=== PATIENT | female | born 1945 | race Caucasian/White ===

== ENCOUNTER 2021-05-25 10:00 | Emergency (ER) | payer MEDICARE, OTHER, SELFPAY ==
[2021-05-25] VITALS (25 sets, daily range): BP systolic 110–164; BP diastolic 46–96; PULSE 60–96; RESP 11–31; TEMP 36.5; O2SAT 90–98
--- NOTE | 2021-05-25 10:10 | ED.GENADUL_ITS ---
Discharge Plan Disposition Patient Disposition: HOME Condition: Stable Discharge Details Clinical Impression: Abdominal pain, Pyelonephritis Primary Care Provider: Unknown,Unknown ED Provider: Earl Rea Home Meds and New Rx's Prescriptions: New levofloxacin 750 mg tablet 750 mg PO DAILY Qty: 5 RF: 0 Continued trandolapril 4 mg Tablet 4 mg PO DAILY RF: 0 atorvastatin 10 mg Tablet 10 mg PO DAILY RF: 0 isosorbide mononitrate 30 mg Tablet Extended Release 24 Hr 30 mg PO DAILY RF: 0 metoprolol succinate 25 mg Tablet Extended Release 24 Hr 25 mg PO DAILY RF: 0 metformin 500 mg Tablet Extended Release 24hr 500 mg PO BID RF: 0 hydrochlorothiazide 12.5 mg Tablet 12.5 mg PO DAILY RF: 0 Discharge Instructions Instructions: Urinary Tract Infection in Women (ED) Additional Instructions: your blood work showed a mild low magnesium otherwise was unremarkable your cat scan showed you likely have a kidney infection and your urine also was consistent with this. There is a chance this could have been a small kidney stone that passed as well follow up with your primary care provider within 1 week if you feel more ill, have severe worsening pain or persistent vomit return to the emergency department Medical Decision Making 76 yo female with hx of dm, htn, hld, denies prior abdominal surgeries, comes in with 3 hours of right sided abdominal pain with dry heaving. She states the pain started shortly after she started to dry heave. She went to bed feeling well then woke up with the symptoms. She rates the pain at 8/10 and is on the right side. She has tenderness in the right upper and lower abdomen. No left sided pain. No chest pain, dyspnea or fevers or cough. Given her location of pain concern for cholecystitis vs appendicitis, will obtain labs to evaluate for pancreatitis, hepatitis and ct to further evaluate pt now asymptomatic and lab work unremarkable other than UA which shows likely uti. Her CT does show mild perinephric stranding around right kidney, which could be from pyelo but given acute onset pain she had earlier suspect she may have had a small stone. She has no abodminal tenderness on exam anymore, doubt cholecystitis and has negative jefferson's sign. She feels well enough for outpatient tx of her pyelo and will start levofloxacin. Advised to f/u with pcp and return precautions given Differential Diagnosis Differential Diagnosis: appendicitis, kidney stone, cholecystitis Imaging Data Radiologic Study: Attestation: I personally reviewed and interpreted this imaging study as follows: Imaging: CT Scan Radiologist's impression: IMPRESSION: 1. There is mild asymmetric perinephric stranding of the right renal kidney. Correlate with urinalysis to exclude urinary tract infection. 2. 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 3. Mesenteric vessels are patent without significant stenosis or occlusion. 4. Colonic diverticulosis without acute inflammation. 5. Small fat containing umbilical hernia. 6. Cholelithiasis without definite acute inflammation. Lab Data Lab results reviewed: Yes I reviewed the patient's lab results. HPI General Mode of arrival: wheelchair . Date/Time Provider Initiated Documentation: 05/25/21 10:01 . Limitations to Documentation: no limitations . Information obtained by: patient . History of Present Illness 76 year old F presents to the emergency department with the chief complaint of abdominal pain, described as severe, Quality is described as sharp, and is localized to the abdomen. Patient reports no radiation. and it has been constant. No relieving factors improve symptom(s), No exacerbating factors reported . Patient did receive the following treatments prior to arrival, none Related Data Home Medications Medication Instructions Recorded Confirmed atorvastatin 10 mg PO DAILY 05/25/21 05/25/21 hydrochlorothiazide 12.5 mg PO DAILY 05/25/21 05/25/21 isosorbide mononitrate 30 mg PO DAILY 05/25/21 05/25/21 levofloxacin 750 mg PO DAILY #5 tab 05/25/21 metformin 500 mg PO BID 05/25/21 05/25/21 metoprolol succinate 25 mg PO DAILY 05/25/21 05/25/21 trandolapril 4 mg PO DAILY 05/25/21 05/25/21 Previous Rx's Medication Instructions Recorded levofloxacin 750 mg PO DAILY #5 tab 05/25/21 Allergies Allergy/AdvReac Type Severity Reaction Status Date / Time bupropion [From Zyban] Allergy Unverified 05/25/21 11:09 clindamycin Allergy Unverified 05/25/21 11:08 gemfibrozil Allergy Unverified 05/25/21 10:12 niacin Allergy Unverified 05/25/21 11:08 [From Niaspan Extended-Release] Penicillins Allergy Unverified 05/25/21 10:10 General Stated Complaint: Abd Prob JESSI: 3 Review of Systems All systems reviewed & are unremarkable except as noted in HPI and below Constitutional Constitutional: Denies chills, Denies fever(s) and Denies weakness Cardiovascular Cardiovascular: Denies chest pain and Denies dyspnea Respiratory Respiratory: Denies cough and Denies dyspnea Genitourinary Genitourinary: Denies dysuria Musculoskeletal Musculoskeletal: Denies joint swelling Integumentary/Breasts Skin/Breast: Denies rash Neurologic Neurologic: Denies weakness [facility] Social History Smoking/Tobacco Use Status: Current every day Tobacco Type: cigarettes Smoking risk assessment performed?: Yes Alcohol Intake: never Substance use type: does not use Exam Const General: no acute distress Orientation: alert HENMT Head: normal to inspection Ears: external ears normal General nose exam: external nose normal Mouth: moist mucous membranes Eyes General: appearance normal, both eyes and all related structures Neck Neck: normal visual inspection Resp Effort & Inspection: normal respiratory effort and able to speak in complete sentences Cardio Rate: regular rate GI Palpation: soft and tender Skin General skin exam: no rashes or lesions noted Neuro General: patient alert and patient oriented x3 Extrem General: normal to inspection Psych Mental Status: mental status grossly normal Course Vital Signs Vital signs: Vital Signs Temperature 36.5 C 05/25/21 10:06 Pulse 67 05/25/21 10:06 Respiratory Rate 16 05/25/21 10:06 Blood Pressure 164/64 H 05/25/21 10:06 Pulse Oximetry 94 05/25/21 10:06 Temperature 36.5 C 05/25/21 10:06 Temperature Source Skin 05/25/21 10:06 Pulse 67 05/25/21 10:06 Respiratory Rate 16 05/25/21 10:06 Respiratory Effort Non-Labored 05/25/21 10:06 Blood Pressure 164/64 H 05/25/21 10:06 Blood Pressure Position Supine 05/25/21 10:06 Pulse Oximetry 94 05/25/21 10:06 Oxygen Delivery Method Room Air 05/25/21 10:06 Oxygen Flow Rate 0 05/25/21 10:06 Pain Level 8 05/25/21 10:06
[2021-05-25 10:27] LABS: Abs Immature Grans 0.04 10^3/uL (0.0-0.06); Absolute Lymphocyte Count 1.75 10^3/uL (1.2-3.4); Absolute Monocyte Count 0.51 10^3/uL (0.1-0.8); Absolute Neutrophil Count 10.67 10^3/uL (1.2-6.7); Basophils % 0.4; Eosinophils % 3.1; HCT 41.7 % (36.0-46.0); HGB 13.6 g/dL (11.2-15.7); Immature Grans % 0.3; Lactate 1.2 mmol/L (0.6-1.4); MCH 30.3 pg (27.0-33.0); MCHC 32.6 % (32.0-36.0); MCV 92.9 fL (80-95); MPV 10.2 fL (8.0-11.0); Monocytes % 3.8; Neutrophils % 79.4; Nucleated RBC 0 %; Platelet Count 216 10^3/uL (130-400); RBC 4.49 10^6/uL (3.93-5.22); RDW-SD 44.2 fL; WBC 13.44 10^3/uL (4.4-10.8)
[2021-05-25 10:31] LABS: Absolute Basophil Count 0.05 10^3/uL (0.0-0.2); Absolute Eosinophil Count 0.42 10^3/uL (0.0-0.7)
[2021-05-25 10:44] LABS: INR 1.1 (0.9-1.1); PTT Activated 24.2 sec (21.0-27.5)
[2021-05-25] MEDS: fentaNYL 100 MCG/2 ML VIAL 50 MCG IVP (10:50)
[2021-05-25 10:57] LABS: ALT 16 U/L (14-59); AST 18 U/L (15-37); Albumin 3.7 g/dL (3.4-5.0); Alkaline Phosphatase 59 U/L (46-116); Anion Gap 6.5 mmol/L (3-11); BUN 15 mg/dL (7-18); Bilirubin, Direct 0.1 mg/dL (0.0-0.2); Bilirubin, Total 0.5 mg/dL (0.2-1.0); CO2 30.5 mmol/L (21.0-32.0); CREATININE 0.9 mg/dL (0.55-1.02); Calcium 8.6 mg/dL (8.5-10.1); Chloride 105 mmol/L (98-107); Glucose 96 mg/dL (74-106); Lipase 163 U/L (73-393); Magnesium 1.6 mg/dL (1.8-2.4); Potassium 3.6 mmol/L (3.5-5.1); Sodium 142 mmol/L (136-145); Total Protein 7.7 g/dL (6.4-8.2)
[2021-05-25] MEDS: MAGNESIUM SULFATE 2 GM/50 ML BAG IVPB (11:19)
[2021-05-25] MEDS: Omnipaque 350 MG/ML 100 ML BTL IJ (12:07)
[2021-05-25] MEDS: Normal Saline - Diluent 50 ML VIAL IV (12:08)
[2021-05-25] MEDS: Normal Saline Flush 10 ML SYR IVP (12:08)
--- NOTE | 2021-05-25 12:10 | DI.CT_ITS ---
Exam(s) CT ABDOMEN PELVIS CTA EXAM: CT ABDOMEN PELVIS CTA CLINICAL HISTORY: ?mesenteric ischemia. TECHNIQUE: Imaging Protocol: Axial CT angiography was performed with multi-slice acquisition and m ulti-planar and/or 3D reconstructions. CONTRAST MATERIAL: Intravenous: Omnipaque 350 Contrast volume:100 mL Oral: No COMPARISON: No exams were available for comparison FINDINGS: ABDOMEN AND PELVIS: Abdomen: Celiac axis/mesenteric arteries: No evidence of occlusion or significant stenosis. Renal Arteries: No evidence of occlusion or significant stenosis. There is a single renal artery perf using each kidney. Aorta: No evidence of occlusion or significant stenosis. No aneurysm or dissection. Atherosclerosis. Pelvis: Iliac Arteries: No evidence of occlusion or significant stenosis. Atherosclerosis. Common Femoral Arteries: No evidence of occlusion or significant stenosis. Atherosclerosis. ABDOMEN: Lung bases: Dependent atelectasis. Liver: Normal density. There are simple hepatic cysts. No follow-up is recommended. Portal, Superior Mesenteric, and Splenic Veins: Unremarkable. Gallbladder and Biliary Tract: Cholelithiasis. No biliary ductal dilatation. Pancreas: Normal density, no abnormal calcifications or inflammatory process. Spleen: Normal. Adrenals: No masses seen. Kidneys: Normal size, contour and axis. No radiodense stones or obstructive uropathy. 8 mm round hypo density in the midpole of the left kidney likely reflecting a cyst. No follow-up is recommended. Th ere is mild enhancement of the wall of the right renal collecting system. No hydronephrosis is seen. There is mild stranding around the right of renal pelvis, proximal ureter and right perinephric spa ce. Bowel: No obstruction or bowel wall thickening. No evidence of appendicitis. Sigmoid diverticulosis, but no evidence of acute diverticulitis. There is a large amount of stool throughout the colon sugg esting constipation. Peritoneal Cavity: No ascites, collection or mesenteric inflammatory response. No free air. Lymph Nodes: Within normal limits. Bones: Within normal limits. Soft Tissues: There is a small fat containing umbilical hernia. PELVIS: Bladder: Symmetric distention, no gross wall thickening. Reproductive Organs: Unremarkable as visualized. Lymph Nodes: Within normal limits. Bones: Within normal limits. IMPRESSION: 1. Mild enhancement of the wall of the right renal collecting system with mild perinephric and periur eteral stranding. A urinary tract infection should be considered. There is no evidence of nephrolit hiasis or hydronephrosis. 2. Mesenteric vessels are patent. No evidence of stenosis or occlusion. 3. Cholelithiasis without CT evidence of acute cholecystitis. RADIATION DOSE DELIVERED: 1,288.6mGy.cm Total DLP DATA REPOSITORY: All CT scans at this facility are submitted to the National Radiology Data Registry (NRDR) Dose Index Registry (DIR) with the [employer] (ACR). RADIATION OPTIMIZATION: All CT scans at this facility use at least one of these dose optimization te chniques: automated exposure control; mA and/or kV adjustment per patient size (includes targeted exa ms where dose is matched to clinical indication); or iterative reconstruction.
[2021-05-25 12:27] LABS: Bilirubin Negative (Negative); Blood Large (Negative); Clarity Sl Cloudy (Clear); Glucose Negative (Negative); Ketones Negative (Negative); Leukocyte Esterase Negative (Negative); Nitrite Negative (Negative); Urobilinogen 0.2 EU/dL (Up TO 0.2); pH 5.5 (5-8)
[2021-05-25 12:34] LABS: Bacteria Many HPF (Negative); C & S Indicated? Yes; Casts Negative LPF (Negative); Crystals Negative HPF (Negative); Epithelial Cells Few HPF (Negative); Mucus Trace (Negative); RBC >50 HPF (0-2)
--- NOTE | 2021-05-25 12:50 | DI.VRAD_ITS ---
PROCEDURE INFORMATION: Exam: CTA Abdomen and Pelvis With Contrast Exam date and time: 05/25/2021 10:35 AM Age: 76 years old Clinical indication: Other: ? Mesenteric ischemia TECHNIQUE: Imaging protocol: Computed tomographic angiography of the abdomen and pelvis with contrast material. 3D rendering (Not supervised by radiologist): MIP and/or 3D reconstructed images were created by the technologist. Contrast material: OMNIPAQUE 350; Contrast volume: 100 ml; Contrast route: INTRAVENOUS (IV); COMPARISON: No relevant prior studies available. FINDINGS: Aorta: There are calcified and noncalcified plaque in the abdominal aorta. There is a 2.5 cm abdominal aortic ectasia in the infrarenal abdominal aorta . Celiac trunk and mesenteric arteries: No occlusion or significant stenosis. 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 Renal arteries: No occlusion or significant stenosis. Right iliac arteries: No occlusion or significant stenosis. Left iliac arteries: No occlusion or significant stenosis. Liver: There is a 1.8 cm hypodensity in the right lobe of the liver, probably a cyst. There is a 0.8 cm hypodensity in the posterior segment 4 of the right lobe of the liver, probably a cyst. Gallbladder and bile ducts: There is cholelithiasis without acute inflammation. There is a focal gallbladder wall thickening in the fundal wall, possibly due to adenomyomatosis (image 26 series 4).. Pancreas: Unremarkable. No mass. No ductal dilation. Spleen: Unremarkable. No splenomegaly. Adrenal glands: There is a 1.5 cm nodule in the left adrenal gland, probably adenoma or hyperplastic nodule. Kidneys and ureters: There is mild right perinephric fat stranding. There is mild urothelial enhancement of the right renal pelvis, probably reactive. No hydronephrosis or nephrolithiasis. Stomach and bowel: [id number] stool volume in the colon. Mild scattered foci of diverticulosis of large bowel without acute inflammation. Appendix: No evidence of appendicitis. Intraperitoneal space: Unremarkable. No free air. No significant fluid collection. Lymph nodes: Unremarkable. No enlarged lymph nodes. Urinary bladder: Unremarkable. No mass. Reproductive: Unremarkable as visualized. Bones/joints: There is grade 1 anterolisthesis of L4 over L5. Soft tissues: There is a small fat containing umbilical hernia. IMPRESSION: 1. There is mild asymmetric perinephric stranding of the right renal kidney. Correlate with urinalysis to exclude urinary tract infection. 2. 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 3. Mesenteric vessels are patent without significant stenosis or occlusion. 4. Colonic diverticulosis without acute inflammation. 5. Small fat containing umbilical hernia. 6. Cholelithiasis without definite acute inflammation. Dictated and Authenticated by: Kings Keith MD. Ordering:HARDIK Elliott MD
[2021-05-25] MEDS: levoFLOXacin 500 MG, levoFLOXacin 250 MG 750 MG PO (13:04)
== END 2021-05-25 13:53 | disposition home or self-care (01) ==
PROVIDERS: Emergency Provider Emergency Medicine
DX: N10 Acute pyelonephritis (principal); B96.20 Unspecified Escherichia coli [E. coli] as the cause of diseases classified elsewhere; R10.11 Right upper quadrant pain; R10.31 Right lower quadrant pain; E83.42 Hypomagnesemia
CPT/HCPCS: 36415; 80053; 83690; 87077; 96365; 96375; 99285; 74174; 81003; 81015; 82247; 82248; 83605; 83735; 85025; 85610; 85730; 87086; 87186; 99284; J3010; J3490

== ENCOUNTER 2024-08-09 15:54 | Inpatient (IN) | payer MEDICARE, OTHER, SELFPAY ==
[2024-08-09] VITALS (47 sets, daily range): BP systolic 68–145; BP diastolic 26–100; PULSE 61–127; RESP 10–38; TEMP 35.8–38.2; O2SAT 91–100
--- NOTE | 2024-08-09 16:00 | DI.CT_ITS ---
Exam(s) CT ABDOMEN PELVIS W EXAM: CT ABDOMEN PELVIS W CLINICAL HISTORY: Vomiting, diarrhea, lower pelvic pain. TECHNIQUE: Imaging Protocol: Axial computed tomography images with coronal and sagittal reformatted images were created and reviewed CONTRAST MATERIAL: Intravenous: Omnipaque-350 75cc Oral: None COMPARISON: CT CT ABDOMEN PELVIS CTA from 05/25/2021 FINDINGS: VISUALIZED LUNG BASES: There are mild benign-appearing increased markings in the anterior basal segme nt of the right lower lobe at the lung base level. There are no pleural effusions.. ABDOMEN: Images of the abdomen are somewhat degraded by respiratory motion artifact. However, there appears t o be a very small amount of ascitic fluid around the superior aspect of the right hepatic lobe. GE j unction is blurred from respiratory motion artifact. LIVER: There are 2 stable right hepatic lobe cysts which appear unchanged from 2020. No new focal hep atic lesions nor dilated intrahepatic ducts. GALLBLADDER/BILIARY: There is cholelithiasis again noted two calcified gallstones measuring approxima tely 1 cm each are noted in the gallbladder lumen. Gallbladder is mildly distended but unchanged fro m 2020. Difficult to assess for gallbladder wall edema and mild pericholecystic fluid because of the amount of respiratory motion artifact here. There is no obvious dilatation of the CBD. PANCREAS: No evidence of pancreatic mass nor dilatation of the pancreatic duct. SPLEEN: Spleen is not enlarged. No obvious intrasplenic lesions. Splenic and portal veins are paten t. ADRENALS: Slight thickening of the medial limb of the left adrenal gland noted. No other adrenal fin dings. KIDNEYS:There is a benign cyst in the inferior pole of the right kidney noted which measures 1.5 x 1. 4 cm, slightly larger than 202 but nevertheless benign and not requiring further workup. Smaller cy st is also noted in the midpole level of the opposite-left kidney measuring 1 cm. These bilateral re nal cysts do not require further imaging workup. There are no solid renal masses. There are no radi opaque calculi in the kidneys nor hydronephrosis.. ABDOMINAL AORTA: Abdominal aorta is atherosclerotic and there is a fusiform infrarenal [facility] abdominal aortic aneurysm which exhibits maximum diameter of only 2.5 cm. The common iliac arteri es are calcified but not enlarged. Superior mesenteric artery is patent. 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 LYMPH NODES:There are multiple small sub cm lymph nodes in the retroperitoneum and para-aortic region above the level the renal arteries. There is no adenopathy around the aortic bifurcation nor along the iliac chains and there is no inguinal adenopathy. ABDOMINAL WALL: No evidence of significant anterior abdominal wall nor inguinal hernia. GI: There is a small fat only containing paraumbilical hernia. No other anterior abdominal hernias. No significant inguinal hernias. The stomach is not distended duodenum not distended. There are fluid filled and slightly prominent s mall bowel loops in the pelvis above the urinary bladder, these exhibiting diameter of 2.4 cm. There is also fluid in the right-side of the colon and terminal ileum. There is also fluid throughout the transverse colon; less so in the descending colon where there appears to be a mild I ileus pattern w hich is probably exaggerated by under distension. There are few sigmoid diverticuli but without evid ence of obvious acute diverticulitis. PELVIS: GI: No evidence of appendicitis.No evidence of sigmoid diverticulitis. LYMPH NODES: See above REPRODUCTIVE: Uterus and adnexal regions appear age-appropriate. No free fluid in the pelvis. URINARY BLADDER: Collapsed and difficult to evaluate. No obvious radiopaque calculi in the collapsed urinary bladder lumen. The pelvic ureters are not dilated. OSSEOUS: No fractures and no significant osseous lesions. There is mild degenerative anterolisthesis of L4 upon L5. Multilevel spinal canal stenosis. IMPRESSION: 1. Examination interpretation is somewhat limited by motion artifact 2. Calcified gallstones are noted. The amount of respiratory motion here prevents adequate visualiza tion of the gallbladder wall to determine if there is gallbladder wall edema. The CBD does not appea r dilated. 3. 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 Common iliac arteries are also calcified but not enlarged. 4. There are fluid-filled small and large bowel loops probably diarrhea state and there also appears to be a colitis type pattern involving the sigmoid in left side of the colon. Multiple small bowel l oops are slightly dilated although measuring less than 3 cm. These also contain fluid content. 5. No evidence of appendicitis nor diverticulitis. 6. There appears to be significant atherosclerotic narrowing at the origin the celiac artery under i nterested prior images of 2020. The superior mesenteric artery is patent and without stenosis. Ther e are no large meandering mesenteric vessels. Findings discussed by phone with ER physician 08/09/2024 at 5:30 p.m. RADIATION DOSE DELIVERED: 678.68mGy.cm Total DLP DATA REPOSITORY: All CT scans at this facility are submitted to the National Radiology Data Registry (NRDR) Dose Index Registry (DIR) with the [employer] (ACR). RADIATION OPTIMIZATION: All CT scans at this facility use at least one of these dose optimization te chniques: automated exposure control; mA and/or kV adjustment per patient size (includes targeted exa ms where dose is matched to clinical indication); or iterative reconstruction.
--- NOTE | 2024-08-09 16:25 | ED.GENADUL_ITS ---
Discharge Plan Disposition Patient Disposition: Admit to [facility] Condition: Improving Discharge Details Chief Complaint: GenMedical Clinical Impression: C. difficile colitis, Sepsis, Elevated LDH Primary Care Provider: Unknown,Unknown ED Provider: Filiberto Henning Home Meds and New Rx's Prescriptions: No Action trandolapril 4 mg Tablet 4 mg PO DAILY atorvastatin 10 mg Tablet 10 mg PO DAILY isosorbide mononitrate 30 mg Tablet Extended Release 24 Hr 30 mg PO DAILY metoprolol succinate 25 mg Tablet Extended Release 24 Hr 25 mg PO DAILY hydrochlorothiazide 12.5 mg Tablet 12.5 mg PO DAILY HPI General Date/Time Provider Initiated Documentation: 08/09/24 15:55 . HPI Narrative: This is an 87-year-old female with a past medical history of colitis, high cholesterol, diabetes, hypertension, tobacco use, dementia, who is DNR/DNI, who presents today for nausea vomiting diarrhea and abdominal pain. Daughter is at bedside. Per family the patient had an explosive episode of nausea vomiting and diarrhea an hour or 2 ago. There was no blood in this. She then began complaining of severe lower abdominal pain. She was subsequently brought to the ER. Family states that she is confused and out of it compared to normal. Normally she is quite spunky. They deny any other sick contacts. No other complaints at this time. Related Data Home Medications ?Medication ?Instructions ?Recorded ?Confirmed atorvastatin 10 mg tablet 10 mg PO DAILY 05/25/21 08/09/24 hydrochlorothiazide 12.5 mg tablet 12.5 mg PO DAILY 05/25/21 08/09/24 isosorbide mononitrate 30 mg 30 mg PO DAILY 05/25/21 08/09/24 tablet,extended release 24 hr metoprolol succinate 25 mg 25 mg PO DAILY 05/25/21 08/09/24 tablet,extended release 24 hr trandolapril 4 mg tablet 4 mg PO DAILY 05/25/21 08/09/24 Allergies Allergy/AdvReac Type Severity Reaction Status Date / Time tramadol Allergy Mild Unknown Unverified 08/09/24 18:10 bupropion (From Zyban) Allergy Unknown Unverified 08/09/24 18:10 clindamycin Allergy Unknown Unverified 08/09/24 18:10 gemfibrozil Allergy Unknown Unverified 08/09/24 18:10 niacin (From Niaspan Allergy Unknown Unverified 08/09/24 18:10 Extended-Release) Penicillins Allergy Unknown Unverified 08/09/24 18:10 General Stated Complaint: GenMedical JESSI: 3 Exam Narrative Exam Narrative: 1.Const: Well-nourished, Well-developed, appearing stated age 2.Eyes: PERRL, no conjunctival injection, and symmetrical lids. 3.ENT: Atraumatic external nose and ears. Moist MM. Neck: Symmetric, trachea midline, No thyromegaly. 4.CVS: +S1/S2, Peripheral pulses 2+ and equal in all extremities. Brisk capillary refill in all extremities. 5.RESP: Unlabored respiratory effort. Clear to auscultation bilaterally. No wheezes rales or rhonchi 6.GI: Soft, nondistended, no guarding or rebound, mild tenderness in the lower abdomen. No pulsatile mass. 7.MSK: Normocephalic/Atraumatic, Extremities w/o deformity or ttp No cyanosis or clubbing, Normal movement of all extremities 8.Skin: Warm, Dry. No rashes or lesions. 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 Sensation grossly intact, no focal neurologic deficits. 10.Psych: (AAO) x0. Pleasant but in pain Course Vital Signs Vital signs: Vital Signs Temperature 35.8 C L 08/09/24 15:58 Pulse 73 08/09/24 15:58 Respiratory Rate 21 08/09/24 15:58 Blood Pressure 98/71 L 08/09/24 15:58 Pulse Oximetry 95 08/09/24 15:58 Temperature 35.8 C L 08/09/24 15:58 Temperature Source Tympanic 08/09/24 15:58 Pulse 73 08/09/24 15:58 Respiratory Rate 21 08/09/24 15:58 Blood Pressure 98/71 L 08/09/24 15:58 Blood Pressure Position Supine 08/09/24 15:58 Pulse Oximetry 95 08/09/24 15:58 Oxygen Delivery Method Room Air 08/09/24 15:58 Oxygen Flow Rate 0 08/09/24 15:58 Lab/Test Results Lab/Test Results: 08/09/24 16:10 Blood Blood Culture - Pending 08/09/24 16:10 Blood Blood Culture - Pending Medical Decision Making This is an 87-year-old female with a past medical history of colitis, high cholesterol, diabetes, hypertension, tobacco use, dementia, who is DNR/DNI, who presents today for nausea vomiting diarrhea and abdominal pain. Daughter is at bedside. Per family the patient had an explosive episode of nausea vomiting and diarrhea an hour or 2 ago. There was no blood in this. She then began complaining of severe lower abdominal pain. She was subsequently brought to the ER. Family states that she is confused and out of it compared to normal. Normally she is quite spunky. They deny any other sick contacts. No other complaints at this time. Exam demonstrates a small and somewhat frail elderly female, blood pressure is mildly low in the 90s systolic. Mild abdominal pain in the lower abdomen, no guarding or rebound though. Somewhat dry mucous membranes. No pulsatile mass in the abdomen, intact distal pulses. Differential is broad but includes colitis, obstruction, dissection or AAA. Pyelonephritis or UTI is of concern. 6:42 PM Laboratory workup has returned, notably elevated white count at 21.9, initial lactate was very high at 4.1, notable left shift without bandemia. Electrolytes relatively stable, creatinine 1.6, GFR 32, lipase normal. Patient was rehydrated secondary to a notably elevated lactate. Pain completely resolved after 4 mg of morphine. After fluids and pain medication patient had a notable clinical change, heart rate stabilized, blood pressure normalized, she was interactive and talkative. CT imaging has returned and shows evidence of colitis. There is a small aortic aneurysm but it is within the limits of normal. There is no evidence of dissection or aneurysmal rupture. Patient was started on Cipro and Flagyl. Repeat lactate was drawn and is down to 2.6. Patient's stool studies then returned and were positive for C. difficile. She was given 500 mg of oral vancomycin. Because of the patient's age, comorbidities and symptomatology I do feel admission is indicated. Patient will be admitted for further management. Discussed the case with hospitalist Dr. Gallardo, he agrees with the assessment and plan. I have extensively reviewed the treatment plan with the patient. I have addressed all patient concerns at this time. I have also discussed the plan with the admitting physician and they agree with the current assessment and plan and have agreed to assume responsibility for the patient. All parties demonstrate verbal understanding and agreement with our assessment and plan at this time. The documentation in this chart was dictated using Estorian dictation software. Please excuse any dictation errors. FINDINGS: VISUALIZED LUNG BASES: There are mild benign-appearing increased markings in the anterior basal segment of the right lower lobe at the lung base level. There are no pleural effusions.. ABDOMEN: Images of the abdomen are somewhat degraded by respiratory motion artifact. However, there appears to be a very small amount of ascitic fluid around the superior aspect of the right hepatic lobe. GE junction is blurred from respiratory motion artifact. LIVER: There are 2 stable right hepatic lobe cysts which appear unchanged from 2021. No new focal hepatic lesions nor dilated intrahepatic ducts. GALLBLADDER/BILIARY: There is cholelithiasis again noted two calcified gallstones measuring approximately 1 cm each are noted in the gallbladder lumen. Gallbladder is mildly distended but unchanged from 2021. Difficult to assess for gallbladder wall edema and mild pericholecystic fluid because of the amount of respiratory motion artifact here. There is no obvious dilatation of the CBD. PANCREAS: No evidence of pancreatic mass nor dilatation of the pancreatic duct. SPLEEN: Spleen is not enlarged. No obvious intrasplenic lesions. Splenic and portal veins are patent. ADRENALS: Slight thickening of the medial limb of the left adrenal gland noted. No other adrenal findings. KIDNEYS:There is a benign cyst in the inferior pole of the right kidney noted which measures 1.5 x 1.4 cm, slightly larger than 2021 but nevertheless benign and not requiring further workup. Smaller cyst is also noted in the midpole level of the opposite-left kidney measuring 1 cm. These bilateral renal cysts do not require further imaging workup. There are no solid renal masses. There are no radiopaque calculi in the kidneys nor hydronephrosis.. ABDOMINAL AORTA: Abdominal aorta is atherosclerotic and there is a fusiform infrarenal our glass shaped abdominal aortic aneurysm which exhibits maximum diameter of only 2.5 cm. The common iliac arteries are calcified but not enlarged. Superior mesenteric artery is patent. 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 LYMPH NODES:There are multiple small sub cm lymph nodes in the retroperitoneum and para-aortic region above the level the renal arteries. There is no adenopathy around the aortic bifurcation nor along the iliac chains and there is no inguinal adenopathy. ABDOMINAL WALL: No evidence of significant anterior abdominal wall nor inguinal hernia. GI: There is a small fat only containing paraumbilical hernia. No other anterior abdominal hernias. No significant inguinal hernias. The stomach is not distended duodenum not distended. There are fluid filled and slightly prominent small bowel loops in the pelvis above the urinary bladder, these exhibiting diameter of 2.4 cm. There is also fluid in the right-side of the colon and terminal ileum. There is also fluid throughout the transverse colon; less so in the descending colon where there appears to be a mild I ileus pattern which is probably exaggerated by under distension. There are few sigmoid diverticuli but without evidence of obvious acute diverticulitis. PELVIS: GI: No evidence of appendicitis.No evidence of sigmoid diverticulitis. LYMPH NODES: See above REPRODUCTIVE: Uterus and adnexal regions appear age-appropriate. No free fluid in the pelvis. URINARY BLADDER: Collapsed and difficult to evaluate. No obvious radiopaque calculi in the collapsed urinary bladder lumen. The pelvic ureters are not dilated. OSSEOUS: No fractures and no significant osseous lesions. There is mild degenerative anterolisthesis of L4 upon L5. Multilevel spinal canal stenosis. IMPRESSION: 1. Examination interpretation is somewhat limited by motion artifact 2. Calcified gallstones are noted. The amount of respiratory motion here prevents adequate visualization of the gallbladder wall to determine if there is gallbladder wall edema. The CBD does not appear dilated. 3. 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 Common iliac arteries are also calcified but not enlarged. 4. There are fluid-filled small and large bowel loops probably diarrhea state and there also appears to be a colitis type pattern involving the sigmoid in left side of the colon. Multiple small bowel loops are slightly dilated although measuring less than 3 cm. These also contain fluid content. 5. No evidence of appendicitis nor diverticulitis. 6. There appears to be significant atherosclerotic narrowing at the origin the celiac artery under interested prior images of 2020. The superior mesenteric artery is patent and without stenosis. There are no large meandering mesenteric vessels. Findings discussed by phone with ER physician 08/09/2024 at 5:30 p.m. Quality:SDOH Health Related Social Needs: No Data to Display PFSH All Active Problems (Updated 08/09/24 @ 18:47 by Filiberto Henning DO) Elevated LDH (Acute) Sepsis (Acute) C. difficile colitis (Acute) Dementia (Chronic) ASVD (arteriosclerotic vascular disease) (Acute) CAD (coronary artery disease), [place] coronary artery (Chronic) HTN (hypertension) (Chronic) C. difficile colitis (Acute) Pyelonephritis (Acute) Abdominal pain (Acute) Social History Smoking/Tobacco Use Status: Current every day Tobacco Type: cigarettes Smoking risk assessment performed?: Yes Alcohol Intake: never Drug use: Never Substance use type: does not use Do you feel safe at home: Yes Do you feel safe in your relationship?: Yes
--- NOTE | 2024-08-09 16:30 | RT.EKG_ITS ---
APPROVED REPORT Exam: Resting ECG Reason for Exam: rapid heart rate Patient Location: E HR:63 bpm ECG Measurements Heart Rate 63 AXIS WV 158 P 59 QRSd 85 QRS 48 QT 439 T -9 QTc 449 Conclusion Sinus rhythm...normal P axis, V-rate 60- 99 Ventricular premature complex...V complex w/ short R-R interval I have reviewed and interpreted ECG and agree with software generated interpretation.
[2024-08-09] MEDS: Ondansetron 4 MG/2 ML VIAL IVP (16:35)
[2024-08-09] MEDS: Lactated Ringers 1,000 ML 1000 ML IV (16:35)
[2024-08-09] MEDS: MORPHine 4 MG/ML SYR IVP (16:36)
[2024-08-09 16:39] LABS: Abs Immature Grans 0.11 10^3/uL (0.0-0.06); Absolute Basophil Count 0.07 10^3/uL (0.0-0.2); Absolute Eosinophil Count 0.13 10^3/uL (0.0-0.7); Absolute Lymphocyte Count 2.13 10^3/uL (1.2-3.4); Absolute Monocyte Count 1.36 10^3/uL (0.1-0.8); Absolute Neutrophil Count 18.14 10^3/uL (1.2-6.7); Basophils % 0.3 %; Eosinophils % 0.6 %; HCT 47.6 % (36.0-46.0); HGB 15.6 g/dL (11.2-15.7); Immature Grans % 0.5 %; Lymphocytes % 9.7 %; MCH 30.5 pg (27.0-33.0); MCHC 32.8 % (32.0-36.0); MCV 93 fL (80-95); MPV 9.9 fL (8.0-11.0); Monocytes % 6.2 %; Neutrophils % 82.7 %; Platelet Count 254 10^3/uL (130-400); RBC 5.12 10^6/uL (3.93-5.22); RDW 13.2 % (11.7-14.6); RDW-SD 45.4 fL; WBC 21.93 10^3/uL (4.4-10.8)
[2024-08-09 16:41] LABS: Lactate 4.1 mmol/L (0.6-1.4)
[2024-08-09] MEDS: Omnipaque 350 MG/ML 100 ML BTL 75 ML IJ (16:43)
[2024-08-09] MEDS: Normal Saline - Diluent 50 ML VIAL IJ (16:45)
[2024-08-09 17:02] LABS: ALT 15 U/L (14-59); AST 22 U/L (15-37); Albumin 3.9 g/dL (3.4-5.0); Alkaline Phosphatase 88 U/L (46-116); Anion Gap 15.3 mmol/L (3-11); BUN 24 mg/dL (7-18); Bilirubin, Total 0.78 mg/dL (0.2-1.0); CO2 25.7 mmol/L (21.0-32.0); CREATININE 1.6 mg/dL (0.55-1.02); Chloride 104 mmol/L (98-107); Glucose 170 mg/dL (74-106); Lipase 61 U/L (<78); Sodium 145 mmol/L (136-145); Total Protein 7.8 g/dL (6.4-8.2)
[2024-08-09 17:02] LABS: COVID-19 PCR Negative (Negative); Influenza A PCR Negative (Negative); Influenza B PCR Negative (Negative); RSV PCR Negative (Negative)
[2024-08-09 17:03] LABS: Source Nasopharynx
[2024-08-09 17:05] LABS: Calcium 9.1 mg/dL (8.5-10.1)
[2024-08-09] MEDS: CIPROFLOXACIN 400 MG/200 ML BAG 200 MG IVPB (17:55)
[2024-08-09 17:57] LABS: C Diff PCR Positive (Negative)
[2024-08-09 18:01] LABS: Lactate 2.6 mmol/L (0.6-1.4)
--- OUTSIDE RECORDS SUMMARY | 2024-08-09 18:25 | XMS_ITS | Encounter Summary ---
Author Organization [facility] Address [address] [place] [address] Care Team Providers Care Barrel Rifler Button Name Role Phone Unknown, Provider Primary Care Provider Unava ilable Encounter Details Date Type Department Care Team (Latest Contact Info) Description 09/15/2016 13:19 EST - 09/15/2016 23:59 EST Hospital Encounter [facility] [address] [place] [address] Unknown, ProviderMD Discharge Disposition: Home or Self Care Social History Tobacco Use Types Packs/Day Years Used Date Smoking Tobacco: Never Assessed Comments Unknown Sex and Gender Information Value Date Recorded Sex Assigned at Not on file Legal Sex Female 18:02 EST Gender Identity Not on file Sexual Orientation Not on file documented as of this encounter Discharge Disposition Disposition Code Departure Means Destination Home or Self Fpc documented in this encounter Plan of Treatment Not on file documented as of this encounter Visit Diagnoses Not on filedocumented in this encounter Care Teams Barrel Rifler Button Relationship Specialty Start Date End Date Unknown, Provider, PCP - General 09/05/13 09/23/19 documented as of this encounter
--- OUTSIDE RECORDS SUMMARY | 2024-08-09 18:25 | XMS_ITS | Encounter Summary ---
Author Organization [facility] Address [address] [place] [address] Care Team Providers Care Nurse Discharge Planner Name Role Phone Madhu Leon MD Primary Care Provider Encounter Details Date Type Department Care Team (Late st Contact Info) Description 06/24/2021 Results Only [facility] - Main [place] [address], [place] [id number] Madhu Leon MD [facility] [address] [place] [address] Social History Tobacco Use Types Packs/Day Years Used Date Smoking Tobacco: Every Day Cigarettes Smokeless Tobacco: Never Interpersonal Safety Answer Date Record ed Physically Hurt Never 03/25/2020 Verbally Threaten Not on file 03/25/2020 Comments Unknown Sex and Gender Information Value Date Recorded Sex Assigned at Not on file Legal Sex Female 18:02 EST Gender Identity Not on file Sexual Orientation Not on file documented as of this encounter Plan of Treatment Not on file documented as of this encounter Procedures Procedure Name Priority Date/Time Associated Diagnosis Comments MICROALBUMIN, URINE Routine 06/24/2021 9 :34 EDT URINALYSIS/COMPLETE - [facility] Routine 06/24/2021 9:33 EDT COMPLETE BLOOD COUNT WITH DIFFERENTIAL (AUTO) Routine 06/24/2021 9:33 EDT URIC ACID Routine 06/24/2021 9:33 EDT TSH Routine 06/24/2021 9:33 EDT T4 FREE Routine 06/24/2021 9:33 EDT HEMOGLOBIN A1C Routine 06/24/2021 9:33 EDT HEPATIC FUNCTION PANEL (ALB,ALK PHOS,ALT,AST,DBIL,TOT GOPAL,TOT PROT) Routine 06/24/2021 9:33 EDT LIPID PROFILE (INCLUDES CHOLESTEROL, TRIGLYCERIDES, HDL, LDL) Routine 06/24/2021 9:33 EDT COMPREHENSIVE METABOLIC PANEL (CMP) Routine 06/24/2021 9:33 EDT documented in this encounter Results * MICROALBUMIN, URINE (06/24/2021 9:34 EDT) Albumin, Urine <0.06 <1.7 mg/dL 06/24/2021 11:23 EDT [facility] Comment: Lab Urine Albumin to Creatinine Ratio TNP ug/mg 06/24/2021 11:13 EDT [facility] Creatinine, Urine 87.20 mg/dL 06/24/2021 11:22 EDT [facility] 06/24/2021 9:34 EDT 06/24/2021 9:34 EDT Narrative [facility] - 06/24/2021 11:23 EDT Does PT Have a Latex Allergy? NO WHAT TYPE OF COLLECTION IS THIS URINE? RANDOM URINE us Madhu Leon MD HEMATOLOGY & PF4 ORDER CLAUDIA Final Result [facility] [address] [place] [address] * HEMOGLOBIN A1C (06/24/2021 9:33 EDT) Hemoglobin A1c 5.9 4.0 - 6.0 % 06/24/2021 13:32 EDT [facility] Comment: > or =18 years: ??Increased risk for diabetes (prediabetes): 5.7-6.4% Diabetes: > or =6.5% Therapeutic goals for glycemic control (ADA) Adults: - Goal of therapy: <7.0% HbA1c - Action suggested: >8.0% HbA1c Pediatric patients: - Toddlers and preschoolers: <8.5% (but >7.5%) - School age (6-12 years): <8% - Adolescents and young adults (13-19 years): <7.5% Est Avg Glucose 123 mg/dL 13:32 EDT [facility] 06/24/2021 9:33 EDT 06/24/2021 9:33 EDT [facility] - 06/24/2021 13:32 EDT Does PT Have a Latex Allergy? NO Madhu Leon MD CHEMISTRY & BLOOD GAS ORDERABLES Final Result Performing Organization Address [facility] Co de Phone Number [facility] [address] [place] [address] * TSH (06/24/2021 9:33 EDT) [facility] THYROID STIM HORMONE - [facility] 1.32 0.46 - 4.68 uIU/ml 06/24/2021 11:33 EDT [facility] Comment: The results of this assay can be falsely lowered due to the consumption of Biotin. 06/24/2021 9:33 EDT 06/24/2021 9:33 EDT [facility] - 06/24/2021 11:33 EDT Does PT Have a Latex Allergy? NO Madhu Leon MD CHEMISTRY & BLOOD GAS ORDERABLES Final Result Performing Organization Address City/[facility]/ZIP Co de Phone Number [facility] [address] [place] [address] * T4 FREE (06/24/2021 9:33 EDT) [facility] FREE T4 - [facility] 0.96 0.78 - 2.19 ng/dl 06/24/2021 11:33 EDT [facility] 06/24/2021 9:33 EDT 06/24/2021 9:33 EDT [facility] - 06/24/2021 11:33 EDT Does PT Have a Latex Allergy? NO us Madhu Leon MD CHEMISTRY & BLOOD GAS ORDERABLES Final Result Performing Organization Address [facility] Co de Phone Number [facility] [address] [place] [address] * URIC ACID (06/24/2021 9:33 EDT) URIC ACID - [facility] 4.8 2.2 - 7.7 mg/dL 06/24/2021 11:04 EDT [facility] 06/24/2021 9:33 EDT 06/24/2021 9:33 EDT [facility] - 06/24/2021 11:04 EDT Does PT Have a Latex Allergy? NO us Madhu Leon MD CHEMISTRY & BLOOD GAS ORDERABLES Final Result Performing Organization Address [facility] Co de Phone Number [facility] [address] [place] [address] * HEPATIC FUNCTION PANEL (ALB,ALK PHOS,ALT,AST,DBIL,TOT GOPAL,TOT PROT) (06/24/2021 9:33 EDT) BILIRUBIN DIRECT CALC - [facility] 0.1 0.0 - 0.4 mg/dL 06/24/2021 11:04 EDT [facility] Unconjugated Bilirubin 0.3 0.0 - 1.1 mg/dL 06/24/2021 11:04 EDT [facility] 06/24/2021 9:33 EDT 06/24/2021 9:33 EDT [facility] - 06/24/2021 11:04 EDT Does PT Have a Latex Allergy? NO us Madhu Leon MD CHEMISTRY & BLOOD GAS ORDERABLES Final Result [facility] [address] [place] [address] * (ABNORMAL) LIPID PROFILE (INCLUDES CHOLESTEROL, TRIGLYCERIDES, HDL, LDL) (06/24/2021 9:33 EDT) Triglyceride 190 <150 mg/dL 06/24/2021 11:04 EDT [facility] Comment: Adult: Normal: ?<150 mg/dl ? Borderline High: 150-199 mg/dl ? High: ?200-499 mg/dl ? Very High: >[id number] Cholesterol 122 <200 mg/dL 06/24/2021 11:04 [facility] Comment: Acceptable: ??<200 Borderline: ??200-239 High: ?> or = 240 Chol/HDL Ratio 3.4 0 - 4.5 06/24/2021 11:04 [facility] Comment: DESIRABLE RATIO IS LESS THAN 4.1 PATIENTS ARE CONSIDERED AT RISK: WOMEN RATIO >5 MEN RATIO >6 FASTING? - [facility] Yes 9:34 [facility] HDL 35(L) 40 - 60 mg/dL 06/24/2021 11:04 [facility] Comment: ?? Reference Range Low: ? < 40 ??mg/dL Normal: ??40-60 mg/dL High: ?>= 60 mg/dL LDL CHOLESTEROL - [facility] 49(L) 60 - 100 mg/dL 06/24/2021 11:04 [facility] Non HDL Cholesterol 87 mg/dl 06/24/2021 11:04 [facility] Comment: Desirable: ?Less than 130 Borderline High: ??130-159 High: ? 160-189 Very High: ?Greater than or equal to 190 06/24/2021 9:33 EDT 06/24/2021 9:33 EDT Narrative [facility] - 06/24/2021 11:04 EDT Does PT Have a Latex Allergy? NO us Madhu Leon MD CHEMISTRY & BLOOD GAS ORDERABLES Final Result [facility] [address] [place] [address] * (ABNORMAL) COMPREHENSIVE METABOLIC PANEL (CMP) (06/24/2021 9:33 EDT) Pathologist [facility] Albumin % 3.8 3.4 - 4.9 g/dL 06/24/2021 11:04 [facility] ALKALINE PHOSPHATASE - [facility] 49 38 - 126 U/L 06/24/2021 11:04 [facility] BILIRUBIN TOTAL 0.4 0.2 - 1.3 mg/dL 06/24/2021 11:04 [facility] BUN - [facility] 20 10 - 26 mg/dL 06/24/2021 11:04 [facility] CALCIUM - [facility] 8.9 8.5 - 10.5 mg/dL 06/24/2021 11:04 [facility] Chloride 104 96 - 110 mmol/L 06/24/2021 11:04 [facility] CO2 Total 29 22 - 32 mEq/L 06/24/2021 11:04 [facility] CREATININE 0.87 0.52 - 1.04 mg/dL 06/24/2021 11:04 [facility] eGFR >60 06/24/2021 11:04 [facility] Comment: Chronic renal impairment is defined as GFR <60 Multiply result by 1.210 for patients. eGFR calculated using the IDMS-traceable MDRD Study Equation. ??(effective 06/26/2014) Anion Gap 10 0 - 18 06/24/2021 11:04 [facility] GLUCOSE - [facility] 92 70 - 100 mg/dL 06/24/2021 11:04 [facility] Potassium 3.4(L) 3.5 - 5.0 mEq/L 06/24/2021 11:04 EDT [facility] Sodium 143 136 - 145 mEq/L 06/24/2021 11:04 EDT [facility] TOTAL PROTEIN - [facility] 6.6 6.2 - 8.2 gm/dL 06/24[facility]2021 [facility] - [facility] 21 14 - 36 U/L 06/24/2021 11:04 EDT [facility] SGPT/ALT - [facility] 11 0 - 35 U/L 11:04 EDT [facility] 06/24/2021 9:33 EDT 06/24/2021 9:33 EDT [facility] - 06/24/2021 11:04 EDT Does PT Have a Latex Allergy? NO us Madhu Leon MD CHEMISTRY & BLOOD GAS ORDERABLES Final Result [facility] [address] [place] [address] * URINALYSIS/COMPLETE - [facility] (06/24/2021 9:33 EDT) URINE APPEARANCE - [facility] Clear CLEAR 06/24/2021 10:53 EDT [facility] URINE BACTERIA - [facility] MOD 06/24/2021 [facility] BILIRUBIN - DIPSTICK - [facility] 1+ NEGATIVE 06/24/2021 10:53 [facility] Comment: Unable to confirm positive urine bilirubin. If clinical correlation is inconsistent, consider serum bilirubin. URINE BLOOD - [facility] 1+ NEG 06/24/2021 10:53 [facility] URINE COLOR - [facility] Yellow YELLOW 06/24/2021 10:53 [facility] URINE GLUCOSE - DIPSTICK - [facility] Negative NEGATIVE 06/24/2021 10:53 [facility] URINE KETONE - [facility] Negative NEGATIVE 06/24/2021 10:53 EDT [facility] URINE LEUK ESTERASE - [facility] Negative NEG 06/24/2021 10:53 EDT [facility] URINE NITRITE - DIPSTICK - [facility] Negative NEG 06/24/2021 10:53 [facility] URINE PH - [facility] 5.0 4.0 - 8.0 10:53 [facility] PROTEIN - DIPSTICK - [facility] Negative NEG 06/24/2021 10[facility]53 [facility] RBC - [facility] 3-6 rbc/hpf 06/24/2021 11:00 [facility] URCULTIF+? - [facility] Contaminated 06/24/2021 11:00 [facility] Comment: Specimen contaminated. Please recollect a clean catch sample if a culture is indicated. URINE SPECIFIC GRAVITY - [facility] 1.025 1.001 - 1.035 06/24/2021 10:53 [facility] SQUAMOUS CELLS - [facility] MANY NEG #/hpf 06/24/2021 11:00 [facility] Comment: Specimen contaminated. Please recollect a clean catch sample if a culture is indicated. URINE UROBILINOGEN - [place] - [facility] 0.2 0.2 - 1.0 06/24/2021 10:53 [facility] URINE WBC - [facility] 1-4 NEG wbc/hpf 06/24/2021 11:00 [facility] 06/24/2021 9:33 EDT 06/24/2021 9:34 EDT Narrative [facility] - 06/24/2021 11:00 EDT Does PT Have a Latex Allergy? NO us Madhu Leon MD CHEMISTRY & BLOOD GAS ORDERABLES Final Result [facility] [address] [place] [address] * (ABNORMAL) COMPLETE BLOOD COUNT WITH DIFFERENTIAL (AUTO) (06/24/2021 9:33 EDT) ABSOLUTE NEUTROPHIL COUN - [facility] 3.6 2.2 - 8.85 10e3/uL 06/24/2021 10:35 [facility] BASO # - [facility] 0.04 0.01 - 0.11 10e/uL 06/24/2021 10:35 [facility] BASO % - [facility] 1 0 - 2 % 06/24/2021 10:35 [facility] EOS # - [facility] 0.63(H) 0.03 - 0.61 10e3/ul 06/24/2021 10:35 [facility] EOS % - [facility] 9(H) 0 - 5 % 06/24/2021 10:35 [facility] GRAN % - [facility] 48.3 40 - 80 % 06/24/2021 10:35 [facility] HEMATOCRIT - [facility] 40.0 34.9 - 44.4 % 06/24/2021 10:35 [facility] HEMOGLOBIN - [facility] 12.9 11.6 - 15.2 g/dl 06/24/2021 10:35 [facility] IG# - [facility] 0.02 0 - 0.7 10e3/uL 06/24/2021 10:35 [facility] IG% - [facility] 0.3 0 - 0.9 % 06/24/2021 10:35 [facility] LYMPH # - [facility] 2.6 1.09 - 3.3 10e3/ul 06/24/2021 10:35 [facility] LYMPH% - [facility] 35.6 20 - 40 % 06/24/2021 10:35 [facility] MEAN CORPUSCULAR HGB - [facility] 29.9 26.7 - 33.3 pg 06/24/2021 10:35 [facility] MEAN CORPUSCULAR HGB CONC - [facility] 32.3 32.1 - 35.9 g/dL 06/24/2021 10:35 [facility] MEAN CELL VOLUME - [facility] 92.8 81 - 98 fl 06/24/2021 10:35 [facility] MONO # - [facility] 0.5 0.1 - 0.8 10e3/uL 06/24/2021 10:35 EDT [facility] MONO% - [facility] 6.8 0 - 12 % 06/24/2021 10[facility] PLATE[facility] 190 141 - 377 10e3/ul 06/24/2021 10:35 [facility] RED BLOOD COUNT - [facility] 4.31 3.86 - 5.04 10e6/ul 06/24/2021 10:35 [facility] RED CELL DISTRI WIDTH - [facility] 13.2 <14.7 % 06/24/2021 10:35 [facility] WHITE BLOOD COUNT - [facility] 7.4 4.0 - 12.4 10e3/ul 06/24/2021 10:35 [facility] 06/24/2021 9:33 EDT 06/24/2021 9:33 EDT Narrative [facility] - 06/24/2021 10:35 EDT Does PT Have a Latex Allergy? NO us Madhu Leon MD HEMATOLOGY & PF4 ORDER CLAUDIA Final Result [facility] [address] [place] [address] documented in this encounter Visit Diagnoses Not on filedocumented in this encounter Care Teams Nurse Discharge Planner Relationship Specialty Start Date End Date Madhu Leon MD [facility] [address] [place] [id number] PCP - General Internal Medicine - Primary Care 09/24/19 documented as of this encounter
--- OUTSIDE RECORDS SUMMARY | 2024-08-09 18:25 | XMS_ITS | Encounter Summary ---
Author Organization [facility] Address [address] [place] [address] Care Team Providers Care Real Estate Internship Name Role Phone Unknown, Provider Primary Care Provider Unava ilable Encounter Details Date Type Department Care Team (Latest Contact Info) Description 09/17/2017 12:29 EST - 09/17/2017 23:59 EST Hospital Encounter [facility] [address] [place] [address] Unknown, ProviderMD Discharge Disposition: Home or Self [...] Code Departure Means Destination Home or Self Mcfp documented in this encounter Plan of Treatment Not on file documented as of this encounter Visit Diagnoses Not on filedocumented in this encounter Care Teams Real Estate Internship Relationship Specialty Start Date End Date Unknown, Provider, PCP - General 09/05/13 09/23/19 documented as of this encounter
--- OUTSIDE RECORDS SUMMARY | 2024-08-09 18:25 | XMS_ITS | Clinical Summary ---
Author Organization [facility] Address [address] [place] [address] Care Team Providers Care Career Development Specialist Name Role Phone Madhu Leon MD Primary Care Provider Allergies Active Allergy Reactions Criticality Noted Date Comments Clindamycin Hives 12/07/2012 Erythromycin Hives 12/07/2012 Gemfibrozil Hives 12/07/2012 Niacin Hives 12/07/2012 Penicillin Hives 12/07/2012 Tramadol Nausea And Vomiting 12/07/2012 Medications atorvastatin (LIPITOR) 10 mg tablet 10 mg daily. 03/23/2020 Active hydroCHLOROthiazi de (MICROZIDE) 12.5 mg capsule 12.5 mg daily. 03/23/2020 Active isosorbide mononitrate (IMDUR) 30 mg CR tablet 30 mg daily. 03/23/2020 Active metFORMIN (GLUCOPHAGE-XR) 500 mg ER tablet 1 Tab daily. 04/02/2020 Active TOPROL XL 25 mg tablet 1 Tab daily. 03/23/2020 Active trandolapriL (MAVIK) 4 mg tablet 4 mg daily. 03/23/2020 Active Social History Tobacco Use Types Packs/Day Years Used Date Smoking Tobacco: Every Day Cigarettes Smokeless Tobacco: Never Interpersonal Safety Answer Date Record ed Physically Hurt Never 03/25/2020 Verbally Threaten Not on file 03/25/2020 Comments Unknown Sex and Gender Information Value Date Recorded Sex Assigned at Not on file Legal Sex Female 18:02 EST Gender Identity Not on file Sexual Orientation Not on file Obstetrics History Last Filed Vital Signs Vital Sign Reading Time Taken Comments Blood Pressure - - Pulse 86 06/11/2020 0945 EDT Temperature 36.4 ??C (97.5 ??F) 06/11/2020944 EDT Respiratory Rate - - Oxygen Saturation 98% 06/11/2020944 EDT Inhaled Oxygen Concentration - - Weight 54.4 kg (120 lb) 06/11/2020944 EDT Height 147.3 cm (4' 10) 06/11/2020944 EDT Body Mass Index 25.08 06/11/2020944 EDT Plan of Treatment Health Maintenance Due Date Last Done Comments Fall Risk Screening 01/18/2009 RSV Immunization ( o r 60+ Years) (1 - 1-dose 75+ series) 01/18/2019 COVID-19 Vaccine ( season) 2024 Insurance MEDICARE [facility] MEDICARE Care Teams Career Development Specialist Relationship Specialty Start Date End Date Madhu Leon MD [address] [place] [address] [address] [place] [phone] PCP - General Internal Medicine - Primary Care 09/24/19
--- OUTSIDE RECORDS SUMMARY | 2024-08-09 18:25 | XMS_ITS | Encounter Summary ---
Author Organization [facility] Address [address] [place] [address] Care Team Providers Care Fire Dispatcher Name Role Phone Madhu Leon MD Primary Care Provider Encounter Details Date Type Department Care Team (Late st Contact Info) Description 09/28/2019 Results Only Imaging [facility] Radiology Results [address] [place] [address] Madhu Leon MD [facility] [address] [place] [address] Social History Tobacco Use Types [...] Procedure Name Priority Date/Time Associated Diagnosis Comments MA BREAST SCREENING PATRICIA BILATERAL 09/28/2019 8:50 EST documented in this encounter Results * MA BREAST SCREENING PATRICIA BILATERAL (09/28/2019 8:50 EST) Anatomical Region Laterality Modality Breast Bilateral Mammography 09/28/2019 8:50 EST Narrative 09/28/2019 8:50 EST ? EXAM: MAMMOGRAM/MAMMO BILATERAL SCREEN W ??EX. D/ (1054) ? CLINICAL INFORMATION: ? Z12.31 SCREENING ? INDICATION: Z12.31 SCREENING SCREENING Sep 20 ? COMPARISON: Comparison has been made to previous images. ? TECHNIQUE: ??Full field digital whole breast 2D (C-view) and 3D CC and ? MLO views of both breasts were obtained. CAD technology was utilized. ? FINDINGS: ??The fibroglandular patterns of the breasts are normal. ? There has been no change when compared to previous mammograms and ? there is no mammographic evidence of cancer. There are scattered ? areas of fibroglandular density. ? FINAL ASSESSMENT BILATERAL BREAST: ??BI-RADS Category 1 - Negative. ? Routine mammographic follow-up is recommended. ? These results will be communicated to your patient via a lay letter ? from Radiology. ??If any additional imaging is needed we will contact ? your patient directly. ? REPORT SIGNED IN OTHER VENDOR SYSTEM 09/28/2019 ?Reported By: Leroy Kelly MD ? CC: ? Transcribed Date/Time: 09/28/2019 (0850) ? Supervisor Stage Carpentry: ? Printed Date/Time: 09/28/2019 (1035) ? PAGE 1 ? Signed Report ? Procedure Note Leroy Kelly MD - 09/28/2019 EXAM: MAMMOGRAM/MAMMO BILATERAL SCREEN W EX. D/ (1054) CLINICAL INFORMATION: Z12.31 SCREENING INDICATION: Z12.31 SCREENING SCREENING Sep 20 COMPARISON: Comparison has been made to previous images. TECHNIQUE: Full field digital whole breast 2D (C-view) and 3D CCand MLO views of both breasts were obtained. CAD technology wasutilized. FINDINGS: The fibroglandular patterns of the breasts are normal. There has been no change when compared to previous mammograms and there is no mammographic evidence of cancer. There are scattered areas of fibroglandular density. FINAL ASSESSMENT BILATERAL BREAST: BI-RADS Category 1 - Negative. Routine mammographic follow-up is recommended. These results will be communicated to your patient via a lay letter from Radiology. If any additional imaging is needed we willcontact your patient directly. REPORT SIGNED IN OTHER VENDOR SYSTEM 09/28/2019 Reported By: Leroy Kelly MD CC: Transcribed Date/Time: 09/28/2019 (0850) Supervisor Stage Carpentry: Printed Date/Time: 09/28/2019 (2105) PAGE 1 Signed Report us Madhu Leon MD IMG MAMMOGRAPHY ORDERA BLES Final Result documented in this encounter Visit Diagnoses Not on filedocumented in this encounter Care Teams Fire Dispatcher Relationship Specialty Start Date End Date Madhu Leon MD [address] [place] [address] [address] [place] [address] PCP - General Internal Medicine - Primary Care 09/24/19 documented as of this encounter
--- OUTSIDE RECORDS SUMMARY | 2024-08-09 18:25 | XMS_ITS | Encounter Summary ---
Author Organization [facility] Address [address] [place] [address] Care Team Providers Care Analytical Technician Name Role Phone Unknown, Provider Primary Care Provider Unava ilable Encounter Details Date Type Department Care Team (Late st Contact Info) Description 06/07/2019 Results Only [facility] - Main [place] [address], [place] [id number] Madhu Leon MD [facility] [address] [place] [address] Social History Tobacco Use Types Packs/Day Years Used Date Smoking Tobacco: Never Assessed Comments Unknown Sex and Gender Information Value Date Recorded Sex Assigned at Not on file Legal Sex Female 18:02 EST Gender Identity Not on file Sexual Orientation Not on file documented as of this encounter Plan of Treatment Pending Results Name Type Priority Associated Diagnoses Date /Time UA, CHEMICAL AND SEDIMENT ANALYSIS (DIPSTICK AND MICROSCOPIC) Lab Routine 06/07/2019 11:43 EDT documented as of this encounter Procedures Procedure Name Priority Date/Time Associated Diagnosis Comments URINALYSIS/COMPLETE - [facility] Routine 06/07/2019 11:43 EDT COMPLETE BLOOD COUNT WITH DIFFERENTIAL (AUTO) Routine 06/07/2019 11:43 EDT URINE [id number]-JC-[id number] RATIO (ACR) Routine 06/07/2019 11:43 EDT URINE CHEMICAL (DIP) & SEDIMENT (MICRO) WITHOUT REFLEX TO CULTURE Routine 06/07/2019 11:43 EDT TSH Routine 06/07/2019 11:43 EDT T4 FREE Routine 06/07/2019 11:43 EDT URIC ACID Routine 06/07/2019 11:42 EDT HEMOGLOBIN A1C Routine 06/07/2019 11:42 EDT documented in this encounter Results * TSH (06/07/2019 11:43 EDT) [facility] THYROID STIM HORMONE [facility] 1.07 0.46 - 4.68 uIU/ml 06/07/2019 13:46 EDT [facility] Comment: The results of this assay can be falsely lowered due to the consumption of Biotin. 06/07/2019 11:4 3 EDT 06/07/2019 11:43 EDT [facility] LAB - 06/07/2019 13:46 EDT Does PT Have a Latex Allergy? NO Madhu Leon MD CHEMISTRY & BLOOD GAS ORDERABLES Final Result [facility] * T4 FREE (06/07/2019 11:43 EDT) [facility] T4 [facility] 1.15 0.78 - 2.19 ng/dl 06/07/2019 13:46 EDT [facility] 06/07/2019 11:4 3 EDT 06/07/2019 11:43 EDT [facility] LAB - 06/07/2019 13:46 EDT Does PT Have a Latex Allergy? NO Madhu Leon MD CHEMISTRY & BLOOD GAS ORDERABLES Final Result [facility] * ALBUMIN, URINE (06/07/2019 11:43 EDT) [facility] Albumin, Urine 1.60 <1.7 mg/dL 06/07/2019 13:28 EDT [facility] Lab Urine Albumin to Creatinine Ratio 24.7 ug/mg 06/07/2019 13:28 EDT [facility] Comment: Normal: <30 ug/mg Creat Microalbuminuria: 30-300 ug/mg Creat Clinical albuminuria: >300 ug/mg Creat Creatinine, Urine 64.70 mg/dL 06/07/2019 13:28 EDT [facility] 06/07/2019 11:4 3 EDT 06/07/2019 11:43 EDT Narrative [facility] - 06/07/2019 13:28 EDT Does PT Have a Latex Allergy? NO WHAT TYPE OF COLLECTION IS THIS URINE? RANDOM URINE us Madhu Leon MD CHEMISTRY & BLOOD GAS ORDERABLES Final Result [facility] * URINALYSIS/COMPLETE - [facility] (06/07/2019 11:43 EDT) URINE APPEARANCE - [facility] Clear CLEAR 06/07/2019 13:01 [facility] URINE BACTERIA - [facility] MOD 06/07/2019 13:01 [facility] URINE BILIRUBIN - DIPSTICK - [facility] Negative NEGATIVE 06/07/2019 13:01 [facility] URINE BLOOD - [facility] 1+ NEG 06/07/2019 13:01 [facility] URINE COLOR - [facility] Yellow YELLOW 06/07/2019 13:01 [facility] URINE GLUCOSE - DIPSTICK - [facility] Negative NEGATIVE 06/07/2019 13:01 [facility] URINE KETONE - [facility] Negative NEGATIVE 06/07/2019 13:01 [facility] URINE LEUK ESTERASE - [facility] Negative NEG 06/07/2019 13:01 [facility] URINE NITRITE - DIPSTICK - [facility] Negative NEG 06/07/2019 13:01 [facility] URINE PH - [facility] 6.0 4.0 - 8.0 9 13:01 [facility] URINE PROTEIN - DIPSTICK - [facility] Negative NEG 06/07/2019 13:01 [facility] RBC - [facility] 3-6 rbc/hpf 06/07/20 19 13:01 [facility] URCULTIF+? - [facility] Culture Ordered 06/07/2019 13:01 [facility] URINE SPECIFIC GRAVITY - [facility] 1.010 1.001 - 1.035 06/07/2019 13:01 [facility] URINE SQUAMOUS CELLS - [facility] MOD NEG #/hpf 06/07/2019 13:01 [facility] URINE UROBILINOGEN - DIPSTICK - [facility] 0.2 0.2 - 1.0 06/07/2019 13:01 [facility] URINE WBC - [facility] 1-4 NEG wbc/hpf 019 13:01 [facility] 06/07/2019 11:4 3 EDT 06/07/2019 11:43 EDT Narrative [facility] - 06/07/2019 13:01 EDT Does PT Have a Latex Allergy? NO us Madhu Leon MD CHEMISTRY & BLOOD GAS ORDERABLES Final Result [facility] * (ABNORMAL) COMPLETE BLOOD COUNT WITH DIFFERENTIAL (AUTO) (06/07/2019 11:43 EDT) ABSOLUTE NEUTROPHIL COUN - [facility] 3.4 2.2 - 8.85 10e3/uL 06/07/2019 12:37 T [facility] BASO # - [facility] 0.05 0.01 - 0.11 10e/uL 06/07/2019 12:37 [facility] BASO % - [facility] 1 0 - 2 % 06/07/2019 12:37 [facility] EOS # - [facility] 0.32 0.03 - 0.61 10e3/ul 06/07/2019 12:37 [facility] EOS % - [facility] 4 0 - 5 % 06/07/2019 12:37 [facility] GRAN % - [facility] 46.6 40 - 80 % 06/07/2019 12:37 [facility] HEMATOCRIT - [facility] 40.9 34.9 - 44.4 % 06/07/2019 12:37 [facility] HEMOGLOBIN - [facility] 13.3 11.6 - 15.2 g/dl 06/07/2019 12:37 [facility] IG# - [facility] 0.02 0 - 0.7 10e3/uL 06/07/2019 12:37 [facility] IG% - [facility] 0.3 0 - 0.9 % 06/07/2019 12:37 [facility] LYMPH # - [facility] 3.0 1.09 - 3.3 10e3/ul 06/07/2019 12:37 [facility] LYMPH% - [facility] 41.9(H) 20 - 40 % 06/07/2019 12:37 [facility] MEAN CORPUSCULAR HGB - CV 30.3 26.7 - 33.3 pg 06/07/2019 12:37 [facility] MEAN CORPUSCULAR HGB CONC - [facility] 32.5 32.1 - 35.9 g/dL 06/07/2019 12:37 [facility] MEAN CELL VOLUME - [facility] 93.2 81 - 98 fl 06/07/2019 12:37 [facility] MONO # - [facility] 0.4 0.1 - 0.8 10e3/uL 06/07/2019 12:37 [facility] MONO% - [facility] 6.1 0 - 12 % 06/07/2019 12:37 [facility] PLATELET COUNT 190 141 - 377 10e3/ul 06/07/2019 12:37 [facility] RED BLOOD COUNT - [facility] 4.39 3.86 - 5.04 10e3/ul 06/07/2019 12:37 [facility] RED CELL DISTRI WIDTH - [facility] 13.2 <14.7 % 06/07/2019 12:37 [facility] WHITE BLOOD COUNT - [facility] 7.2 4.0 - 12.4 10e3/ul 06/07/2019 12:37 EDT [facility] 06/07/2019 11:4 3 EDT 06/07/2019 11:43 EDT [facility] - 06/07/2019 12:37 EDT Does PT Have a Latex Allergy? NO Madhu Leon MD HEMATOLOGY & PF4 ORDER CLAUDIA Final Result [facility] * HEMOGLOBIN A1C (06/07/2019 11:42 EDT) Hemoglobin A1c 6.0 4.0 - 6.0 % 06/07/2019 21:16 EDT [facility] Comment: > or =18 years: ??Increased risk for diabetes (prediabetes): 5.7-6.4% Diabetes: > or =6.5% Therapeutic goals for glycemic control (ADA) Adults: - Goal of therapy: <7.0% HbA1c - Action suggested: >8.0% HbA1c Pediatric patients: - Toddlers and preschoolers: <8.5% (but >7.5%) - School age (6-12 years): <8% - Adolescents and young adults (13-19 years): <7.5% Est Avg Glucose 126 mg/dL 9 21:16 EDT [facility] 06/07/2019 11:4 2 EDT 06/07/2019 11:43 EDT [facility] - 06/07/2019 21:16 EDT Does PT Have a Latex Allergy? NO Madhu Leon MD CHEMISTRY & BLOOD GAS ORDERABLES Final Result [facility] * URIC ACID (06/07/2019 11:42 EDT) URIC ACID - [facility] 5.0 2.2 - 7.7 mg/dL 06/07/2019 13:17 EDT [facility] 06/07/2019 11:4 2 EDT 06/07/2019 11:42 EDT Narrative [facility] - 06/07/2019 13:17 EDT Does PT Have a Latex Allergy? NO us Madhu Leon MD CHEMISTRY & BLOOD GAS ORDERABLES Final Result [facility] documented in this encounter Visit Diagnoses Not on filedocumented in this encounter Care Teams Analytical Technician Relationship Specialty Start Date End Date Unknown, Provider, PCP - General 09/05/13 09/23/19 documented as of this encounter
--- OUTSIDE RECORDS SUMMARY | 2024-08-09 18:25 | XMS_ITS | Encounter Summary ---
Author Organization [facility] Address [address] [place] [address] Care Team Providers Care Detective [place]ling [place]ley Name Role Phone Unknown, Provider Primary Care Provider Unava ilable Encounter Details Date Type Department Care Team (Late st Contact Info) Description 09/17/2017 Historical Results Only [facility] Radiology Results [address] [place] [address] Madhu Leon MD [address] [place] [address] Social History Tobacco Use Types [...] on filedocumented in this encounter Care Teams Detective Bowling Alley Relationship Specialty Start Date End Date Unknown, ProviderMD PCP - General 09/05/13 09/23/19 documented as of this encounter
--- OUTSIDE RECORDS SUMMARY | 2024-08-09 18:25 | XMS_ITS | Encounter Summary ---
Author Organization [facility] Address [address] [place] [address] Care Team Providers Care Video Game Repair Technician Name Role Phone Madhu Leon MD Primary Care Provider Encounter Details Date Type Department Care Team (Late st Contact Info) Description 05/11/2020 Results Only [facility] Radiology Results [address] [place], [place] [id number] Madhu Leon MD [facility] [address] [place] [address] Social History Tobacco Use Types Packs/Day Years Used Date Smoking Tobacco: Never Assessed Interpersonal Safety Answer Date Record ed Physically [...] Procedure Name Priority Date/Time Associated Diagnosis Comments XR TOE LEFT 2 OR MORE VIEWS 05/11/2020 13:23 EDT documented in this encounter Results * XR TOE LEFT 2 OR MORE VIEWS (05/11/2020 13:23 EDT) Anatomical Region Laterality Modality Lower Extremities Left Computed Radio graphy 05/11/2020 13:2 0 EDT Narrative 05/11/2020 13:23 EDT ? EXAM: RADIOLOGY/TOE(S) LEFT ? EX. D/ (1234) ? CLINICAL INFORMATION: ? M79.675 (L) GREAT TOE PAIN ? INDICATION: M79.675 (L) GREAT TOE PAIN . ? COMPARISON: None. ? TECHNIQUE: 2+ views of the left great toe. ? FINDINGS: ? A soft tissue and bony bunion is present. There is mild to moderate ? hallux valgus deformity. 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 Bone ? density is normal. No fracture or osteonecrosis. ? IMPRESSION: No acute bone or joint abnormality. ? REPORT SIGNED IN OTHER VENDOR SYSTEM 05/11/2020 ?Reported By: Art Phelps MD ? CC: ? Transcribed Date/Time: 05/11/2020 (1323) ? Malter Operator: ? Printed Date/Time: 05/11/2020 (1323) ? PAGE 1 ? Signed Report ? Procedure Note Art Phelps MD - 05/11/2020 EXAM: RADIOLOGY/TOE(S) LEFT EX. D/ (1234) CLINICAL INFORMATION: M79.675 (L) GREAT TOE PAIN INDICATION: M79.675 (L) GREAT TOE PAIN . COMPARISON: None. TECHNIQUE: 2+ views of the left great toe. FINDINGS: A soft tissue and bony bunion is present. There is mild to moderate hallux valgus deformity. 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 Bone density is normal. No fracture or osteonecrosis. IMPRESSION: No acute bone or joint abnormality. REPORT SIGNED IN OTHER VENDOR SYSTEM 05/11/2020 Reported By: Art Phelps MD CC: Transcribed Date/Time: 05/11/2020 (2413) Malter Operator: Printed Date/Time: 05/11/2020 (9596) PAGE 1 Signed Report Madhu Leon MD IMG DIAGNOSTIC IMAGING ORDERABLES Final Result documented in this encounter Visit Diagnoses Not on filedocumented in this encounter Care Teams Video Game Repair Technician Relationship Specialty Start Date End Date Madhu Leon MD [address] [place] [address] [address] [place] [phone] PCP - General Internal Medicine - Primary Care 09/24/19 documented as of this encounter
--- OUTSIDE RECORDS SUMMARY | 2024-08-09 18:25 | XMS_ITS | Encounter Summary ---
Author Organization [facility] Address [address] [place] [address] Care Team Providers Care Head Cd Reactor Operator Name Role Phone Unknown, Provider Primary Care Provider Unava ilable Encounter Details Date Type Department Care Team (Late st Contact Info) Description 03/29/2018 Historical Results Only [facility] Lab - Main [place] [address] [place] [address] Madhu Leon MD [facility] [address] [place] [address] Social History Tobacco Use Types [...] Date/Time Associated Diagnosis Comments MICROALBUMIN, URINE Routine 03/29/2018 9 :02 EDT URINE CULTURE IF POSITIVE Routine 03/29/2018 9:02 EDT URINE [id number] RATIO (ACR) Routine 03/29/2018 9:02 EDT URINALYSIS/COMPLETE - [facility] Routine 03/29/2018 9:01 EDT COMPLETE BLOOD COUNT WITH DIFFERENTIAL (AUTO) Routine 03/29/2018 9:01 EDT URIC ACID Routine 03/29/2018 9:01 EDT TSH Routine 03/29/2018 9:01 EDT T4 FREE Routine 03/29/2018 9:01 EDT HEMOGLOBIN A1C Routine 03/29/2018 9:01 EDT HEPATIC FUNCTION PANEL (ALB,ALK PHOS,ALT,AST,DBIL,TOT GOPAL,TOT PROT) Routine 03/29/2018 9:01 EDT LIPID PROFILE (INCLUDES CHOLESTEROL, TRIGLYCERIDES, HDL, LDL) Routine 03/29/2018 9:01 EDT COMPREHENSIVE METABOLIC PANEL (CMP) Routine 03/29/2018 9:01 EDT documented in this encounter Results * (ABNORMAL) MICROALBUMIN, URINE (03/29/2018 9:02 EDT) Pathologist [facility] Albumin, Urine 3.10(H) <1.7 mg/dL 03/29/2018 11:48 EDT [facility] Lab Urine Albumin to Creatinine Ratio 25.6 ug/mg 03/29/2018 11:48 EDT [facility] Comment: Normal: <30 ug/mg Creat Microalbuminuria: 30-300 ug/mg Creat Clinical albuminuria: >300 ug/mg Creat Creatinine, Urine 120.70 mg/dL 03/29/2018 11:48 EDT [facility] 03/29/2018 9:02 EDT 03/29/2018 9:02 EDT Narrative [facility] - 03/29/2018 11:48 EDT Does PT Have a Latex Allergy? NO WHAT TYPE OF COLLECTION IS THIS URINE? RANDOM URINE us Madhu Leon MD HEMATOLOGY & PF4 ORDER CLAUDIA Final Result [facility] * URINE CULTURE IF POSITIVE (03/29/2018 9:02 EDT) ESCHERIACHIA COLI - [facility] ESCHERICHIA COLI 03/31/2018 7:27 EDT [facility] CitrateConcentration >100,000 CFU/ML 03/2018 7:27 EDT [facility] USUAL UROGENITAL LUIS CARLOS - [facility] UUV 03/31/2018 7:27 EDT [facility] CitrateConcentration <10,000 CFU/ML 03/2018 7:27 EDT [facility] 03/29/2018 9:02 EDT 03/29/2018 9:02 EDT Comment:VOID Narrative [facility] - 03/31/2018 7:27 EDT Does PT Have a Latex Allergy? NO Organism Antibiotic Method Susceptibility Escherichia coli Ampicillin Sulbactam GRAM NEGAT SMILEY SUSCEPTIBILITY - [facility] 4: Susceptible Escherichia coli Ampicillin GRAM NEGATIVE SUSCEPTIBILITY - [facility] 8: Susceptible Escherichia coli Amoxicillin Clavulan ic acid GRAM NEGATIVE SUSCEPTIBILITY - [facility] 4: Susceptible Escherichia coli Ceftriaxone GRAM NEGATIVE SUSCEPTIBILITY - [facility] <=1: Susceptible Escherichia coli Cefazolin GRAM NEGATIVE SUSCEPTIBILITY - [facility] <=4: Susceptible Escherichia coli Ciprofloxacin GRAM NEGATIVE SUSCEPTIBILITY - [facility] <=0.25: Susceptible Escherichia coli Cefepime GRAM NEGATIVE SUSCEPTIBILITY - [facility] <=1: Susceptible Escherichia coli Ertapenem GRAM NEGATIVE SUSCEPTIBILITY - [facility] <=0.5: Susceptible Escherichia coli Nitrofurantoin GRAM NEGATIVE SUSCEPTIBILITY - [facility] <=16: Susceptible Escherichia coli Gentamicin GRAM NEGATIVE SUSCEPTIBILITY - [facility] <=1: Susceptible Escherichia coli Levofloxacin GRAM NEGATIVE SUSCEPTIBILITY - [facility] <=0.12: Susceptible Escherichia coli Piperacillin Tazobactam GRAM NEGATIVE SUSCEPTIBILITY - [facility] <=4: Susceptible Escherichia coli Trimethoprim-Sulfame th oxazole GRAM NEGATIVE SUSCEPTIBILITY - [facility] <=20: Susceptible Escherichia coli Tobramycin GRAM NEGATIVE SUSCEPTIBILITY - [facility] <=1: Susceptible Comment:See Reason(s) for St [facility] us Madhu Leon MD MICROBIOLOGY - GENERAL ORDERABLES Edited Result - Final [facility] * (ABNORMAL) ALBUMIN, URINE (03/29/2018 9:02 EDT) Albumin, Urine 3.10(H) <1.7 mg/dL 03/29/2018 11:48 EDT [facility] Lab Urine Albumin to Creatinine Ratio 25.6 ug/mg 03/29/2018 11:48 [facility] Comment: Normal: <30 ug/mg Creat Microalbuminuria: 30-300 ug/mg Creat Clinical albuminuria: >300 ug/mg Creat Creatinine, Urine 120.70 mg/dL 03/29/2018 11:48 EDT [facility] 03/29/2018 9:02 EDT 03/29/2018 9:02 EDT [facility] - 03/29/2018 11:48 EDT Does PT Have a Latex Allergy? NO WHAT TYPE OF COLLECTION IS THIS URINE? RANDOM URINE Madhu Leon MD CHEMISTRY & BLOOD GAS ORDERABLES Final Result Performing Organization Address City/[facility]/ZIP Co de Phone Number [facility] * URIC ACID (03/29/2018 9:01 EDT) [facility] URIC ACID [facility] 6.1 2.2 - 7.7 mg/dL 03/29/2018 [facility] 03/29/2018 9:01 EDT 03/29/2018 9:01 EDT Narrative [facility] - 03/29/2018 11:48 EDT Does PT Have a Latex Allergy? NO Madhu Leon MD CHEMISTRY & BLOOD GAS ORDERABLES Final Result [facility] * HEPATIC FUNCTION PANEL (ALB,ALK PHOS,ALT,AST,DBIL,TOT GOPAL,TOT PROT) (03/29/2018 9:01 EDT) [facility] BILIRUBIN DIRECT CALC - [facility] 0.2 0.0 - 0.4 mg/dL 03/29/2018 11:35 EDT [facility] Unconjugated Bilirubin 0.5 0.0 - 1.1 mg/dL 03/29/2018 11:35 [facility] 03/29/2018 9:01 EDT 03/29/2018 9:01 EDT Narrative [facility] - 03/29/2018 11:48 EDT Does PT Have a Latex Allergy? NO us Madhu Leon MD CHEMISTRY & BLOOD GAS ORDERABLES Final Result [facility] * (ABNORMAL) LIPID PROFILE (INCLUDES CHOLESTEROL, TRIGLYCERIDES, HDL, LDL) (03/29/2018 9:01 EDT) Triglyceride 242 <150 mg/dL 03/29/2018 11:35 [facility] Comment: Adult: Normal: ?<150 mg/dl ? Borderline High: 150-199 mg/dl ? High: ?200-499 mg/dl ? Very High: >ya=284 Cholesterol 140 <200 mg/dL 03/29/2018 11:35 [facility] Comment: Acceptable: ??<200 Borderline: ??200-239 High: ?> or = 240 Chol/HDL Ratio 4.5 0 - 4.5 03/29/2018 11:35 [facility] Comment: DESIRABLE RATIO IS LESS THAN 4.1 PATIENTS ARE CONSIDERED AT RISK: WOMEN RATIO >5 MEN RATIO >6 FASTING? - [facility] Yes 8 9:02 [facility] HDL 31(L) 40 - 60 mg/dL 03/29/2018 11:35 [facility] Comment: ?? Reference Range Low: ? < 40 ??mg/dL Normal: ??40-60 mg/dL High: ?>= 60 mg/dL LDL CHOLESTEROL - [facility] 61 60 - 100 mg/dL 03/29/2018 11:35 [facility] Non HDL Cholesterol 109 mg/dl 03/29/2018 11:35 [facility] Comment: Desirable: ?Less than 130 Borderline High: ??130-159 High: ? 160-189 Very High: ?Greater than or equal to 190 03/29/2018 9:01 EDT 03/29/2018 9:01 EDT Narrative [facility] - 03/29/2018 11:48 EDT Does PT Have a Latex Allergy? NO us Madhu Leon MD CHEMISTRY & BLOOD GAS ORDERABLES Final Result [facility] * (ABNORMAL) COMPREHENSIVE METABOLIC PANEL (CMP) (03/29/2018 9:01 EDT) Albumin % 4.0 3.4 - 4.9 g/dL 03/29/2018 11:48 [facility] Comment: Slight Hemolysis, Interpret results with caution. Verified Hemolysis Visually ALKALINE PHOSPHATASE - [facility] 48 38 - 126 U/L 03/29/2018 11:48 [facility] Comment: Slight Hemolysis, Interpret results with caution. Verified Hemolysis Visually BILIRUBIN TOTAL 0.7 0.2 - 1.3 mg/dL 03/29/2018 11:35 [facility] BUN - [facility] 19 10 - 26 mg/dL 03/29/2018 11:48 [facility] Comment: Slight Hemolysis, Interpret results with caution. Verified Hemolysis Visually CALCIUM - [facility] 8.7 8.5 - 10.5 mg/dL 03/29/2018 11:35 [facility] Chloride 104 96 - 110 mmol/L 03/29/2018 11:35 [facility] CO2 Total 26 22 - 32 mEq/L 03/29/2018 11:35 [facility] CREATININE 0.76 0.52 - 1.04 mg/dL 03/29/2018 11:35 [facility] eGFR >60 03/29/2018 11:35 [facility] Comment: Chronic renal impairment is defined as GFR <60 Multiply result by 1.210 for patients. eGFR calculated using the IDMS-traceable MDRD Study Equation. ??(effective 06/26/2014) Anion Gap 13 0 - 18 03/29/2018 11:35 EDT [facility] GLUCOSE - [facility] 114(H) 70 - 100 mg/dL 03/29/2018 11:35 [facility] Potassium 4.2 3.5 - 5.0 mEq/L 03/29/2018 11:[facility] Comment: Slight Hemolysis, Interpret results with caution. Verified Hemolysis Visually Sodium 143 136 - 145 mEq/L 03/29/2018 11:35 [facility] TOTAL PROTEIN - [facility] 7.5 6.2 - 8.2 gm/dL 03/29/2018 11:35 [facility] SGOT/AST - [facility] 42(H) 14 - 36 U/L 03/29/2018 11:48 [facility] Comment: Slight Hemolysis, Interpret results with caution. Verified Hemolysis Visually SGPT/ALT - [facility] 39 9 - 52 U/L 8 11:48 [facility] Comment: Slight Hemolysis, Interpret results with caution. Verified Hemolysis Visually 03/29/2018 9:01 EDT 03/29/2018 9:01 EDT [facility] - 03/29/2018 11:48 EDT Does PT Have a Latex Allergy? NO Madhu Leon MD CHEMISTRY & BLOOD GAS ORDERABLES Final Result [facility] * (ABNORMAL) HEMOGLOBIN A1C (03/29/2018 9:01 EDT) Hemoglobin A1c 6.8(H) 4.0 - 6.0 % 03/29/2018 13:24 EDT [facility] Est Avg Glucose 148 mg/dL 8 13:24 EDT [facility] 03/29/2018 9:01 EDT 03/29/2018 9:01 EDT [facility] - 03/29/2018 13:24 EDT Does PT Have a Latex Allergy? NO us Madhu Leon MD CHEMISTRY & BLOOD GAS ORDERABLES Final Result Performing Organization Address [facility]/ZIP Co de Phone Number [facility] * TSH (03/29/2018 9:01 EDT) [facility] THYROID STIM HORMONE - [facility] 1.37 0.46 - 4.68 uIU/ml 03/29/2018 11:41 EDT [facility] Comment: The results of this assay can be falsely lowered due to the consumption of Biotin. 03/29/2018 9:01 EDT 03/29/2018 9:01 EDT Narrative [facility] - 03/29/2018 11:41 EDT Does PT Have a Latex Allergy? NO Madhu Leon MD CHEMISTRY & BLOOD GAS ORDERABLES Final Result Performing Organization Address [facility] Co de Phone Number [facility] * T4 FREE (03/29/2018 9:01 EDT) [facility] FREE T4 [facility] 0.87 0.78 - 2.19 ng/dl 03/29/2018 11:41 EDT [facility] 03/29/2018 9:01 EDT 03/29/2018 9:01 EDT [facility] - 03/29/2018 11:41 EDT Does PT Have a Latex Allergy? NO Madhu Leon MD CHEMISTRY & BLOOD GAS ORDERABLES Final Result Performing Organization Address City/[facility]/ZIP Co de Phone Number [facility] * (ABNORMAL) COMPLETE BLOOD COUNT WITH DIFFERENTIAL (AUTO) (03/29/2018 9:01 EDT) [facility] ABSOLUTE NEUTROPHIL COUN - [facility] 2.69 1.7 - 7.0 10e3/ul 03/29/2018 10:35 EDT [facility] BASO # - [facility] 0.02 0.0 - 0.3 10e3/uL 03/29/2018 10:35 EDT [facility] BASO % - [facility] 0 0 - 2 % 03/29/2018 10:35 [facility] EOS # - [facility] 0.26 0.05 - 0.5 10e3/uL 03/29/2018 10:35 [facility] EOS % - [facility] 5 0 - 5 % 03/29/2018 10:35 [facility] GRAN % - [facility] 47 40 - 80 % 03/29/2018 10:35 [facility] HEMATOCRIT - [facility] 40.4 34.0 - 47.0 % 03/29/2018 10:35 [facility] HEMOGLOBIN - [facility] 13.3 11.2 - 15.7 g/dl 03/29/2018 10:35 [facility] IG# - [facility] 0.02 0 - 0.07 10e3/uL 03/29/2018 10:35 [facility] IG% - [facility] 0.3 0 - 0.9 % 03/29/2018 10:35 [facility] LYMPH # - [facility] 2.39 0.9 - 2.9 10e3/uL 03/29/2018 10:35 [facility] LYMPH% - [facility] 42(H) 20 - 40 % 03/29/2018 10:35 [facility] MEAN CORPUSCULAR HGB - [facility] 30.0 26 - 34 pg 03/29/2018 10:35 [facility] MEAN CORPUSCULAR HGB CONC - [facility] 32.9 31 - 36 g/dL 03/29/2018 10:35 [facility] MEAN CELL VOLUME - [facility] 91.2 77 - 100 fl 03/29/2018 10:35 [facility] MONO # - [facility] 0.37 0.3 - 0.9 10e3/uL 03/29/2018 10:35 [facility] MONO% - [facility] 6 0 - 12 % 03/29/2018 10:35 [facility] PLATELET COUNT 165 150 - 400 10e3/ul 03/29/2018 10:35 [facility] RED BLOOD COUNT - [facility] 4.43 3.8 - 5.2 10e6/ul 03/29/2018 10:35 [facility] RED CELL DISTRI WIDTH - [facility] 13.8 11.8 - 15.6 % 03/29/2018 10:35 [facility] WHITE BLOOD COUNT - [facility] 5.8 3.5 - 10.5 10e3/ul 03/29/2018 10:35 [facility] 03/29/2018 9:01 EDT 03/29/2018 9:01 EDT [facility] - 03/29/2018 10:35 EDT Does PT Have a Latex Allergy? NO us Madhu Leon MD HEMATOLOGY & PF4 ORDER CLAUDIA Final Result [facility] * URINALYSIS/COMPLETE - [facility] (03/29/2018 9:01 EDT) URINE APPEARANCE - [facility] Cloudy CLEAR 03/29/2018 10:46 [facility] URINE BACTERIA - [facility] TNTC 03/29/2018 11:25 [facility] URINE BILIRUBIN - DIPSTICK - [facility] [place] Negative NEGATIVE 03/29/2018 10:46 [facility] URINE BLOOD - [facility] Negative NEG 03/29/2018 10:46 [facility] URINE COLOR - [facility] Yellow YELLOW 03/29/2018 10:46 [facility] URINE GLUCOSE - DIPSTICK - [facility] Negative NEGATIVE 03/29/2018 10:46 [facility] URINE KETONE - [facility] Negative NEGATIVE 03/29/2018 10:46 [facility] URINE LEUK ESTERASE - [facility] 1+ NEG 03/29/2018 10:46 [facility] URINE NITRITE - DIPSTICK - [facility] Positive NEG 03/29/2018 10:46 [facility] URINE PH - [facility] [place] 7.0 4.0 - 8.0 8 10:46 [facility] URINE PROTEIN - DIPSTICK - [facility] Negative NEG 03/29/2018 10:46 EDT [facility] URINE RBC - [facility] 1-3 rbc/hpf 03/29/20 18 11:25 [facility] URCULTIF+? - [facility] Culture Ordered 03/29/2018 11:25 [facility] URINE SPECIFIC GRAVITY - [facility] 1.010 1.001 - 1.035 03/29/2018 10:46 EDT [facility] URINE SQUAMOUS CELLS - [facility] FEW NEG #/hpf 03/29/2018 11:25 [facility] URINE UROBILINOGEN - DIPSTICK - [facility] 1.0 0.2 - 1.0 03/29/2018 10:46 [facility] URINE WBC - [facility] 15-20 NEG wbc/hpf 018 11:25 [facility] 03/29/2018 9:01 EDT 03/29/2018 9:02 EDT Narrative [facility] - 03/29/2018 11:25 EDT Does PT Have a Latex Allergy? NO us Madhu Leon MD CHEMISTRY & BLOOD GAS ORDERABLES Final Result [facility] documented in this encounter Visit Diagnoses Not on filedocumented in this encounter Care Teams Head Cd Reactor Operator Relationship Specialty Start Date End Date Unknown, Provider, PCP - General 09/05/13 09/23/19 documented as of this encounter
--- OUTSIDE RECORDS SUMMARY | 2024-08-09 18:25 | XMS_ITS | Encounter Summary ---
Author Organization [facility] Address [address] [place] [address] Care Team Providers Care Tax Collection Coordinator Name Role Phone Unknown, Provider Primary Care Provider Unava ilable Encounter Details Date Type Department Care Team (Late st Contact Info) Description 09/20/2018 Historical Results Only [facility] Radiology Results [address] [place] [address] Madhu Leon MD [address] [place] [address] Social History Tobacco Use Types [...] on filedocumented in this encounter Care Teams Tax Collection Coordinator Relationship Specialty Start Date End Date Unknown, ProviderMD PCP - General 09/05/13 09/23/19 documented as of this encounter
--- OUTSIDE RECORDS SUMMARY | 2024-08-09 18:25 | XMS_ITS | Encounter Summary ---
Author Organization [facility] Address [address] [place] [address] Care Team Providers Care Pin Ball Machine Mechanic Name Role Phone Unknown, Provider Primary Care Provider Unava ilable Encounter Details Date Type Department Care Team (Late st Contact Info) Description 06/07/2019 Results Only [facility] - Main [place] [address] [place], [place] [id number] Madhu Leon MD [facility] [address] [place] [address] Social History Tobacco Use Types [...] Procedure Name Priority Date/Time Associated Diagnosis Comments LIPID PROFILE (INCLUDES CHOLESTEROL, TRIGLYCERIDES, HDL, LDL) Routine 06/07/2019 11:42 EDT documented in this encounter Results * (ABNORMAL) LIPID PROFILE (INCLUDES CHOLESTEROL, TRIGLYCERIDES, HDL, LDL) (06/07/2019 11:42 EDT) Triglyceride 99 <150 mg/dL 06/07/2019 13:17 EDT [facility] Comment: Adult: Normal: ?<150 mg/dl ? Borderline High: 150-199 mg/dl ? High: ?200-499 mg/dl ? Very High: >fu=217 Cholesterol 117 <200 mg/dL 06/07/2019 13:17 EDT [facility] Comment: Acceptable: ??<200 Borderline: ??200-239 High: ?> or = 240 Chol/HDL Ratio 3.6 0 - 4.5 06/07/2019 13:17 [facility] Comment: DESIRABLE RATIO IS LESS THAN 4.1 PATIENTS ARE CONSIDERED AT RISK: WOMEN RATIO >5 MEN RATIO >6 FASTING? - [facility] HDL 32(L) 40 - 60 mg/dL 06/07/2019 13:17 [facility] Comment: ?? Reference Range Low: ? < 40 ??mg/dL Normal: ??40-60 mg/dL High: ?>= 60 mg/dL LDL CHOLESTEROL - [facility] 65 60 - 100 mg/dL 06/07/2019 13:17 [facility] Non HDL Cholesterol 85 mg/dl 06/07/2019 13:17 [facility] Comment: Desirable: ?Less than 130 Borderline High: ??130-159 High: ? 160-189 Very High: ?Greater than or equal to 190 06/07/2019 11:4 2 EDT 06/07/2019 11:42 EDT Narrative [facility] - 06/07/2019 13:17 EDT Does PT Have a Latex Allergy? NO us Madhu Leon MD CHEMISTRY & BLOOD GAS ORDERABLES Final Result [facility] documented in this encounter Visit Diagnoses Not on filedocumented in this encounter Care Teams Pin Ball Machine Mechanic Relationship Specialty Start Date End Date Unknown, Provider, PCP - General 09/05/13 09/23/19 documented as of this encounter
--- OUTSIDE RECORDS SUMMARY | 2024-08-09 18:25 | XMS_ITS | Encounter Summary ---
Author Organization [facility] Address [address] [place] [address] Care Team Providers Care Electrical Test Engineer Name Role Phone Madhu Leon MD Primary Care Provider Reason for Visit * Reason Comments Pain * Referral (Routine) - Closed Specialty Diagnoses / Procedures Referred By Contbernardo chase Referred To Contact Orthopedic Surgery Diagnoses Mass of toe Madhu Leon MD Phone: tel: fax: [facility] [address], [address] [place] [address] Phone: tel: fax: Referral ID Status Reason Start Date Expiration Date Visits Re quested Visits Authorized [id number] Closed 1 1 Encounter Details Date Type Department Care Team (Late st Contact Info) Description 06/11/2020 9:45 EDT Office Visit [facility] [address], [address] [place], [place] [id number] Kang Prado, DP [address] [place], [place] [address] Toe pain, left (Primary Dx); Onychomadesis of toenail Social History Tobacco Use Types Packs/Day Years [...] on file documented as of this encounter Last Filed Vital Signs Vital Sign Reading Time Taken Comments Blood Pressure - - Pulse 86 06/11/2020944 EDT Temperature 36.4 ??C (97.5 ??F) 06/11/2020944 EDT Respiratory Rate - - Oxygen Saturation 98% 06/11/2020944 EDT Inhaled Oxygen Concentration - - Weight 54.4 kg (120 lb) 06/11/2020944 EDT Height 147.3 cm (4' 10) 06/11/2020944 EDT Body Mass Index 25.08 06/11/2020944 EDT documented in this encounter Patient Instructions * Patient Instructions* Kang Prado DPM - 06/11/2020 9:45 EDT Lump at corner of the left toe in the lateral proximal nail fold. Firm, but does not show up on xray. Possibly a cartilage growth. Those sometimes turn to bone, so might show up on xray later. If it is no longer growing, it might never become inflamed again. However, if it grows larger the chances would increase of it getting inflamed and painful again. If does become inflamed and/or painful again, please call us for another appointment. We might get an MRI if nothing still shows on xray. documented in this encounter Progress Notes * Kang Prado DPM - 06/11/2020944 EDT NEW PATIENT SUBJECTIVE Chief Complaint Patient presents with ??? Left Great Toe - Pain This patient was screened using current CDC and [facility] guidelines and algorithm for COVID-19 risk, and was considered low risk based on the best information available today. RODOLFO Hollis is a new 75 year old female patient who was referred for a mass to her toe. In January, she went for a walk with her family around [place]. Her toe started to hurt that day, but she was able to complete the loop, with some diffficulty due to toe pain, which was 6 miles. The leftbig toe became red and swollen just behind where the nail used to be (proximal-lateral nail fold). It stayed swollen and painful until just about 2 weeks ago. Now, there is still a lump there but it is smaller, not red, and not painful. Kept appointment to have it evaluated. AN xray was done about a month ago, when she was having an annual physical with Dr. Leon. Other than soaking her foot in warm salt water maybe a couple times per week, there was no other treatment. Social history: Retired. Lives with her daughter and family. Activities: Walking, hiking, crosswordpuzzles, regular puzzles. No past medical history on file. No past surgical history on file. Social History Tobacco Use ??? Smoking status: Current Every Day Smoker Types: Cigarettes ??? Smokeless tobacco: Never Used Substance Use Topics ??? Alcohol use: Not on file No family history on file. Current Outpatient Medications Medication Sig Dispense Refill ??? atorvastatin (LIPITOR) 10 mg tablet 10 mg daily. ??? hydroCHLOROthiazide (MICROZIDE) 12.5 mg capsule 12.5 mg daily. ??? isosorbide mononitrate (IMDUR) 30 mg CR tablet 30 mg daily. ??? metFORMIN (GLUCOPHAGE-XR) 500 mg ER tablet 1 Tab daily. ??? TOPROL XL 25 mg tablet 1 Tab daily. ??? trandolapriL (MAVIK) 4 mg tablet 4 mg daily. No current facility-administered medications for this visit. Allergies Allergen Reactions ??? Clindamycin Hives ??? Erythromycin Hives ??? Gemfibrozil Hives ??? Niaspan [Niacin] Hives ??? Penicillin Hives ??? Tramadol Nausea And Vomiting REVIEW OF SYSTEMS Constitutional: negative for, fever, fatigue, malaise. Eyes: Negative for, change in vision. Ears,nose,mouth,throat: Negative for, URI symptoms, sinus congestion. Cardiovascular: negative for, chest pain, dyspnea on exertion, palpitations. Respiratory: negative for cough, wheezing. Gastrointestinal: negative for, abdominal pain, nausea, diarrhea, blood in stool, heartburn. Genitourinary: negative for, incontinence, dysuria. Musculoskeletal: Positive for, foot /ankle pain. Skin/breast: Negative for, rash, discoloration, lesions. Neurological: Negative for, Numbness, Tingling, Weakness. Psychiatric: negative. Hematologic/lymphatic: Positive for easy bleeding, bruising. OBJECTIVE Pulse 86 Temp 36.4 ??C (97.5 ??F) (Temporal) Ht (!) 147.3 cm (58) Wt 54.4 kg (120 lb) RhH844% BMI 25.08 kg/m?? Body mass index is 25.08 kg/m??. Physical Exam: General Exam: Alert and oriented. No acute distress. Appropriate affect. Normal cognition. Healthy body weight. Vascular Exam: Dorsalis pedis pulses normal. Posterior tibial pulses normal. Skin color, texture, turgor, and elasticity normal. No edema. Capillary refill under 2 seconds. Tepid skin temperature. Digital hair present. Dermatologic Exam: No dermal breakdown or ulcerations. No significant hyperkeratotic lesions. Web spaces are without pathology. Skin hydration and texture normal. Left great toe, proximal nail fold is slightly raised. Pressure applied to the distal toenail downward does bulge this up a little bit. There is no subungual hematoma or other discoloration. Does appears however that nail plate has loosened from matrix. It is still fairly well attached to the nailbed and medial lateral nail folds. There is no pain on palpation. No erythema or increase in skin temperature. No drainage. Ortho Exam: Mild hallux rigidus/limitus with some compensatory hypermobility of the hallux interphalangeal joint, left foot Neurologic Exam: Cutaneous sensation and motor function are grossly intact and symmetrical. ASSESSMENT AND PLAN 1. Toe pain, left 2. Onychomadesis of toenail Explained findings to the patient. I suspect that she developed some inflammation under the nail that led to the onychomadesis and separation of the nail plate from the matrix. From her history, there is never any subungual hematoma. Had some pain but it was relatively brief. At this point she is fe eling fine. Recommendation is that we allow this to run its course. Nail avulsion is not necessary since there is no signs of infection and no pain. Likelihood is that the nail will self avulse but will do so when it is mostly healed underneath then new nail is already grown some. Should be a painless process. Hallux limitus and hyperextension of the IP joint could be contributing factors. There is no traumathe patient remembers. Therefore a repetitive microtrauma seems likely. We will follow on an as-needed basis if become symptomatic again or if she sees any redness or swelling or drainage. Kang Prado DPM [facility] [place], [place] documented in this encounter Plan of Treatment Not on file documented as of this encounter Visit Diagnoses Diagnosis Toe pain, left- Primary Pain in limb Onychomadesis of toenail Other specified disease of nail documented in this encounter Historical Medications * This list may reflect changes made after this encounter. trandolapriL (MAVIK) 4 mg tablet 4 mg daily. 03/23/2020 TOPROL XL 25 mg tablet 1 Tab daily. 03/23/2020 metFORMIN (GLUCOPHAGE-XR) 500 mg ER tablet 1 Tab daily. 04/02/2020 isosorbide mononitrate (IMDUR) 30 mg CR tablet 30 mg daily. 03/23/2020 hydroCHLOROthiazide (MICROZIDE) 12.5 mg capsule 12.5 mg daily. 03/23/2020 atorvastatin (LIPITOR) 10 mg tablet 10 mg daily. 03/23/2020 added in this encounter Care Teams Electrical Test Engineer Relationship Specialty Start Date End Date Madhu Leon MD [address] [place] [address] [address] [place] [address] PCP - General Internal Medicine - Primary Care 09/24/19 documented as of this encounter
--- OUTSIDE RECORDS SUMMARY | 2024-08-09 18:25 | XMS_ITS | Encounter Summary ---
Author Organization [facility] Address [address] [place] [address] Care Team Providers Care Community Life Director Name Role Phone Unknown, Provider Primary Care Provider Unava ilable Encounter Details Date Type Department Care Team (Late st Contact Info) Description 03/23/2017 Historical Results Only [facility] - [address] [place] [address] Madhu Leon MD [facility] [address] [place] [address] Social History Tobacco Use Types [...] Date/Time Associated Diagnosis Comments MICROALBUMIN, URINE Routine 03/23/2017 8 :32 EDT URINALYSIS/COMPLETE - [facility] Routine 03/23/2017 8:32 EDT COMPLETE BLOOD COUNT WITH DIFFERENTIAL (AUTO) Routine 03/23/2017 8:32 EDT URINE CULTURE IF POSITIVE Routine 03/23/2017 8:32 EDT URINE [id number]-[id number] RATIO (ACR) Routine 03/23/2017 8:32 EDT HEMOGLOBIN A1C Routine 03/23/2017 8:32 EDT URIC ACID Routine 03/23/2017 8:31 EDT TSH Routine 03/23/2017 8:31 EDT T4 FREE Routine 03/23/2017 8:31 EDT HEPATIC FUNCTION PANEL (ALB,ALK PHOS,ALT,AST,DBIL,TOT GOPAL,TOT PROT) Routine 03/23/2017 8:31 EDT LIPID PROFILE (INCLUDES CHOLESTEROL, TRIGLYCERIDES, HDL, LDL) Routine 03/23/2017 8:31 EDT COMPREHENSIVE METABOLIC PANEL (CMP) Routine 03/23/2017 8:31 EDT documented in this encounter Results * MICROALBUMIN, URINE (03/23/2017 8:32 EDT) Albumin, Urine 1.87 0.0 - 2.0 mg/dL 03/23/2017 11:03 EDT [facility] Lab Urine Albumin to Creatinine Ratio 19.3 ug/mg 03/23/2017 11:03 EDT [facility] Comment: Normal: <30 ug/mg Creat Microalbuminuria: 30-300 ug/mg Creat Clinical albuminuria: >300 ug/mg Creat Creatinine, Urine 96.50 mg/dL 03/23/2017 11:03 EDT [facility] 03/23/2017 8:32 EDT 03/23/2017 8:32 EDT Narrative [facility] - 03/23/2017 11:03 EDT Does PT Have a Latex Allergy? NO WHAT TYPE OF COLLECTION IS THIS URINE? RANDOM URINE us Madhu Leon MD HEMATOLOGY & PF4 ORDER CLAUDIA Final Result [facility] * URINE CULTURE IF POSITIVE (03/23/2017 8:32 EDT) ESCHERIACHIA COLI - [facility] ESCHERICHIA COLI 03/25/2017 6:33 EDT [facility] CitrateConcentration >100,000 CFU/ML 09/2016 6:33 EDT [facility] 03/23/2017 8:32 EDT 03/23/2017 8:32 EDT Comment:VOID Narrative [facility] - 03/25/2017 6:33 EDT Does PT Have a Latex Allergy? NO Organism Antibiotic Method Susceptibility Escherichia coli Ampicillin Sulbactam GRAM NEGAT SMILEY SUSCEPTIBILITY - [facility] 4: Susceptible Escherichia coli Ampicillin GRAM NEGATIVE SUSCEPTIBILITY - [facility] 4: Susceptible Escherichia coli Amoxicillin Clavulan ic acid [...] - GENERAL ORDERABLES Edited Result - Final [facility] * (ABNORMAL) HEMOGLOBIN A1C (03/23/2017 8:32 EDT) Hemoglobin A1c 6.7(H) 4.0 - 6.0 % 03/23/2017 13:12 EDT [facility] Est Avg Glucose 146 mg/dL 7 13:12 EDT [facility] 03/23/2017 8:32 EDT 03/23/2017 8:32 EDT Narrative [facility] - 03/23/2017 13:12 EDT Does PT Have a Latex Allergy? NO us Madhu Leon MD CHEMISTRY & BLOOD GAS ORDERABLES Final Result [facility] * (ABNORMAL) COMPLETE BLOOD COUNT WITH DIFFERENTIAL (AUTO) (03/23/2017 8:32 EDT) ABSOLUTE NEUTROPHIL COUN - [facility] 2.67 1.7 - 7.0 10e3/ul 03/23/2017 10:09 EDT [facility] BASO # - [facility] 0.02 0.0 - 0.3 10e3/uL 03/23/2017 10:09 [facility] BASO % - [facility] 0 0 - 2 % 03/23/2017 10:09 [facility] EOS # - [facility] 0.21 0.05 - 0.5 10e3/uL [facility]2017 [facility] 4 0 - 5 % 03/23/2017 10:09 [facility] GRAN % - [facility] 46 40 - 80 % 03/23/2017 10:09 [facility] HEMATOCRIT - [facility] 40.3 34.0 - 47.0 % 03/23/2017 10:09 [facility] HEMOGLOBIN - [facility] 13.4 11.2 - 15.7 g/dl 03/23/2017 10:09 [facility] IG# - [facility] 0.01 0 - 0.07 10e3/uL [facility]2017 [facility]% [facility] 0.2 0 - 0.9 % 03/23/2017 10:09 [facility] LYMPH # - [facility] 2.44 0.9 - 2.9 10e3/uL 03/23/2017 10:09 [facility] LYMPH% - [facility] 42(H) 20 - 40 % 03/23/2017 10:09 [facility] MEAN CORPUSCULAR HGB - [facility] 30.5 26 - 34 pg 03/23/2017 10:09 EDT [facility] MEAN CORPUSCULAR HGB CONC - [facility] 33.3 31 - 36 g/dL 03/23/2017 10:09 EDT [facility] MEAN CELL VOLUME - [facility] 91.8 77 - 100 fl 03/23/2017 10:09 [facility] MONO # - [facility] 0.47 0.3 - 0.9 10e3/uL 03/23/2017 10:09 EDT [facility] MONO% - [facility] 8 0 - 12 % 03/23/2017 10:09 [facility] PLATELET COUNT 175 150 - 400 10e3/ul 03/23/2017 10:09 [facility] RED BLOOD COUNT - [facility] 4.39 3.8 - 5.2 10e6/ul 03/23/2017 10:09 [facility] RED CELL DISTRI WIDTH - [facility] 13.8 11.8 - 15.6 % 03/23/2017 10:09 [facility] WHITE BLOOD COUNT - [facility] 5.8 3.5 - 10.5 10e3/ul 03/23/2017 10:09 [facility] 03/23/2017 8:32 EDT 03/23/2017 8:32 EDT Narrative [facility] - 03/23/2017 10:09 EDT Does PT Have a Latex Allergy? NO us Madhu Leon MD HEMATOLOGY & PF4 ORDER CLAUDIA Final Result [facility] * URINALYSIS/COMPLETE - [facility] (03/23/2017 8:32 EDT) URINE APPEARANCE - [facility] Clear CLEAR 03/23/2017 10:49 EDT [facility] URINE BACTERIA - [facility] MANY 03/23/2017 11:03 EDT [facility] URINE BILIRUBIN - DIPSTICK - [facility] Negative NEGATIVE 03/23/2017 10:49 [facility] URINE BLOOD - [facility] Trace NEG 03/23/2017 10:49 [facility] URINE COLOR - [facility] Yellow YELLOW 03/23/2017 10:49 [facility] URINE GLUCOSE - DIPSTICK - [facility] Negative NEGATIVE 03/23/2017 10:49 [facility] URINE KETONE - [facility] Negative NEGATIVE 03/23/2017 10:49 [facility] URINE LEUK ESTERASE - [facility] 1+ NEG 03/23/2017 10:49 [facility] URINE NITRITE - DIPSTICK - [facility] Positive NEG 03/23/2017 10:49 [facility] URINE PH - [facility] 5.5 4.0 - 8.0 7 10:49 [facility] URINE PROTEIN - DIPSTICK - [facility] Negative NEG 03/23/2017 10:49 [facility] URINE RBC - [facility] 1-3 rbc/hpf 03/23/20 17 11:03 [facility] URCULTIF+? - [facility] Culture Ordered 03/23/2017 11:03 [facility] URINE SPECIFIC GRAVITY - [facility] 1.010 1.001 - 1.035 03/23/2017 10:49 [facility] URINE SQUAMOUS CELLS - [facility] FEW NEG #/hpf 03/23/2017 11:03 [facility] URINE UROBILINOGEN - DIPSTICK - [facility] 0.2 0.2 - 1.0 03/23/2017 10:49 [facility] URINE WBC - [facility] 15-20 NEG wbc/hpf 017 11:03 [facility] 03/23/2017 8:32 EDT 03/23/2017 8:32 [facility] - 03/23/2017 11:03 EDT Does PT Have a Latex Allergy? NO us Madhu Leon MD CHEMISTRY & BLOOD GAS ORDERABLES Final Result [facility] * ALBUMIN, URINE (03/23/2017 8:32 EDT) Pathologist [facility] [place] Albumin, Urine 1.87 0.0 - 2.0 mg/dL 03/23/2017 11:03 EDT [facility] Lab Urine Albumin to Creatinine Ratio 19.3 ug/mg 03/23/2017 11:03 EDT [facility] Comment: Normal: <30 ug/mg Creat Microalbuminuria: 30-300 ug/mg Creat Clinical albuminuria: >300 ug/mg Creat Creatinine, Urine 96.50 mg/dL 03/23/2017 11:03 EDT [facility] 03/23/2017 8:32 EDT 03/23/2017 8:32 EDT [facility] - 03/23/2017 11:03 EDT Does PT Have a Latex Allergy? NO WHAT TYPE OF COLLECTION IS THIS URINE? RANDOM URINE Madhu Leon MD CHEMISTRY & BLOOD GAS ORDERABLES Final Result [facility] * URIC ACID (03/23/2017 8:31 EDT) Pathologist [facility] [place] URIC ACID - [facility] 6.2 2.6 - 7.2 mg/dl 03/23/2017 10:39 EDT [facility] 03/23/2017 8:31 EDT 03/23/2017 8:31 EDT [facility] - 03/23/2017 12:13 EDT Does PT Have a Latex Allergy? NO Madhu Leon MD CHEMISTRY & BLOOD GAS ORDERABLES Final Result [facility] * TSH (03/23/2017 8:31 EDT) [facility] THYROID STIM [facility] 1.26 0.35 - 5.50 uIU/mL 03/23/2017 12:12 EDT [facility] 03/23/2017 8:31 EDT 03/23/2017 8:31 EDT Narrative [facility] - 03/23/2017 12:13 EDT Does PT Have a Latex Allergy? NO Madhu Leon MD CHEMISTRY & BLOOD GAS ORDERABLES Final Result Performing Organization Address City/[facility]/ZIP Co de Phone Number [facility] * HEPATIC FUNCTION PANEL (ALB,ALK PHOS,ALT,AST,DBIL,TOT GOPAL,TOT PROT) (03/23/2017 8:31 EDT) Pathologist [facility] [place] BILIRUBIN DIRECT - [facility] 0.1 0.0 - 0.2 mg/dL 03/23/2017 10:39 [facility] 03/23/2017 8:31 EDT 03/23/2017 8:31 EDT Narrative [facility] - 03/23/2017 12:13 EDT Does PT Have a Latex Allergy? NO Madhu Leon MD CHEMISTRY & BLOOD GAS ORDERABLES Final Result Performing Organization Address [facility]/ZIP Co de Phone Number [facility] * (ABNORMAL) LIPID PROFILE (INCLUDES CHOLESTEROL, TRIGLYCERIDES, HDL, LDL) (03/23/2017 8:31 EDT) [facility] Triglyceride 225(H) 35 - 150 mg/dL 03/23/2017 10:39 [facility] Cholesterol 129 120 - 200 mg/dL 03/23/2017 10:39 [facility] Chol/HDL Ratio 3.5 0 - 4.5 03/23/2017 10:39 [facility] Comment: DESIRABLE RATIO IS LESS THAN 4.1 PATIENTS ARE CONSIDERED AT RISK: WOMEN RATIO >5 MEN RATIO >6 FASTING? - [facility] Yes 8:32 [facility] HDL 36(L) 40 - 60 mg/dL 03/23/2017 10:39 [facility] LDL CHOLESTEROL - [facility] 48(L) 60 - 100 mg/dL 03/23/2017 10:39 [facility] Non HDL Cholesterol 93 mg/dl 03/23/2017 10:39 EDT [facility] Comment: Desirable: ?Less than 130 Borderline High: ??130-159 High: ? 160-189 Very High: ?Greater than or equal to 190 03/23/2017 8:31 EDT 03/23/2017 8:31 EDT Narrative [facility] - 03/23/2017 12:13 EDT Does PT Have a Latex Allergy? NO us Madhu Leno MD CHEMISTRY & BLOOD GAS ORDERABLES Final Result Performing Organization Address City/[facility]/ZIP Co de Phone Number [facility] * (ABNORMAL) T4 FREE (03/23/2017 8:31 EDT) FREE T4 - [facility] 0.87(L) 0.89 - 1.76 ng/dL 03/23/2017 12:13 EDT [facility] 03/23/2017 8:31 EDT 03/23/2017 8:31 EDT Narrative [facility] - 03/23/2017 12:13 EDT Does PT Have a Latex Allergy? NO us Madhu Leon MD CHEMISTRY & BLOOD GAS ORDERABLES Final Result [facility] * (ABNORMAL) COMPREHENSIVE METABOLIC PANEL (CMP) (03/23/2017 8:31 EDT) Albumin % 3.5 3.4 - 5.0 g/dL 03/23/2017 10:39 EDT [facility] ALKALINE PHOSPHATASE - [facility] 51 41 - 126 U/L 03/23/2017 10:39 EDT [facility] BILIRUBIN TOTAL 0.5 0.0 - 1.0 mg/dL 03/23/2017 10:39 EDT [facility] BUN - [facility] 17 7 - 18 mg/dL 03/23/2017 10:39 EDT [facility] CALCIUM - [facility] 8.2(L) 8.5 - 10.1 mg/dL 03/23/2017 10:39 [facility] Chloride 104 98 - 107 mEq/L 03/23/2017 10:39 [facility] CO2 Total 28 21 - 32 mEq/L 03/23/2017 10:39 [facility] CREATININE 0.89 0.5 - 1.3 mg/dL 03/23/2017 10:39 [facility] eGFR >60 03/23/2017 10:39 [facility] Comment: Chronic renal impairment is defined as GFR <60 Multiply result by 1.210 for patients. eGFR calculated using the IDMA-traceable MDRD Study Equation. ??(effective 06/26/2014) Anion Gap 8 5 - 15 03/23/2017 10:39 [facility] GLUCOSE - [facility] 114(H) 70 - 100 mg/dL 03/23/2017 10:39 [facility] Potassium 3.7 3.5 - 5.0 mEq/L 03/23/2017 10:39 [facility] Sodium 140 135 - 145 mEq/L 03/23/2017 10:39 [facility] TOTAL PROTEIN - [facility] 6.8 6.4 - 8.2 gm/dl 03/23/2017 10:39 [facility] SGOT/AST - [facility] 34 10 - 37 U/L 03/23/2017 10:39 [facility] SGPT/ALT - [facility] 44 12 - 78 U/L 03/23/2017 10:39 [facility] 03/23/2017 8:31 EDT 03/23/2017 8:31 [facility] Narrative [facility] - 03/23/2017 12:13 EDT Does PT Have a Latex Allergy? NO us Madhu Leon MD CHEMISTRY & BLOOD GAS ORDERABLES Final Result [facility] documented in this encounter Visit Diagnoses Not on filedocumented in this encounter Care Teams Community Life Director Relationship Specialty Start Date End Date Unknown, Provider, PCP - General 09/05/13 09/23/19 documented as of this encounter
--- OUTSIDE RECORDS SUMMARY | 2024-08-09 18:25 | XMS_ITS | Encounter Summary ---
Author Organization [facility] Address [address] [place] [address] Care Team Providers Care Therapeutic Recreation Leader Name Role Phone Madhu Leon MD Primary Care Provider Encounter Details Date Type Department Care Team (Latest Contact Info) Description 07/25/2022 Transcribe Orders [facility] - Main [place] [address] [place], [place] [address] Madhu Leon MD [address] [place] [address] [address] [place] [address] Type II diabetes mellitus with hyperosmolarity, uncontrolled (HCC-CMS) (Primary Dx); Essential hypertension, malignant; Pure hypercholesterolemia Social History Tobacco Use Types Packs/Day Years [...] Procedure Name Priority Date/Time Associated Diagnosis Comments UA SEDIMENT (CULTURE IF POS) Today 07/26/2022 9:00 EST Type II diabetes mellitus with hyperosmolarity, uncontrolled (HCC-CMS) Essential hypertension, malignant Pure hypercholesterolemia UA WITH REFLEX SEDIMENT (CULTURE IF POS) Routine 07/26/2022 9:00 EST Type II diabetes mellitus with hyperosmolarity, uncontrolled (HCC-CMS) Essential hypertension, malignant Pure hypercholesterolemia URINE [id number] NE RATIO (ACR) Routine 07/26/2022 9:00 EST Type II diabetes mellitus with hyperosmolarity, uncontrolled (HCC-CMS) Essential hypertension, malignant Pure hypercholesterolemia COMPLETE BLOOD COUNT AND DIFFERENTIAL Routine 07/26/2022 9:00 EST Type II diabetes mellitus with hyperosmolarity, uncontrolled (HCC-CMS) Essential hypertension, malignant Pure hypercholesterolemia BILIRUBIN DIRECT/INDIRECT Routine 07/26/2022 9:00 EST Type II diabetes mellitus with hyperosmolarity, uncontrolled (HCC-CMS) Essential hypertension, malignant Pure hypercholesterolemia URIC ACID Routine 07/26/2022 9:00 EST Type II diabetes mellitus with hyperosmolarity, uncontrolled (HCC-CMS) Essential hypertension, malignant Pure hypercholesterolemia TSH Routine 07/26/2022 9:00 EST Type II diabetes mellitus with hyperosmolarity, uncontrolled (HCC-CMS) Essential hypertension, malignant Pure hypercholesterolemia T4 FREE Routine 07/26/2022 9:00 EST Type II diabetes mellitus with hyperosmolarity, uncontrolled (HCC-CMS) Essential hypertension, malignant Pure hypercholesterolemia HEMOGLOBIN A1C Routine 07/26/2022 9:00 EST Type II diabetes mellitus with hyperosmolarity, uncontrolled (HCC-CMS) Essential hypertension, malignant Pure hypercholesterolemia LIPID PROFILE (INCLUDES CHOLESTEROL, TRIGLYCERIDES, HDL, LDL) Routine 07/26/2022 9:00 EST Type II diabetes mellitus with hyperosmolarity, uncontrolled (HCC-CMS) Essential hypertension, malignant Pure hypercholesterolemia COMPREHENSIVE METABOLIC PANEL (CMP) Routine 07/26/2022 9:00 EST Type II diabetes mellitus with hyperosmolarity, uncontrolled (HCC-CMS) Essential hypertension, malignant Pure hypercholesterolemia documented in this encounter Results * (ABNORMAL) UA SEDIMENT (CULTURE IF POS) (07/26/2022 9:00 EST) Urine RBC Count, Manual 3 - 10(A) 0 - 2, None Seen Cells/HPF 07/26/2022 11:28 [facility] Urine WBC Count 0 - 3 0 - 3, None Seen Cells/HPF 07/26/2022 11:28 [facility] Urine Squamous Count, Manual Moderate(A ) None Seen Cells/HPF 07/26/2022 11:28 [facility] Urine Bacteria Count, Manual Few(A) None Seen Bacteria/H PF 07/26/2022 11:28 [facility] Urine URINE SPECIMEN COLLECTION, CLEAN CATCH / Unknown Urine Collect / Unknown 07/26/2022 9:00 EST 07/26/2022 10:25 [facility] - 07/26/2022 11:28 [facility] Urine Sediment Analysis results are unreliable on urines that are unrefrigerated for >2 hrs or refrigerated >8 hrs. Specimen contaminated. Please recollect a clean catch sample if a culture is indicated. us Madhu Leon MD URINALYSIS ORDERABLES Final Result Performing Organization Address City/State/[facility] Co de Phone Number [facility] [address] [place] [address] * (ABNORMAL) LIPID PROFILE (INCLUDES CHOLESTEROL, TRIGLYCERIDES, HDL, LDL) (07/26/2022 9:00 EST) [facility] Cholesterol 114 <200 mg/dL 07/26/2022 9:39 [facility] Comment:Note that therapeuti c goals will differ between patients based on cardiac risk factors and current medical therapy. HDL 37(L) >=50 mg/dL 07/26/2022 9:39 [facility] Comment:Note that therapeuti c goals will differ between patients based on cardiac risk factors and current medical therapy. LDL, Calculated 53 <160 mg/dL 9:39 [facility] Comment:Note that therapeuti c goals will differ between patients based on cardiac risk factors and current medical therapy. Triglyceride 118 <=150 mg/dL 07/26/2022 9:39 [facility] Comment:Note that therapeuti c goals will differ between patients based on cardiac risk factors and current medical therapy. Chol/HDL Ratio 3.1 See Note 07/26/2022 9:39 [facility] Comment: NOTE: Desirable Ratio = <4.1 Patient At Risk Ratio = >5.0(Males) ?>6.0(Females) Non HDL Cholesterol 77 <160 mg/dL 07/26/2022 9:39 [facility] Comment:Note that therapeuti c goals will differ between patients based on cardiac risk factors and current medical therapy. Blood VENOUS BLOOD / Unknown Venipuncture / Unknown 07/26/2022 9:00 EST 07/26/2022 9:10 EST us Madhu Leon MD CHEMISTRY & BLOOD GAS ORDERABLES Final Result Performing Organization Address City/State/[facility] Co de Phone Number [facility] [address] [place] [address] * COMPREHENSIVE METABOLIC PANEL (CMP) (07/26/2022 9:00 EST) Sodium 141 136 - 145 mmol/L 07/26/2022 9:39 [facility] Potassium 3.8 3.5 - 5.0 mmol/L 07/26/2022 9:39 [facility] Chloride 105 96 - 110 mmol/L 07/26/2022 9:39 [facility] CO2 Total 30 22 - 32 mmol/L 07/26/2022 9:39 [facility] Glucose 98 70 - 100 mg/dL 07/26/2022 9:39 [facility] BUN 24 10 - 26 mg/dL 07/26/2022 9:39 [facility] Creatinine 0.68 0.52 - 1.04 mg/dL 07/26/2022 9:39 [facility] eGFR 89 >60 mL/min/1.7 3m2 07/26/2022 9:39 [facility] Total Protein 6.9 6.3 - 8.2 g/dL 07/26/2022 9:39 [facility] Albumin 4.1 3.4 - 4.9 g/dL 07/26/2022 9:39 [facility] Alkaline Phosphatase 47 38 - 126 U/L 07/26/2022 9:39 [facility] AST 23 15 - 46 U/L 07/26/2022 9:39 [facility] ALT 14 <35 U/L 07/26/2022 9:39 [facility] Bilirubin, Total 0.5 <1.4 mg/dL 07/26/20 9:39 [facility] Calcium 8.5 8.5 - 10.5 mg/dL 07/26/2022 9:39 [facility] Albumin/Globulin Ratio 1.5 1.0 - 2.5 07/26/2022 9:39 [facility] Anion Gap 6 5 - 14 07/26/2022 9:39 [facility] Blood VENOUS BLOOD / Unknown Venipuncture / Unknown 07/26/2022 9:00 EST 07/26/2022 9:10 EST Madhu Leon MD CHEMISTRY & BLOOD GAS ORDERABLES Final Result Performing Organization Address [facility] Phone Number [facility] [address] [place] [id number] * BILIRUBIN DIRECT/INDIRECT (07/26/2022 9:00 EST) Conjugated Bilirubin 0.0 <=0.3 mg/dL 07/26/2022 9:39 [facility] Unconjugated Bilirubin 0.3 <=1.1 mg/dL 07/26/2022 9:39 [facility] Blood VENOUS BLOOD / Unknown Venipuncture / Unknown 07/26/2022 9:00 EST 07/26/2022 9:10 EST us Madhu Leon MD CHEMISTRY & BLOOD GAS ORDERABLES Final Result Performing Organization Address City/[facility]/ZIP Co de Phone Number [facility] [address] [place] [address] * TSH (07/26/2022 9:00 EST) Pathologist [facility] TSH 1.64 0.47 - 4.68 mIU/L 07/26/2022 10:11 EST [facility] Blood VENOUS BLOOD / Unknown Venipuncture / Unknown 07/26/2022 9:00 EST 07/26/2022 9:10 EST Narrative [facility] - 07/26/2022 10:11 EST The results of this assay can be falsely lowered due to the consumption of Biotin. us Madhu Leon MD CHEMISTRY & BLOOD GAS ORDERABLES Final Result Performing Organization Address [facility] Co de Phone Number [facility] [address] [place] [address] * T4 FREE (07/26/2022 9:00 EST) Pathologist [facility] T4, Free 1.0 0.8 - 2.2 ng/dL 07/26/2022 10:11 [facility] Blood VENOUS BLOOD / Unknown Venipuncture / Unknown 07/26/2022 9:00 EST 07/26/2022 9:10 EST us Madhu Leon MD CHEMISTRY & BLOOD GAS ORDERABLES Final Result Performing Organization Address [facility] Co de Phone Number [facility] [address] [place] [address] * (ABNORMAL) HEMOGLOBIN A1C (07/26/2022 9:00 EST) Pathologist [facility] Hemoglobin A1c 5.9(H) <5.7 % 07/27/2022 20:41 [facility] Comment: Glycemic Status References: Normal: ??<5.7% Pre-Diabetes: ??5.7% - 6.4% Diagnostic of Diabetes: ??> or = 6.5% (if confirmed) Est Avg Glucose 123 mg/dL 20:41 [facility] Comment:The eAG represents t he A1c result expressed as average glucose in mg/dL. Blood VENOUS BLOOD / Unknown Venipuncture / Unknown 07/26/2022 9:00 EST 07/26/2022 9:09 EST us Madhu Leon MD CHEMISTRY & BLOOD GAS ORDERABLES Final Result Performing Organization Address [facility]/ZIP Co de Phone Number [facility] [address] [place] [address] * URIC ACID (07/26/2022 9:00 EST) Uric Acid 4.5 2.2 - 7.7 mg/dL 07/26/2022 9:39 EST [facility] Blood VENOUS BLOOD / Unknown Venipuncture / Unknown 07/26/2022 9:00 EST 07/26/2022 9:10 EST us Madhu Leon MD CHEMISTRY & BLOOD GAS ORDERABLES Final Result Performing Organization Address [facility] Phone Number [facility] [address] [place] [address] * URINE [id number] RATIO (ACR) (07/26/2022 9:00 EST) Albumin, Urine <0.6 See Note mg/dL 07/26/2022 13:47 [facility] Comment: NOTE: Reference range not established Creatinine, Urine 47.3 See Note mg/dL 07/26/2022 13:47 [facility] Comment: NOTE: Reference range not established Lab Urine Albumin to Creatinine Ratio 07/26/2022 13:47 [facility] Comment: Unable to calculate due to albumin result <0.6. Urine Albumin/Creatinine Ratio: Normal: <30 ug/mg Creatinine Moderately increased albuminuria: 30-300 ug/mg Creatinine [place] increased albuminuria: >300 ug/mg Creatinine Urine URINE / Unknown Urine Collect / Unknown 07/26/2022 9:00 EST 07/26/2022 10:25 EST us Madhu Leon MD CHEMISTRY & BLOOD GAS ORDERABLES Final Result Performing Organization Address City/[facility]/ZIP Co de Phone Number [facility] [address] [place] [address] * (ABNORMAL) UA WITH REFLEX SEDIMENT (CULTURE IF POS) (07/26/2022 9:00 EST) Color UA Yellow Colorless to Dark Yellow 07/26/2022 11:25 [facility] Clarity UA Clear Clear 07/26/2022 11:25 [facility] Glucose UA Negative Negative 07/26/2022 11:25 [facility] Bilirubin UA Negative Negative 07/26/2022 11:25 [facility] Ketones UA Negative Negative 07/26/2022 11:25 [facility] Specific [place], Urine 1.015 1.001 - 1.035 07/26/2022 11:25 [facility] Blood UA 1+(A) Negative 07/26/2022 11:25 [facility] pH, UA 5.0 4.6 - 8.0 07/26/2022 11:25 [facility] Protein UA Negative Negative 07/26/2022 11:25 [facility] Urobilinogen UA 0.2 0.2 , 1.0, Normal mg/dL 07/26/2022 11:25 [facility] Nitrite UA Negative Negative 07/26/2022 11:25 [facility] Leukocyte Esterase UA Negative Negative 07/26/2022 11:25 [facility] Urine URINE SPECIMEN COLLECTION, CLEAN CATCH / Unknown Urine Collect / Unknown 07/26/2022 9:00 EST 07/26/2022 10:25 EST us Madhu Leon MD URINALYSIS ORDERABLES Final Result Performing Organization Address City/[facility]/ZIP Co de Phone Number [facility] [address] [place] [address] * COMPLETE BLOOD COUNT AND DIFFERENTIAL (07/26/2022 9:00 EST) WBC 7.82 4.00 - 12.40 K/cmm 07/26/2022 9:12 [facility] RBC 4.39 3.86 - 5.04 M/cmm 07/26/2022 9:12 [facility] Hemoglobin 13.3 11.6 - 15.2 gm/dL 07/26/2022 9:12 [facility] HCT 40.3 34.9 - 44.4 % 07/26/2022 9:12 [facility] MCV 92 81 - 98 fl 07/26/2022 9:12 [facility] MCH 30.3 26.7 - 33.3 pg 07/26/2022 9:12 [facility] MCHC 33.0 32.1 - 35.9 gm/dL 07/26/2022 9:12 [facility] RDW-CV 13.0 <14.7 % 07/26/2022 9:12 [facility] RDW-SD 43.8 <50.4 fl 07/26/2022 9:12 [facility] PLT 188 141 - 377 K/cmm 07/26/2022 9:12 [facility] MPV 10.0 9.5 - 12.7 fl 07/26/2022 9:12 [facility] % Neutrophils 50.7 % 07/26/2022 9:12 [facility] % Lymphocytes 35.7 % 07/26/2022 9:12 [facility] % Monocytes 5.9 % 07/26/2022 9:12 [facility] % Eosinophils 6.8 % 07/26/2022 9:12 [facility] % Basophils 0.5 % 07/26/2022 9:12 [facility] % Immature Grans 0.4 % 07/26/20 9:12 [facility] Absolute Neutrophils 3.97 2.20 - 8.85 K/cmm 07/26/2022 9:12 [facility] Absolute Lymphocytes 2.79 1.09 - 3.30 K/cmm 07/26/2022 9:12 [facility] Absolute Monocytes 0.46 0.10 - 0.80 K/cmm 07/26/2022 9:12 [facility] Absolute Eosinophils 0.53 0.03 - 0.61 K/cmm 07/26/2022 9:12 [facility] ABS Basophils 0.04 0.01 - 0.11 K/cmm 07/26/2022 9:12 [facility] Absolute Immature Grans 0.03 0.00 - 0.06 K/cmm 07/26/2022 9:12 [facility] Type of Differential: Auto 07/26/2022 9:12 [facility] Blood VENOUS BLOOD / Unknown Venipuncture / Unknown 07/26/2022 9:00 EST 07/26/2022 9:09 EST us Madhu Leon MD PACKAGES & DNA PROBE O RDERABLES Final Result [facility] [address] [place] [address] documented in this encounter Visit Diagnoses Diagnosis Type II diabetes mellitus with hyperosmolarity, uncontrolled ([facility] Primary Type II or unspecified type diabetes mellitus with hyperosmolarity, uncontrolled Essential hypertension, malignant Pure hypercholesterolemia documented in this encounter Care Teams Therapeutic Recreation Leader Relationship Specialty Start Date End Date Madhu Leon MD [address] [place] [address] [address] [place] [phone] PCP - General Internal Medicine - Primary Care 09/24/19 documented as of this encounter
--- OUTSIDE RECORDS SUMMARY | 2024-08-09 18:25 | XMS_ITS | Encounter Summary ---
Author Organization [facility] Address [address] [place] [address] Care Team Providers Care Repairer And Checker Name Role Phone Unknown, Provider Primary Care Provider Madhu Crandall MD Primary Care Provider Encounter Details Date Type Department Care Team (Late st Contact Info) Description 06/07/2019 Historical Results Only [facility] - Main [place] [address] [place] [address] Madhu Leon MD [address] [place] [address] [address] [place] [address] Social History Tobacco Use Types [...] Date/Time Associated Diagnosis Comments MICROALBUMIN, URINE Routine 06/07/2019 1 1:43 EDT URINE CULTURE IF POSITIVE Routine 06/07/2019 11:43 EDT documented in this encounter Results * MICROALBUMIN, URINE (06/07/2019 11:43 EDT) Albumin, Urine 1.60 <1.7 mg/dL 06/07/2019 13:28 EDT [facility] Lab Urine Albumin to Creatinine Ratio 24.7 ug/mg 06/07/2019 13:28 EDT [facility] Comment: Normal: <30 ug/mg Creat Microalbuminuria: 30-300 ug/mg Creat Clinical albuminuria: >300 ug/mg Creat Creatinine, Urine 64.70 mg/dL 06/07/2019 13:28 EDT [facility] 06/07/2019 11:4 3 EDT 06/07/2019 11:43 EDT Narrative [facility] - 06/07/2019 13:28 EDT Does PT Have a Latex Allergy? NO WHAT TYPE OF COLLECTION IS THIS URINE? RANDOM URINE us Madhu Leon MD HEMATOLOGY & PF4 ORDER CLAUDIA Final Result [facility] * URINE CULTURE IF POSITIVE (06/07/2019 11:43 EDT) [facility] - [facility] 06/09/2019 7:31 EDT [facility] CitrateConcentration >100,000 CFU/ML 05/24 7:31 EDT [facility] USUAL [facility] 06/09/2019 7:31 EDT [facility] CitrateConcentration <10,000 CFU/ML 05/24 7:31 EDT [facility] 06/07/2019 11:4 3 EDT 06/07/2019 11:43 EDT Comment:VOID Narrative [facility] - 06/09/2019 7:31 EDT Does PT Have a Latex Allergy? [...] GRAM NEGATIVE SUSCEPTIBILITY - [facility] <=1: Susceptible Comment:E11.65,I10 us Madhu Leon MD MICROBIOLOGY - GENERAL ORDERABLES Edited Result - Final [facility] documented in this encounter Visit Diagnoses Not on filedocumented in this encounter Care Teams Repairer And Checker Relationship Specialty Start Date End Date Unknown, Provider, PCP - General 09/05/13 09/23/19 Madhu Leon MD [address] [place] [address] [address] [place] [phone] PCP - General Internal Medicine - Primary Care 09/24/19 documented as of this encounter
--- OUTSIDE RECORDS SUMMARY | 2024-08-09 18:25 | XMS_ITS | Referral Summary ---
Author Organization [facility] Address [address] [place] [address] Care Team Providers Care Cell Geneticist Name Role Phone Madhu Leon MD Primary [...] on file Sexual Orientation Not on file Last Filed Vital Signs Vital Sign Reading Time Taken Comments Blood Pressure - - Pulse 86 06/11/2020 0945 EDT Temperature 36.4 ??C (97.5 ??F) 06/11/2020944 EDT Respiratory Rate - - Oxygen Saturation 98% 06/11/2020944 EDT Inhaled Oxygen Concentration - - Weight 54.4 kg (120 lb) 06/11/2020944 EDT Height 147.3 cm (4' 10) 06/11/2020944 EDT Body Mass Index 25.08 06/11/2020944 EDT Plan of Treatment Not on file Insurance MEDICARE [facility] MEDICARE [facility] Care Teams Cell Geneticist Relationship Specialty Start Date End Date Madhu Leon MD [address] [place] [address] [address] [place] [phone] PCP - General Internal Medicine - Primary Care 09/24/19
--- OUTSIDE RECORDS SUMMARY | 2024-08-09 18:25 | XMS_ITS | Encounter Summary ---
Author Organization [facility] Address [address] [place] [address] Care Team Providers Care Suspender Cutter Name Role Phone Unknown, Provider Primary Care Provider Genevieve mars Encounter Details Date Type Department Care Team (Late st Contact Info) Description 06/07/2019 Results Only [facility] - Main [place] [address] [place], [place] [id number] Madhu Leon MD [address] [place] [address] [address] [place] [address] Social History Tobacco Use Types [...] Procedure Name Priority Date/Time Associated Diagnosis Comments HEPATIC FUNCTION PANEL (ALB,ALK PHOS,ALT,AST,DBIL,T OT GOPAL,TOT PROT) Routine 06/07/2019 11:42 EDT documented in this encounter Results * HEPATIC FUNCTION PANEL (ALB,ALK PHOS,ALT,AST,DBIL,TOT GOPAL,TOT PROT) (06/07/2019 11:42 EDT) BILIRUBIN [facility] 0.2 0.0 - 0.4 mg/dL 06/07/2019 13:17 EDT [facility] Unconjugated Bilirubin 0.4 0.0 - 1.1 mg/dL 06/07/2019 13:17 EDT [facility] 06/07/2019 11:4 2 EDT 06/07/2019 11:42 EDT Narrative [facility] - 06/07/2019 13:17 EDT Does PT Have a Latex Allergy? NO us Madhu Leon MD CHEMISTRY & BLOOD GAS ORDERABLES Final Result [facility] documented in this encounter Visit Diagnoses Not on filedocumented in this encounter Care Teams Suspender Cutter Relationship Specialty Start Date End Date Unknown, Provider, PCP - General 09/05/13 09/23/19 documented as of this encounter
--- OUTSIDE RECORDS SUMMARY | 2024-08-09 18:25 | XMS_ITS ---
Author Organization Unknown Address [address] [place] [phone] Phone Care Team Providers Care Jai Alai Player Name Role Phone KALLIE SMITH Registered Nurse Unavailable JOSEPH Boles Attending Unavailable MIRANDA Delgado ER Unavailable UNLISTED PROVIDER - REQUESTED Xhandoff Un available Results TROPONIN HIGH SENSITIVITY* - Collect Date/Time: 06/21/2024 21:05 [facility] ID: [id number] [address] [place] [address], [address] LOINC: 60296-5 Test Value Unit Reference Range Code Code System Flag TROPONIN HS 6.2 pg/mL L=0.0 H=60.4 Specimen seq. RANDOM MAGNESIUM SERUM* - Collect D ate/Time: 06/21/2024 21:05 [facility] ID: [id number] [address] [place] [address], [address] LOINC: 34919-5 Test Value Unit Reference Range Code Code System Flag MAGNESIUM 1.9 mg/dL L=1.8 H=2.4 38471-6 LOINC C REACTIVE PROTEIN HIGH SENS ITIVITY* - Collect Date/Time: 06/21/2024 21:05 [facility] ID: [id number] [address] [place] [address], [address] LOINC: 86914-7 Test Value Unit Reference Range Code Code System Flag CRP-HIGH SENS. 0.49 mg/L L=0.00 H=3.00 57845-0 LOINC CRP-HIGH SENS 0.05 mg/dL L=0.00 H=0.30 52298-0 LOINC COMPREHENSIVE METABOLIC PANE L (CMP) - Collect Date/Time: 06/21/2024 21:05 [facility] ID: [id number] [address] [place], [place], [address] LOINC: 33152-6 Test Value Unit Reference Range Code Code System Flag GLUCOSE 99 mg/dL L=70 H=116 2345-7 LOINC BUN 21 mg/dL L=6 H=25 3094-0 LOINC CREATININE 1.12 mg/dL L=0.51 H=0.95 2160-0 LOINC H SODIUM SERUM 143 mmol/L L=136 H=145 2951-2 LOINC POTASSIUM SERUM 3.8 mmol/L L=3.4 H=5.2 2823-3 LOINC CHLORIDE SERUM 104 mmol/L L=96 H=110 2075-0 LOINC CARBON DIOXIDE (CO2) 33 mmol/L L=22 H=34 2028-9 LOINC ANION GAP 6.3 mmol/L 70377-8 LOINC CALCIUM SERUM 8.8 mg/dL L=8.2 H=10.2 52716-1 LOINC BILIRUBIN TOTAL 0.3 mg/dL L=0.0 H=1.3 1975-2 LOINC ALK. PHOS. 75 U/L L=46 H=116 6768-6 LOINC SGOT (AST) 9 U/L L=15 H=37 1920-8 LOINC L SGPT (ALT) 8 U/L L=12 H=78 1742-6 LOINC L TOTAL PROTEIN 7.8 gm/dL L=6.0 H=8.0 2885-2 LOINC ALBUMIN 3.7 gm/dL L=3.4 H=5.0 1751-7 LOINC AGE 79 years eGFR (non-Afr.Amer.) 47 mL/min 44913-8 [facility] eGFR (Afr-Russian) 57 mL/min 53898-2 [facility] CBC W/ DIFFERENTIAL* - Colle ct Date/Time: 06/21/2024 21:05 [facility] ID: [id number] [address] [place], [place], [address] LOINC: 32098-1 Test Value Unit Reference Range Code Code System Flag WBC 8.01 th/cmm L=5.00 H=10.00 6690-2 LOINC NEUT % 45.0 % L=40.0 H=80.0 LYMPH % 39.3 % L=10.0 H=50.0 MONO % 7.1 % L=2.0 H=12.0 88298-2 LOINC EOS % 7.2 % L=0.0 H=8.0 BASO % 0.7 % L=0.0 H=3.0 IG % 0.7 % L=0.0 H=1.1 2514-8 LOINC NRBC % 0.0 % L=0.0 H=0.0 77966-2 LOINC NEUT abs count 3.6 th/cmm L=1.6 H=8.4 751-8 LOINC LYMPH abs count 3.2 th/cmm L=1.5 H=4.0 731-0 LOINC MONO abs count 0.6 th/cmm L=0.2 H=1.0 742-7 LOINC EOS abs count 0.6 th/cmm L=0.0 H=0.5 711-2 LOINC H BASO abs count 0.1 th/cmm L=0.0 H=0.2 704-7 LOINC IG abs count 0.1 th/cmm L=0.0 H=0.1 57380-5 LOINC NRBC abs count 0.0 mil/cmm L=0.0 H=0.0 12792-7 LOINC RBC 4.62 mil/cmm L=3.90 H=5.40 789-8 LOINC HEMOGLOBIN 13.8 gm/dL L=12.0 H=16.0 718-7 LOINC HEMATOCRIT 44 % L=37 H=47 4544-3 LOINC MCV 94 fL L=82 H=92 787-2 LOINC H MCH 29.9 pg L=27.0 H=31.0 785-6 LOINC MCHC 31.7 % L=32.0 H=36.0 786-4 LOINC L RDW-SD 47.1 fL L=39.0 H=49.0 788-0 LOINC PLATELET COUNT 207 th/cmm L=150 H=450 777-3 LOINC Social History Type Status Start Date End Date Code Code Syst em Smoking History Former smoker 01/18/1956 01/18/[address] Sex Female Vital Signs Vital Sign Value Unit [place] Value [place] Unit Date/Time Recent/Initial? Code Code System Body Mass Index 22.22 kg/m2 06/21/2024 21:16 Initial 10157 -5 LOINC Systolic Blood Pressure 154 mm[Hg] 06/21/2024 22:16 Most Recent 8480- 6 LOINC Diastolic Blood Pressure 73 mm[Hg] 06/21/2024 22:16 Most Recent 8462- 4 LOINC Systolic Blood Pressure 159 mm[Hg] 06/21/2024 21:16 Initial 8480- 6 LOINC Diastolic Blood Pressure 74 mm[Hg] 06/21/2024 21:16 Initial 8462- 4 LOINC Body Surface Area 1.44 m2 06/21/2024 21:16 Initial 3140- 1 LOINC Height 149.860 0 cm 59.00 in 06/21/2024 21:16 Initial 8302- 2 LOINC O2 Saturation 97 % 2023 22:16 Most Recent 61068 -5 LOINC O2 Saturation 97 % 2023 21:16 Initial 19942 -5 LOINC Pulse 63.0 /min 06/21/2024 22:16 Most Recent 8867- 4 LOINC Pulse 67.0 /min 06/21/2024 21:16 Initial 8867- 4 LOINC Respiration 17 /min 06/21/20 22:15 Most Recent 9279- 1 LOINC Respiration 16 /min 06/21/20 21:16 Initial 9279- 1 LOINC Temperature 37.1 Nova 98.8 F 06/21/20 21:16 Initial 8310- 5 LOINC Weight 49.90 kg 110.00 lbs 06/21/2024 21:16 Initial 42130 -7 LOINC Hospital Discharge Instructions Should you have any questions prior to discharge, please contact a member of your healthcare team. If you have left the hospital and have any questions, please contact your primary care physician. Reason For Referral No Data Found Allergies and Adverse Reactions Allergy Substance Reaction Severity Start Date Concern Status Co de Code System PCN (penicillin) Hives (SNOMED-CT: 933452615) Moderate Active Plan of Treatment No Data Found Encounters Encounter Diagnosis Start Date Code Code Sys tem Dizziness and giddiness 06/21/2024 943800377 [facility] ED-CT Personal Care Team Section Performer Name Performer Role Active Date Inactive Da te
--- OUTSIDE RECORDS SUMMARY | 2024-08-09 18:25 | XMS_ITS | Encounter Summary ---
Author Organization [facility] Address [address] [place] [address] Care Team Providers Care Filler Shaker Name Role Phone Unknown, Provider Primary Care Provider Unava ilable Encounter Details Date Type Department Care Team (Latest Contact Info) Description 09/20/2018 9:10 EST - 09/20/2018 23:59 EST Hospital Encounter [facility] [address] [place] [address] Unknown, ProviderMD Discharge Disposition: Home or Self [...] Code Departure Means Destination Home or Self Half[place] documented in this encounter Plan of Treatment Not on file documented as of this encounter Visit Diagnoses Not on filedocumented in this encounter Care Teams Filler Shaker Relationship Specialty Start Date End Date Unknown, Provider, PCP - General 09/05/13 09/23/19 documented as of this encounter
--- OUTSIDE RECORDS SUMMARY | 2024-08-09 18:25 | XMS_ITS | Encounter Summary ---
Author Organization [facility] Address [address] [place] [address] Care Team Providers Care Project Archivist Name Role Phone Madhu Leon MD Primary Care Provider Encounter Details Date Type Department Care Team (Late st Contact Info) Description 05/07/2020 Results Only [facility] - Main [place] [address] [place], [place] [id number] Madhu Leon MD [facility] [address] [place] [address] Social History Tobacco Use Types [...] Date/Time Associated Diagnosis Comments MICROALBUMIN, URINE Routine 05/07/2020 6 :56 EDT URINALYSIS/COMPLETE - [facility] Routine 05/07/2020 6:56 EDT COMPLETE BLOOD COUNT WITH DIFFERENTIAL (AUTO) Routine 05/07/2020 6:56 EDT URINE CULTURE IF POSITIVE Routine 05/07/2020 6:56 EDT URIC ACID Routine 05/07/2020 6:56 EDT TSH Routine 05/07/2020 6:56 EDT T4 FREE Routine 05/07/2020 6:56 EDT HEMOGLOBIN A1C Routine 05/07/2020 6:56 EDT HEPATIC FUNCTION PANEL (ALB,ALK PHOS,ALT,AST,DBIL,TOT GOPAL,TOT PROT) Routine 05/07/2020 6:56 EDT LIPID PROFILE (INCLUDES CHOLESTEROL, TRIGLYCERIDES, HDL, LDL) Routine 05/07/2020 6:56 EDT COMPREHENSIVE METABOLIC PANEL (CMP) Routine 05/07/2020 6:56 EDT documented in this encounter Results * URINE CULTURE IF POSITIVE (05/07/2020 6:56 EDT) ESCHERIACHIA COLI - [facility] ESCHERICHIA COLI 05/09/2020 7:44 EDT [facility] COLONY COUNT >100,000 CFU/ML 05/09/2020 7:44 EDT [facility] Urine specimen (specimen) 05/07/2020 6:56 EDT 05/07/2020 6:56 EDT Comment:VOID Narrative [facility] - 05/09/2020 7:44 EDT Does PT Have a Latex Allergy? NO Organism Antibiotic Method Susceptibility Escherichia coli Ampicillin Sulbactam GRAM NEGAT SMILEY SUSCEPTIBILITY - [facility] 4: Susceptible Escherichia coli Ampicillin GRAM NEGATIVE SUSCEPTIBILITY - [facility] 8: Susceptible Escherichia coli Amoxicillin Clavulan ic acid GRAM NEGATIVE SUSCEPTIBILITY - [facility] 4: Susceptible Escherichia coli Ceftriaxone ([facility] Conversion) GRAM NEGATIVE SUSCEPTIBILITY - [facility] <=1: Susceptible Escherichia coli Ciprofloxacin GRAM NEGATIVE SUSCEPTIBILITY [...] GRAM NEGATIVE SUSCEPTIBILITY - [facility] <=1: Susceptible Comment:I10,E78.00,E11.65 Madhu Leon MD MICROBIOLOGY - GENERAL ORDERABLES Edited Result - Final Performing Organization Address City/[facility] Co de Phone Number [facility] [address] [place] [address] * HEMOGLOBIN A1C (05/07/2020 6:56 EDT) Hemoglobin A1c 5.6 4.0 - 6.0 % 05/07/2020 12:57 EDT [facility] Comment: > or =18 years: ??Increased risk for diabetes (prediabetes): 5.7-6.4% Diabetes: > or =6.5% Therapeutic goals for glycemic control (ADA) Adults: - Goal of therapy: <7.0% HbA1c - Action suggested: >8.0% HbA1c Pediatric patients: - Toddlers and preschoolers: <8.5% (but >7.5%) - School age (6-12 years): <8% - Adolescents and young adults (13-19 years): <7.5% Est Avg Glucose 114 mg/dL 0 12:57 EDT [facility] 05/07/2020 6:56 EDT 05/07/2020 6:56 EDT Narrative [facility] - 05/07/2020 12:57 EDT Does PT Have a Latex Allergy? NO Madhu Leon MD CHEMISTRY & BLOOD GAS ORDERABLES Final Result Performing Organization Address [facility] Co de Phone Number [facility] [address] [place] [address] * TSH (05/07/2020 6:56 EDT) THYROID STIM HORMONE - CV 1.83 0.46 - 4.68 uIU/ml 05/07/2020 8:38 EDT [facility] Comment: The results of this assay can be falsely lowered due to the consumption of Biotin. 05/07/2020 6:56 EDT 05/07/2020 6:56 EDT [facility] - 05/07/2020 8:38 EDT Does PT Have a Latex Allergy? NO Madhu Leon MD CHEMISTRY & BLOOD GAS ORDERABLES Final Result Performing Organization Address City/[facility] Co de Phone Number [facility] [address] [place] [address] * T4 FREE (05/07/2020 6:56 EDT) FREE [address] 1.00 0.78 - 2.19 ng/dl 05/07/2020 8:38 EDT [facility] 05/07/2020 6:56 EDT 05/07/2020 6:56 EDT [facility] - 05/07/2020 8:38 EDT Does PT Have a Latex Allergy? NO Madhu Leon MD CHEMISTRY & BLOOD GAS ORDERABLES Final Result Performing Organization Address [facility] de Phone Number [facility] [address] [place] [address] * MICROALBUMIN, URINE (05/07/2020 6:56 EDT) [facility] Albumin, Urine 1.00 <1.7 mg/dL 05/07/2020 8:25 EDT [facility] Lab Urine Albumin to Creatinine Ratio 12.8 ug/mg 05/07/2020 8:25 EDT [facility] Comment: Normal: <30 ug/mg Creat Microalbuminuria: 30-300 ug/mg Creat Clinical albuminuria: >300 ug/mg Creat Creatinine, Urine 77.60 mg/dL 05/07/2020 8:25 EDT [facility] 05/07/2020 6:56 EDT 05/07/2020 6:56 EDT [facility] - 05/07/2020 8:25 EDT Does PT Have a Latex Allergy? NO WHAT TYPE OF COLLECTION IS THIS URINE? RANDOM URINE us Madhu Leon MD HEMATOLOGY & PF4 ORDER CLAUDIA Final Result [facility] [address] [place] [address] * COMPLETE BLOOD COUNT WITH DIFFERENTIAL (AUTO) (05/07/2020 6:56 EDT) Gran # 4.4 2.2 - 8.85 10e3/uL [facility] # [facility] 0.04 0.01 - 0.11 10e/uL 05/07/2020 8:09 [facility] BASO % - [facility] 1 0 - 2 % 05/07/2020 8:09 [facility] EOS # - [facility] 0.30 0.03 - 0.61 10e3/ul 05/07/2020 8:09 [facility] EOS % - [facility] 4 0 - 5 % 05/07/2020 8:09 [facility] GRAN % - [facility] 56.4 40 - 80 % 05/07/2020 8:09 [facility] HEMATOCRIT - [facility] 41.2 34.9 - 44.4 % 05/07/2020 8:09 [facility] HEMOGLOBIN - [facility] 13.5 11.6 - 15.2 g/dl 05/07/2020 8:09 [facility] IG# - [facility] 0.02 0 - 0.7 10e3/uL 05/07/2020 8:09 [facility] IG% - [facility] 0.3 0 - 0.9 % 05/07/2020 8:09 [facility] LYMPH # - [facility] 2.6 1.09 - 3.3 10e3/ul 05/07/2020 8:09 [facility] LYMPH% - [facility] 32.7 20 - 40 % 05/07/2020 8:09 [facility] MEAN CORPUSCULAR HGB - [facility] 30.8 26.7 - 33.3 pg 05/07/2020 8:09 EDT [facility] MEAN CORPUSCULAR HGB CONC - [facility] 32.8 32.1 - 35.9 g/dL 05/07/2020 8:09 EDT [facility] MEAN CELL VOLUME - [facility] 93.8 81 - 98 fl 05/07/2020 8:09 EDT [facility] MONO # - [facility] 0.5 0.1 - 0.8 10e3/uL 05/07/2020 8:09 EDT [facility] MONO% - [facility] 6.3 0 - 12 % 05/07/2020 8[facility] PLATELET COUNT 182 141 - 377 10e3/ul 05/07/2020 8[facility] RED BLOOD COUNT - [facility] 4.39 3.86 - 5.04 10e3/ul 05/07/2020 8:09 [facility] RED CELL DISTRI WIDTH - [facility] 12.8 <14.7 % 05/07/2020 8[facility] WHITE BLOOD COUNT - [facility] 7.8 4.0 - 12.4 10e3/ul 05/07/2020 8:09 EDT [facility] 05/07/2020 6:56 EDT 05/07/2020 6:56 EDT [facility] - 05/07/2020 8:09 EDT Does PT Have a Latex Allergy? NO us Madhu Leon MD HEMATOLOGY & PF4 ORDER CLAUDIA Final Result [facility] [address] [place] [address] * URIC ACID (05/07/2020 6:56 EDT) URIC ACID - [facility] 4.7 2.2 - 7.7 mg/dL 05/07/2020 8[facility] 05/07/2020 6:56 EDT 05/07/2020 6:56 EDT [facility] - 05/07/2020 8:08 EDT Does PT Have a Latex Allergy? NO Madhu Leon MD CHEMISTRY & BLOOD GAS ORDERABLES Final Result Performing Organization Address [facility] Number [facility] [address] [place] [address] * HEPATIC FUNCTION PANEL (ALB,ALK PHOS,ALT,AST,DBIL,TOT GOPAL,TOT PROT) (05/07/2020 6:56 EDT) Pathologist [facility] BILIRUBIN DIRECT [facility] - [facility] 0.2 0.0 - 0.4 mg/dL 05/07/2020 8:08 EDT [facility] Unconjugated Bilirubin 0.5 0.0 - 1.1 mg/dL 05/07/2020 8:08 [facility] 05/07/2020 6:56 EDT 05/07/2020 6:56 EDT [facility] - 05/07/2020 8:08 EDT Does PT Have a Latex Allergy? NO Madhu Leon MD CHEMISTRY & BLOOD GAS ORDERABLES Final Result Performing Organization Address [facility] [address] [place] [address] * (ABNORMAL) LIPID PROFILE (INCLUDES CHOLESTEROL, TRIGLYCERIDES, HDL, LDL) (05/07/2020 6:56 EDT) Triglyceride 152 <150 mg/dL 05/07/2020 8:08 EDT [facility] Comment: Adult: Normal: ?<150 mg/dl ? Borderline High: 150-199 mg/dl ? High: ?200-499 mg/dl ? Very High: >we=800 Cholesterol 127 <200 mg/dL 05/07/2020 8:08 EDT [facility] Comment: Acceptable: ??<200 Borderline: ??200-239 High: ?> or = 240 Chol/HDL Ratio 3.8 0 - 4.5 05/07/2020 8[facility] Comment: DESIRABLE RATIO IS LESS THAN 4.1 PATIENTS ARE CONSIDERED AT RISK: WOMEN RATIO >5 MEN RATIO >6 FASTING? - [facility] Yes 0 6:57 [facility] HDL 33(L) 40 - 60 mg/dL 05/07/2020 8:08 [facility] Comment: ?? Reference Range Low: ? < 40 ??mg/dL Normal: ??40-60 mg/dL High: ?>= 60 mg/dL LDL CHOLESTEROL - [facility] 64 60 - 100 mg/dL 05/07/2020 8:08 [facility] Non HDL Cholesterol 94 mg/dl 05/07/2020 8:08 [facility] Comment: Desirable: ?Less than 130 Borderline High: ??130-159 High: ? 160-189 Very High: ?Greater than or equal to 190 05/07/2020 6:56 EDT 05/07/2020 6:56 EDT Narrative [facility] - 05/07/2020 8:08 EDT Does PT Have a Latex Allergy? NO us Madhu Leon MD CHEMISTRY & BLOOD GAS ORDERABLES Final Result Performing Organization Address City/State/[facility] Co de Phone Number [facility] [address] [place] [address] * COMPREHENSIVE METABOLIC PANEL (CMP) (05/07/2020 6:56 EDT) Albumin % 3.7 3.4 - 4.9 g/dL 05/07/2020 8:08 [facility] ALKALINE PHOSPHATASE - [facility] 55 38 - 126 U/L 05/07/2020 8:08 [facility] BILIRUBIN TOTAL 0.7 0.2 - 1.3 mg/dL 05/07/2020 8:08 [facility] BUN - [facility] 17 10 - 26 mg/dL 05/07/2020 8:08 [facility] CALCIUM - [facility] 8.9 8.5 - 10.5 mg/dL 05/07/2020 8:08 [facility] Chloride 103 96 - 110 mmol/L 05/07/2020 8:08 [facility] CO2 Total 30 22 - 32 mEq/L 05/07/2020 8:08 [facility] CREATININE 0.77 0.52 - 1.04 mg/dL 05/07/2020 8:08 [facility] eGFR >60 05/07/2020 8:08 [facility] Comment: Chronic renal impairment is defined as GFR <60 Multiply result by 1.210 for patients. eGFR calculated using the IDMS-traceable MDRD Study Equation. ??(effective 06/26/2014) Anion Gap 6 0 - 18 05/07/2020 8:08 [facility] GLUCOSE - [facility] 93 70 - 100 mg/dL 05/07/2020 8:08 [facility] Potassium 3.7 3.5 - 5.0 mEq/L 05/07/2020 8:08 [facility] Sodium 139 136 - 145 mEq/L 05/07/2020 8:08 [facility] TOTAL PROTEIN - [facility] 6.7 6.2 - 8.2 gm/dL 05/07/2020 8:08 [facility] SGOT/AST - [facility] 22 14 - 36 U/L 05/07/2020 8:08 [facility] SGPT/ALT - [facility] 12 0 - 35 U/L 0 8:08 [facility] 05/07/2020 6:56 EDT 05/07/2020 6:56 EDT Narrative [facility] - 05/07/2020 8:08 EDT Does PT Have a Latex Allergy? NO us Madhu Leon MD CHEMISTRY & BLOOD GAS ORDERABLES Final Result [facility] [address] [place] [address] * URINALYSIS/COMPLETE - [facility] (05/07/2020 6:56 EDT) URINE APPEARANCE - [facility] Clear CLEAR 05/07/2020 7:43 [facility] URINE BACTERIA - [facility] MOD 05/07/2020 8:03 [facility] URINE BILIRUBIN - DIPSTICK - [facility] Negative NEGATIVE 05/07/2020 7:43 [facility] URINE BLOOD - [facility] 1+ NEG 05/07/2020 7:43 [facility] URINE COLOR - [facility] Yellow YELLOW 05/07/2020 7:43 [facility] URINE GLUCOSE - DIP[facility] - [facility] Negative NEGATIVE 05/07/2020 7:43 [facility] URINE KETONE - [facility] Negative NEGATIVE 05/07/2020 7:43 [facility] URINE LEUK ESTERASE - [facility] Negative NEG 05/07/2020 7:43 [facility] URINE NITRITE - DIP[facility] - [facility] Negative NEG 05/07/2020 7:43 [facility] URINE PH - [facility] 5.5 4.0 - 8.0 0 7:43 [facility] URINE PROTEIN - DIP[facility] - [facility] Negative NEG 05/07/2020 7:43 [facility] URINE RBC - [facility] 6-10 rbc/hpf 05/07/20 20 8:03 [facility] URCULTIF+? - [facility] Culture Ordered 05/07/2020 8:03 [facility] URINE SPECIFIC GRAVITY - [facility] 1.020 1.001 - 1.035 05/07/2020 7:43 [facility] URINE SQUAMOUS CELLS - [facility] FEW NEG #/hpf 05/07/2020 8:03 [facility] URINE UROBILINOGEN - [facility] - [facility] 0.2 0.2 - 1.0 05/07/2020 7:43 [facility] URINE WBC - [facility] 5-10 NEG wbc/hpf 020 8:03 [facility] 05/07/2020 6:56 EDT 05/07/2020 6:56 EDT Narrative [facility] - 05/07/2020 8:03 EDT Does PT Have a Latex Allergy? NO us Madhu Leon MD CHEMISTRY & BLOOD GAS ORDERABLES Final Result [facility] [address] [place] [address] documented in this encounter Visit Diagnoses Not on filedocumented in this encounter Care Teams Project Archivist Relationship Specialty Start Date End Date Madhu Leon MD [facility] [address] [place] [address] PCP - General Internal Medicine - Primary Care 09/24/19 documented as of this encounter
--- OUTSIDE RECORDS SUMMARY | 2024-08-09 18:25 | XMS_ITS | Encounter Summary ---
Author Organization [facility] Address [address] [place] [address] Care Team Providers Care Straight Slicing Machine Operator Name Role Phone Unknown, Provider Primary Care Provider Unava ilable Encounter Details Date Type Department Care Team (Late st Contact Info) Description 09/21/2018 Historical Results Only [facility] Radiology Results [address] [place], [place] [address] Madhu Leon MD [facility] [address] [place] [address] Social History Tobacco Use Types [...] Diagnosis Comments MA BREAST SCREENING PATRICIA BILATERAL 09/21/2018 10:26 EST documented in this encounter Results * MA BREAST SCREENING PATRICIA BILATERAL (09/21/2018 10:26 EST) Anatomical Region Laterality Modality Breast Bilateral Other 09/21/2018 10:2 6 EST Narrative 09/21/2018 10:26 EST ? EXAM: MAMMOGRAM/MAMMO BILATERAL SCREEN W ??EX. D/ (1110) ? CLINICAL INFORMATION: ? Z12.31 SCREENING ? INDICATION: Z12.31 SCREENING SCREENING Sep 17 ? COMPARISON: 2007, 2008, 2009, 2010, 2011, 2012, 2015,2016, 2016, 2018 ? TECHNIQUE: ??Full field digital whole breast 2D (C-view) and 3D CC and ? MLO views of both breasts were obtained. CAD technology was utilized. ? FINDINGS: ??The fibroglandular patterns of the breasts are normal. ? There has been no change when compared to previous mammograms and ? there is no mammographic evidence of cancer. The breast tissue is of ? fatty density. ? FINAL ASSESSMENT: ??BILATERAL BREAST - Category 1 - Negative. Routine ? mammographic follow-up is recommended. ? These results will be communicated to your patient via a lay letter ? from Radiology. ??If any additional imaging is needed we will contact ? your patient directly. ? REPORT SIGNED IN OTHER VENDOR SYSTEM 09/21/2018 ?Reported By: Art Phelps MD ? CC: ? Transcribed Date/Time: 09/21/2018 (1026) ? Portal Administrator: ? Printed Date/Time: 02/13/2019 (1741) ? PAGE 1 ? Signed Report ? Procedure Note Art Phelps MD - 06/30/2019 EXAM: MAMMOGRAM/MAMMO BILATERAL SCREEN W EX. D/ (1110) CLINICAL INFORMATION: Z12.31 SCREENING INDICATION: Z12.31 SCREENING SCREENING Sep 17 COMPARISON: 2007, 2008, 2009, 2010, 2011, 2013, 2015,2016, 2017,2018 TECHNIQUE: Full field digital whole breast 2D (C-view) and 3D CCand MLO views of both breasts were obtained. CAD technology wasutilized. FINDINGS: The fibroglandular patterns of the breasts are normal. There has been no change when compared to previous mammograms and there is no mammographic evidence of cancer. The breast tissue isof fatty density. FINAL ASSESSMENT: BILATERAL BREAST - Category 1 - Negative.Routine mammographic follow-up is recommended. These results will be communicated to your patient via a lay letter from Radiology. If any additional imaging is needed we willcontact your patient directly. REPORT SIGNED IN OTHER VENDOR SYSTEM 09/21/2018 Reported By: Art Phelps MD CC: Transcribed Date/Time: 09/21/2018 (1026) Portal Administrator: Printed Date/Time: 02/13/2019 (8534) PAGE 1 Signed Report Madhu Leon MD IMG MAMMOGRAPHY ORDERA BLES Final Result documented in this encounter Visit Diagnoses Not on filedocumented in this encounter Care Teams Straight Slicing Machine Operator Relationship Specialty Start Date End Date Unknown, Provider, PCP - General 09/05/13 09/23/19 documented as of this encounter
--- OUTSIDE RECORDS SUMMARY | 2024-08-09 18:25 | XMS_ITS | Encounter Summary ---
Author Organization [facility] Address [address] [place] [address] Care Team Providers Care Certified Orthotic Fitter Name Role Phone Unknown, Provider Primary Care Provider Unava ilable Encounter Details Date Type Department Care Team (Late st Contact Info) Description 09/18/2017 Historical Results Only [facility] Radiology Results [address] [place], [place] [address] Madhu Leon MD [address] [place] [address] Social History Tobacco Use Types [...] Diagnosis Comments MA BREAST SCREENING PATRICIA BILATERAL 09/18/2017 11:57 EST documented in this encounter Results * MA BREAST SCREENING PATRICIA BILATERAL (09/18/2017 11:57 EST) Anatomical Region Laterality Modality Breast Bilateral Other 09/18/2017 11:5 7 EST Narrative 09/18/2017 11:57 EST ? EXAM: MAMMOGRAM/MAMMO BILATERAL SCREEN W ??EX. D/ (1308) ? CLINICAL INFORMATION: ? Z12.31 SCREENING ? TECHNIQUE: ??Full field digital whole breast [...] is of ? fatty density. ? FINAL ASSESSMENT BILATERAL BREAST: ??Category 1 - Negative. Routine ? mammographic follow-up is recommended. ? These results will be communicated to your patient via a lay letter ? from Radiology. ??If any additional imaging is needed we will contact ? your patient directly. ? REPORT SIGNED IN OTHER VENDOR SYSTEM 09/18/2017 ?Reported By: Mark Wolf MD ? CC: ? Transcribed Date/Time: 09/18/2017 (1157) ? Grain Scooper: ? Printed Date/Time: 02/09/2019 (1639) ? PAGE 1 ? Signed Report ? Procedure Note Mark Wolf MD - 06/29/2019 EXAM: MAMMOGRAM/MAMMO BILATERAL SCREEN W EX. D/ (1308) CLINICAL INFORMATION: Z12.31 SCREENING TECHNIQUE: Full field digital whole breast 2D (C-view) and 3D CCand MLO views of both breasts were obtained. CAD technology wasutilized. FINDINGS: The fibroglandular patterns of the breasts are normal. There has been no change when compared to previous mammograms and there is no mammographic evidence of cancer. The breast tissue isof fatty density. FINAL ASSESSMENT BILATERAL BREAST: Category 1 - Negative. Routine mammographic follow-up is recommended. These results will be communicated to your patient via a lay letter from Radiology. If any additional imaging is needed we willcontact your patient directly. REPORT SIGNED IN OTHER VENDOR SYSTEM 09/18/2017 Reported By: Mark Wolf MD CC: Transcribed Date/Time: 09/18/2017 (5509) Grain Scooper: Printed Date/Time: 02/09/2019 (3751) PAGE 1 Signed Report us Madhu Leon MD IMG MAMMOGRAPHY ORDERA BLES Final Result documented in this encounter Visit Diagnoses Not on filedocumented in this encounter Care Teams Certified Orthotic Fitter Relationship Specialty Start Date End Date Unknown, Provider, PCP - General 09/05/13 09/23/19 documented as of this encounter
--- OUTSIDE RECORDS SUMMARY | 2024-08-09 18:25 | XMS_ITS | Encounter Summary ---
Author Organization [facility] Address [address] [place] [address] Care Team Providers Care Clay Products Machine Operator Name Role Phone Unknown, Provider Primary Care Provider Genevieve ilkyle Encounter Details Date Type Department Care Team (Late st Contact Info) Description 06/07/2019 Results Only [facility] Lab - Main [place] [address] [place] [address] Madhu Leon MD [facility] [address] [place] [address] Social History Tobacco Use Types [...] Procedure Name Priority Date/Time Associated Diagnosis Comments COMPREHENSIVE METABOLIC PANEL (CMP) Routine 06/07/2019 11:42 EDT documented in this encounter Results * (ABNORMAL) COMPREHENSIVE METABOLIC PANEL (CMP) (06/07/2019 11:42 EDT) Albumin % 3.7 3.4 - 4.9 g/dL 06/07/2019 13:17 EDT [facility] ALKALINE PHOSPHATASE - [facility] 53 38 - 126 U/L 06/07/2019 13:17 EDT [facility] BILIRUBIN TOTAL 0.6 0.2 - 1.3 mg/dL 06/07/2019 13:17 EDT [facility] BUN - [facility] 17 10 - 26 mg/dL 06/07/2019 13:17 [facility] CALCIUM - [facility] 8.4(L) 8.5 - 10.5 mg/dL 06/07/2019 13:17 [facility] Chloride 102 96 - 110 mmol/L 06/07/2019 13:17 [facility] CO2 Total 26 22 - 32 mEq/L 06/07/2019 13:17 [facility] CREATININE 0.80 0.52 - 1.04 mg/dL 06/07/2019 13:17 [facility] eGFR >60 06/07/2019 13:17 [facility] Comment: Chronic renal impairment is defined as GFR <60 Multiply result by 1.210 for patients. eGFR calculated using the IDMS-traceable MDRD Study Equation. ??(effective 06/26/2014) Anion Gap 12 0 - 18 06/07/2019 13:17 [facility] GLUCOSE - [facility] 91 70 - 100 mg/dL 06/07/2019 13:17 [facility] Potassium 3.8 3.5 - 5.0 mEq/L 06/07/2019 13:17 [facility] Sodium 140 136 - 145 mEq/L 06/07/2019 13:17 [facility] TOTAL PROTEIN - [facility] 6.7 6.2 - 8.2 gm/dL 06/07/2019 13:17 [facility] SGOT/AST - [facility] 22 14 - 36 U/L 06/07/2019 13:17 [facility] SGPT/ALT - [facility] 21 9 - 52 U/L 9 13:17 [facility] 06/07/2019 11:4 2 EDT 06/07/2019 11:42 [facility] - 06/07/2019 13:17 EDT Does PT Have a Latex Allergy? NO us Madhu Leon MD CHEMISTRY & BLOOD GAS ORDERABLES Final Result [facility] documented in this encounter Visit Diagnoses Not on filedocumented in this encounter Care Teams Clay Products Machine Operator Relationship Specialty Start Date End Date Unknown, Provider, PCP - General 09/05/13 09/23/19 documented as of this encounter
--- OUTSIDE RECORDS SUMMARY | 2024-08-09 18:26 | XMS_ITS | Encounter Summary ---
Author Organization [facility] Address [address] [place] [address] Care Team Providers Care Hobber Name Role Phone Unknown, Provider Primary Care Provider Unava ilable Encounter Details Date Type Department Care Team (Late st Contact Info) Description 09/01/2014 Historical Results Only [facility] Radiology Results [address] [place], [place] [address] Madhu Leon MD [facility] [address] [place] [address] Social History Tobacco Use Types [...] Diagnosis Comments MA BREAST SCREENING PATRICIA BILATERAL 09/01/2014 13:13 EST documented in this encounter Results * MA BREAST SCREENING PATRICIA BILATERAL (09/01/2014 13:13 EST) Anatomical Region Laterality Modality Breast Bilateral Other 09/01/2014 13:1 3 EST Narrative 09/05/2014 11:48 EST ? EXAM: MAMMOGRAM/MAMMO BILATERAL SCREEN W ??EX. D/ (1313) ? CLINICAL INFORMATION: ? SCREENING ? COMPARISON: ??2008; 2009; 2009; 2010; 2012; 2013 ? TECHNIQUE: ??Full field digital whole breast 2D and 3D CC and MLO views ? of both breasts were obtained. CAD technology was utilized. ? INDICATION: ??Screening ? FINDINGS: ??The fibroglandular patterns of the breasts are normal. ? There has been no change when compared to previous mammograms and ? there is no mammographic evidence of cancer. The breasts are of fatty ? density. ? FINAL ASSESSMENT: ??BILATERAL BREAST - Category 1 - Negative. Routine ?mammographic follow-up is recommended. ? BEDSPREAD FOLDER:kad ?Reported By: Art Phelps MD ? CC: ? Transcribed Date/Time: 09/05/2014 (1148) ? Informatics Scientist: JOSE ? Printed Date/Time: 01/24/2019 (3081) ? PAGE 1 ? Signed Report ? Procedure Note Art Phelps MD - 06/28/2019 EXAM: MAMMOGRAM/MAMMO BILATERAL SCREEN W EX. D/ (1313) CLINICAL INFORMATION: SCREENING COMPARISON: 2007; 2008; 2009; 2010; 2011; 2012 TECHNIQUE: Full field digital whole breast 2D and 3D CC and MLOviews of both breasts were obtained. CAD technology was utilized. INDICATION: Screening FINDINGS: The fibroglandular patterns of the breasts are normal. There has been no change when compared to previous mammograms and there is no mammographic evidence of cancer. The breasts are offatty density. FINAL ASSESSMENT: BILATERAL BREAST - Category 1 - Negative.Routine mammographic follow-up is recommended. BEDSPREAD FOLDER:alma Reported By: Art Phelps MD CC: Transcribed Date/Time: 09/05/2014 (1148) Informatics Scientist: JOSE Printed Date/Time: 01/24/2019 (7650) PAGE 1 Signed Report us Madhu Leon MD IMG MAMMOGRAPHY ORDERA BLES Final Result documented in this encounter Visit Diagnoses Not on filedocumented in this encounter Care Teams Hobber Relationship Specialty Start Date End Date Unknown, Provider, PCP - General 09/05/13 09/23/19 documented as of this encounter
--- OUTSIDE RECORDS SUMMARY | 2024-08-09 18:26 | XMS_ITS | Encounter Summary ---
Author Organization [facility] Address [address] [place] [address] Care Team Providers Care Cash Poster Name Role Phone Unknown, Provider Primary Care Provider Unava ilable Encounter Details Date Type Department Care Team (Latest Contact Info) Description 09/01/2014 11:50 EST - 09/01/2014 23:59 EST Hospital Encounter [facility] [address] [place] [address] Unknown, Provider, Discharge Disposition: Home or Self Care Social [...] Code Departure Means Destination Home or Self [facility] documented in this encounter Plan of Treatment Not on file documented as of this encounter Visit Diagnoses Not on filedocumented in this encounter Care Teams Cash Poster Relationship Specialty Start Date End Date Unknown, Provider, PCP - General 09/05/13 09/23/19 documented as of this encounter
--- OUTSIDE RECORDS SUMMARY | 2024-08-09 18:26 | XMS_ITS | Encounter Summary ---
Author Organization [facility] Address [address] [place] [address] Care Team Providers Care Glue Mounter Operator Name Role Phone Unavailable Primary Care Provider Unavailabl e Encounter Details Date Type Department Care Team (Latest Contact Info) Description 08/10/2013 6:48 EST - 08/10/2013 23:59 EST Hospital Encounter [facility] [address] [place] [address] Unknown, Provider, MD Discharge Disposition: Home or Self Care Social [...] Code Departure Means Destination Home or Self [facility] documented in this encounter Plan of Treatment Not on file documented as of this encounter Visit Diagnoses Not on filedocumented in this encounter
--- OUTSIDE RECORDS SUMMARY | 2024-08-09 18:26 | XMS_ITS | Encounter Summary ---
Author Organization [facility] Address [address] [place] [address] Care Team Providers Care Prize Fighter Name Role Phone Unavailable Primary Care Provider Unavailabl e Encounter Details Date Type Department Care Team (Late st Contact Info) Description 04/20/2000 10:59 EDT Hospital Encounter [facility] - Other [address] [place] [address] Mercy Alaniz MD [address] [address] Unknown, Provider, Social History Tobacco Use Types Packs/Day Years [...] Procedure Name Priority Date/Time Associated Diagnosis Comments CYTOPATHOLOGY Routine 04/20/2000 0:00 EDT documented in this encounter Results * CYTOPATHOLOGY (04/20/2000 0:00 EDT) Pathology Report: CYTOPATHOLOGY REPORT Reports generated via electronic interface contain original data; however they are lacking the format of the original report. Caution should be taken when reading/interpreti ng unformatted reports. Name: ? TELMA CHINCHILLA ? Accession #: ? [id number] : ? 1945 (Age: 55) ??F ?Collect Date: ? 04/20/2000 Location: ? [facility] ? Receive Date: ? 04/22/2000 Provider: ?MERCY ALANIZ MD Copy to: ? Specimen/Source: ?ThinPrep Pap Test, Cervix/Endocervix Last Menstrual Period: ? Menstrual/Pregnanc y Status: ? Menopausal Hormonal/Contracep tive Status: ? Premarin and provera ? SPECIMEN ADEQUACY ? Satisfactory for evaluation. GENERAL CATEGORIZATION ? Within Normal Limits ? Document reviewed and electronically signed by: ? AVINASH Maldonado(ASCP) ? Report Date: ??04/23/2000 09:49 End of Report [facility] GARCIA 04/20/2000 04/22/2000 us Mercy Alaniz MD PATHOLOGY ORDERABLES Final R esult [facility] [address] [place] [address] documented in this encounter Visit Diagnoses Not on filedocumented in this encounter
--- OUTSIDE RECORDS SUMMARY | 2024-08-09 18:26 | XMS_ITS | Encounter Summary ---
Author Organization [facility] Address [address] [place] [address] Care Team Providers Care Auditing Clerk Name Role Phone Unknown, Provider Primary Care Provider Unava ilable Encounter Details Date Type Department Care Team (Latest Contact Info) Description 09/11/2015 8:26 EST - 09/11/2015 23:59 EST Hospital Encounter [facility] [address] [place] [address] Unknown, Provider, Discharge Disposition: Home or Self [...] Code Departure Means Destination Home or Self Residential documented in this encounter Plan of Treatment Not on file documented as of this encounter Visit Diagnoses Not on filedocumented in this encounter Care Teams Auditing Clerk Relationship Specialty Start Date End Date Unknown, Provider, PCP - General 09/05/13 09/23/19 documented as of this encounter
--- OUTSIDE RECORDS SUMMARY | 2024-08-09 18:26 | XMS_ITS | Encounter Summary ---
Author Organization [facility] Address [address] [place] [address] Care Team Providers Care Clinical Dietitian Name Role Phone Unknown, Provider Primary Care Provider Unava ilable Encounter Details Date Type Department Care Team (Late st Contact Info) Description 09/11/2015 Historical Results Only [facility] Radiology Results [address] [place], [place] [address] Madhu Leon MD [facility] [address] [place] [address] Social History Tobacco Use Types [...] Diagnosis Comments MA BREAST SCREENING PATRICIA BILATERAL 09/11/2015 10:14 EST documented in this encounter Results * MA BREAST SCREENING PATRICIA BILATERAL (09/11/2015 10:14 EST) Anatomical Region Laterality Modality Breast Bilateral Other 09/11/2015 10:1 4 EST Narrative 09/13/2015 12:52 EST ? EXAM: MAMMOGRAM/MAMMO BILATERAL SCREEN W ??EX. D/ (1014) ? CLINICAL INFORMATION: ? Z12.31 SCREENING ? COMPARISON: ??2010; 2012; 2012; 2015 ? TECHNIQUE: ??Full field digital whole breast 2D (C-view) and 3D CC and ? MLO views of both breasts were obtained. CAD technology was utilized. ? INDICATION: ??Screening ? FINDINGS: ??The fibroglandular patterns of the breasts are normal. ? There has been no change when compared to previous mammograms and ? there is no mammographic evidence of cancer. The breasts are of ? scattered density. ? FINAL ASSESSMENT: ??BILATERAL BREAST - Category 1 - Negative. Routine ?mammographic follow-up is recommended. ? These results will be communicated to your patient via a lay letter ? from Radiology. ??If any additional imaging is needed we will contact ? your patient directly. ? JSP:kad ?Reported By: Art Phelps MD ? CC: ? Transcribed Date/Time: 09/13/2015 (1252) ? Bird Trapper: JOSE ? Printed Date/Time: 02/02/2019 (9691) ? PAGE 1 ? Signed Report ? Procedure Note Art Phelps MD - 06/29/2019 EXAM: MAMMOGRAM/MAMMO BILATERAL SCREEN W EX. D/ (1014) CLINICAL INFORMATION: Z12.31 SCREENING COMPARISON: 2010; 2011; 2012; 2014 TECHNIQUE: Full field digital whole breast 2D (C-view) and 3D CCand MLO views of both breasts were obtained. CAD technology wasutilized. INDICATION: Screening FINDINGS: The fibroglandular patterns of the breasts are normal. There has been no change when compared to previous mammograms and there is no mammographic evidence of cancer. The breasts are of scattered density. FINAL ASSESSMENT: BILATERAL BREAST - Category 1 - Negative.Routine mammographic follow-up is recommended. These results will be communicated to your patient via a lay letter from Radiology. If any additional imaging is needed we willcontact your patient directly. JSP:kad Reported By: Art Phelps MD CC: Transcribed Date/Time: 09/13/2015 (9740) Bird Trapper: JOSE Printed Date/Time: 02/02/2019 (4089) PAGE 1 Signed Report us Madhu Leon MD IMG MAMMOGRAPHY ORDERA BLES Final Result documented in this encounter Visit Diagnoses Not on filedocumented in this encounter Care Teams Clinical Dietitian Relationship Specialty Start Date End Date Unknown, Provider, PCP - General 09/05/13 09/23/19 documented as of this encounter
--- OUTSIDE RECORDS SUMMARY | 2024-08-09 18:26 | XMS_ITS | Encounter Summary ---
Author Organization [facility] Address [address] [place] [address] Care Team Providers Care Parts Specialist Name Role Phone Unknown, Provider Primary Care Provider Unava ilable Encounter Details Date Type Department Care Team (Late st Contact Info) Description 09/15/2016 Historical Results Only [facility] Radiology Results [address] [place], [place] [id number] Madhu Leon MD [facility] [address] [place] [address] Social History Tobacco Use Types [...] Diagnosis Comments MA BREAST SCREENING PATRICIA BILATERAL 09/15/2016 13:35 EST documented in this encounter Results * MA BREAST SCREENING PATRICIA BILATERAL (09/15/2016 13:35 EST) Anatomical Region Laterality Modality Breast Bilateral Other 09/15/2016 13:3 5 EST Narrative 09/17/2016 10:46 EST ? EXAM: MAMMOGRAM/MAMMO BILATERAL SCREEN W ??EX. D/ (1335) ? CLINICAL INFORMATION: ? Z12.31 SCREENING ? COMPARISON: ??2008, 2009, 2010, 2011, 2012, 2013, 2016, 2016 ? INDICATION: Screening ? TECHNIQUE: ??Full field digital whole breast [...] will contact ? your patient directly. ? ANALOG DESIGN ENGINEER:kad ?Reported By: Art Phelps MD ? CC: ? Transcribed Date/Time: 09/17/2016 (1046) ? Nicker And Breaker: JOSE ? Printed Date/Time: 02/05/2019 (0418) ? PAGE 1 ? Signed Report ? Procedure Note Art Phelps MD - 06/29/2019 EXAM: MAMMOGRAM/MAMMO BILATERAL SCREEN W EX. D/ (1335) CLINICAL INFORMATION: Z12.31 SCREENING COMPARISON: 2007, 2008, 2009, 2010, 2011, 2012, 2015, 2015 INDICATION: Screening TECHNIQUE: Full field digital whole breast 2D [...] is needed we willcontact your patient directly. ANALOG DESIGN ENGINEER:alma Reported By: Art Phelps MD CC: Transcribed Date/Time: 09/17/2016 (1046) Nicker And Breaker: JOSE Printed Date/Time: 02/05/2019 (041) PAGE 1 Signed Report us Madhu Leon MD IMG MAMMOGRAPHY ORDERA BLES Final Result documented in this encounter Visit Diagnoses Not on filedocumented in this encounter Care Teams Parts Specialist Relationship Specialty Start Date End Date Unknown, Provider, PCP - General 09/05/13 09/23/19 documented as of this encounter
--- OUTSIDE RECORDS SUMMARY | 2024-08-09 18:26 | XMS_ITS | Encounter Summary ---
Author Organization [facility] Address [address] [place] [address] Care Team Providers Care Seafood Manager Name Role Phone Unknown, Provider Primary Care Provider Unava ilable Encounter Details Date Type Department Care Team (Latest Contact Info) Description 04/21/2014 20:11 EDT - 04/21/2014 23:59 EDT Hospital Encounter [facility] [address] [place] [address] Unknown, Provider, Discharge Disposition: Home or Self [...] Code Departure Means Destination Home or Self Retirement documented in this encounter Plan of Treatment Not on file documented as of this encounter Visit Diagnoses Not on filedocumented in this encounter Care Teams Seafood Manager Relationship Specialty Start Date End Date Unknown, Provider, PCP - General 09/05/13 09/23/19 documented as of this encounter
--- OUTSIDE RECORDS SUMMARY | 2024-08-09 18:26 | XMS_ITS | Encounter Summary ---
Author Organization [facility] Address [address] [place] [address] Care Team Providers Care Sterile Products Processor Name Role Phone Unavailable Primary Care Provider Unavailabl e Encounter Details Date Type Department Care Team (Late st Contact Info) Description 06/28/2001 11:38 EST Hospital Encounter [facility] - Other [address] [place] [address] Mercy Alaniz MD [address] [id number] Unknown, Provider, Social History Tobacco Use Types [...] Priority Date/Time Associated Diagnosis Comments CYTOPATHOLOGY Routine 06/28/2001 0:00 EST documented in this encounter Results * CYTOPATHOLOGY (06/28/2001 0:00 EST) Pathology Report: CYTOPATHOLOGY REPORT Reports generated via electronic interface contain original data; however they are lacking the format of the original report. Caution should be taken when reading/interpreti ng unformatted reports. Name: ? TELMA CHINCHILLA ? Accession #: ? [id number] : ? 1945 (Age: 56) ??F ?Collect Date: ? 06/28/2001 Location: ? [facility] ? Receive Date: ? 06/30/2001 Provider: ?MERCY ALANIZ MD Copy to: ? Specimen/Source: ?ThinPrep Pap Test, Cervix/Endocervix Last Menstrual Period: ? S/P Menopause. Hormonal/Contracep tive Status: ? Premarin ? SPECIMEN ADEQUACY ? Satisfactory for evaluation but limited by an absence of a transformation zone component. GENERAL CATEGORIZATION ? Within Normal Limits ? Document reviewed and electronically signed by: ? Romana Harley [facility](AS[facility]) ? Report Date: ??07/05/2001 14:02 End of Report FRANCISCO GARCIA 06/28/2001 06/30/2001 us Mercy Alaniz MD PATHOLOGY ORDERABLES Final R esult [facility] [address] [place] [address] documented in this encounter Visit Diagnoses Not on filedocumented in this encounter
--- NOTE | 2024-08-09 18:28 | HPE_ITS ---
Date of service: 08/09/24 Time of Service: 18:29 Assessment and Plan Assessment and plan (1) C. difficile colitis: Start date: 08/09/24 Status: Acute Assessment and plan: This is an 79-year-old lady with acute onset of abdominal symptoms found to have C. difficile colitis. Should be treated with IV Flagyl with fluid resuscitation for mild dehydration and oral vancomycin. If her diarrhea subsides as it appears to have already, convert to oral therapy and patient will return home to the care of her daughter. There were no predisposing factors to cause C. difficile colitis. She is a DNR/DNI. (2) HTN (hypertension): Status: Chronic Assessment and plan: Continue outpatient medical therapy adjusting as needed. (3) CAD (coronary artery disease), [place] coronary artery: Status: Chronic Assessment and plan: No active symptoms with stress of acute dehydration and C. difficile colitis. Continue outpatient medical therapy. (4) ASVD (arteriosclerotic vascular disease): Status: Acute Assessment and plan: Significant atherosclerotic disease found on CT imaging of the abdomen but nothing appears to be acute or causing ischemic bowel. Patient is improving with treatment of her C. difficile colitis. Continue preventative care and monitoring as an outpatient. (5) Dementia: Status: Chronic Assessment and plan: By history per daughter, patient does have some mild dementia but is not on treatment for behavioral problem. She does live with her family. She is a DNR/DNI. History of Present Illness History of Present Illness Chief Complaint: Explosive diarrhea acute onset of abdominal pain and nausea and vomiting Narrative: This is an 79-year-old female patient with chronic dementia cared for at home by her daughter who had sudden onset of explosive diarrhea at home after complaining of abdominal pain which also was sudden onset prior to presentation to the ED. Patient had associated nausea and vomiting with the diarrhea. There were no hematemesis, hematochezia or melena. She does have a history of colitis not on chronic medical therapy. She appeared to have altered mental status from her baseline dementia when initially presented but did respond to IV fluid resuscitation. She was initiated on IV Cipro and Flagyl but after stool evaluation revealed C. difficile antigen she was placed on oral vancomycin with IV Flagyl. She will continue IV fluid resuscitation. Plans are for her to return home. She has not been on recent antibiotics or had recent exposure to people with C. difficile. She is a DNR/DNI. Review of Systems Narrative: 13 point review of systems otherwise unrevealing per vest front presser and patient. PFSH All Active Problems Elevated LDH (Acute) Sepsis (Acute) C. difficile colitis (Acute) Dementia (Chronic) ASVD (arteriosclerotic vascular disease) (Acute) CAD (coronary artery disease), [place] coronary artery (Chronic) HTN (hypertension) (Chronic) C. difficile colitis (Acute) Pyelonephritis (Acute) Abdominal pain (Acute) Social History Smoking/Tobacco Use Status: Current every day Tobacco Type: cigarettes Smoking risk assessment performed?: Yes Alcohol Intake: never Drug use: Never Substance use type: does not use Housing: house Do you feel safe at home: Yes Do you feel safe in your relationship?: Yes Meds Allergies and Home Medications Allergies Allergy/AdvReac Type Severity Reaction Status Date / Time tramadol Allergy Mild Unknown Unverified 08/09/24 18:10 bupropion (From Zyban) Allergy Unknown Unverified 08/09/24 18:10 clindamycin Allergy Unknown Unverified 08/09/24 18:10 gemfibrozil Allergy Unknown Unverified 08/09/24 18:10 niacin (From Niaspan Allergy Unknown Unverified 08/09/24 18:10 Extended-Release) Penicillins Allergy Unknown Unverified 08/09/24 18:10 Home Medications ?Medication ?Instructions ?Recorded ?Confirmed ?Type atorvastatin 10 mg tablet 10 mg PO DAILY 05/25/21 08/09/24 History hydrochlorothiazide 12.5 mg tablet 12.5 mg PO DAILY 05/25/21 08/09/24 History isosorbide mononitrate 30 mg 30 mg PO DAILY 05/25/21 08/09/24 History tablet,extended release 24 hr metoprolol succinate 25 mg 25 mg PO DAILY 05/25/21 08/09/24 History tablet,extended release 24 hr trandolapril 4 mg tablet 4 mg PO DAILY 05/25/21 08/09/24 History Exam Narrative Exam Narrative: General: Patient appears appropriate for age, thinly built, alert and oriented to at least person and place. She is in no acute distress. HEENT: Normocephalic, eyes with pupils equal and react to light symmetrically, extraocular move intact and sclera anicteric. Oropharynx slightly dry mucosa with normal dentition. Neck: Supple without JVD. Breast: Exam deferred. Heart: Regular rate and rhythm with no murmurs or gallops appreciated. Back: Slightly kyphotic without CVA tenderness. Lungs: Clear to auscultation percussion without focalizing rales or rhonchi. Abdomen: Normal contour, soft and no focalizing tenderness or guarding, no rebound. Bowel sounds positive in all quadrants. No palpable hepatosplenomegaly. Genitalia/rectal: Exam deferred. Skin: Normal color, warm and dry. Extremities: Without clubbing, cyanosis or pitting edema. Good cap refill. Neuro: Cranial nerves II through XII gross intact, no focal motor deficits. No tremor. Psych: Normal affect and mood. No abnormal thought processes. Patient has normal conversation and appears to have remote memory grossly intact and recent memory appears to be intact. She is not delusional. Results Imaging Imaging Studies: EXAM: CT ABDOMEN PELVIS W CLINICAL HISTORY: Vomiting, diarrhea, lower pelvic pain. TECHNIQUE: Imaging Protocol: Axial computed tomography images with coronal and sagittal reformatted images were created and reviewed CONTRAST MATERIAL: Intravenous: Omnipaque-350 75cc Oral: None COMPARISON: CT CT ABDOMEN PELVIS CTA from 05/25/2021 FINDINGS: VISUALIZED LUNG BASES: There are mild benign-appearing increased markings in the anterior basal segment of the right lower lobe at the lung base level. There are no pleural effusions.. ABDOMEN: Images of the abdomen are somewhat degraded by respiratory motion artifact. However, there appears to be a very small amount of ascitic fluid around the superior aspect of the right hepatic lobe. GE junction is blurred from respiratory motion artifact. LIVER: There are 2 stable right hepatic lobe cysts which appear unchanged from 2020. No new focal hepatic lesions nor dilated intrahepatic ducts. GALLBLADDER/BILIARY: There is cholelithiasis again noted two calcified gallstones measuring approximately 1 cm each are noted in the gallbladder lumen. Gallbladder is mildly distended but unchanged from 2020. Difficult to assess for gallbladder wall edema and mild pericholecystic fluid because of the amount of respiratory motion artifact here. There is no obvious dilatation of the CBD. PANCREAS: No evidence of pancreatic mass nor dilatation of the pancreatic duct. SPLEEN: Spleen is not enlarged. No obvious intrasplenic lesions. Splenic and portal veins are patent. ADRENALS: Slight thickening of the medial limb of the left adrenal gland noted. No other adrenal findings. KIDNEYS:There is a benign cyst in the inferior pole of the right kidney noted which measures 1.5 x 1.4 cm, slightly larger than 2020 but nevertheless benign and not requiring further workup. Smaller cyst is also noted in the midpole level of the opposite-left kidney measuring 1 cm. These bilateral renal cysts do not require further imaging workup. There are no solid renal masses. There are no radiopaque calculi in the kidneys nor hydronephrosis.. ABDOMINAL AORTA: Abdominal aorta is atherosclerotic and there is a fusiform infrarenal our glass shaped abdominal aortic aneurysm which exhibits maximum diameter of only 2.5 cm. The common iliac arteries are calcified but not enlarged. Superior mesenteric artery is patent. 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 LYMPH NODES:There are multiple small sub cm lymph nodes in the retroperitoneum and para-aortic region above the level the renal arteries. There is no adenopathy around the aortic bifurcation nor along the iliac chains and there is no inguinal adenopathy. ABDOMINAL WALL: No evidence of significant anterior abdominal wall nor inguinal hernia. GI: There is a small fat only containing paraumbilical hernia. No other anterior abdominal hernias. No significant inguinal hernias. The stomach is not distended duodenum not distended. There are fluid filled and slightly prominent small bowel loops in the pelvis above the urinary bladder, these exhibiting diameter of 2.4 cm. There is also fluid in the right-side of the colon and terminal ileum. There is also fluid throughout the transverse colon; less so in the descending colon where there appears to be a mild I ileus pattern which is probably exaggerated by under distension. There are few sigmoid diverticuli but without evidence of obvious acute diverticulitis. PELVIS: GI: No evidence of appendicitis.No evidence of sigmoid diverticulitis. LYMPH NODES: See above REPRODUCTIVE: Uterus and adnexal regions appear age-appropriate. No free fluid in the pelvis. URINARY BLADDER: Collapsed and difficult to evaluate. No obvious radiopaque calculi in the collapsed urinary bladder lumen. The pelvic ureters are not dilated. OSSEOUS: No fractures and no significant osseous lesions. There is mild degenerative anterolisthesis of L4 upon L5. Multilevel spinal canal stenosis. IMPRESSION: 1. Examination interpretation is somewhat limited by motion artifact 2. Calcified gallstones are noted. The amount of respiratory motion here prevents adequate visualization of the gallbladder wall to determine if there is gallbladder wall edema. The CBD does not appear dilated. 3. 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 Common iliac arteries are also calcified but not enlarged. 4. There are fluid-filled small and large bowel loops probably diarrhea state and there also appears to be a colitis type pattern involving the sigmoid in left side of the colon. Multiple small bowel loops are slightly dilated although measuring less than 3 cm. These also contain fluid content. 5. No evidence of appendicitis nor diverticulitis. 6. There appears to be significant atherosclerotic narrowing at the origin the celiac artery under interested prior images of 2020. The superior mesenteric artery is patent and without stenosis. There are no large meandering mesenteric vessels. Labs 08/10/24 05:55 08/10/24 05:55 Labs: Laboratory Results - last 24 hr 08/09/24 08/09/24 08/09/24 16:13 16:28 16:32 WBC 21.93 H RBC 5.12 Hgb 15.6 Hct 47.6 H MCV 93 MCH 30.5 MCHC 32.8 RDW 13.2 Plt Count 254 MPV 9.9 Immature Gran % 0.5 Neutrophils % 82.7 Lymphocytes % 9.7 Monocytes % 6.2 Eosinophils % 0.6 Basophils % 0.3 Nucleated RBC % 0.0 Absolute Neutrophils 18.14 H Absolute Lymphocytes 2.13 Absolute Monocytes 1.36 H Absolute Eosinophils 0.13 Absolute Basophils 0.07 VBG Lactate 4.1 H* Sodium 145 Potassium 4.0 Chloride 104 Carbon Dioxide 25.7 Anion Gap 15.3 H BUN 24 H Creatinine 1.6 H Est GFR (CKD-EPI 2020) 32.40 Glucose 170 H Calcium 9.1 Total Bilirubin 0.78 AST 22 ALT 15 Alkaline Phosphatase 88 Total Protein 7.8 Albumin 3.9 Lipase 61 Stl C.difficile Tox PCR Positive A COVID-19 Source Nasopharynx SARS-CoV-2 (PCR) Negative Influenza Type A (PCR) Negative Influenza Type B (PCR) Negative RSV (PCR) Negative 08/09/24 17:52 WBC RBC Hgb Hct MCV MCH MCHC RDW Plt Count MPV Immature Gran % Neutrophils % Lymphocytes % Monocytes % Eosinophils % Basophils % Nucleated RBC % Absolute Neutrophils Absolute Lymphocytes Absolute Monocytes Absolute Eosinophils Absolute Basophils VBG Lactate 2.6 H* Sodium Potassium Chloride Carbon Dioxide Anion Gap BUN Creatinine Est GFR (CKD-EPI 2020) Glucose Calcium Total Bilirubin AST ALT Alkaline Phosphatase Total Protein Albumin Lipase Stl C.difficile Tox PCR COVID-19 Source SARS-CoV-2 (PCR) Influenza Type A (PCR) Influenza Type B (PCR) RSV (PCR) Last Vital Signs Temp 36.7 C 08/09/24 16:25 Pulse 72 08/09/24 18:16 Resp 18 08/09/24 18:20 BP 115/56 L 08/09/24 18:16 Pulse Ox 94 08/09/24 18:20 Time Spent Time spent with Patient: 55-74 minutes Time was spent: preparing to see the patient(eg.review tests), obtaining and/or reviewing separately otained hiistory, ordering medications,tests, procedures, indepentently interpreting results and care coordination
[2024-08-09] MEDS: metroNIDAZOLE 500 MG/100 ML BAG 100 MG IVPB ×2 (19:11→23:59)
--- OUTSIDE RECORDS SUMMARY | 2024-08-09 20:32 | XMS_ITS | Encounter Summary ---
Author Organization [facility] Address [address] [place] [address] Care Team Providers Care Research Assistant Member Name Role Phone Unknown, Provider Primary Care Provider Unava ilable Encounter Details Date Type Department Care Team (Late st Contact Info) Description 09/17/2017 Historical Results Only [facility] Radiology Results [address] [place] [address] Madhu Leon MD [address] [place] [address] Social History Tobacco Use Types [...] on filedocumented in this encounter Care Teams Research Assistant Member Relationship Specialty Start Date End Date Unknown, ProviderMD PCP - General 09/05/13 09/23/19 documented as of this encounter
--- OUTSIDE RECORDS SUMMARY | 2024-08-09 20:32 | XMS_ITS | Clinical Summary ---
Author Organization [facility] Address [address] [place] [address] Care Team Providers Care Childhood Teacher Name Role Phone Madhu Leon MD Primary [...] COVID-19 Vaccine ( season) 2024 Insurance MEDICARE [employer] Care Teams Childhood Teacher Relationship Specialty Start Date End Date Madhu Leon MD [address] [place] [address] [address] [place] [phone] PCP - General Internal Medicine - Primary Care 09/24/19
--- OUTSIDE RECORDS SUMMARY | 2024-08-09 20:32 | XMS_ITS | Encounter Summary ---
Author Organization [facility] Address [address] [place] [address] Care Team Providers Care Health And Nutrition Specialist Name Role Phone Unknown, Provider Primary Care Provider Madhu Crandall MD Primary Care Provider Encounter Details Date Type Department Care Team (Late st Contact Info) Description 06/07/[address] [facility] [place] [address] [place] [address] Madhu Leon MD [address] [place] [address] [address] [place] [address] Social History Tobacco Use Types [...] Urine 1.60 <1.7 mg/dL 06/07/2019 13:28 EDT [facility] Lab Urine Albumin to Creatinine Ratio 24.7 ug/mg 06/07/2019 13:28 EDT [facility] Comment: Normal: <30 ug/mg Creat Microalbuminuria: 30-300 ug/mg Creat Clinical albuminuria: >300 ug/mg Creat Creatinine, Urine 64.70 mg/dL 06/07/2019 13:28 EDT [facility] 06/07/2019 11:4 3 EDT 06/07/2019 11:43 EDT Narrative [facility] - 06/07/2019 13:28 EDT Does PT Have a Latex Allergy? NO WHAT TYPE OF COLLECTION IS THIS URINE? RANDOM URINE us Madhu Leon MD HEMATOLOGY & PF4 ORDER CLAUDIA Final Result [facility] * URINE CULTURE IF POSITIVE (06/07/2019 11:43 EDT) [facility] 06/09/2019 7:31 EDT [facility] CitrateConcentration >100,000 CFU/ML 05/24 7:31 EDT [facility] USUAL [facility]OGENITAL [facility] 06/09/2019 7:31 EDT [facility] CitrateConcentration <10,000 CFU/ML 05/24 7:31 EDT [facility] 06/07/2019 11:4 3 EDT 06/07/2019 11:43 EDT Comment:VOID Narrative [facility] - 06/09/2019 7:31 EDT Does PT [...] - GENERAL ORDERABLES Edited Result - Final [facility] documented in this encounter Visit Diagnoses Not on filedocumented in this encounter Care Teams Health And Nutrition Specialist Relationship Specialty Start Date End Date Unknown, Provider, PCP - General 09/05/13 09/23/19 Madhu Leon MD [address] [place] [address] [address] [place] [phone] PCP - General Internal Medicine - Primary Care 09/24/19 documented as of this encounter
--- OUTSIDE RECORDS SUMMARY | 2024-08-09 20:32 | XMS_ITS | Encounter Summary ---
Author Organization [facility] Address [address] [place] [address] Care Team Providers Care Belt Sander Name Role Phone Unknown, Provider Primary Care Provider Unava ilable Encounter Details Date Type Department Care Team (Latest Contact Info) Description 09/15/2016 13:19 EST - 09/15/2016 23:59 EST Hospital Encounter [facility] [address] [place] [address] Unknown, ProviderMD Discharge Disposition: Home or Self [...] on filedocumented in this encounter Care Teams Belt Sander Relationship Specialty Start Date End Date Unknown, Provider, PCP - General 09/05/13 09/23/19 documented as of this encounter
--- OUTSIDE RECORDS SUMMARY | 2024-08-09 20:32 | XMS_ITS | Encounter Summary ---
Author Organization [facility] Address [address] [place] [address] Care Team Providers Care Arc Cutter Plasma Arc Name Role Phone Madhu Leon MD Primary Care Provider Encounter Details Date Type Department Care Team (Late st Contact Info) Description 09/28/2019 Results Only Imaging [facility] Radiology Results [address] [place] [address] Madhu Leon MD [facility] [address] [place] [address] Social History Tobacco Use Types [...] CC: ? Transcribed Date/Time: 09/28/2019 (0850) ? Esl Professor: ? Printed Date/Time: 09/28/2019 (1035) ? PAGE [...] Kelly MD CC: Transcribed Date/Time: 09/28/2019 (0850) Esl Professor: Printed Date/Time: 09/28/2019 (4316) PAGE 1 Signed Report us Madhu Leon MD IMG MAMMOGRAPHY ORDERA BLES Final Result documented in this encounter Visit Diagnoses Not on filedocumented in this encounter Care Teams Arc Cutter Plasma Arc Relationship Specialty Start Date End Date Madhu Leon MD [address] [place] [address] [address] [place] [address] PCP - General Internal Medicine - Primary Care 09/24/19 documented as of this encounter
--- OUTSIDE RECORDS SUMMARY | 2024-08-09 20:32 | XMS_ITS | Encounter Summary ---
Author Organization [facility] Address [address] [place] [address] Care Team Providers Care Relaster Name Role Phone Unknown, Provider Primary Care Provider Unava ilable Encounter Details Date Type Department Care Team (Latest Contact Info) Description 09/20/2018 9:10 EST - 09/20/2018 23:[address] [facility] [address] [place] [address] Unknown, ProviderMD Discharge Disposition: Home or Self [...] Code Departure Means Destination Home or Self [facility] documented in this encounter Plan of Treatment Not on file documented as of this encounter Visit Diagnoses Not on filedocumented in this encounter Care Teams Relaster Relationship Specialty Start Date End Date Unknown, Provider, PCP - General 09/05/13 09/23/19 documented as of this encounter
--- OUTSIDE RECORDS SUMMARY | 2024-08-09 20:32 | XMS_ITS | Encounter Summary ---
Author Organization [facility] Address [address] [place] [address] Care Team Providers Care Radar Air Traffic Controller Name Role Phone Madhu Leon MD Primary Care Provider Encounter Details Date Type Department Care Team (Latest Contact Info) Description 07/25/2022 Transcribe Orders [facility] - Main [place] [address] [place], [place] [id number] Madhu Leon MD [address] [place] [address] [address] [place] [address] Type II diabetes mellitus with [...] (HCC-CMS) Essential hypertension, malignant Pure hypercholesterolemia URINE [id number] NE RATIO (ACR) Routine 07/26/2022 9:00 EST [...] - 2, None Seen Cells/HPF 07/26/2022 11:28 [facility] Urine WBC Count 0 - 3 0 - 3, None Seen Cells/HPF 07/26/2022 11:28 [facility] Urine Squamous Count, Manual Moderate(A ) None Seen Cells/HPF 07/26/2022 11:28 [facility] Urine Bacteria Count, Manual Few(A) None Seen Bacteria/H PF 07/26/2022 11:28 [facility] Urine URINE SPECIMEN COLLECTION, CLEAN CATCH / Unknown Urine Collect / Unknown 07/26/2022 9:00 EST 07/26/2022 10:25 [facility] - 07/26/2022 11:28 [facility] Urine Sediment Analysis results are unreliable on urines that are unrefrigerated for >2 hrs or refrigerated >8 hrs. Specimen contaminated. Please recollect a clean catch sample if a culture is indicated. us Madhu Leon MD URINALYSIS ORDERABLES Final Result Performing Organization Address City/State/[facility] Co de Phone Number [facility] [address] [place] [address] * (ABNORMAL) LIPID PROFILE (INCLUDES CHOLESTEROL, TRIGLYCERIDES, HDL, LDL) (07/26/2022 9:00 EST) [facility] Cholesterol 114 <200 mg/dL 07/26/2022 9:39 [facility] Comment:Note that therapeuti c goals will differ between patients based on cardiac risk factors and current medical therapy. HDL 37(L) >=50 mg/dL 07/26/2022 9:39 [facility] Comment:Note that therapeuti c goals will differ between patients based on cardiac risk factors and current medical therapy. LDL, Calculated 53 <160 mg/dL 9:39 [facility] Comment:Note that therapeuti c goals will differ between patients based on cardiac risk factors and current medical therapy. Triglyceride 118 <=150 mg/dL 07/26/2022 9:39 [facility] Comment:Note that therapeuti c goals will differ between patients based on cardiac risk factors and current medical therapy. Chol/HDL Ratio 3.1 See Note 07/26/2022 9:39 [facility] Comment: NOTE: Desirable Ratio = <4.1 Patient At Risk Ratio = >5.0(Males) ?>6.0(Females) Non HDL Cholesterol 77 <160 mg/dL 07/26/2022 9:39 [facility] Comment:Note that therapeuti c goals will differ between patients based on cardiac risk factors and current medical therapy. Blood VENOUS BLOOD / Unknown Venipuncture / Unknown 07/26/2022 9:00 EST 07/26/2022 9:10 EST us Madhu Leon MD CHEMISTRY & BLOOD GAS ORDERABLES Final Result Performing Organization Address City/State/[facility] Co de Phone Number [facility] [address] [place] [address] * COMPREHENSIVE METABOLIC PANEL (CMP) (07/26/2022 9:00 EST) Sodium 141 136 - 145 mmol/L 07/26/2022 9:39 [facility] Potassium 3.8 3.5 - 5.0 mmol/L 07/26/2022 9:39 [facility] Chloride 105 96 - 110 mmol/L 07/26/2022 9:39 [facility] CO2 Total 30 22 - 32 mmol/L 07/26/2022 9:39 [facility] Glucose 98 70 - 100 mg/dL 07/26/2022 9:39 [facility] BUN 24 10 - 26 mg/dL 07/26/2022 9:39 [facility] Creatinine 0.68 0.52 - 1.04 mg/dL 07/26/2022 9:39 [facility] eGFR 89 >60 mL/min/1.7 3m2 07/26/2022 9:39 [facility] Total Protein 6.9 6.3 - 8.2 g/dL 07/26/2022 9:39 [facility] Albumin 4.1 3.4 - 4.9 g/dL 07/26/2022 9:39 [facility] Alkaline Phosphatase 47 38 - 126 U/L 07/26/2022 9:39 [facility] AST 23 15 - 46 U/L 07/26/2022 9:39 [facility] ALT 14 <35 U/L 07/26/2022 9:39 [facility] Bilirubin, Total 0.5 <1.4 mg/dL 07/26/20 9:39 [facility] Calcium 8.5 8.5 - 10.5 mg/dL 07/26/2022 9:39 [facility] Albumin/Globulin Ratio 1.5 1.0 - 2.5 07/26/2022 9:39 [facility] Anion Gap 6 5 - 14 07/26/2022 9:39 [facility] Blood VENOUS BLOOD / Unknown Venipuncture / Unknown 07/26/2022 9:00 EST 07/26/2022 9:10 EST Madhu Leon MD CHEMISTRY & BLOOD GAS ORDERABLES Final Result Performing Organization Address [facility] Phone Number [facility] [address] [place] [id number] * BILIRUBIN DIRECT/INDIRECT (07/26/2022 9:00 EST) Conjugated Bilirubin 0.0 <=0.3 mg/dL 07/26/2022 9:39 [facility] Unconjugated Bilirubin 0.3 <=1.1 mg/dL 07/26/2022 9:39 [facility] Blood VENOUS BLOOD / Unknown Venipuncture / Unknown 07/26/2022 9:00 EST 07/26/2022 9:10 EST us Madhu Leon MD CHEMISTRY & BLOOD GAS ORDERABLES Final Result Performing Organization Address City/[facility]/ZIP Co de Phone Number [facility] [address] [place] [address] * TSH (07/26/2022 9:00 EST) Pathologist [facility] TSH 1.64 0.47 - 4.68 mIU/L 07/26/2022 10:11 EST [facility] Blood VENOUS BLOOD / Unknown Venipuncture / Unknown 07/26/2022 9:00 EST 07/26/2022 9:10 EST Narrative [facility] - 07/26/2022 10:11 EST The results of this assay can be falsely lowered due to the consumption of Biotin. us Madhu Leon MD CHEMISTRY & BLOOD GAS ORDERABLES Final Result Performing Organization Address [facility] Co de Phone Number [facility] [address] [place] [address] * T4 FREE (07/26/2022 9:00 EST) Pathologist [facility] T4, Free 1.0 0.8 - 2.2 ng/dL 07/26/2022 10:11 [facility] Blood VENOUS BLOOD / Unknown Venipuncture / Unknown 07/26/2022 9:00 EST 07/26/2022 9:10 EST us Madhu Leon MD CHEMISTRY & BLOOD GAS ORDERABLES Final Result Performing Organization Address [facility] Co de Phone Number [facility] [address] [place] [address] * (ABNORMAL) HEMOGLOBIN A1C (07/26/2022 9:00 EST) Pathologist [facility] Hemoglobin A1c 5.9(H) <5.7 % 07/27/2022 20:41 [facility] Comment: Glycemic Status References: Normal: ??<5.7% Pre-Diabetes: ??5.7% - 6.4% Diagnostic of Diabetes: ??> or = 6.5% (if confirmed) Est Avg Glucose 123 mg/dL 20:41 [facility] Comment:The eAG represents t he A1c result expressed as average glucose in mg/dL. Blood VENOUS BLOOD / Unknown Venipuncture / Unknown 07/26/2022 9:00 EST 07/26/2022 9:09 EST us Madhu Leon MD CHEMISTRY & BLOOD GAS ORDERABLES Final Result Performing Organization Address [facility]/ZIP Co de Phone Number [facility] [address] [place] [address] * URIC ACID (07/26/2022 9:00 EST) Uric Acid 4.5 2.2 - 7.7 mg/dL 07/26/2022 9:39 EST [facility] Blood VENOUS BLOOD / Unknown Venipuncture / Unknown 07/26/2022 9:00 EST 07/26/2022 9:10 EST us Madhu Leon MD CHEMISTRY & BLOOD GAS ORDERABLES Final Result Performing Organization Address [facility] Phone Number [facility] [address] [place] [address] * URINE [id number] RATIO (ACR) (07/26/2022 9:00 EST) Albumin, Urine <0.6 See Note mg/dL 07/26/2022 13:47 [facility] Comment: NOTE: Reference range not established Creatinine, Urine 47.3 See Note mg/dL 07/26/2022 13:47 [facility] Comment: NOTE: Reference range not established Lab Urine Albumin to Creatinine Ratio 07/26/2022 13:47 [facility] Comment: Unable to calculate due to albumin result <0.6. Urine Albumin/Creatinine Ratio: Normal: <30 ug/mg Creatinine Moderately increased albuminuria: 30-300 ug/mg Creatinine [place] increased albuminuria: >300 ug/mg Creatinine Urine URINE / Unknown Urine Collect / Unknown 07/26/2022 9:00 EST 07/26/2022 10:25 EST us Madhu Leon MD CHEMISTRY & BLOOD GAS ORDERABLES Final Result Performing Organization Address City/[facility]/ZIP Co de Phone Number [facility] [address] [place] [address] * (ABNORMAL) UA WITH REFLEX SEDIMENT (CULTURE IF POS) (07/26/2022 9:00 EST) Color UA Yellow Colorless to Dark Yellow 07/26/2022 11:25 [facility] Clarity UA Clear Clear 07/26/2022 11:25 [facility] Glucose UA Negative Negative 07/26/2022 11:25 [facility] Bilirubin UA Negative Negative 07/26/2022 11:25 [facility] Ketones UA Negative Negative 07/26/2022 11:25 [facility] Specific [place], Urine 1.015 1.001 - 1.035 07/26/2022 11:25 [facility] Blood UA 1+(A) Negative 07/26/2022 11:25 [facility] pH, UA 5.0 4.6 - 8.0 07/26/2022 11:25 [facility] Protein UA Negative Negative 07/26/2022 11:25 [facility] Urobilinogen UA 0.2 0.2 , 1.0, Normal mg/dL 07/26/2022 11:25 [facility] Nitrite UA Negative Negative 07/26/2022 11:25 [facility] Leukocyte Esterase UA Negative Negative 07/26/2022 11:25 [facility] Urine URINE SPECIMEN COLLECTION, CLEAN CATCH / Unknown Urine Collect / Unknown 07/26/2022 9:00 EST 07/26/2022 10:25 EST us Madhu Leon MD URINALYSIS ORDERABLES Final Result Performing Organization Address City/[facility]/ZIP Co de Phone Number [facility] [address] [place] [address] * COMPLETE BLOOD COUNT AND DIFFERENTIAL (07/26/2022 9:00 EST) WBC 7.82 4.00 - 12.40 K/cmm 07/26/2022 9:12 [facility] RBC 4.39 3.86 - 5.04 M/cmm 07/26/2022 9:12 [facility] Hemoglobin 13.3 11.6 - 15.2 gm/dL 07/26/2022 9:12 [facility] HCT 40.3 34.9 - 44.4 % 07/26/2022 9:12 [facility] MCV 92 81 - 98 fl 07/26/2022 9:12 [facility] MCH 30.3 26.7 - 33.3 pg 07/26/2022 9:12 [facility] MCHC 33.0 32.1 - 35.9 gm/dL 07/26/2022 9:12 [facility] RDW-CV 13.0 <14.7 % 07/26/2022 9:12 [facility] RDW-SD 43.8 <50.4 fl 07/26/2022 9:12 [facility] PLT 188 141 - 377 K/cmm 07/26/2022 9:12 [facility] MPV 10.0 9.5 - 12.7 fl 07/26/2022 9:12 [facility] % Neutrophils 50.7 % 07/26/2022 9:12 [facility] % Lymphocytes 35.7 % 07/26/2022 9:12 [facility] % Monocytes 5.9 % 07/26/2022 9:12 [facility] % Eosinophils 6.8 % 07/26/2022 9:12 [facility] % Basophils 0.5 % 07/26/2022 9:12 [facility] % Immature Grans 0.4 % 07/26/20 9:12 [facility] Absolute Neutrophils 3.97 2.20 - 8.85 K/cmm 07/26/2022 9:12 [facility] Absolute Lymphocytes 2.79 1.09 - 3.30 K/cmm 07/26/2022 9:12 [facility] Absolute Monocytes 0.46 0.10 - 0.80 K/cmm 07/26/2022 9:12 [facility] Absolute Eosinophils 0.53 0.03 - 0.61 K/cmm 07/26/2022 9:12 [facility] ABS Basophils 0.04 0.01 - 0.11 K/cmm 07/26/2022 9:12 [facility] Absolute Immature Grans 0.03 0.00 - 0.06 K/cmm 07/26/2022 9:12 [facility] Type of Differential: Auto 07/26/2022 9:12 [facility] Blood VENOUS BLOOD / Unknown Venipuncture / Unknown 07/26/2022 9:00 EST 07/26/2022 9:09 EST us Madhu Leon MD PACKAGES & DNA PROBE O RDERABLES Final Result [facility] [address] [place] [address] documented in this encounter Visit Diagnoses Diagnosis Type II diabetes mellitus with hyperosmolarity, uncontrolled ([facility])- Primary Type II or unspecified type diabetes mellitus with hyperosmolarity, uncontrolled Essential hypertension, malignant Pure hypercholesterolemia documented in this encounter Care Teams Radar Air Traffic Controller Relationship Specialty Start Date End Date Madhu Leon MD [address] [place] [address] [address] [place] [phone] PCP - General Internal Medicine - Primary Care 09/24/19 documented as of this encounter
--- OUTSIDE RECORDS SUMMARY | 2024-08-09 20:32 | XMS_ITS | Encounter Summary ---
Author Organization [facility] Address [address] [place] [address] Care Team Providers Care Forest Nursery Supervisor Name Role Phone Madhu Leon MD Primary Care Provider Encounter Details Date Type Department Care Team (Late st Contact Info) Description 05/11/2020 Results Only Imaging [facility] Radiology Results [address] [place], [place] [id number] Madhu Leon MD [facility] [address] [place] [address] Social History Tobacco Use Types [...] CC: ? Transcribed Date/Time: 05/11/2020 (1323) ? Bridge Worker Apprentice: ? Printed Date/Time: 05/11/2020 (1323) ? PAGE 1 ? Signed Report ? Procedure Note Atr Phelps MD - 05/11/2020 EXAM: RADIOLOGY/TOE(S) LEFT [...] Art Phelps MD CC: Transcribed Date/Time: 05/11/2020 (0713) Bridge Worker Apprentice: Printed Date/Time: 05/11/2020 (0113) PAGE 1 Signed Report Madhu Leon MD IMG DIAGNOSTIC IMAGING ORDERABLES Final Result documented in this encounter Visit Diagnoses Not on filedocumented in this encounter Care Teams Forest Nursery Supervisor Relationship Specialty Start Date End Date Madhu Leon MD [address] [place] [address] [address] [place] [phone] PCP - General Internal Medicine - Primary Care 09/24/19 documented as of this encounter
--- OUTSIDE RECORDS SUMMARY | 2024-08-09 20:32 | XMS_ITS | Encounter Summary ---
Author Organization [facility] Address [address] [place] [address] Care Team Providers Care Mason Liner Name Role Phone Unknown, Provider Primary Care Provider Unava ilable Encounter Details Date Type Department Care Team (Late st Contact Info) Description 06/07/2019 Results Only [facility] - Main [place] [address] [place], [place] [id number] Madhu Leon MD [facility] [address] [place] [address] Social History Tobacco Use Types [...] Priority Date/Time Associated Diagnosis Comments URINALYSIS/COMPLETE - [facility] Routine 06/07/2019 11:43 EDT COMPLETE BLOOD COUNT WITH DIFFERENTIAL (AUTO) Routine 06/07/2019 11:43 EDT URINE [id number] RATIO (ACR) Routine 06/07/2019 11:43 EDT URINE CHEMICAL (DIP) & SEDIMENT (MICRO) WITHOUT REFLEX TO CULTURE Routine 06/07/2019 11:43 EDT TSH Routine 06/07/2019 11:43 EDT T4 FREE Routine 06/07/2019 11:43 EDT URIC ACID Routine 06/07/2019 11:42 EDT HEMOGLOBIN A1C Routine 06/07/2019 11:42 EDT documented in this encounter Results * TSH (06/07/2019 11:43 EDT) [facility] THYROID STIM HORMONE [facility] 1.07 0.46 - 4.68 uIU/ml 06/07/2019 13:46 EDT [facility] Comment: The results of this assay can be falsely lowered due to the consumption of Biotin. 06/07/2019 11:4 3 EDT 06/07/2019 11:43 EDT [facility] - 06/07/2019 13:46 EDT Does PT Have a Latex Allergy? NO Madhu Leon MD CHEMISTRY & BLOOD GAS ORDERABLES Final Result [facility] * T4 FREE (06/07/2019 11:43 EDT) [facility] T4 [facility] 1.15 0.78 - 2.19 ng/dl 06/07/2019 13:46 EDT [facility] 06/07/2019 11:4 3 EDT 06/07/2019 11:43 EDT [facility] - 06/07/2019 13:46 EDT Does PT Have a Latex Allergy? NO Madhu Leon MD CHEMISTRY & BLOOD GAS ORDERABLES Final Result [facility] * ALBUMIN, URINE (06/07/2019 11:43 EDT) [facility] Albumin, Urine 1.60 <1.7 mg/dL 06/07/2019 13:28 EDT [facility] Lab Urine Albumin to Creatinine Ratio 24.7 ug/mg 06/07/2019 13:28 EDT [facility] Comment: Normal: <30 ug/mg Creat Microalbuminuria: 30-300 ug/mg Creat Clinical albuminuria: >300 ug/mg Creat Creatinine, Urine 64.70 mg/dL 06/07/2019 13:28 EDT [facility] 06/07/2019 11:4 3 EDT 06/07/2019 11:43 EDT Narrative [facility] - 06/07/2019 13:28 EDT Does PT Have a Latex Allergy? NO WHAT TYPE OF COLLECTION IS THIS URINE? RANDOM URINE us Madhu Leon MD CHEMISTRY & BLOOD GAS ORDERABLES Final Result [facility] * URINALYSIS/COMPLETE - [facility] (06/07/2019 11:43 EDT) URINE APPEARANCE - [facility] Clear CLEAR 06/07/2019 13:01 [facility] URINE BACTERIA - [facility] MOD 06/07/2019 13:01 [facility] URINE BILIRUBIN - DIPSTICK - [facility] Negative NEGATIVE 06/07/2019 13:01 [facility] URINE BLOOD - [facility] 1+ NEG 06/07/2019 13:01 [facility] URINE COLOR - [facility] Yellow YELLOW 06/07/2019 13:01 [facility] URINE GLUCOSE - [facility] - [facility] Negative NEGATIVE 06/07/2019 13:01 [facility] URINE KETONE - [facility] Negative NEGATIVE 06/07/2019 13:01 [facility] URINE LEUK ESTERASE - [facility] Negative NEG 06/07/2019 13:01 [facility] URINE NITRITE - [facility] - [facility] Negative NEG 06/07/2019 13:01 [facility] URINE PH - [facility] 6.0 4.0 - 8.0 9 13:01 [facility] URINE PROTEIN - [facility] - [facility] Negative NEG 06/07/2019 [facility] RBC - [facility] 3-6 rbc/hpf 06/07/20 19 13:01 [facility] URCULTIF+? - [facility] Culture Ordered 06/07/2019 13:01 [facility] URINE SPECIFIC GRAVITY - [facility] 1.010 1.001 - 1.035 06/07/2019 13:01 [facility] URINE SQUAMOUS CELLS - [facility] MOD NEG #/hpf 06/07/2019 13:01 [facility] URINE UROBILINOGEN - [facility]IP[place] - [facility] 0.2 0.2 - 1.0 06/07/2019 13:01 [facility] URINE WBC - [facility] 1-4 NEG wbc/hpf 019 13:01 [facility] 06/07/2019 11:4 3 EDT 06/07/2019 11:43 EDT Narrative [facility] - 06/07/2019 13:01 EDT Does PT Have a Latex Allergy? NO us Madhu Leon MD CHEMISTRY & BLOOD GAS ORDERABLES Final Result [facility] * (ABNORMAL) COMPLETE BLOOD COUNT WITH DIFFERENTIAL (AUTO) (06/07/2019 11:43 EDT) ABSOLUTE NEUTROPHIL COUN - [facility] 3.4 2.2 - 8.85 10e3/uL 06/07/2019 12:37 T [facility] BASO # - [facility] 0.05 0.01 - 0.11 10e/uL 06/07/2019 12:37 [facility] BASO % - [facility] 1 0 - 2 % 06/07/2019 12:37 [facility] EOS # - [facility] 0.32 0.03 - 0.61 10e3/ul 06/07/2019 12:37 [facility] EOS % - [facility] 4 0 - 5 % 06/07/2019 12:37 [facility] GRAN % - [facility] 46.6 40 - 80 % 06/07/2019 12:37 [facility] HEMATOCRIT - CV 40.9 34.9 - 44.4 % 06/07/2019 12:37 [facility] HEMOGLOBIN - [facility] 13.3 11.6 - 15.2 g/dl 06/07/2019 12:37 [facility] IG# - [facility] 0.02 0 - 0.7 10e3/uL 06/07/2019 12:37 [facility] IG% - [facility] 0.3 0 - 0.9 % 06/07/2019 12:37 [facility] LYMPH # - [facility] 3.0 1.09 - 3.3 10e3/ul 06/07/2019 12:37 [facility] LYMPH% - [facility] 41.9(H) 20 - 40 % 06/07/2019 12:37 [facility] MEAN CORPUSCULAR HGB - CV 30.3 26.7 - 33.3 pg 06/07/2019 12:37 [facility] MEAN CORPUSCULAR HGB CONC - [facility] 32.5 32.1 - 35.9 g/dL 06/07/2019 12:37 [facility] MEAN CELL VOLUME - [facility] 93.2 81 - 98 fl 06/07/2019 12:37 [facility] MONO # - [facility] 0.4 0.1 - 0.8 10e3/uL 06/07/2019 12:37 [facility] MONO% - [facility] 6.1 0 - 12 % 06/07/2019 12:37 [facility] PLATELET COUNT 190 141 - 377 10e3/ul 06/07/2019 12:37 [facility] RED BLOOD COUNT - [facility] 4.39 3.86 - 5.04 10e3/ul 06/07/2019 12:37 [facility] RED CELL DISTRI WIDTH - [facility] 13.2 <14.7 % 06/07/2019 12:37 [facility] WHITE BLOOD COUNT - [facility] 7.2 4.0 - 12.4 10e3/ul 06/07/2019 12:37 EDT [facility] 06/07/2019 11:4 3 EDT 06/07/2019 11:43 EDT [facility] - 06/07/2019 12:37 EDT Does PT Have a Latex Allergy? NO Madhu Leon MD HEMATOLOGY & PF4 ORDER CLAUDIA Final Result [facility] * HEMOGLOBIN A1C (06/07/2019 11:42 EDT) Hemoglobin A1c 6.0 4.0 - 6.0 % 06/07/2019 21:16 EDT [facility] Comment: > or =18 years: [...] Avg Glucose 126 mg/dL 9 21:16 EDT [facility] 06/07/2019 11:4 2 EDT 06/07/2019 11:43 EDT [facility] - 06/07/2019 21:16 EDT Does PT Have a Latex Allergy? NO Madhu Leon MD CHEMISTRY & BLOOD GAS ORDERABLES Final Result [facility] * URIC ACID (06/07/2019 11:42 EDT) URIC ACID - [facility] 5.0 2.2 - 7.7 mg/dL 06/07/2019 13:17 EDT [facility] 06/07/2019 11:4 2 EDT 06/07/2019 11:42 EDT Narrative [facility] - 06/07/2019 13:17 EDT Does PT Have a Latex Allergy? NO us Madhu Leon MD CHEMISTRY & BLOOD GAS ORDERABLES Final Result [facility] documented in this encounter Visit Diagnoses Not on filedocumented in this encounter Care Teams Mason Liner Relationship Specialty Start Date End Date Unknown, Provider, PCP - General 09/05/13 09/23/19 documented as of this encounter
--- OUTSIDE RECORDS SUMMARY | 2024-08-09 20:32 | XMS_ITS | Encounter Summary ---
Author Organization [facility] Address [address] [place] [address] Care Team Providers Care Weapons Electrical Engineering Officer Name Role Phone Unknown, Provider Primary Care Provider Unava ilable Encounter Details Date Type Department Care Team (Late st Contact Info) Description 09/20/2018 Historical Results Only [facility] Radiology Results [address] [place] [address] Madhu Leon MD [address] [place] [address] Social History Tobacco Use Types [...] on filedocumented in this encounter Care Teams Weapons Electrical Engineering Officer Relationship Specialty Start Date End Date Unknown, ProviderMD PCP - General 09/05/13 09/23/19 documented as of this encounter
--- OUTSIDE RECORDS SUMMARY | 2024-08-09 20:32 | XMS_ITS | Encounter Summary ---
Author Organization [facility] Address [address] [place] [address] Care Team Providers Care Leadership Intern Name Role Phone Unknown, Provider Primary Care Provider Genevieve ilkyle Encounter Details Date Type Department Care Team (Late st Contact Info) Description 06/07/[address] [facility] - Main [place] [address] [place] [address] Madhu Leon MD [facility] [address] [place] [address] Social History Tobacco Use Types [...] 3.4 - 4.9 g/dL 06/07/2019 13:17 EDT [facility] ALKALINE PHOSPHATASE - [facility] 53 38 - 126 U/L 06/07/2019 13:17 EDT [facility] BILIRUBIN TOTAL 0.6 0.2 - 1.3 mg/dL 06/07/2019 13:17 EDT [facility] BUN - [facility] 17 10 - 26 mg/dL 06/07/2019 13:17 [facility] CALCIUM - [facility] 8.4(L) 8.5 - 10.5 mg/dL 06/07/2019 13:17 [facility] Chloride 102 96 - 110 mmol/L 06/07/2019 13:17 [facility] CO2 Total 26 22 - 32 mEq/L 06/07/2019 13:17 [facility] CREATININE 0.80 0.52 - 1.04 mg/dL 06/07/2019 13:17 [facility] eGFR >60 06/07/2019 13:17 [facility] Comment: Chronic renal impairment is defined as GFR <60 Multiply result by 1.210 for patients. eGFR calculated using the IDMS-traceable MDRD Study Equation. ??(effective 06/26/2014) Anion Gap 12 0 - 18 06/07/2019 13:17 [facility] GLUCOSE - [facility] 91 70 - 100 mg/dL 06/07/2019 13:17 [facility] Potassium 3.8 3.5 - 5.0 mEq/L 06/07/2019 13:17 [facility] Sodium 140 136 - 145 mEq/L 06/07/2019 13:17 [facility] TOTAL PROTEIN - [facility] 6.7 6.2 - 8.2 gm/dL 06/07/2019 13:17 [facility] SGOT/AST - [facility] 22 14 - 36 U/L 06/07/2019 13:17 [facility] SGPT/ALT - [facility] 21 9 - 52 U/L 9 13:17 [facility] 06/07/2019 11:4 2 EDT 06/07/2019 11:42 [facility] - 06/07/2019 13:17 EDT Does PT Have a Latex Allergy? NO us Madhu Leon MD CHEMISTRY & BLOOD GAS ORDERABLES Final Result [facility] documented in this encounter Visit Diagnoses Not on filedocumented in this encounter Care Teams Leadership Intern Relationship Specialty Start Date End Date Unknown, Provider, PCP - General 09/05/13 09/23/19 documented as of this encounter
--- OUTSIDE RECORDS SUMMARY | 2024-08-09 20:32 | XMS_ITS | Encounter Summary ---
Author Organization [facility] Address [address] [place] [address] Care Team Providers Care Stranding Machine Operator Helper Name Role Phone Unknown, Provider Primary Care Provider Unava ilable Encounter Details Date Type Department Care Team (Latest Contact Info) Description 04/21/2014 20:11 EDT - 04/21/2014 23:59 EDT Hospital Encounter [facility] [address] [place] [address] Unknown, Provider, Discharge Disposition: Home or Self [...] Code Departure Means Destination Home or Self Long Term documented in this encounter Plan of Treatment Not on file documented as of this encounter Visit Diagnoses Not on filedocumented in this encounter Care Teams Stranding Machine Operator Helper Relationship Specialty Start Date End Date Unknown, Provider, PCP - General 09/05/13 09/23/19 documented as of this encounter
--- OUTSIDE RECORDS SUMMARY | 2024-08-09 20:32 | XMS_ITS | Encounter Summary ---
Author Organization [facility] Address [address] [place] [address] Care Team Providers Care Hand Almond Blancher Name Role Phone Unknown, Provider Primary Care Provider Unava ilable Encounter Details Date Type Department Care Team (Late st Contact Info) Description 03/29/2018 Historical Results Only [facility] - Main [place] [address] [place] [address] Madhu Leon MD [facility] [address] [place] [address] Social History Tobacco Use Types [...] IF POSITIVE Routine 03/29/2018 9:02 EDT URINE [id number] RATIO (ACR) Routine 03/29/2018 9:02 EDT URINALYSIS/COMPLETE - [facility] Routine 03/29/2018 9:01 EDT COMPLETE BLOOD COUNT [...] (ABNORMAL) MICROALBUMIN, URINE (03/29/2018 9:02 EDT) Pathologist [facility] Albumin, Urine 3.10(H) <1.7 mg/dL 03/29/2018 11:48 EDT [facility] Lab Urine Albumin to Creatinine Ratio 25.6 ug/mg 03/29/2018 11:48 EDT [facility] Comment: Normal: <30 ug/mg Creat Microalbuminuria: 30-300 ug/mg Creat Clinical albuminuria: >300 ug/mg Creat Creatinine, Urine 120.70 mg/dL 03/29/2018 11:48 EDT [facility] 03/29/2018 9:02 EDT 03/29/2018 9:02 EDT Narrative [facility] - 03/29/2018 11:48 EDT Does PT Have a Latex Allergy? NO WHAT TYPE OF COLLECTION IS THIS URINE? RANDOM URINE us Madhu Leon MD HEMATOLOGY & PF4 ORDER CLAUDIA Final Result [facility] * URINE CULTURE IF POSITIVE (03/29/2018 9:02 EDT) ESCHERIACHIA COLI - [facility] ESCHERICHIA COLI 03/31/2018 7:27 EDT [facility] CitrateConcentration >100,000 CFU/ML 03/2018 7:27 EDT [facility] USUAL UROGENITAL LUIS CARLOS - [facility] UUV 03/31/2018 7:27 EDT [facility] CitrateConcentration <10,000 CFU/ML 03/2018 7:27 EDT [facility] 03/29/2018 9:02 EDT 03/29/2018 9:02 EDT Comment:VOID Narrative [facility] - 03/31/2018 7:27 EDT Does [...] - GENERAL ORDERABLES Edited Result - Final [facility] * (ABNORMAL) ALBUMIN, URINE (03/29/2018 9:02 EDT) Albumin, Urine 3.10(H) <1.7 mg/dL 03/29/2018 11:48 EDT [facility] Lab Urine Albumin to Creatinine Ratio 25.6 ug/mg 03/29/2018 11:48 [facility] Comment: Normal: <30 ug/mg Creat Microalbuminuria: 30-300 ug/mg Creat Clinical albuminuria: >300 ug/mg Creat Creatinine, Urine 120.70 mg/dL 03/29/2018 11:48 EDT [facility] 03/29/2018 9:02 EDT 03/29/2018 9:02 EDT [facility] - 03/29/2018 11:48 EDT Does PT Have a Latex Allergy? NO WHAT TYPE OF COLLECTION IS THIS URINE? RANDOM URINE Madhu Leon MD CHEMISTRY & BLOOD GAS ORDERABLES Final Result Performing Organization Address City/[facility]/ZIP Co de Phone Number [facility] * URIC ACID (03/29/2018 9:01 EDT) [facility] URIC ACID [facility] 6.1 2.2 - 7.7 mg/dL [facility]2018 [facility] 9:01 EDT 03/29/2018 9:01 EDT Narrative [facility] - 03/29/2018 11:48 EDT Does PT Have a Latex Allergy? NO Madhu Leon MD CHEMISTRY & BLOOD GAS ORDERABLES Final Result [facility] * HEPATIC FUNCTION PANEL (ALB,ALK PHOS,ALT,AST,DBIL,TOT GOPAL,TOT PROT) (03/29/2018 9:01 EDT) [facility] BILIRUBIN DIRECT CALC - [facility] 0.2 0.0 - 0.4 mg/dL 03/29/2018 11:35 EDT [facility] Unconjugated Bilirubin 0.5 0.0 - 1.1 mg/dL 03/29/2018 11:35 [facility] 03/29/2018 9:01 EDT 03/29/2018 9:01 EDT Narrative [facility] - 03/29/2018 11:48 EDT Does PT Have a Latex Allergy? NO us Madhu Leon MD CHEMISTRY & BLOOD GAS ORDERABLES Final Result [facility] * (ABNORMAL) LIPID PROFILE (INCLUDES CHOLESTEROL, TRIGLYCERIDES, HDL, LDL) (03/29/2018 9:01 EDT) Triglyceride 242 <150 mg/dL 03/29/2018 11:35 [facility] Comment: Adult: Normal: ?<150 mg/dl ? Borderline High: 150-199 mg/dl ? High: ?200-499 mg/dl ? Very High: >kc=[id number] Cholesterol 140 <200 mg/dL 03/29/2018 11:35 [facility] Comment: Acceptable: ??<200 Borderline: ??200-239 High: ?> or = 240 Chol/HDL Ratio 4.5 0 - 4.5 03/29/2018 11:35 [facility] Comment: DESIRABLE RATIO IS LESS THAN 4.1 PATIENTS ARE CONSIDERED AT RISK: WOMEN RATIO >5 MEN RATIO >6 FASTING? - [facility] Yes 8 9:02 [facility] HDL 31(L) 40 - 60 mg/dL 03/29/2018 11:35 [facility] Comment: ?? Reference Range Low: ? < 40 ??mg/dL Normal: ??40-60 mg/dL High: ?>= 60 mg/dL LDL CHOLESTEROL - [facility] 61 60 - 100 mg/dL 03/29/2018 11:35 [facility] Non HDL Cholesterol 109 mg/dl 03/29/2018 11:35 [facility] Comment: Desirable: ?Less than 130 Borderline High: ??130-159 High: ? 160-189 Very High: ?Greater than or equal to 190 03/29/2018 9:01 EDT 03/29/2018 9:01 EDT Narrative [facility] - 03/29/2018 11:48 EDT Does PT Have a Latex Allergy? NO us Madhu Leon MD CHEMISTRY & BLOOD GAS ORDERABLES Final Result [facility] * (ABNORMAL) COMPREHENSIVE METABOLIC PANEL (CMP) (03/29/2018 9:01 EDT) Albumin % 4.0 3.4 - 4.9 g/dL 03/29/2018 11:48 [facility] Comment: Slight Hemolysis, Interpret results with caution. Verified Hemolysis Visually ALKALINE PHOSPHATASE - [facility] 48 38 - 126 U/L 03/29/2018 11:48 [facility] Comment: Slight Hemolysis, Interpret results with caution. Verified Hemolysis Visually BILIRUBIN TOTAL 0.7 0.2 - 1.3 mg/dL 03/29/2018 11:35 [facility] BUN - [facility] 19 10 - 26 mg/dL 03/29/2018 11:48 [facility] Comment: Slight Hemolysis, Interpret results with caution. Verified Hemolysis Visually CALCIUM - [facility] 8.7 8.5 - 10.5 mg/dL 03/29/2018 11:35 [facility] Chloride 104 96 - 110 mmol/L 03/29/2018 11:35 [facility] CO2 Total 26 22 - 32 mEq/L 03/29/2018 11:35 [facility] CREATININE 0.76 0.52 - 1.04 mg/dL 03/29/2018 11:35 [facility] eGFR >60 03/29/2018 11:35 [facility] Comment: Chronic renal impairment is defined as GFR <60 Multiply result by 1.210 for patients. eGFR calculated using the IDMS-traceable MDRD Study Equation. ??(effective 06/26/2014) Anion Gap 13 0 - 18 03/29/2018 11:35 EDT [facility] GLUCOSE - [facility] 114(H) 70 - 100 mg/dL 03/29/2018 11:35 [facility] Potassium 4.2 3.5 - 5.0 mEq/L 03/29/2018 [facility]: Slight Hemolysis, Interpret results with caution. Verified Hemolysis Visually Sodium 143 136 - 145 mEq/L 03/29/2018 11:35 [facility] TOTAL PROTEIN - [facility] 7.5 6.2 - 8.2 gm/dL 03/29/2018 11:35 [facility] SGOT/AST - [facility] 42(H) 14 - 36 U/L 03/29/2018 11:48 [facility] Comment: Slight Hemolysis, Interpret results with caution. Verified Hemolysis Visually SGPT/ALT - [facility] 39 9 - 52 U/L 8 11:48 [facility] Comment: Slight Hemolysis, Interpret results with caution. Verified Hemolysis Visually 03/29/2018 9:01 EDT 03/29/2018 9:01 EDT [facility] - 03/29/2018 11:48 EDT Does PT Have a Latex Allergy? NO Madhu Leon MD CHEMISTRY & BLOOD GAS ORDERABLES Final Result [facility] * (ABNORMAL) HEMOGLOBIN A1C (03/29/2018 9:01 EDT) Hemoglobin A1c 6.8(H) 4.0 - 6.0 % 03/29/2018 13:24 EDT [facility] Est Avg Glucose 148 mg/dL 8 13:24 EDT [facility] 03/29/2018 9:01 EDT 03/29/2018 9:01 EDT [facility] - 03/29/2018 13:24 EDT Does PT Have a Latex Allergy? NO us Madhu Leon MD CHEMISTRY & BLOOD GAS ORDERABLES Final Result Performing Organization Address [facility]/ZIP Co de Phone Number [facility] * TSH (03/29/2018 9:01 EDT) [facility] THYROID STIM HORMONE - [facility] 1.37 0.46 - 4.68 uIU/ml 03/29/2018 11:41 EDT [facility] Comment: The results of this assay can be falsely lowered due to the consumption of Biotin. 03/29/2018 9:01 EDT 03/29/2018 9:01 EDT Narrative [facility] - 03/29/2018 11:41 EDT Does PT Have a Latex Allergy? NO Madhu Leon MD CHEMISTRY & BLOOD GAS ORDERABLES Final Result Performing Organization Address [facility] Co de Phone Number [facility] * T4 FREE (03/29/2018 9:01 EDT) [facility] FREE T4 [facility] 0.87 0.78 - 2.19 ng/dl 03/29/2018 11:41 EDT [facility] 03/29/2018 9:01 EDT 03/29/2018 9:01 EDT [facility] - 03/29/2018 11:41 EDT Does PT Have a Latex Allergy? NO Madhu Leon MD CHEMISTRY & BLOOD GAS ORDERABLES Final Result Performing Organization Address City/[facility]/ZIP Co de Phone Number [facility] * (ABNORMAL) COMPLETE BLOOD COUNT WITH DIFFERENTIAL (AUTO) (03/29/2018 9:01 EDT) [facility] ABSOLUTE NEUTROPHIL COUN - [facility] 2.69 1.7 - 7.0 10e3/ul 03/29/2018 10:35 EDT [facility] BASO # - [facility] 0.02 0.0 - 0.3 10e3/uL 03/29/2018 10:35 EDT [facility] BASO % - [facility] 0 0 - 2 % 03/29/2018 10:35 [facility] EOS # - [facility] 0.26 0.05 - 0.5 10e3/uL 03/29/2018 10:35 [facility] EOS % - [facility] 5 0 - 5 % 03/29/2018 10:35 [facility] GRAN % - [facility] 47 40 - 80 % 03/29/2018 10:35 [facility] HEMATOCRIT - [facility] 40.4 34.0 - 47.0 % 03/29/2018 10:35 [facility] HEMOGLOBIN - [facility] 13.3 11.2 - 15.7 g/dl 03/29/2018 10:35 [facility] IG# - [facility] 0.02 0 - 0.07 10e3/uL 03/29/2018 10:35 [facility] IG% - [facility] 0.3 0 - 0.9 % 03/29/2018 10:35 [facility] LYMPH # - [facility] 2.39 0.9 - 2.9 10e3/uL 03/29/2018 10:35 [facility] LYMPH% - [facility] 42(H) 20 - 40 % 03/29/2018 10:35 [facility] MEAN CORPUSCULAR HGB - [facility] 30.0 26 - 34 pg 03/29/2018 10:35 [facility] MEAN CORPUSCULAR HGB CONC - [facility] 32.9 31 - 36 g/dL 03/29/2018 10:35 [facility] MEAN CELL VOLUME - [facility] 91.2 77 - 100 fl 03/29/2018 10:35 [facility] MONO # - [facility] 0.37 0.3 - 0.9 10e3/uL 03/29/2018 10:35 [facility] MONO% - [facility] 6 0 - 12 % 03/29/2018 10:35 [facility] PLATELET COUNT 165 150 - 400 10e3/ul 03/29/2018 10:35 [facility] RED BLOOD COUNT - [facility] 4.43 3.8 - 5.2 10e6/ul 03/29/2018 10:35 [facility] RED CELL DISTRI WIDTH - [facility] 13.8 11.8 - 15.6 % 03/29/2018 10:35 [facility] WHITE BLOOD COUNT - [facility] 5.8 3.5 - 10.5 10e3/ul 03/29/2018 10:35 [facility] 03/29/2018 9:01 EDT 03/29/2018 9:01 EDT [facility] - 03/29/2018 10:35 EDT Does PT Have a Latex Allergy? NO us Madhu Leon MD HEMATOLOGY & PF4 ORDER CLAUDIA Final Result [facility] * URINALYSIS/COMPLETE - [facility] (03/29/2018 9:01 EDT) URINE APPEARANCE - [facility] Cloudy CLEAR 03/29/2018 10:46 [facility] URINE BACTERIA - [facility] TNTC 03/29/2018 11:25 [facility] URINE BILIRUBIN - D[place] - [facility] Negative NEGATIVE 03/29/2018 10:46 [facility] URINE BLOOD - [facility] Negative NEG 03/29/2018 10:46 [facility] URINE COLOR - [facility] Yellow YELLOW 03/29/2018 10:46 [facility] URINE GLUCOSE - [place] - [facility] Negative NEGATIVE 03/29/2018 10:46 [facility] URINE KETONE - [facility] Negative NEGATIVE 03/29/2018 10:46 [facility] URINE LEUK ESTERASE - [facility] 1+ NEG 03/29/2018 10:46 [facility] URINE NITRITE - [place] - [facility] Positive NEG 03/29/2018 10:46 [facility] URINE PH - [facility] 7.0 4.0 - 8.0 8 10:46 [facility] URINE PROTEIN - [place] - [facility] Negative NEG 03/29/2018 10:46 EDT [facility] URINE RBC - [facility] 1-3 rbc/hpf 03/29/20 18 11:25 [facility] URCULTIF+? - [facility] Culture Ordered 03/29/2018 11:25 [facility] URINE SPECIFIC GRAVITY - [facility] 1.010 1.001 - 1.035 03/29/2018 10:46 EDT [facility] URINE SQUAMOUS CELLS - [facility] FEW NEG #/hpf 03/29/2018 11:25 [facility] URINE UROBILINOGEN - [place] - [facility] 1.0 0.2 - 1.0 03/29/2018 10:46 [facility] URINE WBC - [facility] 15-20 NEG wbc/hpf 018 11:25 [facility] 03/29/2018 9:01 EDT 03/29/2018 9:02 EDT Narrative [facility] - 03/29/2018 11:25 EDT Does PT Have a Latex Allergy? NO us Madhu Leon MD CHEMISTRY & BLOOD GAS ORDERABLES Final Result [facility] documented in this encounter Visit Diagnoses Not on filedocumented in this encounter Care Teams Hand Almond Blancher Relationship Specialty Start Date End Date Unknown, Provider, PCP - General 09/05/13 09/23/19 documented as of this encounter
--- OUTSIDE RECORDS SUMMARY | 2024-08-09 20:32 | XMS_ITS | Encounter Summary ---
Author Organization [facility] Address [address] [place] [address] Care Team Providers Care Shipping And Receiving Name Role Phone Madhu Leon MD Primary Care Provider Encounter Details Date Type Department Care Team (Late st Contact Info) Description 06/24/2021 Results Only [facility] - Main [place] [address] [place], [place] [id number] Madhu Leon MD [facility] [address] [place] [address] Social History Tobacco Use Types [...] Routine 06/24/2021 9 :34 EDT URINALYSIS/COMPLETE - [facility] Routine 06/24/2021 9:33 EDT COMPLETE BLOOD COUNT [...] Urine <0.06 <1.7 mg/dL 06/24/2021 11:23 EDT [facility] Comment: Lab Urine Albumin to Creatinine Ratio TNP ug/mg 06/24/2021 11:13 EDT [facility] Creatinine, Urine 87.20 mg/dL 06/24/2021 11:22 EDT [facility] 06/24/2021 9:34 EDT 06/24/2021 9:34 EDT Narrative [facility] - 06/24/2021 11:23 EDT Does PT Have a Latex Allergy? NO WHAT TYPE OF COLLECTION IS THIS URINE? RANDOM URINE us Madhu Leon MD HEMATOLOGY & PF4 ORDER CLAUDIA Final Result [facility] [address] [place] [address] * HEMOGLOBIN A1C (06/24/2021 9:33 EDT) Hemoglobin A1c 5.9 4.0 - 6.0 % 06/24/2021 13:32 EDT [facility] Comment: > or =18 [...] Est Avg Glucose 123 mg/dL 13:32 EDT [facility] 06/24/2021 9:33 EDT 06/24/2021 9:33 EDT [facility] - 06/24/2021 13:32 EDT Does PT Have a Latex Allergy? NO Madhu Leon MD CHEMISTRY & BLOOD GAS ORDERABLES Final Result Performing Organization Address [facility] Co de Phone Number [facility] [address] [place] [address] * TSH (06/24/2021 9:33 EDT) [facility] THYROID STIM HORMONE - [facility] 1.32 0.46 - 4.68 uIU/ml 06/24/2021 11:33 EDT [facility] Comment: The results of this assay can be falsely lowered due to the consumption of Biotin. 06/24/2021 9:33 EDT 06/24/2021 9:33 EDT [facility] - 06/24/2021 11:33 EDT Does PT Have a Latex Allergy? NO Madhu Leon MD CHEMISTRY & BLOOD GAS ORDERABLES Final Result Performing Organization Address City/[facility]/ZIP Co de Phone Number [facility] [address] [place] [address] * T4 FREE (06/24/2021 9:33 EDT) [facility] FREE T4 - [facility] 0.96 0.78 - 2.19 ng/dl 06/24/2021 11:33 EDT [facility] 06/24/2021 9:33 EDT 06/24/2021 9:33 EDT [facility] - 06/24/2021 11:33 EDT Does PT Have a Latex Allergy? NO us Madhu Leon MD CHEMISTRY & BLOOD GAS ORDERABLES Final Result Performing Organization Address [facility] Co de Phone Number [facility] [address] [place] [address] * URIC ACID (06/24/2021 9:33 EDT) URIC ACID - [facility] 4.8 2.2 - 7.7 mg/dL 06/24/2021 11:04 EDT [facility] 06/24/2021 9:33 EDT 06/24/2021 9:33 EDT [facility] - 06/24/2021 11:04 EDT Does PT Have a Latex Allergy? NO us Madhu Leon MD CHEMISTRY & BLOOD GAS ORDERABLES Final Result Performing Organization Address [facility] Co de Phone Number [facility] [address] [place] [address] * HEPATIC FUNCTION PANEL (ALB,ALK PHOS,ALT,AST,DBIL,TOT GOPAL,TOT PROT) (06/24/2021 9:33 EDT) BILIRUBIN DIRECT CALC - [facility] 0.1 0.0 - 0.4 mg/dL 06/24/2021 11:04 EDT [facility] Unconjugated Bilirubin 0.3 0.0 - 1.1 mg/dL 06/24/2021 11:04 EDT [facility] 06/24/2021 9:33 EDT 06/24/2021 9:33 EDT [facility] - 06/24/2021 11:04 EDT Does PT Have a Latex Allergy? NO us Madhu Leon MD CHEMISTRY & BLOOD GAS ORDERABLES Final Result [facility] [address] [place] [address] * (ABNORMAL) LIPID PROFILE (INCLUDES CHOLESTEROL, TRIGLYCERIDES, HDL, LDL) (06/24/2021 9:33 EDT) Triglyceride 190 <150 mg/dL 06/24/2021 11:04 EDT [facility] Comment: Adult: Normal: ?<150 mg/dl ? Borderline High: 150-199 mg/dl ? High: ?200-499 mg/dl ? Very High: >xf=[id number] Cholesterol 122 <200 mg/dL 06/24/2021 11:04 [facility] Comment: Acceptable: ??<200 Borderline: ??200-239 High: ?> or = 240 Chol/HDL Ratio 3.4 0 - 4.5 06/24/2021 11:04 [facility] Comment: DESIRABLE RATIO IS LESS THAN 4.1 PATIENTS ARE CONSIDERED AT RISK: WOMEN RATIO >5 MEN RATIO >6 FASTING? - [facility] Yes 9:34 [facility] HDL 35(L) 40 - 60 mg/dL 06/24/2021 11:04 [facility] Comment: ?? Reference Range Low: ? < 40 ??mg/dL Normal: ??40-60 mg/dL High: ?>= 60 mg/dL LDL CHOLESTEROL - [facility] 49(L) 60 - 100 mg/dL 06/24/2021 11:04 [facility] Non HDL Cholesterol 87 mg/dl 06/24/2021 11:04 [facility] Comment: Desirable: ?Less than 130 Borderline High: ??130-159 High: ? 160-189 Very High: ?Greater than or equal to 190 06/24/2021 9:33 EDT 06/24/2021 9:33 EDT Narrative [facility] - 06/24/2021 11:04 EDT Does PT Have a Latex Allergy? NO us Madhu Leon MD CHEMISTRY & BLOOD GAS ORDERABLES Final Result [facility] [address] [place] [address] * (ABNORMAL) COMPREHENSIVE METABOLIC PANEL (CMP) (06/24/2021 9:33 EDT) Pathologist [facility] Albumin % 3.8 3.4 - 4.9 g/dL 06/24/2021 11:04 [facility] ALKALINE PHOSPHATASE - [facility] 49 38 - 126 U/L 06/24/2021 11:04 [facility] BILIRUBIN TOTAL 0.4 0.2 - 1.3 mg/dL 06/24/2021 11:04 [facility] BUN - [facility] 20 10 - 26 mg/dL 06/24/2021 11:04 [facility] CALCIUM - [facility] 8.9 8.5 - 10.5 mg/dL 06/24/2021 11:04 [facility] Chloride 104 96 - 110 mmol/L 06/24/2021 11:04 [facility] CO2 Total 29 22 - 32 mEq/L 06/24/2021 11:04 [facility] CREATININE 0.87 0.52 - 1.04 mg/dL 06/24/2021 11:04 [facility] eGFR >60 06/24/2021 11:04 [facility] Comment: Chronic renal impairment is defined as GFR <60 Multiply result by 1.210 for patients. eGFR calculated using the IDMS-traceable MDRD Study Equation. ??(effective 06/26/2014) Anion Gap 10 0 - 18 06/24/2021 11:04 [facility] GLUCOSE - [facility] 92 70 - 100 mg/dL 06/24/2021 11:04 [facility] Potassium 3.4(L) 3.5 - 5.0 mEq/L 06/24/2021 11:04 EDT [facility] Sodium 143 136 - 145 mEq/L 06/24/2021 11:04 EDT [facility] TOTAL PROTEIN - [facility] 6.6 6.2 - 8.2 gm/dL 06/24/2021 [facility]04 [facility]/AST - [facility] 21 14 - 36 U/L 06/24/2021 11:04 EDT [facility] SGPT/ALT - [facility] 11 0 - 35 U/L 11:04 EDT [facility] 06/24/2021 9:33 EDT 06/24/2021 9:33 EDT [facility] - 06/24/2021 11:04 EDT Does PT Have a Latex Allergy? NO us Madhu Leon MD CHEMISTRY & BLOOD GAS ORDERABLES Final Result [facility] [address] [place] [address] * URINALYSIS/COMPLETE - [facility] (06/24/2021 9:33 EDT) URINE APPEARANCE - [facility] Clear CLEAR 06/24/2021 10:53 EDT [facility] URINE BACTERIA - [facility] MOD 06/24/2021 11[facility]00 [facility] BILIRUBIN - DIPST[place] - [facility] 1+ NEGATIVE 06/24/2021 10:53 [facility] Comment: Unable to confirm positive urine bilirubin. If clinical correlation is inconsistent, consider serum bilirubin. URINE BLOOD - [facility] 1+ NEG 06/24/2021 10:53 [facility] URINE COLOR - [facility] Yellow YELLOW 06/24/2021 10:53 [facility] URINE GLUCOSE - [place] - [facility] Negative NEGATIVE 06/24/2021 10:53 [facility] URINE KETONE - [facility] Negative NEGATIVE 06/24/2021 10:53 EDT [facility] URINE LEUK ESTERASE - [facility] Negative NEG 06/24/2021 10:53 EDT [facility] URINE NITRITE - [place] - [facility] Negative NEG 06/24/2021 10:53 [facility] URINE PH - [facility] 5.0 4.0 - 8.0 10:53 [facility] PROTEIN - [place] - [facility] Negative NEG 06/24/2021 10:53 [facility] UR[facility] RBC - [facility] 3-6 rbc/hpf 06/24/2021 11:00 [facility] URCULTIF+? - [facility] Contaminated 06/24/2021 11:00 [facility] Comment: Specimen contaminated. Please recollect a clean catch sample if a culture is indicated. URINE SPECIFIC GRAVITY - [facility] 1.025 1.001 - 1.035 06/24/2021 10:53 [facility] URINE SQUAMOUS CELLS - [facility] MANY NEG #/hpf 06/24/2021 11:00 [facility] Comment: Specimen contaminated. Please recollect a clean catch sample if a culture is indicated. URINE UROBILINOGEN - [place] - [facility] 0.2 0.2 - 1.0 06/24/2021 10:53 [facility] URINE WBC - [facility] 1-4 NEG wbc/hpf 06/24/2021 11:00 [facility] 06/24/2021 9:33 EDT 06/24/2021 9:34 EDT Narrative [facility] - 06/24/2021 11:00 EDT Does PT Have a Latex Allergy? NO us Madhu Leon MD CHEMISTRY & BLOOD GAS ORDERABLES Final Result [facility] [address] [place] [address] * (ABNORMAL) COMPLETE BLOOD COUNT WITH DIFFERENTIAL (AUTO) (06/24/2021 9:33 EDT) ABSOLUTE NEUTROPHIL COUN - [facility] 3.6 2.2 - 8.85 10e3/uL 06/24/2021 10:35 [facility] BASO # - [facility] 0.04 0.01 - 0.11 10e/uL 06/24/2021 10:35 [facility] BASO % - [facility] 1 0 - 2 % 06/24/2021 10:35 [facility] EOS # - [facility] 0.63(H) 0.03 - 0.61 10e3/ul 06/24/2021 10:35 [facility] EOS % - [facility] 9(H) 0 - 5 % 06/24/2021 10:35 [facility] GRAN % - [facility] 48.3 40 - 80 % 06/24/2021 10:35 [facility] HEMATOCRIT - [facility] 40.0 34.9 - 44.4 % 06/24/2021 10:35 [facility] HEMOGLOBIN - [facility] 12.9 11.6 - 15.2 g/dl 06/24/2021 10:35 [facility] IG# - [facility] 0.02 0 - 0.7 10e3/uL 06/24/2021 10:35 [facility] IG% - [facility] 0.3 0 - 0.9 % 06/24/2021 10:35 [facility] LYMPH # - [facility] 2.6 1.09 - 3.3 10e3/ul 06/24/2021 10:35 [facility] LYMPH% - [facility] 35.6 20 - 40 % 06/24/2021 10:35 [facility] MEAN CORPUSCULAR HGB - [facility] 29.9 26.7 - 33.3 pg 06/24/2021 10:35 [facility] MEAN CORPUSCULAR HGB CONC - [facility] 32.3 32.1 - 35.9 g/dL 06/24/2021 10:35 [facility] MEAN CELL VOLUME - [facility] 92.8 81 - 98 fl 06/24/2021 10:35 [facility] MONO # - [facility] 0.5 0.1 - 0.8 10e3/uL 06/24/2021 10:35 EDT [facility] MONO% - [facility] 6.8 0 - 12 % 06/24/2021 10:35 [facility] PLATE[facility] COUNT 190 141 - 377 10e3/ul 06/24/2021 10:35 [facility] RED BLOOD COUNT - [facility] 4.31 3.86 - 5.04 10e6/ul 06/24/2021 10:35 [facility] RED CELL DISTRI WIDTH - [facility] 13.2 <14.7 % 06/24/2021 10:35 [facility] WHITE BLOOD COUNT - [facility] 7.4 4.0 - 12.4 10e3/ul 06/24/2021 10:35 [facility] 06/24/2021 9:33 EDT 06/24/2021 9:33 EDT Narrative [facility] - 06/24/2021 10:35 EDT Does PT Have a Latex Allergy? NO us Madhu Leon MD HEMATOLOGY & PF4 ORDER CLAUDIA Final Result [facility] [address] [place] [address] documented in this encounter Visit Diagnoses Not on filedocumented in this encounter Care Teams Shipping And Receiving Relationship Specialty Start Date End Date Madhu Leon MD [facility] [address] [place] [phone] PCP - General Internal Medicine - Primary Care 09/24/19 documented as of this encounter
--- OUTSIDE RECORDS SUMMARY | 2024-08-09 20:32 | XMS_ITS | Encounter Summary ---
Author Organization [facility] Address [address] [place] [address] Care Team Providers Care Gas Charger Name Role Phone Unknown, Provider Primary Care Provider Unava ilable Encounter Details Date Type Department Care Team (Latest Contact Info) Description 09/01/2014 11:50 EST - 09/01/2014 23:59 EST Hospital Encounter [facility] [address] [place] [address] Unknown, Provider, Discharge Disposition: Home or Self [...] Code Departure Means Destination Home or Self Jail documented in this encounter Plan of Treatment Not on file documented as of this encounter Visit Diagnoses Not on filedocumented in this encounter Care Teams Gas Charger Relationship Specialty Start Date End Date Unknown, Provider, PCP - General 09/05/13 09/23/19 documented as of this encounter
--- OUTSIDE RECORDS SUMMARY | 2024-08-09 20:32 | XMS_ITS | Encounter Summary ---
Author Organization [facility] Address [address] [place] [address] Care Team Providers Care Associate Sales Representative Name Role Phone Unknown, Provider Primary Care Provider Unava ilable Encounter Details Date Type Department Care Team (Latest Contact Info) Description 09/11/2015 8:26 EST - 09/11/2015 23:[address] [facility] [address] [place] [address] Unknown, Provider, Discharge Disposition: Home or Self [...] Code Departure Means Destination Home or Self [facility] documented in this encounter Plan of Treatment Not on file documented as of this encounter Visit Diagnoses Not on filedocumented in this encounter Care Teams Associate Sales Representative Relationship Specialty Start Date End Date Unknown, Provider, PCP - General 09/05/13 09/23/19 documented as of this encounter
--- OUTSIDE RECORDS SUMMARY | 2024-08-09 20:32 | XMS_ITS | Referral Summary ---
Author Organization [facility] Address [address] [place] [address] Care Team Providers Care Brick Grader Name Role Phone Madhu Leon MD Primary [...] of Treatment Not on file Insurance MEDICARE [facility] MEDICARE [facility] Care Teams Brick Grader Relationship Specialty Start Date End Date Madhu Leon MD [address] [place] [address] [address] [place] [phone] PCP - General Internal Medicine - Primary Care 09/24/19
--- OUTSIDE RECORDS SUMMARY | 2024-08-09 20:32 | XMS_ITS | Encounter Summary ---
Author Organization [facility] Address [address] [place] [address] Care Team Providers Care Escapement Maker Name Role Phone Madhu Leon MD Primary Care Provider Reason for Visit * Reason Comments Pain * Referral (Routine) - Closed Specialty Diagnoses / Procedures Referred By Contbernardo chase Referred To Contact Orthopedic Surgery Diagnoses Mass of toe Madhu Leon MD Phone: tel: fax: [facility] [address] [place] [address] Phone: tel: fax: Referral ID Status Reason Start Date Expiration Date Visits Re quested Visits Authorized [id number] Closed 1 1 Encounter Details Date Type Department Care Team (Late st Contact Info) Description 06/11/2020 9:45 EDT Office Visit [facility] [address] [place], [place] [address] Kang Prado, DP [address] [place], [place] [address] Toe pain, left (Primary Dx); Onychomadesis of [...] patient was screened using current CDC and [facility] guidelines and algorithm for COVID-19 risk, and was considered low risk based on the best information available today. RODOLFO Hollis is a new 75 year old female patient who was referred for a mass to her toe. In January, she went for a walk with her family around [place]. Her toe started to hurt that day, [...] cm (58) Wt 54.4 kg (120 lb) [id number]% BMI 25.08 kg/m?? Body mass index is [...] or swelling or drainage. Kang Prado DPM [facility] [place], [place] documented in this encounter Plan of [...] 03/23/2020 added in this encounter Care Teams Escapement Maker Relationship Specialty Start Date End Date Madhu Leon MD [address] [place] [address] [address] [place] [address] PCP - General Internal Medicine - Primary Care 09/24/19 documented as of this encounter
--- OUTSIDE RECORDS SUMMARY | 2024-08-09 20:32 | XMS_ITS | Encounter Summary ---
Author Organization [facility] Address [address] [place] [address] Care Team Providers Care Clin Tech Name Role Phone Unknown, Provider Primary Care Provider Unava ilable Encounter Details Date Type Department Care Team (Late st Contact Info) Description 09/11/2015 Historical Results Only [facility] Results [address] [place], [place] [id number] Madhu Leon MD [facility] [address] [place] [address] Social History Tobacco Use Types [...] your patient directly. ? JSP:[email or web address] ?Reported By: rAt Phelps MD ? CC: ? Transcribed Date/Time: 09/13/2015 (1252) ? Mechanical Design Engineer Products: JOSE ? Printed Date/Time: 02/02/2019 (5049) ? PAGE 1 ? Signed Report ? [...] Art Phelps MD CC: Transcribed Date/Time: 09/13/2015 (5294) Mechanical Design Engineer Products: JOSE Printed Date/Time: 02/02/2019 (1126) PAGE 1 Signed Report us Madhu Leon MD IMG MAMMOGRAPHY ORDERA BLES Final Result documented in this encounter Visit Diagnoses Not on filedocumented in this encounter Care Teams Clin Tech Relationship Specialty Start Date End Date Unknown, Provider, PCP - General 09/05/13 09/23/19 documented as of this encounter
--- OUTSIDE RECORDS SUMMARY | 2024-08-09 20:32 | XMS_ITS | Encounter Summary ---
Author Organization [facility] Address [address] [place] [address] Care Team Providers Care Elementary Esl Teacher Name Role Phone Unknown, Provider Primary Care Provider Genevieve mars Encounter Details Date Type Department Care Team (Late st Contact Info) Description 06/07/2019 Results Only [facility] - Main [place] [address] [place], [place] [id number] Madhu Leon MD [address] [place] [address] [address] [place] [address] Social History Tobacco Use Types [...] GOPAL,TOT PROT) (06/07/2019 11:42 EDT) BILIRUBIN DIRECT [facility] 0.2 0.0 - 0.4 mg/dL 06/07/2019 13:[address] [facility] Unconjugated Bilirubin 0.4 0.0 - 1.1 mg/dL 06/07/2019 13:[address] [facility] 06/07/2019 11:4 2 EDT 06/07/2019 11:[address] [facility] - 06/07/2019 13:17 EDT Does PT Have a Latex Allergy? NO us Madhu Leon MD CHEMISTRY & BLOOD GAS ORDERABLES Final Result [facility] documented in this encounter Visit Diagnoses Not on filedocumented in this encounter Care Teams Elementary Esl Teacher Relationship Specialty Start Date End Date Unknown, Provider, PCP - General 09/05/13 09/23/19 documented as of this encounter
--- OUTSIDE RECORDS SUMMARY | 2024-08-09 20:32 | XMS_ITS | Encounter Summary ---
Author Organization [facility] Address [address] [place] [address] Care Team Providers Care Stage Builder Name Role Phone Unknown, Provider Primary Care Provider Unava ilable Encounter Details Date Type Department Care Team (Latest Contact Info) Description 09/17/2017 12:29 EST - 09/17/2017 23:59 EST Hospital Encounter [facility] [address] [place] [address] Unknown, ProviderMD Discharge Disposition: Home or Self [...] Code Departure Means Destination Home or Self Half-Way documented in this encounter Plan of Treatment Not on file documented as of this encounter Visit Diagnoses Not on filedocumented in this encounter Care Teams Stage Builder Relationship Specialty Start Date End Date Unknown, Provider, PCP - General 09/05/13 09/23/19 documented as of this encounter
--- OUTSIDE RECORDS SUMMARY | 2024-08-09 20:32 | XMS_ITS | Encounter Summary ---
Author Organization [facility] Address [address] [place] [address] Care Team Providers Care Facilities Coordinator Name Role Phone Madhu Leon MD Primary Care Provider Encounter Details Date Type Department Care Team (Late st Contact Info) Description 05/07/2020 Results Only [facility] - Main [place] [address], [place] [id number] Madhu Leon MD [facility] [address] [place] [address] Social History Tobacco Use Types [...] Routine 05/07/2020 6 :56 EDT URINALYSIS/COMPLETE - [facility] Routine 05/07/2020 6:56 EDT COMPLETE BLOOD COUNT [...] - [facility] ESCHERICHIA COLI 05/09/2020 7:44 EDT [facility] COLONY COUNT >100,000 CFU/ML 05/09/2020 7:44 EDT [facility] Urine specimen (specimen) 05/07/2020 6:56 EDT 05/07/2020 6:56 EDT Comment:VOID Narrative [facility] - 05/09/2020 7:44 EDT Does PT [...] Edited Result - Final Performing Organization Address City/[facility] Co de Phone Number [facility] [address] [place] [address] * HEMOGLOBIN A1C (05/07/2020 6:56 EDT) Hemoglobin A1c 5.6 4.0 - 6.0 % 05/07/2020 12:57 EDT [facility] Comment: > or =18 years: [...] Avg Glucose 114 mg/dL 0 12:57 EDT [facility] 05/07/2020 6:56 EDT 05/07/2020 6:56 EDT Narrative [facility] - 05/07/2020 12:57 EDT Does PT Have a Latex Allergy? NO Madhu Leon MD CHEMISTRY & BLOOD GAS ORDERABLES Final Result Performing Organization Address [facility] Co de Phone Number [facility] [address] [place] [address] * TSH (05/07/2020 6:56 EDT) THYROID STIM HORMONE - CV 1.83 0.46 - 4.68 uIU/ml 05/07/2020 8:38 EDT [facility] Comment: The results of this assay can be falsely lowered due to the consumption of Biotin. 05/07/2020 6:56 EDT 05/07/2020 6:56 EDT [facility] - 05/07/2020 8:38 EDT Does PT Have a Latex Allergy? NO Madhu Leon MD CHEMISTRY & BLOOD GAS ORDERABLES Final Result Performing Organization Address City/[facility] Co de Phone Number [facility] [address] [place] [address] * T4 FREE (05/07/2020 6:56 EDT) FREE [address] 1.00 0.78 - 2.19 ng/dl 05/07/2020 8:38 EDT [facility] 05/07/2020 6:56 EDT 05/07/2020 6:56 EDT [facility] - 05/07/2020 8:38 EDT Does PT Have a Latex Allergy? NO Madhu Leon MD CHEMISTRY & BLOOD GAS ORDERABLES Final Result Performing Organization Address [facility] de Phone Number [facility] [address] [place] [address] * MICROALBUMIN, URINE (05/07/2020 6:56 EDT) [facility] [address] Albumin, Urine 1.00 <1.7 mg/dL 05/07/2020 8:25 EDT [facility] Lab Urine Albumin to Creatinine Ratio 12.8 ug/mg 05/07/2020 8:25 EDT [facility] Comment: Normal: <30 ug/mg Creat Microalbuminuria: 30-300 ug/mg Creat Clinical albuminuria: >300 ug/mg Creat Creatinine, Urine 77.60 mg/dL 05/07/2020 8:25 EDT [facility] 05/07/2020 6:56 EDT 05/07/2020 6:56 EDT [facility] - 05/07/2020 8:25 EDT Does PT Have a Latex Allergy? NO WHAT TYPE OF COLLECTION IS THIS URINE? RANDOM URINE us Madhu Leon MD HEMATOLOGY & PF4 ORDER CLAUDIA Final Result [facility] [address] [place] [address] * COMPLETE BLOOD COUNT WITH DIFFERENTIAL (AUTO) (05/07/2020 6:56 EDT) Gran # 4.4 2.2 - 8.85 10e3/uL [facility] 0.04 0.01 - 0.11 10e/uL 05/07/2020 8:09 [facility] BASO % - [facility] 1 0 - 2 % 05/07/2020 8:09 [facility] EOS # - [facility] 0.30 0.03 - 0.61 10e3/ul 05/07/2020 8:09 [facility] EOS % - [facility] 4 0 - 5 % 05/07/2020 8:09 [facility] GRAN % - [facility] 56.4 40 - 80 % 05/07/2020 8:09 [facility] HEMATOCRIT - [facility] 41.2 34.9 - 44.4 % 05/07/2020 8:09 [facility] HEMOGLOBIN - [facility] 13.5 11.6 - 15.2 g/dl 05/07/2020 8:09 [facility] IG# - [facility] 0.02 0 - 0.7 10e3/uL 05/07/2020 8:09 [facility] IG% - [facility] 0.3 0 - 0.9 % 05/07/2020 8:09 [facility] LYMPH # - [facility] 2.6 1.09 - 3.3 10e3/ul 05/07/2020 8:09 [facility] LYMPH% - [facility] 32.7 20 - 40 % 05/07/2020 8:09 [facility] MEAN CORPUSCULAR HGB - [facility] 30.8 26.7 - 33.3 pg 05/07/2020 8:09 EDT [facility] MEAN CORPUSCULAR HGB CONC - [facility] 32.8 32.1 - 35.9 g/dL 05/07/2020 8:09 EDT [facility] MEAN CELL VOLUME - [facility] 93.8 81 - 98 fl 05/07/2020 8:09 EDT [facility] MONO # - [facility] 0.5 0.1 - 0.8 10e3/uL 05/07/2020 8:09 EDT [facility] MONO% - [facility] 6.3 0 - 12 % 05/07/2020 8[facility] COUNT 182 141 - 377 10e3/ul 05/07/2020 8[facility] RED BLOOD COUNT - [facility] 4.39 3.86 - 5.04 10e3/ul 05/07/2020 8:09 [facility] RED CELL DISTRI WIDTH - [facility] 12.8 <14.7 % 05/07/2020 8[facility]09 [facility] WHITE BLOOD COUNT - [facility] 7.8 4.0 - 12.4 10e3/ul 05/07/2020 8:09 EDT [facility] 05/07/2020 6:56 EDT 05/07/2020 6:56 EDT [facility] - 05/07/2020 8:09 EDT Does PT Have a Latex Allergy? NO us Madhu Leon MD HEMATOLOGY & PF4 ORDER CLAUDIA Final Result [facility] [address] [place] [address] * URIC ACID (05/07/2020 6:56 EDT) URIC ACID - [facility] 4.7 2.2 - 7.7 mg/dL 05/07/2020 8[facility] 05/07/2020 6:56 EDT 05/07/2020 6:56 EDT [facility] - 05/07/2020 8:08 EDT Does PT Have a Latex Allergy? NO Madhu Leon MD CHEMISTRY & BLOOD GAS ORDERABLES Final Result Performing Organization Address [facility] Number [facility] [address] [place] [address] * HEPATIC FUNCTION PANEL (ALB,ALK PHOS,ALT,AST,DBIL,TOT GOPAL,TOT PROT) (05/07/2020 6:56 EDT) Pathologist [facility] BILIRUBIN DIRECT [facility] - [facility] 0.2 0.0 - 0.4 mg/dL 05/07/2020 8:08 EDT [facility] Unconjugated Bilirubin 0.5 0.0 - 1.1 mg/dL 05/07/2020 8:08 [facility] 05/07/2020 6:56 EDT 05/07/2020 6:56 EDT [facility] - 05/07/2020 8:08 EDT Does PT Have a Latex Allergy? NO Madhu Leon MD CHEMISTRY & BLOOD GAS ORDERABLES Final Result Performing Organization Address [facility] [address] [place] [address] * (ABNORMAL) LIPID PROFILE (INCLUDES CHOLESTEROL, TRIGLYCERIDES, HDL, LDL) (05/07/2020 6:56 EDT) Triglyceride 152 <150 mg/dL 05/07/2020 8:08 EDT [facility] Comment: Adult: Normal: ?<150 mg/dl ? Borderline High: 150-199 mg/dl ? High: ?200-499 mg/dl ? Very High: >rr=602 Cholesterol 127 <200 mg/dL 05/07/2020 8:08 EDT [facility] Comment: Acceptable: ??<200 Borderline: ??200-239 High: ?> or = 240 Chol/HDL Ratio 3.8 0 - 4.5 05/07/2020 8[facility]: DESIRABLE RATIO IS LESS THAN 4.1 PATIENTS ARE CONSIDERED AT RISK: WOMEN RATIO >5 MEN RATIO >6 FASTING? - [facility] Yes 0 6:57 [facility] HDL 33(L) 40 - 60 mg/dL 05/07/2020 8:08 [facility] Comment: ?? Reference Range Low: ? < 40 ??mg/dL Normal: ??40-60 mg/dL High: ?>= 60 mg/dL LDL CHOLESTEROL - [facility] 64 60 - 100 mg/dL 05/07/2020 8:08 [facility] Non HDL Cholesterol 94 mg/dl 05/07/2020 8:08 [facility] Comment: Desirable: ?Less than 130 Borderline High: ??130-159 High: ? 160-189 Very High: ?Greater than or equal to 190 05/07/2020 6:56 EDT 05/07/2020 6:56 EDT Narrative [facility] - 05/07/2020 8:08 EDT Does PT Have a Latex Allergy? NO us Madhu Leon MD CHEMISTRY & BLOOD GAS ORDERABLES Final Result Performing Organization Address City/State/[facility] Co de Phone Number [facility] [address] [place] [address] * COMPREHENSIVE METABOLIC PANEL (CMP) (05/07/2020 6:56 EDT) Albumin % 3.7 3.4 - 4.9 g/dL 05/07/2020 8:08 [facility] ALKALINE PHOSPHATASE - [facility] 55 38 - 126 U/L 05/07/2020 8:08 [facility] BILIRUBIN TOTAL 0.7 0.2 - 1.3 mg/dL 05/07/2020 8:08 [facility] BUN - [facility] 17 10 - 26 mg/dL 05/07/2020 8:08 [facility] CALCIUM - [facility] 8.9 8.5 - 10.5 mg/dL 05/07/2020 8:08 [facility] Chloride 103 96 - 110 mmol/L 05/07/2020 8:08 [facility] CO2 Total 30 22 - 32 mEq/L 05/07/2020 8:08 [facility] CREATININE 0.77 0.52 - 1.04 mg/dL 05/07/2020 8:08 [facility] eGFR >60 05/07/2020 8:08 [facility] Comment: Chronic renal impairment is defined as GFR <60 Multiply result by 1.210 for patients. eGFR calculated using the IDMS-traceable MDRD Study Equation. ??(effective 06/26/2014) Anion Gap 6 0 - 18 05/07/2020 8:08 [facility] GLUCOSE - [facility] 93 70 - 100 mg/dL 05/07/2020 8:08 [facility] Potassium 3.7 3.5 - 5.0 mEq/L 05/07/2020 8:08 [facility] Sodium 139 136 - 145 mEq/L 05/07/2020 8:08 [facility] TOTAL PROTEIN - [facility] 6.7 6.2 - 8.2 gm/dL 05/07/2020 8:08 [facility] SGOT/AST - [facility] 22 14 - 36 U/L 05/07/2020 8:08 [facility] SGPT/ALT - [facility] 12 0 - 35 U/L 0 8:08 [facility] 05/07/2020 6:56 EDT 05/07/2020 6:56 EDT Narrative [facility] - 05/07/2020 8:08 EDT Does PT Have a Latex Allergy? NO us Madhu Leon MD CHEMISTRY & BLOOD GAS ORDERABLES Final Result [facility] [address] [place] [address] * URINALYSIS/COMPLETE - [facility] (05/07/2020 6:56 EDT) URINE APPEARANCE - [facility] Clear CLEAR 05/07/2020 7:43 [facility] URINE BACTERIA - [facility] MOD 05/07/2020 8:03 [facility] URINE BILIRUBIN - DIPSTICK - [facility] Negative NEGATIVE 05/07/2020 7:43 [facility] URINE BLOOD - [facility] 1+ NEG 05/07/2020 7:43 [facility] URINE COLOR - [facility] Yellow YELLOW 05/07/2020 7:43 [facility] URINE GLUCOSE - DIPSTICK - [facility] Negative NEGATIVE 05/07/2020 7:43 [facility] URINE KETONE - [facility] Negative NEGATIVE 05/07/2020 7:43 [facility] URINE LEUK ESTERASE - [facility] Negative NEG 05/07/2020 7:43 [facility] URINE NITRITE - DIPSTICK - [facility] Negative NEG 05/07/2020 7:43 [facility] URINE PH - [facility] 5.5 4.0 - 8.0 0 7:43 [facility] URINE PROTEIN - DIPSTICK - [facility] Negative NEG 05/07/2020 7:43 [facility] URINE RBC - [facility] 6-10 rbc/hpf 05/07/20 20 8:03 [facility] URCULTIF+? - [facility] Culture Ordered 05/07/2020 8:03 [facility] URINE SPECIFIC GRAVITY - [facility] 1.020 1.001 - 1.035 05/07/2020 7:43 [facility] URINE SQUAMOUS CELLS - [facility] FEW NEG #/hpf 05/07/2020 8:03 [facility] URINE UROBILINOGEN - DIPSTICK - [facility] 0.2 0.2 - 1.0 05/07/2020 7:43 [facility] URINE WBC - [facility] 5-10 NEG wbc/hpf 020 8:03 [facility] 05/07/2020 6:56 EDT 05/07/2020 6:56 EDT Narrative [facility] - 05/07/2020 8:03 EDT Does PT Have a Latex Allergy? NO us Madhu Leon MD CHEMISTRY & BLOOD GAS ORDERABLES Final Result [facility] [address] [place] [address] documented in this encounter Visit Diagnoses Not on filedocumented in this encounter Care Teams Facilities Coordinator Relationship Specialty Start Date End Date Madhu Leon MD [facility] [address] [place] [address] PCP - General Internal Medicine - Primary Care 09/24/19 documented as of this encounter
--- OUTSIDE RECORDS SUMMARY | 2024-08-09 20:32 | XMS_ITS | Encounter Summary ---
Author Organization [facility] Address [address] [place] [address] Care Team Providers Care Surveyor Rod Helper Name Role Phone Unknown, Provider Primary Care Provider Unava ilable Encounter Details Date Type Department Care Team (Late st Contact Info) Description 03/23/[address] [facility] Lab - [address] [place] [address] Madhu Leon MD [facility] [address] [place] [address] Social History Tobacco Use Types [...] Routine 03/23/2017 8 :32 EDT [place] [facility] [place] Routine 03/23/2017 8:32 EDT COMPLETE BLOOD COUNT WITH DIFFERENTIAL (AUTO) Routine 03/23/2017 8:32 EDT URINE CULTURE IF POSITIVE Routine 03/23/2017 8:32 EDT URINE [id number] RATIO (ACR) Routine 03/23/2017 8:32 EDT HEMOGLOBIN [...] 0.0 - 2.0 mg/dL 03/23/2017 11:03 EDT [facility] Lab Urine Albumin to Creatinine Ratio 19.3 ug/mg 03/23/2017 11:03 EDT [facility] Comment: Normal: <30 ug/mg Creat Microalbuminuria: 30-300 ug/mg Creat Clinical albuminuria: >300 ug/mg Creat Creatinine, Urine 96.50 mg/dL 03/23/2017 11:03 EDT [facility] 03/23/2017 8:32 EDT 03/23/2017 8:32 EDT Narrative [facility] - 03/23/2017 11:03 EDT Does PT Have a Latex Allergy? NO WHAT TYPE OF COLLECTION IS THIS URINE? RANDOM URINE us aMdhu Leon MD HEMATOLOGY & PF4 ORDER CLAUDIA Final Result [facility] * URINE CULTURE IF POSITIVE (03/23/2017 8:32 EDT) ESCHERIACHIA COLI - [facility] ESCHERICHIA COLI 03/25/2017 6:33 EDT [facility] CitrateConcentration >100,000 CFU/ML 09/2016 6:33 EDT [facility] 03/23/2017 8:32 EDT 03/23/2017 8:32 EDT Comment:VOID Narrative [facility] - 03/25/2017 6:33 EDT Does [...] - GENERAL ORDERABLES Edited Result - Final [facility] * (ABNORMAL) HEMOGLOBIN A1C (03/23/2017 8:32 EDT) Hemoglobin A1c 6.7(H) 4.0 - 6.0 % 03/23/2017 13:12 EDT [facility] Est Avg Glucose 146 mg/dL 7 13:12 EDT [facility] 03/23/2017 8:32 EDT 03/23/2017 8:32 EDT Narrative [facility] - 03/23/2017 13:12 EDT Does PT Have a Latex Allergy? NO us Madhu Leon MD CHEMISTRY & BLOOD GAS ORDERABLES Final Result [facility] * (ABNORMAL) COMPLETE BLOOD COUNT WITH DIFFERENTIAL (AUTO) (03/23/2017 8:32 EDT) ABSOLUTE NEUTROPHIL COUN - [facility] 2.67 1.7 - 7.0 10e3/ul 03/23/2017 10:09 EDT [facility] BASO # - [facility] 0.02 0.0 - 0.3 10e3/uL 03/23/2017 10:09 [facility] BASO % - [facility] 0 0 - 2 % 03/23/2017 10:09 [facility] EOS # - [facility] 0.21 0.05 - 0.5 10e3/uL 03/23/2017 [facility] % - [facility] 4 0 - 5 % 03/23/2017 10:09 [facility] GRAN % - [facility] 46 40 - 80 % 03/23/2017 10:09 [facility] HEMATOCRIT - [facility] 40.3 34.0 - 47.0 % 03/23/2017 10:09 [facility] HEMOGLOBIN - [facility] 13.4 11.2 - 15.7 g/dl 03/23/2017 10:09 [facility] IG# - [facility] 0.01 0 - 0.07 10e3/uL 03/23[facility]2017 [facility] IG% - [facility] 0.2 0 - 0.9 % 03/23/2017 10:09 [facility] LYMPH # - [facility] 2.44 0.9 - 2.9 10e3/uL 03/23/2017 10:09 [facility] LYMPH% - [facility] 42(H) 20 - 40 % 03/23/2017 10:09 [facility] MEAN CORPUSCULAR HGB [place] [facility] 30.5 26 - 34 pg 03/23/2017 10:09 EDT [facility] MEAN CORPUSCULAR HGB CONC - [facility] 33.3 31 - 36 g/dL 03/23/2017 10:09 EDT [facility] MEAN CELL VOLUME - [facility] 91.8 77 - 100 fl 03/23/2017 10:09 [facility] MONO # - [facility] 0.47 0.3 - 0.9 10e3/uL 03/23/2017 10:09 EDT [facility] MONO% - [facility] 8 0 - 12 % 03/23/2017 10:09 [facility] PLATELET COUNT 175 150 - 400 10e3/ul 03/23/2017 10:09 [facility] RED BLOOD COUNT - [facility] 4.39 3.8 - 5.2 10e6/ul 03/23/2017 10:09 [facility] RED CELL DISTRI WIDTH - [facility] 13.8 11.8 - 15.6 % 03/23/2017 10:09 [facility] WHITE BLOOD COUNT - [facility] 5.8 3.5 - 10.5 10e3/ul 03/23/2017 10:09 [facility] 03/23/2017 8:32 EDT 03/23/2017 8:32 EDT Narrative [facility] - 03/23/2017 10:09 EDT Does PT Have a Latex Allergy? NO us Madhu Leon MD HEMATOLOGY & PF4 ORDER CLAUDIA Final Result [facility] * URINALYSIS/COMPLETE - [facility] (03/23/2017 8:32 EDT) URINE APPEARANCE - [facility] Clear CLEAR 03/23/2017 10:49 EDT [facility] URINE BACTERIA - [facility] MANY 03/23/2017 11:03 EDT [facility] URINE BILIRUBIN - DIPSTICK - [facility] Negative NEGATIVE 03/23/2017 10:49 [facility] URINE BLOOD - [facility] Trace NEG 03/23/2017 10:49 [facility] URINE COLOR - [facility] Yellow YELLOW 03/23/2017 10:49 [facility] URINE GLUCOSE - DIPSTICK - [facility] Negative NEGATIVE 03/23/2017 10:49 [facility] URINE KETONE - [facility] Negative NEGATIVE 03/23/2017 10:49 [facility] URINE LEUK ESTERASE - [facility] 1+ NEG 03/23/2017 10:49 [facility] URINE NITRITE - DIP[place] - [facility] Positive NEG 03/23/2017 10:49 [facility] URINE PH - [facility] 5.5 4.0 - 8.0 7 10:49 [facility] URINE PROTEIN - DIPSTICK - [facility] Negative NEG 03/23/2017 10:49 [facility] URINE RBC - [facility] 1-3 rbc/hpf 03/23/20 17 11:03 [facility] URCULTIF+? - [facility] Culture Ordered 03/23/2017 11:03 [facility] URINE SPECIFIC GRAVITY - [facility] 1.010 1.001 - 1.035 03/23/2017 10:49 [facility] URINE SQUAMOUS CELLS - [facility] FEW NEG #/hpf 03/23/2017 11:03 [facility] URINE UROBILINOGEN - [place] - [facility] 0.2 0.2 - 1.0 03/23/2017 10:49 [facility] URINE WBC - [facility] 15-20 NEG wbc/hpf 017 11:03 [facility] 03/23/2017 8:32 EDT 03/23/2017 8:32 [facility] - 03/23/2017 11:03 EDT Does PT Have a Latex Allergy? NO us Madhu Leon MD CHEMISTRY & BLOOD GAS ORDERABLES Final Result [facility] * ALBUMIN, URINE (03/23/2017 8:32 EDT) Pathologist [facility] Albumin, Urine 1.87 0.0 - 2.0 mg/dL 03/23/2017 11:03 EDT [facility] Lab Urine Albumin to Creatinine Ratio 19.3 ug/mg 03/23/2017 11:03 EDT [facility] Comment: Normal: <30 ug/mg Creat Microalbuminuria: 30-300 ug/mg Creat Clinical albuminuria: >300 ug/mg Creat Creatinine, Urine 96.50 mg/dL 03/23/2017 11:03 EDT [facility] 03/23/2017 8:32 EDT 03/23/2017 8:32 EDT [facility] - 03/23/2017 11:03 EDT Does PT Have a Latex Allergy? NO WHAT TYPE OF COLLECTION IS THIS URINE? RANDOM URINE Madhu Leon MD CHEMISTRY & BLOOD GAS ORDERABLES Final Result [facility] * URIC ACID (03/23/2017 8:31 EDT) Pathologist [facility] URIC ACID - [facility] 6.2 2.6 - 7.2 mg/dl 03/23/2017 10:39 EDT [facility] 03/23/2017 8:31 EDT 03/23/2017 8:31 EDT [facility] - 03/23/2017 12:13 EDT Does PT Have a Latex Allergy? NO Madhu Leon MD CHEMISTRY & BLOOD GAS ORDERABLES Final Result [facility] * TSH (03/23/2017 8:31 EDT) [facility] THYROID STIM [facility] 1.26 0.35 - 5.50 uIU/mL 03/23/2017 12:12 EDT [facility] 03/23/2017 8:31 EDT 03/23/2017 8:31 EDT Narrative [facility] - 03/23/2017 12:13 EDT Does PT Have a Latex Allergy? NO Madhu Leon MD CHEMISTRY & BLOOD GAS ORDERABLES Final Result Performing Organization Address City/[facility]/ZIP Co de Phone Number [facility] * HEPATIC FUNCTION PANEL (ALB,ALK PHOS,ALT,AST,DBIL,TOT GOPAL,TOT PROT) (03/23/2017 8:31 EDT) Pathologist [facility] BILIRUBIN DIRECT - [facility] 0.1 0.0 - 0.2 mg/dL 03/23/2017 10:39 [facility] 03/23/2017 8:31 EDT 03/23/2017 8:31 EDT Narrative [facility] - 03/23/2017 12:13 EDT Does PT Have a Latex Allergy? NO Madhu Leon MD CHEMISTRY & BLOOD GAS ORDERABLES Final Result Performing Organization Address [facility]/ZIP Co de Phone Number [facility] * (ABNORMAL) LIPID PROFILE (INCLUDES CHOLESTEROL, TRIGLYCERIDES, HDL, LDL) (03/23/2017 8:31 EDT) [facility] Triglyceride 225(H) 35 - 150 mg/dL 03/23/2017 10:39 [facility] Cholesterol 129 120 - 200 mg/dL 03/23/2017 10:39 [facility] Chol/HDL Ratio 3.5 0 - 4.5 03/23/2017 10:39 [facility] Comment: DESIRABLE RATIO IS LESS THAN 4.1 PATIENTS ARE CONSIDERED AT RISK: WOMEN RATIO >5 MEN RATIO >6 FASTING? - [facility] Yes 8:32 [facility] HDL 36(L) 40 - 60 mg/dL 03/23/2017 10:39 [facility] LDL CHOLESTEROL - [facility] 48(L) 60 - 100 mg/dL 03/23/2017 10:39 [facility] Non HDL Cholesterol 93 mg/dl 03/23/2017 10:39 EDT [facility] Comment: Desirable: ?Less than 130 Borderline High: ??130-159 High: ? 160-189 Very High: ?Greater than or equal to 190 03/23/2017 8:31 EDT 03/23/2017 8:31 EDT Narrative [facility] - 03/23/2017 12:13 EDT Does PT Have a Latex Allergy? NO us Madhu Leon MD CHEMISTRY & BLOOD GAS ORDERABLES Final Result Performing Organization Address City/[facility]/ZIP Co de Phone Number [facility] * (ABNORMAL) T4 FREE (03/23/2017 8:31 EDT) FREE T4 - [facility] 0.87(L) 0.89 - 1.76 ng/dL 03/23/2017 12:13 EDT [facility] 03/23/2017 8:31 EDT 03/23/2017 8:31 EDT Narrative [facility] - 03/23/2017 12:13 EDT Does PT Have a Latex Allergy? NO us Madhu Leon MD CHEMISTRY & BLOOD GAS ORDERABLES Final Result [facility] * (ABNORMAL) COMPREHENSIVE METABOLIC PANEL (CMP) (03/23/2017 8:31 EDT) Albumin % 3.5 3.4 - 5.0 g/dL 03/23/2017 10:39 EDT [facility] ALKALINE PHOSPHATASE - [facility] 51 41 - 126 U/L 03/23/2017 10:39 EDT [facility] BILIRUBIN TOTAL 0.5 0.0 - 1.0 mg/dL 03/23/2017 10:39 EDT [facility] BUN - [facility] 17 7 - 18 mg/dL 03/23/2017 10:39 EDT [facility] CALCIUM - [facility] 8.2(L) 8.5 - 10.1 mg/dL 03/23/2017 10:39 [facility] Chloride 104 98 - 107 mEq/L 03/23/2017 10:39 [facility] CO2 Total 28 21 - 32 mEq/L 03/23/2017 10:39 [facility] CREATININE 0.89 0.5 - 1.3 mg/dL 03/23/2017 10:39 [facility] eGFR >60 03/23/2017 10:39 [facility] Comment: Chronic renal impairment is defined as GFR <60 Multiply result by 1.210 for patients. eGFR calculated using the IDWY-traceable MDRD Study Equation. ??(effective 06/26/2014) Anion Gap 8 5 - 15 03/23/2017 10:39 [facility] GLUCOSE - [facility] 114(H) 70 - 100 mg/dL 03/23/2017 10:39 [facility] Potassium 3.7 3.5 - 5.0 mEq/L 03/23/2017 10:39 [facility] Sodium 140 135 - 145 mEq/L 03/23/2017 10:39 [facility] TOTAL PROTEIN - [facility] 6.8 6.4 - 8.2 gm/dl 03/23/2017 10:39 [facility] SGOT/AST - [facility] 34 10 - 37 U/L 03/23/2017 10:39 [facility] SGPT/ALT - [facility] 44 12 - 78 U/L 03/23/2017 10:39 [facility] 03/23/2017 8:31 EDT 03/23/2017 8:31 [facility] Narrative [facility] - 03/23/2017 12:13 EDT Does PT Have a Latex Allergy? NO us Madhu Leon MD CHEMISTRY & BLOOD GAS ORDERABLES Final Result [facility] documented in this encounter Visit Diagnoses Not on filedocumented in this encounter Care Teams Surveyor Rod Helper Relationship Specialty Start Date End Date Unknown, Provider, PCP - General 09/05/13 09/23/19 documented as of this encounter
--- OUTSIDE RECORDS SUMMARY | 2024-08-09 20:32 | XMS_ITS | Encounter Summary ---
Author Organization [facility] Address [address] [place] [address] Care Team Providers Care Engraved Roller Inspector Name Role Phone Unknown, Provider Primary Care Provider Unava ilable Encounter Details Date Type Department Care Team (Late st Contact Info) Description 09/15/2016 Historical Results Only [facility] Radiology Results [address] [place], [place] [id number] Madhu Leon MD [facility] [address] [place] [address] Social History Tobacco Use Types [...] will contact ? your patient directly. ? PRESS SETTER:kad ?Reported By: Art Phelps MD ? CC: ? Transcribed Date/Time: 09/17/2016 (1046) ? Grain Roaster: JOSE ? Printed Date/Time: 02/05/2019 (0418) ? [...] is needed we willcontact your patient directly. PRESS SETTER:alma Reported By: Art Phelps MD CC: Transcribed Date/Time: 09/17/2016 (1046) Grain Roaster: JOSE Printed Date/Time: 02/05/2019 (0414) PAGE 1 Signed Report us Madhu Leon MD IMG MAMMOGRAPHY ORDERA BLES Final Result documented in this encounter Visit Diagnoses Not on filedocumented in this encounter Care Teams Engraved Roller Inspector Relationship Specialty Start Date End Date Unknown, Provider, PCP - General 09/05/13 09/23/19 documented as of this encounter
--- OUTSIDE RECORDS SUMMARY | 2024-08-09 20:32 | XMS_ITS | Encounter Summary ---
Author Organization [facility] Address [address] [place] [address] Care Team Providers Care Paleology Teacher Name Role Phone Unknown, Provider Primary Care Provider Unava ilable Encounter Details Date Type Department Care Team (Late st Contact Info) Description 09/18/2017 Historical Results Only [facility] Radiology Results [address] [place], [place] [address] Madhu Leon MD [address] [place] [address] Social History Tobacco Use Types [...] CC: ? Transcribed Date/Time: 09/18/2017 (1157) ? Database Admin: ? Printed Date/Time: 02/09/2019 (1639) ? PAGE [...] Mark Wolf MD CC: Transcribed Date/Time: 09/18/2017 (5337) Database Admin: Printed Date/Time: 02/09/2019 (0200) PAGE 1 Signed Report us Madhu Leon MD IMG MAMMOGRAPHY ORDERA BLES Final Result documented in this encounter Visit Diagnoses Not on filedocumented in this encounter Care Teams Paleology Teacher Relationship Specialty Start Date End Date Unknown, Provider, PCP - General 09/05/13 09/23/19 documented as of this encounter
--- OUTSIDE RECORDS SUMMARY | 2024-08-09 20:32 | XMS_ITS | Encounter Summary ---
Author Organization [facility] Address [address] [place] [address] Care Team Providers Care Electric Power Line Repairer Name Role Phone Unknown, Provider Primary Care Provider Unava ilable Encounter Details Date Type Department Care Team (Late st Contact Info) Description 06/07/2019 Results Only [facility] Lab - Main [place] [address] [place], [place] [phone] Madhu Leon MD [facility] [address] [place] [address] Social History Tobacco Use Types [...] Triglyceride 99 <150 mg/dL 06/07/2019 13:17 EDT [facility] Comment: Adult: Normal: ?<150 mg/dl ? Borderline High: 150-199 mg/dl ? High: ?200-499 mg/dl ? Very High: >aa=102 Cholesterol 117 <200 mg/dL 06/07/2019 13:17 EDT [facility] Comment: Acceptable: ??<200 Borderline: ??200-239 High: ?> or = 240 Chol/HDL Ratio 3.6 0 - 4.5 06/07/2019 13:17 [facility] Comment: DESIRABLE RATIO IS LESS THAN 4.1 PATIENTS ARE CONSIDERED AT RISK: WOMEN RATIO >5 MEN RATIO >6 FASTING? - [facility] [place] Yes 11:[facility] HDL 32(L) 40 - 60 mg/dL 06/07/2019 13:17 [facility] Comment: ?? Reference Range Low: ? < 40 ??mg/dL Normal: ??40-60 mg/dL High: ?>= 60 mg/dL LDL CHOLESTEROL - [facility] [place] 65 60 - 100 mg/dL 06/07/2019 13:17 [facility] Non HDL Cholesterol 85 mg/dl 06/07/2019 13:17 [facility] Comment: Desirable: ?Less than 130 Borderline High: ??130-159 High: ? 160-189 Very High: ?Greater than or equal to 190 06/07/2019 11:4 2 EDT 06/07/2019 11:42 EDT Narrative [facility] - 06/07/2019 13:17 EDT Does PT Have a Latex Allergy? NO us Madhu Leon MD CHEMISTRY & BLOOD GAS ORDERABLES Final Result [facility] documented in this encounter Visit Diagnoses Not on filedocumented in this encounter Care Teams Electric Power Line Repairer Relationship Specialty Start Date End Date Unknown, Provider, PCP - General 09/05/13 09/23/19 documented as of this encounter
--- OUTSIDE RECORDS SUMMARY | 2024-08-09 20:32 | XMS_ITS ---
Author Organization Unknown Address [address] [place] [phone] Phone Care Team Providers Care Banquet Pilot Name Role Phone KALLIE SMITH Registered Nurse Unavailable JOSEPH Boles Attending Unavailable MIRANDA Delgado ER Unavailable UNLISTED PROVIDER - REQUESTED Xhandoff Un available Results TROPONIN HIGH SENSITIVITY* - Collect Date/Time: 06/21/2024 21:05 [facility] ID: [id number] [address] [place] [address], [address] LOINC: 72004-7 Test Value Unit Reference Range Code Code System Flag TROPONIN HS 6.2 pg/mL L=0.0 H=60.4 Specimen seq. RANDOM MAGNESIUM SERUM* - Collect D ate/Time: 06/21/2024 21:05 [facility] ID: [id number] [address] [place] [address], [address] LOINC: 28616-8 Test Value Unit Reference Range Code Code System Flag MAGNESIUM 1.9 mg/dL L=1.8 H=2.4 19575-3 LOINC C REACTIVE PROTEIN HIGH SENS ITIVITY* - Collect Date/Time: 06/21/2024 21:05 [facility] ID: [id number] [address] [place] [address], [address] LOINC: 52621-8 Test Value Unit Reference Range Code Code System Flag CRP-HIGH SENS. 0.49 mg/L L=0.00 H=3.00 05652-1 LOINC CRP-HIGH SENS 0.05 mg/dL L=0.00 H=0.30 47031-4 LOINC COMPREHENSIVE METABOLIC PANE L (CMP) - Collect Date/Time: 06/21/2024 21:05 [facility] ID: [id number] [address] [place], [place], [address] LOINC: 77883-9 Test Value Unit Reference Range Code Code [...] H=34 2028-9 LOINC ANION GAP 6.3 mmol/L 37539-7 LOINC CALCIUM SERUM 8.8 mg/dL L=8.2 H=10.2 60818-2 LOINC BILIRUBIN TOTAL 0.3 mg/dL L=0.0 H=1.3 1975-2 LOINC ALK. PHOS. 75 U/L L=46 H=116 6768-6 LOINC SGOT (AST) 9 U/L L=15 H=37 1920-8 LOINC L SGPT (ALT) 8 U/L L=12 H=78 1742-6 LOINC L TOTAL PROTEIN 7.8 gm/dL L=6.0 H=8.0 2885-2 LOINC ALBUMIN 3.7 gm/dL L=3.4 H=5.0 1751-7 LOINC AGE 79 years eGFR (non-Afr.Amer.) 47 mL/min 75639-6 [facility] (Afr-[place]) 57 mL/min 20424-0 [facility] CBC W/ DIFFERENTIAL* - Colle ct Date/Time: 06/21/2024 21:05 [facility] ID: [id number] [address] [place], [place], [address] LOINC: 81075-6 Test Value Unit Reference Range Code Code System Flag WBC 8.01 th/cmm L=5.00 H=10.00 6690-2 LOINC NEUT % 45.0 % L=40.0 H=80.0 LYMPH % 39.3 % L=10.0 H=50.0 MONO % 7.1 % L=2.0 H=12.0 21908-5 LOINC EOS % 7.2 % L=0.0 H=8.0 BASO % 0.7 % L=0.0 H=3.0 IG % 0.7 % L=0.0 H=1.1 2514-8 LOINC NRBC % 0.0 % L=0.0 H=0.0 35286-8 LOINC NEUT abs count 3.6 th/cmm L=1.6 H=8.4 751-8 LOINC LYMPH abs count 3.2 th/cmm L=1.5 H=4.0 731-0 LOINC MONO abs count 0.6 th/cmm L=0.2 H=1.0 742-7 LOINC EOS abs count 0.6 th/cmm L=0.0 H=0.5 711-2 LOINC H BASO abs count 0.1 th/cmm L=0.0 H=0.2 704-7 LOINC IG abs count 0.1 th/cmm L=0.0 H=0.1 91634-4 LOINC NRBC abs count 0.0 mil/cmm L=0.0 H=0.0 07495-5 LOINC RBC 4.62 mil/cmm L=3.90 H=5.40 789-8 [...] em Smoking History Former smoker 01[birth year]18/1956 01/18/[id number] Sex Female Vital Signs Vital Sign Value Unit Paterson Value Paterson Unit Date/Time Recent/Initial? Code Code System Body Mass Index 22.22 kg/m2 06/21/2024 21:16 Initial 95065 -5 LOINC Systolic Blood Pressure 154 mm[Hg] [...] Saturation 97 % 2023 22:16 Most Recent 32076 -5 LOINC O2 Saturation 97 % 2023 21:16 Initial 51738 -5 LOINC Pulse 63.0 /min 06/21/2024 22:16 Most Recent 8867- 4 LOINC Pulse 67.0 /min 06/21/2024 21:16 Initial 8867- 4 LOINC Respiration 17 /min 06/21/20 22:15 Most Recent 9279- 1 LOINC Respiration 16 /min 06/21/20 21:16 Initial 9279- 1 LOINC Temperature 37.1 Nova 98.8 F 06/21/20 21:16 Initial 8310- 5 LOINC Weight 49.90 kg 110.00 lbs 06/21/2024 21:16 Initial 22646 -7 LOINC Hospital Discharge Instructions Should you have any questions prior to discharge, please contact a member of your healthcare team. If you have left the hospital and have any questions, please contact your primary care physician. Reason For Referral No Data Found Allergies and Adverse Reactions Allergy Substance Reaction Severity Start Date Concern Status Co de Code System PCN (penicillin) Hives (SNOMED-CT: 567976254) Moderate Active Plan of Treatment No Data Found Encounters Encounter Diagnosis Start Date Code Code Sys tem Dizziness and giddiness 06/21/2024 [id number] [facility] ED-CT Personal Care Team Section Performer Name Performer Role Active Date Inactive Da te
--- OUTSIDE RECORDS SUMMARY | 2024-08-09 20:32 | XMS_ITS | Encounter Summary ---
Author Organization [facility] Address [address] [place] [address] Care Team Providers Care Residence Leasing Agent Name Role Phone Unavailable Primary Care Provider Unavailabl e Encounter Details Date Type Department Care Team (Latest Contact Info) Description 08/10/2013 6:48 EST - 08/10/2013 23:59 EST Hospital Encounter [facility] [address] [place] [address] Unknown, Provider, MD Discharge Disposition: Home or [...] Code Departure Means Destination Home or Self Snf documented in this encounter Plan of Treatment Not on file documented as of this encounter Visit Diagnoses Not on filedocumented in this encounter
--- OUTSIDE RECORDS SUMMARY | 2024-08-09 20:32 | XMS_ITS | Encounter Summary ---
Author Organization [facility] Address [address] [place] [address] Care Team Providers Care Forestry Support Specialist Name Role Phone Unknown, Provider Primary Care Provider Unava ilable Encounter Details Date Type Department Care Team (Late st Contact Info) Description 09/21/2018 Historical Results Only [facility] Radiology Results [address] [place], [place] [address] Madhu Leon MD [facility] [address] [place] [address] Social History Tobacco Use Types [...] CC: ? Transcribed Date/Time: 09/21/2018 (1026) ? Gas Welding Machine Operator: ? Printed Date/Time: 02/13/2019 (1741) ? PAGE [...] Phelps MD CC: Transcribed Date/Time: 09/21/2018 (1026) Gas Welding Machine Operator: Printed Date/Time: 02/13/2019 (9816) PAGE 1 Signed Report Madhu Leon MD IMG MAMMOGRAPHY ORDERA BLES Final Result documented in this encounter Visit Diagnoses Not on filedocumented in this encounter Care Teams Forestry Support Specialist Relationship Specialty Start Date End Date Unknown, Provider, PCP - General 09/05/13 09/23/19 documented as of this encounter
--- OUTSIDE RECORDS SUMMARY | 2024-08-09 20:32 | XMS_ITS | Encounter Summary ---
Author Organization [facility] Address [address] [place] [address] Care Team Providers Care Stabber Name Role Phone Unavailable Primary Care Provider Unavailabl e Encounter Details Date Type Department Care Team (Late st Contact Info) Description 04/20/2000 10:59 EDT Hospital Encounter [facility] - Other [address] [place] [address] Mercy Alaniz MD [address] [phone] Unknown, Provider, Social History Tobacco Use Types [...] ? TELMA CHINCHILLA ? Accession #: ? [id number] : ? 1945 (Age: 55) ??F ?Collect [...] Final R esult [facility] [address] [place] [address] documented in this encounter Visit Diagnoses Not on filedocumented in this encounter
--- OUTSIDE RECORDS SUMMARY | 2024-08-09 20:32 | XMS_ITS | Encounter Summary ---
Author Organization [facility] Address [address] [place] [address] Care Team Providers Care Captain Of Guards Name Role Phone Unavailable Primary Care Provider Unavailabl e Encounter Details Date Type Department Care Team (Late st Contact Info) Description 06/28/2001 11:38 EST Hospital Encounter [facility] - Other [address] [place] [address] Mercy Alaniz MD [address] [phone] Unknown, Provider, Social History Tobacco Use Types [...] ? TELMA CHINCHILLA ? Accession #: ? [id number] : ? 1945 (Age: 56) ??F ?Collect [...] and electronically signed by: ? Romana Harley [facility](ASCP) ? Report Date: ??07/05/2001 14:02 End of Report [facility] 06/28/2001 06/30/2001 us Mercy Alaniz MD PATHOLOGY ORDERABLES Final R esult [facility] [address] [place] [address] documented in this encounter Visit Diagnoses Not on filedocumented in this encounter
--- OUTSIDE RECORDS SUMMARY | 2024-08-09 20:32 | XMS_ITS | Encounter Summary ---
Author Organization [facility] Address [address] [place] [address] Care Team Providers Care Data Communications Engineer Name Role Phone Unknown, Provider Primary Care Provider Unava ilable Encounter Details Date Type Department Care Team (Late st Contact Info) Description 09/01/2014 Historical Results Only [facility] Radiology Results [address] [place], [place] [address] Madhu Leon MD [facility] [address] [place] [address] Social History Tobacco Use Types [...] Negative. Routine ?mammographic follow-up is recommended. ? CIVIL STRUCTURAL DESIGNER:kad ?Reported By: Art Phelps MD ? CC: ? Transcribed Date/Time: 09/05/2014 (1148) ? Motorcycle Service Technician: JOSE ? Printed Date/Time: 01/24/2019 (8555) ? PAGE 1 ? Signed Report ? [...] 1 - Negative.Routine mammographic follow-up is recommended. CIVIL STRUCTURAL DESIGNER:alma Reported By: Art Phelps MD CC: Transcribed Date/Time: 09/05/2014 (1148) Motorcycle Service Technician: JOSE Printed Date/Time: 01/24/2019 (6020) PAGE 1 Signed Report us Madhu Leon MD IMG MAMMOGRAPHY ORDERA BLES Final Result documented in this encounter Visit Diagnoses Not on filedocumented in this encounter Care Teams Data Communications Engineer Relationship Specialty Start Date End Date Unknown, Provider, PCP - General 09/05/13 09/23/19 documented as of this encounter
[2024-08-09 21:18] LABS: Bilirubin Small (Negative); Blood Negative (Negative); Clarity Clear (Clear); Glucose Negative (Negative); Ketones Trace mg/dL (Negative); Leukocyte Esterase Negative (Negative); Nitrite Negative (Negative); Urobilinogen 0.2 mg/dL (Up to 0.2); pH 5.5 (5-8)
[2024-08-09 21:25] LABS: Epithelial Cells Few HPF (Negative); RBC 0-2 HPF (0-2)
[2024-08-09 21:26] LABS: Bacteria Few HPF (Negative); C & S Indicated? No; Casts 3-5 Coarse Granular LPF (Negative); Crystals Negative HPF (Negative); Mucus Trace (Negative); Other Cells Rare Renal (Negative)
--- NOTE | 2024-08-09 21:55 | W.PC.ACHO ---
Registration Status: Primary Language: Preferred Language: ED Information & Data Chief Complaint GenMedical 08/09/24 17:00 Chief Complaint GenMedical 08/09/24 16:30 Triage Note N/V/D started today, Feels 08/09/24 15:58 shaky and has abdominal pain . Unable to walk, projectile vomiting delusional and extreme stomach and abd pain . Most Recent Vital Signs Temperature 36.7 C 08/09/24 16:25 Temperature Source Tympanic 08/09/24 15:58 Pulse 67 08/09/24 20:01 Pulse 69 08/09/24 20:01 Respiratory Rate 11 L 08/09/24 20:01 Blood Pressure 115/39 L 08/09/24 20:01 Blood Pressure Mean 63 08/09/24 20:01 Blood Pressure Position Supine 08/09/24 15:58 Pulse Oximetry 91 L 08/09/24 20:01 Oxygen Delivery Method Room Air 08/09/24 15:58 Oxygen Flow Rate 0 08/09/24 15:58 Comment RECTAL TEMP 08/09/24 16:25 Allergies tramadol Allergy (Mild, Unverified 08/09/24 18:10) Unknown bupropion (From Zyban) Allergy (Unverified 08/09/24 18:10) Unknown clindamycin Allergy (Unverified 08/09/24 18:10) Unknown gemfibrozil Allergy (Unverified 08/09/24 18:10) Unknown niacin (From Niaspan Extended-Release) Allergy (Unverified 08/09/24 18:10) Unknown Penicillins Allergy (Unverified 08/09/24 18:10) Unknown Precautions Isolation Standard precaution 08/09/24 17:00 Active Medications Generic Name Dose Route Start Last Admin Trade Name Freq PRN Reason Stop Dose Admin Iohexol 75 ml 08/09/24 16:45 08/09/24 16:43 Omnipaque 350 Mg/Ml 100 Ml Btl IJ 09/08/24 23:59 75 ml DIRECTED NICOLE Administration Sodium Chloride 50 ml 08/09/24 16:45 08/09/24 16:45 Normal Saline - Diluent 50 Ml Vial IJ 50 ml .FOR DI USE NICOLE Administration IV IV Catheter Type [Right Peripheral IV Antecubital] IV Catheter Gauge [Right 18 Antecubital] Diagnostics 08/09/24 08/09/24 08/09/24 Range/Units 17:52 16:32 16:28 WBC 21.93 H (4.4-10.8) 10^3/uL RBC 5.12 (3.93-5.22) 10^6/uL Hgb 15.6 (11.2-15.7) g/dL Hct 47.6 H (36.0-46.0) % MCV 93 (80-95) fL MCH 30.5 (27.0-33.0) pg MCHC 32.8 (32.0-36.0) % RDW 13.2 (11.7-14.6) % Plt Count 254 (130-400) 10^3/uL MPV 9.9 (8.0-11.0) fL Immature Gran % 0.5 % Neutrophils % 82.7 % Lymphocytes % 9.7 % Monocytes % 6.2 % Eosinophils % 0.6 % Basophils % 0.3 % Nucleated RBC % 0.0 (0.0-0.3) % Absolute Neutrophils 18.14 H (1.2-6.7) 10^3/uL Absolute Lymphocytes 2.13 (1.2-3.4) 10^3/uL Absolute Monocytes 1.36 H (0.1-0.8) 10^3/uL Absolute Eosinophils 0.13 (0.0-0.7) 10^3/uL Absolute Basophils 0.07 (0.0-0.2) 10^3/uL VBG Lactate 2.6 H* 4.1 H* (0.6-1.4) mmol/L Sodium 145 (136-145) mmol/L Potassium 4.0 (3.5-5.1) mmol/L Chloride 104 (98-107) mmol/L Carbon Dioxide 25.7 (21.0-32.0) mmol/L Anion Gap 15.3 H (3-11) mmol/L BUN 24 H (7-18) mg/dL Creatinine 1.6 H (0.55-1.02) mg/dL Est GFR (CKD-EPI 2020) 32.40 (mL/min/1.73m2) Glucose 170 H (74-106) mg/dL Calcium 9.1 (8.5-10.1) mg/dL Total Bilirubin 0.78 (0.2-1.0) mg/dL AST 22 (15-37) U/L ALT 15 (14-59) U/L Alkaline Phosphatase 88 (46-116) U/L Total Protein 7.8 (6.4-8.2) g/dL Albumin 3.9 (3.4-5.0) g/dL Lipase 61 (<78) U/L Stool Campylobacter PCR Pending Stl C.difficile Tox PCR Positive A (Negative) Stool Salmonella PCR Pending Stool Shigella PCR Pending Stool Ova & Parasites Pending COVID-19 Source SARS-CoV-2 (PCR) (Negative) Influenza Type A (PCR) (Negative) Influenza Type B (PCR) (Negative) RSV (PCR) (Negative) Shiga Toxin (PCR) Pending 08/09/24 Range/Units 16:13 WBC (4.4-10.8) 10^3/uL RBC (3.93-5.22) 10^6/uL Hgb (11.2-15.7) g/dL Hct (36.0-46.0) % MCV (80-95) fL MCH (27.0-33.0) pg MCHC (32.0-36.0) % RDW (11.7-14.6) % Plt Count (130-400) 10^3/uL MPV (8.0-11.0) fL Immature Gran % % Neutrophils % % Lymphocytes % % Monocytes % % Eosinophils % % Basophils % % Nucleated RBC % (0.0-0.3) % Absolute Neutrophils (1.2-6.7) 10^3/uL Absolute Lymphocytes (1.2-3.4) 10^3/uL Absolute Monocytes (0.1-0.8) 10^3/uL Absolute Eosinophils (0.0-0.7) 10^3/uL Absolute Basophils (0.0-0.2) 10^3/uL VBG Lactate (0.6-1.4) mmol/L Sodium (136-145) mmol/L Potassium (3.5-5.1) mmol/L Chloride (98-107) mmol/L Carbon Dioxide (21.0-32.0) mmol/L Anion Gap (3-11) mmol/L BUN (7-18) mg/dL Creatinine (0.55-1.02) mg/dL Est GFR (CKD-EPI 2020) (mL/min/1.73m2) Glucose (74-106) mg/dL Calcium (8.5-10.1) mg/dL Total Bilirubin (0.2-1.0) mg/dL AST (15-37) U/L ALT (14-59) U/L Alkaline Phosphatase (46-116) U/L Total Protein (6.4-8.2) g/dL Albumin (3.4-5.0) g/dL Lipase (<78) U/L Stool Campylobacter PCR Stl C.difficile Tox PCR (Negative) Stool Salmonella PCR Stool Shigella PCR Stool Ova & Parasites COVID-19 Source Nasopharynx SARS-CoV-2 (PCR) Negative (Negative) Influenza Type A (PCR) Negative (Negative) Influenza Type B (PCR) Negative (Negative) RSV (PCR) Negative (Negative) Shiga Toxin (PCR) 08/09/24 18:25 Blood Culture - Pending Blood 08/09/24 16:32 Blood Culture - Pending Blood Intake and Output - 24 Hour Total 08/09/24 15:54 thru 08/09/24 19:15 Intake Total 1200 Balance 1200 Weight 52.787 kg Intake: IV 1200 Falls Risk Assessment History of Falls No History 08/09/24 18:11 Contributing Factors Unstable 08/09/24 18:11 Ambulatory Aids Independent 08/09/24 18:11 Tubes/Lines With any additional score 08/09/24 18:11 Gait Evaluation No gait disturbance 08/09/24 18:11 Cognition No cognitive impairment 08/09/24 18:11 Fall Total Score 23 08/09/24 18:11 Level of Risk Standard/Low Risk 08/09/24 18:11 Problems (Last Reviewed 08/09/24 @ 18:38 by Olivier Gallardo) Dementia (Chronic) ASVD (arteriosclerotic vascular disease) (Acute) CAD (coronary artery disease), [place] coronary artery (Chronic) HTN (hypertension) (Chronic) C. difficile colitis (Acute) v v v v v v v v v Sending and/or Receiving Nurses: Please use comment section below to note any information pertinent to the patient hand-off not included above. Information / Comments: Pt to be admitted AMS, nausea, vomiting & diarrhea. Stool + for C diff. U/A pending. Received 1 litre IV fluid while in ED. Report received from: Imani Hartley
[2024-08-09] MEDS: Normal Saline 1,000 ML 125 ML IV (22:37)
[2024-08-09] MEDS: Metoprolol 12.5 MG TAB PO (22:38)
[2024-08-09] MEDS: Acetaminophen 325 MG TAB PO (22:38)
[2024-08-09] MEDS: Heparin 5,000 UNITS/ML VIAL 5000 UNITS SC (22:41)
[2024-08-09] MEDS: Normal Saline Flush 10 ML SYR IVP (22:58)
[2024-08-09] MEDS: Vancomycin 125 MG CAP PO (23:59)
[2024-08-10] VITALS (8 sets, daily range): BP systolic 107–129; BP diastolic 47–64; PULSE 63–74; RESP 15–18; TEMP 36–37.8; O2SAT 91–97
[2024-08-10] MEDS: Vancomycin 125 MG CAP PO ×3 (05:38→18:38)
[2024-08-10] MEDS: Acetaminophen 325 MG TAB PO (05:38)
[2024-08-10] MEDS: Heparin 5,000 UNITS/ML VIAL 5000 UNITS SC ×3 (05:40→20:52)
[2024-08-10] MEDS: metroNIDAZOLE 500 MG/100 ML BAG 100 MG IVPB ×3 (05:44→18:39)
[2024-08-10] MEDS: Normal Saline 1,000 ML 125 ML IV ×2 (06:35→16:35)
[2024-08-10 06:40] LABS: HCT 37.9 % (36.0-46.0); HGB 12.5 g/dL (11.2-15.7); MCH 30.5 pg (27.0-33.0); MCV 92 fL (80-95); MPV 10.4 fL (8.0-11.0); Platelet Count 159 10^3/uL (130-400); RDW 13.3 % (11.7-14.6); RDW-SD 45.8 fL; WBC 11.81 10^3/uL (4.4-10.8)
[2024-08-10 06:57] LABS: ALT 13 U/L (14-59); AST 22 U/L (15-37); Albumin 2.9 g/dL (3.4-5.0); Alkaline Phosphatase 63 U/L (46-116); Anion Gap 9.4 mmol/L (3-11); BUN 24 mg/dL (7-18); Bilirubin, Total 0.58 mg/dL (0.2-1.0); CO2 26.6 mmol/L (21.0-32.0); CREATININE 1.3 mg/dL (0.55-1.02); Calcium 7.9 mg/dL (8.5-10.1); Chloride 108 mmol/L (98-107); Estimated GFR 41.57 (mL/min/1.73m2); Glucose 90 mg/dL (74-106); Magnesium 1.7 mg/dL (1.8-2.4); Potassium 3.7 mmol/L (3.5-5.1); Sodium 144 mmol/L (136-145); Total Protein 6.1 g/dL (6.4-8.2)
[2024-08-10] MEDS: Metoprolol 12.5 MG TAB PO ×2 (08:53→20:51)
[2024-08-10] MEDS: Normal Saline Flush 10 ML SYR IVP ×4 (08:53→20:51)
[2024-08-10] MEDS: Isosorbide Mononitrate 30 MG TABCR PO (08:53)
--- NOTE | 2024-08-10 14:32 | W.PM.PROGNOT ---
Date of Service Date of service: 08/10/24 Time of Service: 14:32 Assessment and Plan Assessment and plan (1) C. difficile colitis: Start date: 08/09/24 Status: Acute Assessment and plan: This is an 79-year-old lady with acute onset of abdominal symptoms found to have C. difficile colitis. Should be treated with IV Flagyl with fluid resuscitation for mild dehydration and oral vancomycin. If her diarrhea subsides as it appears to have already, convert to oral therapy and patient will return home to the care of her daughter. There were no predisposing factors to cause C. difficile colitis. She is a DNR/DNI. 08/10/24 Diarrhea has resolved. Will cw oral vanc once she is d/c which is most likely going to be tomorrow (2) HTN (hypertension): Status: Chronic Assessment and plan: Continue outpatient medical therapy adjusting as needed. (3) CAD (coronary artery disease), [place] coronary artery: Status: Chronic Assessment and plan: No active symptoms with stress of acute dehydration and C. difficile colitis. Continue outpatient medical therapy. (4) ASVD (arteriosclerotic vascular disease): Status: Acute Assessment and plan: Significant atherosclerotic disease found on CT imaging of the abdomen but nothing appears to be acute or causing ischemic bowel. Patient is improving with treatment of her C. difficile colitis. Continue preventative care and monitoring as an outpatient. (5) Dementia: Status: Chronic Assessment and plan: By history per daughter, patient does have some mild dementia but is not on treatment for behavioral problem. She does live with her family. She is a DNR/DNI. (6) GIB (gastrointestinal bleeding): Status: Chronic Assessment and plan: NS and family noted BRBPR. Would consider internal/external hemorrhoids vs aggressive sanitation. I will check an INR for completeness if this has not been done. Pt can follow up as an outpatient at the discretion of the PCP. Subjective Subjective Interval history since last seen: pt seen and examined in her room this afternoon. Pt states that her diarrhea has resolved. NS and family state that the pt did have some BRBPR which was confirmed by hemoccult check. POC was discussed with pt and daughter who was bedside. POC also discussed with bedside nurse during MDR Exam Narrative Exam Narrative: HEENT: NCAT MMM EOMI PERRLA NECK: NO LAD OR JVD PULM: NO REPIRATORY DISTRESS PSYCH: ALERT AND RESPONDS TO VERBAL STIMULI GEN: 79 Y/O WHO APPEARS HER STATED AGE, NO DISTRESS, CLEAR SPEECH Objective Last Vital Signs Temp 36.7 C 08/10/24 11:01 Pulse 63 08/10/24 12:01 Resp 16 08/10/24 11:01 BP 113/56 L 08/10/24 12:01 Pulse Ox 94 08/10/24 11:01 Laboratory Results - last 24 hr 08/09/24 08/09/24 08/09/24 16:13 16:28 16:32 WBC 21.93 H RBC 5.12 Hgb 15.6 Hct 47.6 H MCV 93 MCH 30.5 MCHC 32.8 RDW 13.2 Plt Count 254 MPV 9.9 Immature Gran % 0.5 Neutrophils % 82.7 Lymphocytes % 9.7 Monocytes % 6.2 Eosinophils % 0.6 Basophils % 0.3 Nucleated RBC % 0.0 Absolute Neutrophils 18.14 H Absolute Lymphocytes 2.13 Absolute Monocytes 1.36 H Absolute Eosinophils 0.13 Absolute Basophils 0.07 VBG Lactate 4.1 H* Sodium 145 Potassium 4.0 Chloride 104 Carbon Dioxide 25.7 Anion Gap 15.3 H BUN 24 H Creatinine 1.6 H Est GFR (CKD-EPI 2020) 32.40 Glucose 170 H Calcium 9.1 Magnesium Total Bilirubin 0.78 AST 22 ALT 15 Alkaline Phosphatase 88 Total Protein 7.8 Albumin 3.9 Lipase 61 Urine Color Urine Clarity Urine pH Ur Specific [place] Urine Protein Urine Ketones Urine Blood Urine Nitrite Urine Bilirubin Urine Urobilinogen Ur Leukocyte Esterase Urine RBC Urine WBC Ur Epithelial Cells Urine Crystals Urine Bacteria Urine Casts Urine Mucus Urine Other Ur Culture Indicated? Urine Glucose Stl C.difficile Tox PCR Positive A COVID-19 Source Nasopharynx SARS-CoV-2 (PCR) Negative Influenza Type A (PCR) Negative Influenza Type B (PCR) Negative RSV (PCR) Negative 08/09/24 08/09/24 08/10/24 17:52 20:55 05:55 WBC 11.81 H RBC 4.10 Hgb 12.5 D Hct 37.9 MCV 92 MCH 30.5 MCHC 33.0 RDW 13.3 Plt Count 159 MPV 10.4 Immature Gran % Neutrophils % Lymphocytes % Monocytes % Eosinophils % Basophils % Nucleated RBC % Absolute Neutrophils Absolute Lymphocytes Absolute Monocytes Absolute Eosinophils Absolute Basophils VBG Lactate 2.6 H* Sodium 144 Potassium 3.7 Chloride 108 H Carbon Dioxide 26.6 Anion Gap 9.4 BUN 24 H Creatinine 1.3 H Est GFR (CKD-EPI 2020) 41.57 Glucose 90 Calcium 7.9 L Magnesium 1.7 L Total Bilirubin 0.58 AST 22 ALT 13 L Alkaline Phosphatase 63 Total Protein 6.1 L Albumin 2.9 L Lipase Urine Color Dark Yellow Urine Clarity Clear Urine pH 5.5 Ur Specific [place] 1.010 Urine Protein 30 H Urine Ketones Trace H Urine Blood Negative Urine Nitrite Negative Urine Bilirubin Small H Urine Urobilinogen 0.2 Ur Leukocyte Esterase Negative Urine RBC 0-2 Urine WBC 3-5 Ur Epithelial Cells Few Urine Crystals Negative Urine Bacteria Few Urine Casts 3-5 Coarse Granular Urine Mucus Trace Urine Other Rare Renal Ur Culture Indicated? No Urine Glucose Negative Stl C.difficile Tox PCR COVID-19 Source SARS-CoV-2 (PCR) Influenza Type A (PCR) Influenza Type B (PCR) RSV (PCR) Time Spent with Patient Time Spent with Patient: 25-34 minutes Time was spent: preparing to see the patient(eg.review tests), obtaining and/or reviewing separately otained hiistory, ordering medications,tests, procedures, referring, communicating with other health pet care worker, indepentently interpreting results, counseling the patient and care coordination
--- NOTE | 2024-08-10 17:03 | INITIAL_ITS ---
Date of service: 08/10/24 Time of Service: 16:00 Care Management Initial Assmt Initial Assessment Reason for Hospitalization: c.diff Functional Status/Living Situation Patient Presentation: Telma presented to the ED yesterday with n/v diarrhea and abdominal pain. She was found to have c.diff. She was admitted for IV vanco and IVF as she was found to be dehydrated. Telma was sitting up in the bed when CM met with her. She was very pleasant and easily engaged, but was unable to answer many questions, such as how many children she has. But she was able to tell me that she lives with her daughter, and that she is going home tomorrow. Her daughter, Myla, was not present when CM met with Telma. CM attempted to call Telma, but had to leave a VM. It is unclear if Telma has a PCP, as none is listed, and she could not answer that questions. Town of Residence: [place] Resides with: Child (daughter, Jeri) Employment Status: Unemployed Instrumental Activities of Daily Living (ADLs): Requires support with Dishes/food prep, Senior Consumer Insights Consultant, Groceries, Heat/Utilities, Laundry and Transportation Medications Medication Management: No Issues/Barriers identified Physical Functioning/Mobility Assistive Device: Telma stated that she has 2 canes, but doesn't use either one of them. A PT consult was ordered. Advance Directives Advance Directives: Do you have an Advance Directive: Y 05/25/21 10:11 AD On File at [facility]: N 05/25/21 10:11 Date Asked 08/09/24 08/09/24 15:57 AD Date Reviewed COLST On File at [facility] COLST Date Scanned Code Status Resuscitation Status DNR/DNI Insurance Coverage/Financial Issues Insurance: Medicare part A&B, 4 Life MCR supplement Care Team Visit Care Team Role Provider Type Unknown Unknown Primary Care Provider STAFF PHYSICIAN Filiberto Henning DO Emergency Provider [facility] STAFF PHYSICIAN Olivier Gallardo Admit Provider NON-[facility] STAFF PHYSICIAN Attending Provider Discharge Potential Discharge Needs: PCP F/U Appt (unclear if she has a community provider) Anticipated Barriers to Discharge: None Identified Patient/Family Education Needs: Review discharge instructions, discuss Ask Me Three Transportation: Private vehicle Plan: Anticipate that Telma will be discharged home tomorrow, perhaps with new services. She will f/u with her PCP, continue per her plan of care, and transport home with her daughter. CM will continue to follow. PFSH All Active Problems (Updated 08/10/24 @ 14:42 by Oscar Navarro MD) GIB (gastrointestinal bleeding) (Chronic) Elevated LDH (Acute) Sepsis (Acute) C. difficile colitis (Acute) Dementia (Chronic) ASVD (arteriosclerotic vascular disease) (Acute) CAD (coronary artery disease), [place] coronary artery (Chronic) HTN (hypertension) (Chronic) C. difficile colitis (Acute) Pyelonephritis (Acute) Abdominal pain (Acute) Social History Smoking/Tobacco Use Status: Current every day Tobacco Type: cigarettes Smoking risk assessment performed?: Yes Alcohol Intake: never Drug use: Never Substance use type: does not use Housing: house Do you feel safe at home: Yes Do you feel safe in your relationship?: Yes Readmission Within the Past 30 Days Yes or No: No SDOH(Care Management) Screening Will the Patient Participate in the Screening?: Yes Do you worry about having a steady place to live?: no In the past 12 months, have you had to go without electric, gas, oil or water in your home?: no Have you or anyone in your house had to go without enough food to eat?: no Has lack of transportation kept you from medical appointments or from doing things needed for daily living?: no Has anyone in your support network made you feel unsafe for any reason?: no
[2024-08-10] MEDS: Atorvastatin 10 MG TAB PO (20:51)
[2024-08-10 22:57] LABS: Campylobacter PCR Negative (Negative); Salmonella PCR Negative (Negative); Shiga Toxin PCR Negative (Negative); Shigella/Enteroinvasive Ecoli Negative (Negative)
[2024-08-11] VITALS (7 sets, daily range): BP systolic 110–169; BP diastolic 33–78; PULSE 58–71; RESP 17–20; TEMP 36.2–37.2; O2SAT 95–97
[2024-08-11] MEDS: metroNIDAZOLE 500 MG/100 ML BAG 100 MG IVPB ×5 (00:34→23:27)
[2024-08-11] MEDS: Vancomycin 125 MG CAP PO ×5 (00:34→23:27)
[2024-08-11] MEDS: Heparin 5,000 UNITS/ML VIAL 5000 UNITS SC ×2 (05:24→21:45)
[2024-08-11 07:02] LABS: Abs Immature Grans 0.02 10^3/uL (0.0-0.06); Absolute Basophil Count 0.04 10^3/uL (0.0-0.2); Absolute Eosinophil Count 0.39 10^3/uL (0.0-0.7); Absolute Neutrophil Count 5.95 10^3/uL (1.2-6.7); Basophils % 0.5 %; Eosinophils % 4.7 %; HCT 34.4 % (36.0-46.0); HGB 11.3 g/dL (11.2-15.7); Immature Grans % 0.2 %; Lymphocytes % 18.1 %; MCH 30.5 pg (27.0-33.0); MCHC 32.8 % (32.0-36.0); MCV 93 fL (80-95); MPV 10.5 fL (8.0-11.0); Monocytes % 4.8 %; Neutrophils % 71.7 %; Platelet Count 145 10^3/uL (130-400); RDW 13.4 % (11.7-14.6); RDW-SD 45.9 fL
[2024-08-11 07:10] LABS: INR 1.2 (0.9-1.1); Prothrombin Time 12.1 sec (9.1-11.1)
[2024-08-11 07:31] LABS: ALT 7 U/L (14-59); AST 19 U/L (15-37); Albumin 2.6 g/dL (3.4-5.0); Alkaline Phosphatase 60 U/L (46-116); Anion Gap 8.1 mmol/L (3-11); BUN 12 mg/dL (7-18); Bilirubin, Total 0.68 mg/dL (0.2-1.0); CO2 24.9 mmol/L (21.0-32.0); CREATININE 0.9 mg/dL (0.55-1.02); Calcium 7.7 mg/dL (8.5-10.1); Chloride 113 mmol/L (98-107); Estimated GFR 64.63 (mL/min/1.73m2); Glucose 91 mg/dL (74-106); Magnesium 1.6 mg/dL (1.8-2.4); Potassium 3.5 mmol/L (3.5-5.1); Sodium 146 mmol/L (136-145); Total Protein 5.5 g/dL (6.4-8.2)
[2024-08-11] MEDS: Metoprolol 12.5 MG TAB PO ×2 (08:53→20:57)
[2024-08-11] MEDS: Isosorbide Mononitrate 30 MG TABCR PO (08:53)
[2024-08-11] MEDS: Normal Saline Flush 10 ML SYR IVP ×2 (08:53→20:59)
--- NOTE | 2024-08-11 10:22 | IN_ITS ---
PT Notes Visit Reasons: C. difficile colitis, Acute dehydration, Dementia Inpatient Physical Therapy Evaluation Date: 08/11/2024 Referring Doctor: Dr. Navarro PT Orders: PT CONSULT: PT eval and treat Precautions: C. difficile [contact/droplet precautions] Patient Profile/Admitting Diagnosis: Patient is a 79-year-old female presented to the ED on 08/09/2024 with altered mental status, nausea, vomiting, and explosive diarrhea. Workup in ED included stool specimen. Patient positive for C. difficile. Patient also diagnosed with dehydration and sepsis. Patient treated with IV fluids and IV antibiotics (Vanco/Flagyl). Patient transferred to [facility] unit for further medical management. Patient noted with blood in stool surgical consult placed. Patient scheduled for colonoscopy on 08/12/2024 PMHX: dementia, ASVD, CAD, HTN, pyelonephritis Social History/Home Situation: pt resides within her daughters home.Pt is alone during the day with her son in law checks in on her between jobs. She has 3-4 FELICIANO with B rails. She has a suite with bedroom bathroom and walkin shower. She has a comfort height toilet. She does not have any grab bars within the bathroom. She has a garcia size bed which she uses a step stool to get into bed. Pt independent ADL, light meal/snack prep , Independent toileting. Dtr assists with large meals, shopping, medication management, transportation. Pt is very active walking on trails on the property 1-2 miles per day in nice weather. They have a treadmill available within home ( FOS to basement) Equipment Owned/DME: 2 SPCs Subjective: Pt denies pain. She states she feels well and is hoping to be able to eat real food and go home today. Her daughter reports intermittent confusion at home and new concern for pt's ability to manage toileting hygiene at home as she has observed her here not cleaning thoroughly after bowel movements. Her daughter reports at home pt is alone during the day and needs to manage this independently espescially now that pt is C-diff positive. Objective: General Observation: well appearing female seated in chair with daughter visiting. Mental Status/ cognition: Alert and oriented to person, place and situation. , unable to follow simple 1 step commands/instructions for new learning tasks. difficulty with recall of task after initial command requiring continuous verbal cue to complete task for RUPERT and finger to nose, thumb opposition, and heel to douglas Pain: denied ROM: Right Upper Extremity: WNL Left Upper Extremity: WNL except diminished IP joint flexion Right Lower Extremity: WNL Left Lower Extremity: WNL Strength: Right Upper Extremity: 4/5 Left Upper Extremity: 4/5 grasp diminished d/t impaired finger flexion related to arthritic changes IP joints Right Lower Extremity: 4/5 Left Lower Extremity: 4/5 Sensation: intact Coordination:impaired Finger to nose B sequencing and accuracy impaired., impaired RUPERT BUE. impaired accuracy with finger opposition difficulty following visual and verbal instruction Bed Mobility/Transfers: Independent bed mobility including rolling, supine to from sit , adjusting linen and repositioning/boosting up in bed, Pt able to get into bed using step stool to elevated bed height independently Transfers supervision without AD sit to from stand and surface to surface. Gait: ambulates without AD supervision distance of approximately 200 feet within room( pt restricted to room d/t c-diff). pt able to perform obstacle management , turning on level surfaces. Stairs: pt perform step up and down on 8 step stool with hand rail x 4 to simulate entrance into home with CGA Balance: Static Sitting:Normal Dynamic Sitting: Normal Static Standing: Normal Dynamic Standing: good Special Tests: SERNA Balance Test: 46/56 Mobility Limitations Standardized Measure [facility] AM-PAC 6 clicks Basic Mobility Inpatient Short Form: Raw Score: 23 CMS Score: 11.20% Informed Consent/Education: Patient instructed in purpose of PT consult and plan of care. Assessment: Patient is a 79 year old female referred to physical therapy servic es with the diagnosis of c-diff/ dehydration. Patient presents with clinical signs and symptoms consistent with admitting diagnosis, as demonstrated by the following impairment level findings: 1. impaired stand balance 2. generalized weakness BLE major muscle group 3. Impaired standing functional activity tolerance Impairments are contributing to the following functional limitations: 1. AMPAC score of 11.20% 2. inability to perform stairs without assistance 3. Increased time to complete ADL/functional mobility tasks 4. Patient is assessed as a Moderate 69786 complexity based on the following: History: 79yo female presenting with past medical history Examination: demonstrated impaired Presentation: stable/evolving Decision Making: Moderate Goals: Goals X1 week 1.independent with HEP for BLE 2. pt will perform stnd on 1 foot for 20 sec as compared to inital evaluation score of4 sec 3. pt will perform / sustain tandem stance x 30 sec R/L as compared to IE score of 2 sec indicating enhanced balance reactions. Plan of Care/Treatment Plan: 1-2x/day, 7 days/week x 1 week. Plan of care has been reviewed with the AUTOMOTIVE MECHANIC providing the service under Physical Therapy direction. Initiate Physical Therapy intervention for strengthening, bed mobility, transfers, gait, stairs, balance training, use of assistive device. DISCHARGE RECOMMENDATIONS: [] [X] Home with no services [] Home with services [specify] [] Home with outpatient PT [] [] SNF for continued rehabilitation [] [] [facility] [] [] SNF versus LTC based on ability to participate and progress [] TREATMENT CODE/TIME: 13048, 38574f 2 units / [id number] Destiny Mae, PT
--- NOTE | 2024-08-11 11:15 | W.PM.PROGNOT ---
Date of Service Date of service: 08/11/24 Time of Service: 11:15 Assessment and Plan Assessment and plan (1) C. difficile colitis: Start date: 08/09/24 Status: Acute Assessment and plan: This is an 79-year-old lady with acute onset of abdominal symptoms found to have C. difficile colitis. Should be treated with IV Flagyl with fluid resuscitation for mild dehydration and oral vancomycin. If her diarrhea subsides as it appears to have already, convert to oral therapy and patient will return home to the care of her daughter. There were no predisposing factors to cause C. difficile colitis. She is a DNR/DNI. 08/10/24 Diarrhea has resolved. Will cw oral vanc once she is d/c which is most likely going to be tomorrow 08/11/24 Will c/w vanc and flagyl now. Consider dificid as an outpatient (2) HTN (hypertension): Status: Chronic Assessment and plan: Continue outpatient medical therapy adjusting as needed. 08/10/24 Last recorded bp was 133/62 indicating fair control. On metoprolol 12.5 bid as well as isosorbide 30mg daily (3) CAD (coronary artery disease), [place] coronary artery: Status: Chronic Assessment and plan: No active symptoms with stress of acute dehydration and C. difficile colitis. Continue outpatient medical therapy. (4) ASVD (arteriosclerotic vascular disease): Status: Acute Assessment and plan: Significant atherosclerotic disease found on CT imaging of the abdomen but nothing appears to be acute or causing ischemic bowel. Patient is improving with treatment of her C. difficile colitis. Continue preventative care and monitoring as an outpatient. (5) Dementia: Status: Chronic Assessment and plan: By history per daughter, patient does have some mild dementia but is not on treatment for behavioral problem. She does live with her family. She is a DNR/DNI. 08/11/24 (6) GIB (gastrointestinal bleeding): Status: Chronic Assessment and plan: NS and family noted BRBPR. Would consider internal/external hemorrhoids vs aggressive sanitation. I will check an INR for completeness if this has not been done. Pt can follow up as an outpatient at the discretion of the PCP. 08/11/24 Per family request, will consult gs for opinion. Subjective Subjective Interval history since last seen: Pt still with loose stools and BRBPR. Plan was to d/c today but daughter is worried that the pt is still infectious. Will keep in the hospital. POC d/w pt and daughter at bedside. POC also d/w bedside nurse during MDR Exam Narrative Exam Narrative: HEENT: NCAT MMM EOMI PERRLA NECK: NO LAD OR JVD PULM: NO REPIRATORY DISTRESS PSYCH: ALERT AND RESPONDS TO VERBAL STIMULI GEN: 79 Y/O WHO APPEARS HER STATED AGE, NO DISTRESS, CLEAR SPEECH Objective Last Vital Signs Temp 36.7 C 08/11/24 07:25 Pulse 71 08/11/24 07:25 Resp 18 08/11/24 07:25 BP 133/62 08/11/24 07:25 Pulse Ox 97 08/11/24 07:25 Laboratory Results - last 24 hr 08/09/24 08/11/24 16:28 06:00 WBC 8.30 RBC 3.70 L Hgb 11.3 Hct 34.4 L MCV 93 MCH 30.5 MCHC 32.8 RDW 13.4 Plt Count 145 MPV 10.5 Immature Gran % 0.2 Neutrophils % 71.7 Lymphocytes % 18.1 Monocytes % 4.8 Eosinophils % 4.7 Basophils % 0.5 Nucleated RBC % 0.0 Absolute Neutrophils 5.95 Absolute Lymphocytes 1.50 Absolute Monocytes 0.40 Absolute Eosinophils 0.39 Absolute Basophils 0.04 PT 12.1 H INR 1.2 H Sodium 146 H Potassium 3.5 Chloride 113 H Carbon Dioxide 24.9 Anion Gap 8.1 BUN 12 Creatinine 0.9 Est GFR (CKD-EPI 2020) 64.63 Glucose 91 Calcium 7.7 L Magnesium 1.6 L Total Bilirubin 0.68 AST 19 ALT 7 L Alkaline Phosphatase 60 Total Protein 5.5 L Albumin 2.6 L Stool Campylobacter PCR Negative Stool Salmonella PCR Negative Stool Shigella PCR Negative Shiga Toxin (PCR) Negative Time Spent with Patient Time Spent with Patient: 25-34 minutes Time was spent: preparing to see the patient(eg.review tests), obtaining and/or reviewing separately otained hiistory, ordering medications,tests, procedures, referring, communicating with other health career technology teacher, indepentently interpreting results, counseling the patient and care coordination
--- NOTE | 2024-08-11 15:04 | PDOC.CMPRO ---
Date of service: 08/11/24 Time of Service: 15:04 Care Management Progress Note Progress Note Text Progress Note Text: Telma was sitting up in her chair when CM met with her. She stated that she is feeling good today, and is looking forward to returning home. Per report, Telma will remain overnight, and will likely have a colonoscopy tomorrow. She stated that her daughter is a very good support, and that she has her own living space at Silvia's house, but Silvia and her take care of all of the cooking. CM spoke to PT, who stated that Telma's daughter was visiting earlier and asked about services at home. PT is not recommending home health services at this time. CM attempted to contact Cori, and left a message. CM will continue to follow. Discharge Potential Discharge Needs: PCP F/U Appt Anticipated Barriers to Discharge: None Identified Patient/Family Education Needs: Review discharge instructions, discuss Ask Me Three Transportation: Private vehicle Plan: Anticipate that Telma will be discharged home, perhaps with new services. She will f/u with her PCP, continue per her plan of care, and transport home with her daughter. CM will continue to follow. SDOH(Care Management) Screening Will the Patient Participate in the Screening?: Yes Do you worry about having a steady place to live?: no In the past 12 months, have you had to go without electric, gas, oil or water in your home?: no Have you or anyone in your house had to go without enough food to eat?: no Has lack of transportation kept you from medical appointments or from doing things needed for daily living?: no Has anyone in your support network made you feel unsafe for any reason?: no
--- NOTE | 2024-08-11 15:05 | PT.INTREAT ---
PT Notes Visit Reasons: C. difficile colitis, Acute dehydration, Dementia Inpatient Physical Therapy Treatment Note [facility] Date: 08/11/2024 PRECAUTIONS:C-Diff (+) SUBJECTIVE: Pt reports she feels good but is not going home today. SHe requested to use the bathroom . OBJECTIVE:pt approached sleeping in chair easily woke. Pt agreeable to participate in PT ? PAIN: denies ? BED MOBILITY/TRANSFERS? Sit-stand: supervision x 10 reps without UE support? Stand-sit: supervision? x 10 reps without UE support? Bed-Chair:supervision? Chair-bed: supervision ? Therapeutic Exercises ([id number][]): Direct one-on-one instruction in therapeutic exercises to develop strength, endurance, range of motion and flexibility. ? Exercises Pt perform 10 reps of the program below with cues for technique. ? Access Code: [email or web address] URL: [email or web address] Date: 08/11/2024 Prepared by: Deysi Mae Exercises - Seated Long Arc Quad? - 2 x daily - 7 x weekly - 1 sets - 10 reps - Sit to Stand? - 2 x daily - 7 x weekly - 1 sets - 10 reps - Heel Raises with Counter Support? - 2 x daily - 7 x weekly - 1 sets - 10 reps - Standing Hip Abduction with Counter Support? - 2 x daily - 7 x weekly - 1 sets - 10 reps - Mini Squat with Counter Support? - 2 x daily - 7 x weekly - 1 sets - 10 reps - Standing March with Counter Support? - 2 x daily - 7 x weekly - 1 sets - 10 reps - Standing Hip Extension with Counter Support? - 2 x daily - 7 x weekly - 1 sets - 10 reps Ambulation ? Assistive Device:no device? Weight bearing: FWB Assist: Supervision ? Distance:? 50 feet within room? Deviation: no ? Provided skilled instruction in proper exercise performance Provided skilled manual cues to facilitate proper muscle recruitment and/or form: [] Neuromuscular Re-education (05939): Activities that facilitate re-education of movement balance, posture, coordination, and proprioception or kinesthetic sense, requiring skilled tactile and verbal cues ? Exercises/techniques: ? dynamic and static stand: single limb x 3 trials with intermittent UE support x 20 sec R/L tandem R/L x 3 trials with intermittent UE support x 30 sec ASSESSMENT:? Pt demonstrates limitations in SL and tandem stance . Pt with impaired hip and ankle strategies without shoes on. Pt able to perform HEP with verbal instruction for technique and to attend to repetitions. PLAN: 1-2x/day, 7 days/week x 1 week. Plan of care has been reviewed with the CREDIT RISK ASSOCIATE providing the service under Physical Therapy direction. Initiate Physical Therapy intervention for strengthening, bed mobility, transfers, gait, stairs, balance training, use of assistive device. TREATMENT CODE/TIME: 06632, 63823 [id number] DISCHARGE RECOMMENDATION: Home with HEP to maintain functional ability
[2024-08-11] MEDS: Atorvastatin 10 MG TAB PO (20:57)
--- NOTE | 2024-08-11 22:00 | SCONE_ITS ---
Date of service: 08/11/24 Time of Service: 22:00 Assessment and Plan Assessment and plan (1) HTN (hypertension): Status: Chronic (2) CAD (coronary artery disease), [place] coronary artery: Status: Chronic (3) ASVD (arteriosclerotic vascular disease): Status: Acute (4) GIB (gastrointestinal bleeding): (5) Abdominal pain: (6) Elevated LDH: Status: Resolved (7) Dementia: Status: Chronic (8) C. difficile colitis: Status: Deleted Assessment and plan: Is unclear why she has C. difficile colitis. Unfortunately patient cannot give me any information. It is unknown if she has had C. difficile in the past. It is unknown if she has been on recent antibiotic therapy. Is unknown if she has any close contacts that have C. difficile. Per nursing she has not had a stool in the past 24 hours Her abdomen is soft with good bowel sounds. She does not have a fever or white count. She appears nontoxic and in good spirits. She has been tolerating her diet. At this point she is nontoxic and does not have any warning signs. I would be in her best interest to wait until the infection is treated to do a noscapine. We would certainly be happy to do a colonoscopy at that time. At this point is not safe for the patient and he has an infection risk for staff. Will repeat consider what she is been fully treated. History of Present Illness Narrative: Patient is seen and examined in consultation for C. difficile. Patient thinks the month is September. She does not know where she is at. When she is orientated to the fact that she is at an [facility] and then asked 5 minutes later where she is she cannot remember. She was told the nurses name and then ask later and could not remember the nurses name. She does not know why she is in the hospital. She is not able to give me any meaningful history about her acute disease process. She denies having any abdominal pain. Review of Systems Unobtainable due to mental status [facility] All Active Problems (Updated 08/14/24 @ 00:04 by JON MARQUEZ) Septic shock (Acute) C. difficile colitis (Acute) Dementia (Chronic) ASVD (arteriosclerotic vascular disease) (Acute) CAD (coronary artery disease), [place] coronary artery (Chronic) HTN (hypertension) (Chronic) Pyelonephritis (Acute) Medical History (Updated 08/14/24 @ 00:04 by JON MARQUEZ) Abdominal pain GIB (gastrointestinal bleeding) Sepsis Social History Smoking/Tobacco Use Status: Current every day Tobacco Type: cigarettes Smoking risk assessment performed?: Yes Alcohol Intake: never Drug use: Never Substance use type: does not use Housing: house Do you feel safe at home: Yes Do you feel safe in your relationship?: Yes Exam Narrative Exam Narrative: PHYSICAL EXAM HEAD, EYES, EARS, NECK, THROAT: Head is normocephalic, pupils equal, round, reactive to light and accommodation, ocular movement intact, sclera clear and no jaundice. ?Dentition intact. LUNGS: normal respiration/normal chest excursion. ?Clear to auscultation bilaterally. ?No wheeze. ?HEART: Regular rate and rhythm. no murmurs ABDOMEN: soft and non-tender to palpation.? Normal bowel sounds.? Const General: cooperative, healthy appearing, comfortable and no acute distress Orientation: alert, awake and oriented to person Other: PHYSICAL EXAM GENERAL APPEARANCE: Alert, healthy appearance, oriented, x 3,? in no acute distress HYDRATION: Well hydrated HEAD, EYES, EARS, NECK, THROAT: Head is normocephalic, pupils equal, round, reactive to light and accommodation, ocular movement intact, sclera clear and no jaundice. ?Dentition intact. LUNGS: normal respiration/normal chest excursion. ?Clear to auscultation bilaterally. ?No wheeze. ?HEART: Regular rate and rhythm. no murmurs ABDOMEN: soft and non-tender to palpation.? Normal bowel sounds.? Results Last Vital Signs Temp 36.8 C 08/11/24 19:49 Pulse 68 08/11/24 19:49 Resp 20 08/11/24 19:49 BP 136/57 L 08/11/24 19:49 Pulse Ox 97 08/11/24 19:49 Labs 08/13/24 06:00 08/13/24 06:00 Labs: Laboratory Results - last 24 hr 08/09/24 08/11/24 16:28 06:00 WBC 8.30 RBC 3.70 L Hgb 11.3 Hct 34.4 L MCV 93 MCH 30.5 MCHC 32.8 RDW 13.4 Plt Count 145 MPV 10.5 Immature Gran % 0.2 Neutrophils % 71.7 Lymphocytes % 18.1 Monocytes % 4.8 Eosinophils % 4.7 Basophils % 0.5 Nucleated RBC % 0.0 Absolute Neutrophils 5.95 Absolute Lymphocytes 1.50 Absolute Monocytes 0.40 Absolute Eosinophils 0.39 Absolute Basophils 0.04 PT 12.1 H INR 1.2 H Sodium 146 H Potassium 3.5 Chloride 113 H Carbon Dioxide 24.9 Anion Gap 8.1 BUN 12 Creatinine 0.9 Est GFR (CKD-EPI 2020) 64.63 Glucose 91 Calcium 7.7 L Magnesium 1.6 L Total Bilirubin 0.68 AST 19 ALT 7 L Alkaline Phosphatase 60 Total Protein 5.5 L Albumin 2.6 L Stool Campylobacter PCR Negative Stool Salmonella PCR Negative Stool Shigella PCR Negative Shiga Toxin (PCR) Negative
[2024-08-12] VITALS (7 sets, daily range): BP systolic 103–140; BP diastolic 37–77; PULSE 60–69; RESP 14–18; TEMP 36.6–37.6; O2SAT 94–99
[2024-08-12] MEDS: Vancomycin 125 MG CAP PO ×4 (06:40→23:39)
[2024-08-12] MEDS: metroNIDAZOLE 500 MG/100 ML BAG 100 MG IVPB ×2 (06:40→12:56)
[2024-08-12] MEDS: Heparin 5,000 UNITS/ML VIAL 5000 UNITS SC ×2 (06:41→14:46)
[2024-08-12 06:46] LABS: HCT 35.4 % (36.0-46.0); HGB 11.8 g/dL (11.2-15.7); MCH 30.6 pg (27.0-33.0); MCHC 33.3 % (32.0-36.0); MCV 92 fL (80-95); MPV 10.4 fL (8.0-11.0); Platelet Count 138 10^3/uL (130-400); RBC 3.85 10^6/uL (3.93-5.22); RDW 13.2 % (11.7-14.6); RDW-SD 44.3 fL; WBC 6.35 10^3/uL (4.4-10.8)
[2024-08-12 07:00] LABS: ALT 13 U/L (14-59); AST 24 U/L (15-37); Albumin 2.7 g/dL (3.4-5.0); Alkaline Phosphatase 56 U/L (46-116); Anion Gap 9.7 mmol/L (3-11); BUN 6 mg/dL (7-18); CO2 25.3 mmol/L (21.0-32.0); CREATININE 0.8 mg/dL (0.55-1.02); Calcium 7.9 mg/dL (8.5-10.1); Chloride 112 mmol/L (98-107); Estimated GFR 74.44 (mL/min/1.73m2); Glucose 95 mg/dL (74-106); Magnesium 1.6 mg/dL (1.8-2.4); Potassium 3.4 mmol/L (3.5-5.1); Sodium 147 mmol/L (136-145); Total Protein 5.6 g/dL (6.4-8.2)
[2024-08-12] MEDS: Metoprolol 12.5 MG TAB PO ×2 (09:44→21:01)
[2024-08-12] MEDS: Isosorbide Mononitrate 30 MG TABCR PO (09:44)
[2024-08-12] MEDS: Normal Saline Flush 10 ML SYR IVP ×3 (09:45→21:02)
--- NOTE | 2024-08-12 11:43 | PTTR_ITS ---
PT Notes Visit Reasons: C. difficile colitis, Acute dehydration, Dementia Inpatient Physical Therapy Treatment Note [facility] Date: 08/12/2024 PRECAUTIONS:C-Diff (+) SUBJECTIVE: Pt reports she feels good . She states she is unsure if she is having the colonoscopy today or tomorrow OBJECTIVE:pt approached sitting in chair doing a word search. Pt agreeable to participate in PT ? PAIN: denies Therapeutic activity (96840) BED MOBILITY/TRANSFERS? Sit-stand: supervision x 10 reps without UE support? Stand-sit: supervision? x 10 reps without UE support? Bed-Chair:supervision? Chair-bed: supervision Functional mobility within room without assistive device for item retrieval for self-care and prep for toileting including bending reaching transporting items. ? Therapeutic Exercises (61622l x 1): Direct one-on-one instruction in therapeutic exercises to develop strength, endurance, range of motion and flexibility. ? Exercises Pt perform 10 reps with 2.5 pound ankle weights of the program below with cues for technique. ? Access Code: [email or web address] URL: [email or web address] Date: 08/11/2024 Prepared by: Deysi Mae Exercises - Seated Long Arc Quad? - 2 x daily - 7 x weekly - 1 sets - 10 reps - Sit to Stand? - 2 x daily - 7 x weekly - 1 sets - 10 reps - Heel Raises with Counter Support? - 2 x daily - 7 x weekly - 1 sets - 10 reps - Standing Hip Abduction with Counter Support? - 2 x daily - 7 x weekly - 1 sets - 10 reps - Mini Squat with Counter Support? - 2 x daily - 7 x weekly - 1 sets - 10 reps - Standing March with Counter Support? - 2 x daily - 7 x weekly - 1 sets - 10 reps - Standing Hip Extension with Counter Support? - 2 x daily - 7 x weekly - 1 sets - 10 reps Ambulation ? Assistive Device:no device? Weight bearing: FWB Assist: Supervision ? Distance:? 50 feet within room? Deviation: no ? Provided skilled instruction in proper exercise performance Provided skilled manual cues to facilitate proper muscle recruitment and/or form: [] ASSESSMENT: Patient tolerated session well with progression to 2.5 pound weights to bilateral ankles for all lower extremity exercises. Patient requires cues to initiate task despite having written instructions. Patient utilizes 1 upper extremity support for all stand exercises. Patient able to perform toilet transfers and proper hygiene including wiping front to back. Patient did need cueing to change pull-up/briefs as noted soiled. PLAN: 1-2x/day, 7 days/week x 1 week. Plan of care has been reviewed with the SHEET METAL JOURNEYMAN providing the service under Physical Therapy direction. Initiate Physical Therapy intervention for strengthening, bed mobility, transfers, gait, stairs, balance training, use of assistive device. TREATMENT CODE/TIME: [id number] mins for 2 units , 30548n 16 mins for 1 unit /[id number] DISCHARGE RECOMMENDATION: Home with HEP to maintain functional ability
--- NOTE | 2024-08-12 14:50 | W.PM.PROGNOT ---
Date of Service Date of service: 08/12/24 Time of Service: 14:50 Assessment and Plan Assessment and plan (1) HTN (hypertension): Status: Chronic (2) CAD (coronary artery disease), [place] coronary artery: Status: Chronic (3) ASVD (arteriosclerotic vascular disease): Status: Acute (4) C. difficile colitis: Status: Acute Assessment and plan: Patient has no abdominal pain-by report or palpation She has been having 2-3 stools per day. She had a slight amount of blood noted by nursing with bowel movement. She has been tolerating a regular diet. She exhibits no signs of acute toxic megacolon or sepsis at this time It is not a good idea to do a scope at this point because of the risk of perforation and exposure to staff. Continue for a total of 14 days of oral vancomycin Follow-up in surgical clinic in 3 to 4 weeks and we will schedule her for outpatient colonoscopy. Will reevaluate at your request I did discuss patient disposition with Dr. Navarro (5) Dementia: Status: Chronic (6) Bloody diarrhea: Status: Acute Assessment and plan: Hemoglobin has been stable over the past 48 hours. Subjective Subjective Interval history since last seen: Patient has dementia and cannot give any history. Information is taken from nursing notes Exam Narrative Exam Narrative: Abdomen is soft and nontender. She had 3 bowel movements yesterday that were loose. She has had x1 BM today. slt bloody Objective Last Vital Signs Temp 37.0 C 08/12/24 14:47 Pulse 66 08/12/24 14:47 Resp 16 08/12/24 14:47 BP 129/70 08/12/24 14:47 Pulse Ox 99 08/12/24 14:47 Laboratory Results - last 24 hr 08/12/24 06:07 WBC 6.35 RBC 3.85 L Hgb 11.8 Hct 35.4 L MCV 92 MCH 30.6 MCHC 33.3 RDW 13.2 Plt Count 138 MPV 10.4 Sodium 147 H Potassium 3.4 L Chloride 112 H Carbon Dioxide 25.3 Anion Gap 9.7 BUN 6 L Creatinine 0.8 Est GFR (CKD-EPI 2020) 74.44 Glucose 95 Calcium 7.9 L Magnesium 1.6 L Total Bilirubin 0.60 AST 24 ALT 13 L Alkaline Phosphatase 56 Total Protein 5.6 L Albumin 2.7 L Time Spent with Patient Time Spent with Patient: 25-34 minutes Time was spent: preparing to see the patient(eg.review tests), obtaining and/or reviewing separately otained hiistory, ordering medications,tests, procedures, referring, communicating with other health hourly caregiver, indepentently interpreting results, counseling the patient, care coordination and other
--- NOTE | 2024-08-12 14:58 | PDOC.CMPRO ---
Date of service: 08/12/24 Time of Service: 14:58 Care Management Progress Note Progress Note Text Progress Note Text: Telma was working with PT when CM attempted to meet with her. Per report, she is doing well today. Per RN, her last loose stool was yesterday; she will likely return home once she has not had a loose BM for 48H. She is well supported at home by her daughter. Per report, she does not have a skilled need for HH services. CM will continue to follow. Discharge Potential Discharge Needs: PCP F/U Appt Anticipated Barriers to Discharge: None Identified Patient/Family Education Needs: Review discharge instructions, discuss Ask Me Three Transportation: Private vehicle Plan: Anticipate that Telma will be discharged home, perhaps with new HH services. She will f/u with her PCP, continue per her plan of care, and transport home with her daughter. CM will continue to follow. SDOH(Care Management) Screening Will the Patient Participate in the Screening?: Yes Do you worry about having a steady place to live?: no In the past 12 months, have you had to go without electric, gas, oil or water in your home?: no Have you or anyone in your house had to go without enough food to eat?: no Has lack of transportation kept you from medical appointments or from doing things needed for daily living?: no Has anyone in your support network made you feel unsafe for any reason?: no
--- NOTE | 2024-08-12 15:01 | PGE_ITS ---
Date of Service Date of service: 08/12/24 Time of Service: 15:01 Assessment and Plan Assessment and plan (1) C. difficile colitis: Start date: 08/09/24 Status: Deleted Assessment and plan: This is an 79-year-old lady with acute onset of abdominal symptoms found to have C. difficile colitis. Should be treated with IV Flagyl with fluid resuscitation for mild dehydration and oral vancomycin. If her diarrhea subsides as it appears to have already, convert to oral therapy and patient will return home to the care of her daughter. There were no predisposing factors to cause C. difficile colitis. She is a DNR/DNI. 08/10/24 Diarrhea has resolved. Will cw oral vanc once she is d/c which is most likely going to be tomorrow 08/11/24 Will c/w vanc and flagyl now. Consider dificid as an outpatient 08/12/24 Family wants pt to stay until she is no longer infectious. People are usually no longer infectious when they have been diarrhea free for 48 hours. Pt most likely will dc tomorrow with either dificid or vanc (2) HTN (hypertension): Status: Chronic Assessment and plan: Continue outpatient medical therapy adjusting as needed. 08/10/24 Last recorded bp was 133/62 indicating fair control. On metoprolol 12.5 bid as well as isosorbide 30mg daily 08/12/24 latest vital signs are 129/70 indicating good control (3) CAD (coronary artery disease), [place] coronary artery: Status: Chronic Assessment and plan: No active symptoms with stress of acute dehydration and C. difficile colitis. Continue outpatient medical therapy. (4) ASVD (arteriosclerotic vascular disease): Status: Acute Assessment and plan: Significant atherosclerotic disease found on CT imaging of the abdomen but nothing appears to be acute or causing ischemic bowel. Patient is improving with treatment of her C. difficile colitis. Continue preventative care and monitoring as an outpatient. (5) Dementia: Status: Chronic Assessment and plan: By history per daughter, patient does have some mild dementia but is not on treatment for behavioral problem. She does live with her family. She is a DN R/DNI. 08/11/24 Would consider outpatient evaluation and possible medical management but will leave to the discretion of the PCP (6) GIB (gastrointestinal bleeding): Assessment and plan: NS and family noted BRBPR. Would consider internal/external hemorrhoids vs aggressive sanitation. I will check an INR for completeness if this has not been done. Pt can follow up as an outpatient at the discretion of the PCP. 08/11/24 Per family request, will consult for opinion. 08/12/24 Per my communication with Dr Thakkar, no work up on this admission 2/2 recent c- diff infection Subjective Subjective Interval history since last seen: Pt seen and examined in her room. Pt is without complaint besides wanting to go home. POC discussed with pt and daughter and with bedside nurse at [facility]. I also talked with Dr Thakkar () who does not want to pursue colonoscopy at this time 2/2 recent c-diff diagnosis Exam Narrative Exam Narrative: PHYSICAL EXAM GENERAL APPEARANCE: Alert, healthy appearance, oriented, x 3,? in no acute distress HYDRATION: Well hydrated HEAD, EYES, EARS, NECK, THROAT: Head is normocephalic, pupils equal, round, reactive to light and accommodation, ocular movement intact, sclera clear and no jaundice. ?Dentition intact. LUNGS: normal respiration/normal chest excursion. ?Clear to auscultation bilaterally. ?No wheeze. ?HEART: Regular rate and rhythm. no murmurs ABDOMEN: soft and non-tender to palpation.? Normal bowel sounds.? Const General: cooperative, healthy appearing, comfortable and no acute distress Orientation: alert, awake and oriented to person Other: PHYSICAL EXAM GENERAL APPEARANCE: Alert, healthy appearance, oriented, x 3,? in no acute distress HYDRATION: Well hydrated HEAD, EYES, EARS, NECK, THROAT: Head is normocephalic, pupils equal, round, reactive to light and accommodation, ocular movement intact, sclera clear and no jaundice. ?Dentition intact. LUNGS: normal respiration/normal chest excursion. ?Clear to auscultation bilaterally. ?No wheeze. ?HEART: Regular rate and rhythm. no murmurs ABDOMEN: soft and non-tender to palpation.? Normal bowel sounds.? Objective Last Vital Signs Temp 37.0 C 08/12/24 14:47 Pulse 66 08/12/24 14:47 Resp 16 08/12/24 14:47 BP 129/70 08/12/24 14:47 Pulse Ox 99 08/12/24 14:47 Laboratory Results - last 24 hr 08/12/24 06:07 WBC 6.35 RBC 3.85 L Hgb 11.8 Hct 35.4 L MCV 92 MCH 30.6 MCHC 33.3 RDW 13.2 Plt Count 138 MPV 10.4 Sodium 147 H Potassium 3.4 L Chloride 112 H Carbon Dioxide 25.3 Anion Gap 9.7 BUN 6 L Creatinine 0.8 Est GFR (CKD-EPI 2020) 74.44 Glucose 95 Calcium 7.9 L Magnesium 1.6 L Total Bilirubin 0.60 AST 24 ALT 13 L Alkaline Phosphatase 56 Total Protein 5.6 L Albumin 2.7 L Time Spent with Patient Time Spent with Patient: 25-34 minutes Time was spent: preparing to see the patient(eg.review tests), obtaining and/or reviewing separately otained hiistory, ordering medications,tests, procedures, referring, communicating with other health healthcare specialist, indepentently interpreting results, counseling the patient and care coordination
--- NOTE | 2024-08-12 15:48 | CHAPLAIN ---
Telma was sitting up doing a crossword when I visited. She is from [place] and she said she often stays at home unless her daughter is going somewhere and she'll go with her sometimes. She has grandchildren who live near [facility], but she was frustrated that she couldn't remember the names of the towns where they live. I explained my role and offered support.
--- NOTE | 2024-08-12 16:23 | PT.INTREAT ---
PT Notes Visit Reasons: C. difficile colitis, Acute dehydration, Dementia Date: 08/12/2024 PRECAUTIONS: C-Diff (+) SUBJECTIVE: Pt in recliner when approached for therapy this afternoon, pt agreed to participating with therapy session OBJECTIVE: ? PAIN: Denies VITALS: Monitored by nursing Therapeutic Activities 99257: Direct one-on-one instruction in dynamic activities to improve functional performance. ?? BED MOBILITY/TRANSFERS? Rolling L/R: supervision Supine-sit: supervision? Sit-supine: ?supervision? Sit-stand: ?supervision? Stand-sit: ?supervision? Bed-Chair:? supervision? Chair-bed: supervision Provided skilled cues and instruction on performance and technique throughout. Gait Training 21941: Direct one-on-one instruction and skilled instruction in: Employing an assistive device Modified weight-bearing status Movement sequencing Turning and movement with proper form Provided verbal cues for equipment management and technique Provided instruction in gait pattern Patient education regarding pacing and breathing techniques to maximize activity tolerance? GAIT? Assistive Device: ?none ? Weight bearing: FWB Assist: SBA ? Distance:?? 1000' with turns (done inside pt's room)? Deviation: ? unremarkable (with pt wearing running shoes)? STAIRS:? ? not performed? Therapeutic Exercises 86440: Direct one-on-one instruction in therapeutic exercises to develop strength, endurance, range of motion and flexibility. Exercises: Sit to stand without UE support [id number] Standing high march without UE support [id number] Standing hip 3way without UE support [id number] Standing heel raises without UE support [id number] Standing toe raise without UE support [id number] Standing hip circumduction with 1UE support [id number] mirrored Provided skilled instruction in proper exercise performance Provided skilled manual cues to facilitate proper muscle recruitment and/or form: ASSESSMENT:?Pt tolerated activity well did not have SOB with activity and was able to complete activity without taking rest breaks. PLAN: Continue with balance training, global strengthening and general conditioning for improved safety, mobility and activity tolerance until pt is ready for DC. TREATMENT CODE/TIME: [id number] 30mins (3:25-3:55pm)
[2024-08-12] MEDS: Lactobacillus Acidophilus CAP 1 CAP PO (21:02)
[2024-08-12] MEDS: Atorvastatin 10 MG TAB PO (21:02)
[2024-08-13 02:55] VITALS: BP 148/68; PULSE 64; RESP 16; TEMP 36.5; O2SAT 96
[2024-08-13] MEDS: Vancomycin 125 MG CAP PO ×2 (06:33→11:08)
[2024-08-13 06:36] LABS: Abs Immature Grans 0.01 10^3/uL (0.0-0.06); Absolute Basophil Count 0.03 10^3/uL (0.0-0.2); Absolute Eosinophil Count 0.39 10^3/uL (0.0-0.7); Absolute Lymphocyte Count 1.35 10^3/uL (1.2-3.4); Absolute Monocyte Count 0.31 10^3/uL (0.1-0.8); Absolute Neutrophil Count 2.25 10^3/uL (1.2-6.7); Basophils % 0.7 %; HCT 33.4 % (36.0-46.0); HGB 11.1 g/dL (11.2-15.7); Immature Grans % 0.2 %; Lymphocytes % 31.1 %; MCH 30.2 pg (27.0-33.0); MCHC 33.2 % (32.0-36.0); MCV 91 fL (80-95); MPV 10.5 fL (8.0-11.0); Monocytes % 7.1 %; Neutrophils % 51.9 %; Platelet Count 125 10^3/uL (130-400); RBC 3.68 10^6/uL (3.93-5.22); RDW 13.1 % (11.7-14.6); RDW-SD 43.8 fL; WBC 4.34 10^3/uL (4.4-10.8)
[2024-08-13 06:57] LABS: ALT 11 U/L (14-59); AST 30 U/L (15-37); Albumin 2.6 g/dL (3.4-5.0); Alkaline Phosphatase 49 U/L (46-116); Anion Gap 8.8 mmol/L (3-11); BUN 6 mg/dL (7-18); Bilirubin, Total 0.47 mg/dL (0.2-1.0); CO2 26.2 mmol/L (21.0-32.0); CREATININE 0.9 mg/dL (0.55-1.02); Chloride 113 mmol/L (98-107); Estimated GFR 64.63 (mL/min/1.73m2); Glucose 91 mg/dL (74-106); Potassium 3.2 mmol/L (3.5-5.1); Sodium 148 mmol/L (136-145); Total Protein 5.6 g/dL (6.4-8.2)
[2024-08-13 07:41] VITALS: BP 140/76; PULSE 68; RESP 18; TEMP 37; O2SAT 97
[2024-08-13] MEDS: Isosorbide Mononitrate 30 MG TABCR PO (09:49)
[2024-08-13] MEDS: Normal Saline Flush 10 ML SYR IVP (09:49)
[2024-08-13] MEDS: Metoprolol 12.5 MG TAB PO (09:49)
[2024-08-13] MEDS: Lactobacillus Acidophilus CAP 1 CAP PO (09:49)
--- NOTE | 2024-08-13 09:57 | W.PM.DS.N ---
Date of service: 08/13/24 Time of Service: 09:58 DS: Diagnosis Discharge Diagnosis (1) Septic shock: Status: Acute (2) C. difficile colitis: Status: Deleted (3) HTN (hypertension): Status: Chronic (4) CAD (coronary artery disease), [place] coronary artery: Status: Chronic (5) ASVD (arteriosclerotic vascular disease): Status: Acute (6) Dementia: Status: Chronic (7) GIB (gastrointestinal bleeding): (8) Bloody diarrhea: Status: Acute Discharge Plan Disposition Patient Disposition: Home Condition: Good Discharge Details Reason For Visit: C. difficile colitis, Acute dehydration, Dementia Admit Date/Time: 08/09/24 18:47 Admit Provider: Olivier Gallardo Attending Provider: Olivier Gallardo Primary Care Provider: Unknown,Unknown Hospital Course Hospital Course: Patient initially presented with signs and symptoms that were ultimately determined to be secondary to septic shock from C. difficile infection. She was having multiple watery bowel movements, not septic shock criteria with tachycardia, leukocytosis, source of infection being C. difficile, and initial lactic acid greater than 4 all of which significantly improved during hospitalization. She was on p.o. vancomycin experienced improvement in her frequency of bowel movements back to normal formed stools. However, she did have some blood-tinged stools which is likely secondary to infection and was confirmed by general surgery that patient would not be candidate for colonoscopy. Given the patient's significant improvement of her symptoms it was determined that she is stable for discharge home with an additional 7 days of p.o. vancomycin. Home Meds and New Rx's Prescriptions: New vancomycin 125 mg Capsule 125 mg PO QID 7 Days Qty: 28 0RF metoprolol tartrate 25 mg Tablet 12.5 mg PO BID Qty: 90 0RF Continued trandolapril 4 mg Tablet 4 mg PO DAILY atorvastatin 10 mg Tablet 10 mg PO DAILY isosorbide mononitrate 30 mg Tablet Extended Release 24 Hr 30 mg PO DAILY hydrochlorothiazide 12.5 mg Tablet 12.5 mg PO DAILY Discontinued metoprolol succinate 25 mg Tablet Extended Release 24 Hr 25 mg PO DAILY Discharge Instructions Instructions: Dehydration, Adult (DC), C. difficile infection Stand Alone Forms: Nursing Discharge Form Referrals: Unknown,Unknown [Primary Care Provider] - (Please follow up with a PCP to make a follow up appointment. ) Activity:: Activity as Tolerated Equipment/Supplies:: No Equipment Needed Diet:: As Tolerated Discharge Orders Discharge Orders: Discharge Order (Routine); Ordered 08/13/24 Ordered By: Jose Neil Discharge Data Discharge Date/Time-TO BE ENTERED AT DEPARTURE: 08/13/24 11:11 DS: Summary Time Spent with Patient providing and/or coordinating discharge services: Greater than 30 minutes Status at Discharge Functional status at discharge: independent ambulation Overall status at discharge: patient is back to baseline Mental Status: mental status grossly normal Speech and Movement: speech and movement normal Mood: congruent mood Affect: normal affect Quality:SDOH Health Related Social Needs: No Data to Display Exam Narrative Exam Narrative: Well-appearing female sitting up in the chair no acute distress, ANO x 4, heart regular rhythm, lungs clear to auscultation bilaterally, abdomen soft, nontender, nondistended Psych Mental Status: mental status grossly normal Speech and Movement: speech and movement normal Mood: congruent mood Affect: normal affect DS: Data Vitals/I&O Vitals and I&O: Vital Signs Temperature 98.6 F 08/13/24 07:41 Temperature Source Tympanic 08/13/24 07:41 Pulse 68 08/13/24 07:41 Pulse Rhythm Regular 08/09/24 20:40 Pulse 69 08/09/24 20:01 Respiratory Rate 18 08/13/24 07:41 Respiratory Effort Normal 08/09/24 20:40 Respiratory Depth Normal 08/09/24 20:40 Respiratory Pattern Normal 08/09/24 20:40 Blood Pressure 140/76 08/13/24 07:41 Blood Pressure Mean 63 08/09/24 20:01 Blood Pressure Position Supine 08/09/24 15:58 Pulse Oximetry 97 08/13/24 07:41 Oxygen Delivery Method Room Air 08/13/24 07:41 Oxygen Flow Rate 0 08/13/24 07:41 Pain Level 0 08/11/24 23:19 Comment RN Notified 08/13/24 02:55 Comment RECTAL TEMP 08/09/24 16:25 Intake & Output 08/12/24 08/13/24 08/13/24 17:59 05:59 17:59 Intake Total 760 / 760 310 / 1070 Output Total 1150 / 1150 1050 / 2200 450 / 450 Balance -390 / -390 -740 / -1130 -450 / -450 Weight 118 lb 9 oz 118 lb 6.212 oz Intake: IV 110 / 110 10 / 120 Oral 650 / 650 300 / 950 Output: Urine 1100 / 1100 850 / 1950 300 / 300 Stool 50 / 50 200 / 250 150 / 150 Other: Urine Color Straw Yellow Straw Urine Appearance Clear Clear Clear Urine Odor Strong Normal Strong Stool Size Smear Moderate Stool Characteristics Liquid Liquid Liquid Foamy Brown Data Completed and Pending Labs on day of discharge: Labs from last 24 hours 08/13/24 06:00 WBC 4.34 L RBC 3.68 L Hgb 11.1 L Hct 33.4 L MCV 91 MCH 30.2 MCHC 33.2 RDW 13.1 Plt Count 125 L MPV 10.5 Immature Gran % 0.2 Neutrophils % 51.9 Lymphocytes % 31.1 Monocytes % 7.1 Eosinophils % 9.0 Basophils % 0.7 Nucleated RBC % 0.0 Absolute Neutrophils 2.25 Absolute Lymphocytes 1.35 Absolute Monocytes 0.31 Absolute Eosinophils 0.39 Absolute Basophils 0.03 Sodium 148 H Potassium 3.2 L Chloride 113 H Carbon Dioxide 26.2 Anion Gap 8.8 BUN 6 L Creatinine 0.9 Est GFR (CKD-EPI 2020) 64.63 Glucose 91 Calcium 8.0 L Total Bilirubin 0.47 AST 30 ALT 11 L Alkaline Phosphatase 49 Total Protein 5.6 L Albumin 2.6 L Preliminary micro results at discharge 08/09/24 18:25 Blood Culture - Preliminary Blood NO GROWTH 72 HOURS 08/09/24 16:32 Blood Culture - Preliminary Blood Anaerobic gram negative patricia PFSH All Active Problems (Updated 08/13/24 @ 09:58 by Jose Neil MD) Septic shock (Acute) Bloody diarrhea (Acute) Secondary to C. difficile infection Elevated LDH (Acute) C. difficile colitis (Acute) Dementia (Chronic) ASVD (arteriosclerotic vascular disease) (Acute) CAD (coronary artery disease), [place] coronary artery (Chronic) HTN (hypertension) (Chronic) Pyelonephritis (Acute) Medical History (Updated 08/13/24 @ 09:58 by Jose Neil MD) Abdominal pain GIB (gastrointestinal bleeding) Sepsis Social History Smoking/Tobacco Use Status: Current every day Tobacco Type: cigarettes Smoking risk assessment performed?: Yes Alcohol Intake: never Drug use: Never Substance use type: does not use Housing: house Do you feel safe at home: Yes Do you feel safe in your relationship?: Yes Time Spent with Patient Time Spent with Patient: <45 minutes Time was spent: preparing to see the patient(eg.review tests), obtaining and/or reviewing separately otained hiistory, ordering medications,tests, procedures, referring, communicating with other health career professional, indepentently interpreting results, counseling the patient and care coordination
--- NOTE | 2024-08-13 10:11 | PT.INNT ---
PT Notes Visit Reasons: C. difficile colitis, Acute dehydration, Dementia Pt refused am and is being D/C to home today.
--- NOTE | 2024-08-13 17:59 | PDOC.CMDIS ---
Date of service: 08/13/24 Time of Service: 11:00 LACE Index Scoring Tool Questions: Length of Stay (in days): 4 - 6 Was the patient admitted via the E.D.?: Yes E.D. Visits: 1 Answers: Total Score: 8 Risk of Readmission: Low Risk Care Management Discharge Plan Reason for Hospitalization: c.diff with associated dehydration Discharge Plan: Telma was discharged home with new orders for metroprolol and for 7 days of antibiotics. She was driven home by her daughter, with whom she lives. Telma will f/u with her community providers and continue per her plan of care. Patient/Family Education Needs: Review of discharge instructions, activity, limitations, f/u plan and discuss Ask me 3. SDOH Health Related Social Needs: No Data to Display
== END 2024-08-13 11:11 | disposition home or self-care (01) | DRG 871 ==
LOC: ER 18:47 → MS 20:30
PROVIDERS: Hospitalist; Admitting Provider Family Medicine; Emergency Provider Student in an Organized Health Care Education/Training Program; Visit Provider Family Medicine
DX: R65.21 Severe sepsis with septic shock (principal); A04.72 Enterocolitis due to Clostridium difficile, not specified as recurrent; K62.5 Hemorrhage of anus and rectum; A41.89 Other specified sepsis; I25.10 Atherosclerotic heart disease of native coronary artery without angina pectoris; I10 Essential (primary) hypertension; E78.00 Pure hypercholesterolemia, unspecified; E11.9 Type 2 diabetes mellitus without complications; F17.210 Nicotine dependence, cigarettes, uncomplicated; Z66 Do not resuscitate; Z79.899 Other long term (current) drug therapy; I70.0 Atherosclerosis of aorta; E86.0 Dehydration; I71.43 Infrarenal abdominal aortic aneurysm, without rupture; I77.1 Stricture of artery
CPT/HCPCS: 00123; 36415; 80053; 83690; 85027; 87040; 87077; 87493; 87505; 87637; 93005; 96361; 96365; 96366; 96367; 96375; 97110; 97112; 97116; 97162; 97530; 99222; 99232; 99285; 74177; 81003; 81015; 83605; 83735; 85025; 85610; 87177; 93010; 99231; 99239; J0744; J1644; J1836; J2270; J2405; J3490

== ENCOUNTER 2024-08-31 10:56 | Outpatient (REF) | payer MEDICARE, OTHER, SELFPAY ==
--- OUTSIDE RECORDS SUMMARY | 2024-08-31 11:01 | XMS_ITS | Encounter Summary ---
Author Organization [facility] Address [address] [place] [address] Care Team Providers Care Vp Outcomes Name Role Phone Madhu Leon MD Primary Care Provider Encounter Details Date Type Department Care Team (Late st Contact Info) Description 09/28/2019 Results Only Imaging [facility] Radiology Results [address] [place] [address] Madhu Leon MD [facility] [address] [place] [address] Social History Tobacco Use Types [...] CC: ? Transcribed Date/Time: 09/28/2019 (0850) ? Farm Management Supervisor: ? Printed Date/Time: 09/28/2019 (1035) ? PAGE [...] Kelly MD CC: Transcribed Date/Time: 09/28/2019 (0850) Farm Management Supervisor: Printed Date/Time: 09/28/2019 (2997) PAGE 1 Signed Report us Madhu Leon MD IMG MAMMOGRAPHY ORDERA BLES Final Result documented in this encounter Visit Diagnoses Not on filedocumented in this encounter Care Teams Vp Outcomes Relationship Specialty Start Date End Date Madhu Leon MD [address] [place] [address] [address] [place] [address] PCP - General Internal Medicine - Primary Care 09/24/19 documented as of this encounter
--- OUTSIDE RECORDS SUMMARY | 2024-08-31 11:01 | XMS_ITS | Encounter Summary ---
Author Organization [facility] Address [address] [place] [address] Care Team Providers Care Vp Corporate Development Name Role Phone Unknown, Provider Primary Care Provider Unava ilable Encounter Details Date Type Department Care Team (Late st Contact Info) Description 03/23/2017 Historical Results Only [facility] Lab - Main [place] [address] [place] [address] Madhu Leon MD [facility] [address] [place] [address] Social History Tobacco Use Types [...] Routine 03/23/2017 8 :32 EDT URINALYSIS/COMPLETE - [facility] Routine 03/23/2017 8:32 EDT COMPLETE BLOOD COUNT WITH DIFFERENTIAL (AUTO) Routine 03/23/2017 8:32 EDT URINE CULTURE IF POSITIVE Routine 03/23/2017 8:32 EDT URINE [id number] RATIO (ACR) Routine 03/23/2017 8:32 EDT HEMOGLOBIN [...] 0.0 - 2.0 mg/dL 03/23/2017 11:03 EDT [facility] Lab Urine Albumin to Creatinine Ratio 19.3 ug/mg 03/23/2017 11:03 EDT [facility] Comment: Normal: <30 ug/mg Creat Microalbuminuria: 30-300 ug/mg Creat Clinical albuminuria: >300 ug/mg Creat Creatinine, Urine 96.50 mg/dL 03/23/2017 11:03 EDT [facility] 03/23/2017 8:32 EDT 03/23/2017 8:32 EDT Narrative [facility] - 03/23/2017 11:03 EDT Does PT Have a Latex Allergy? NO WHAT TYPE OF COLLECTION IS THIS URINE? RANDOM URINE us Madhu Leon MD HEMATOLOGY & PF4 ORDER CLAUDIA Final Result [facility] * URINE CULTURE IF POSITIVE (03/23/2017 8:32 EDT) ESCHERIACHIA COLI - [facility] ESCHERICHIA COLI 03/25/2017 6:33 EDT [facility] CitrateConcentration >100,000 CFU/ML 09/2016 6:33 EDT [facility] 03/23/2017 8:32 EDT 03/23/2017 8:32 EDT Comment:VOID Narrative [facility] - 03/25/2017 6:33 EDT Does [...] - GENERAL ORDERABLES Edited Result - Final [facility] * (ABNORMAL) HEMOGLOBIN A1C (03/23/2017 8:32 EDT) Hemoglobin A1c 6.7(H) 4.0 - 6.0 % 03/23/2017 13:12 EDT [facility] Est Avg Glucose 146 mg/dL 7 13:12 EDT [facility] 03/23/2017 8:32 EDT 03/23/2017 8:32 EDT Narrative [facility] - 03/23/2017 13:12 EDT Does PT Have a Latex Allergy? NO us Madhu Leon MD CHEMISTRY & BLOOD GAS ORDERABLES Final Result [facility] * (ABNORMAL) COMPLETE BLOOD COUNT WITH DIFFERENTIAL (AUTO) (03/23/2017 8:32 EDT) ABSOLUTE NEUTROPHIL COUN - [facility] 2.67 1.7 - 7.0 10e3/ul 03/23/2017 10:09 EDT [facility] BASO # - [facility] 0.02 0.0 - 0.3 10e3/uL 03/23/2017 10:09 [facility] BASO % - [facility] 0 0 - 2 % 03/23/2017 10:09 [facility] EOS # - [facility] 0.21 0.05 - 0.5 10e3/uL 03/23[facility]2017 [facility] % [facility] 4 0 - 5 % 03/23/2017 10:09 [facility] GRAN % - [facility] 46 40 - 80 % 03/23/2017 10:09 [facility] HEMATOCRIT - [facility] 40.3 34.0 - 47.0 % 03/23/2017 10:09 [facility] HEMOGLOBIN - [facility] 13.4 11.2 - 15.7 g/dl 03/23/2017 10:09 [facility] IG# - [facility] 0.01 0 - 0.07 10e3/uL 03/23/2017 [facility]% - [facility] 0.2 0 - 0.9 % 03/23/2017 10:09 [facility] LYMPH # - [facility] 2.44 0.9 - 2.9 10e3/uL 03/23/2017 10:09 [facility] LYMPH% - [facility] 42(H) 20 - 40 % 03/23/2017 10:09 [facility] MEAN CORPUSCULAR HGB - [facility] 30.5 26 - 34 pg 03/23/2017 10:09 EDT [facility] MEAN CORPUSCULAR HGB CONC - [facility] 33.3 31 - 36 g/dL 03/23/2017 10:09 EDT [facility] MEAN CELL VOLUME - [facility] 91.8 77 - 100 fl 03/23/2017 10:09 [facility] MONO # - [facility] 0.47 0.3 - 0.9 10e3/uL 03/23/2017 10:09 EDT [facility] MONO% - [facility] 8 0 - 12 % 03/23/2017 10:09 [facility] PLATELET COUNT 175 150 - 400 10e3/ul 03/23/2017 10:09 [facility] RED BLOOD COUNT - [facility] 4.39 3.8 - 5.2 10e6/ul 03/23/2017 10:09 [facility] RED CELL DISTRI WIDTH - [facility] 13.8 11.8 - 15.6 % 03/23/2017 10:09 [facility] WHITE BLOOD COUNT - [facility] 5.8 3.5 - 10.5 10e3/ul 03/23/2017 10:09 [facility] 03/23/2017 8:32 EDT 03/23/2017 8:32 EDT Narrative [facility] - 03/23/2017 10:09 EDT Does PT Have a Latex Allergy? NO us Madhu Leon MD HEMATOLOGY & PF4 ORDER CLAUDIA Final Result [facility] * URINALYSIS/COMPLETE - [facility] (03/23/2017 8:32 EDT) URINE APPEARANCE - [facility] Clear CLEAR 03/23/2017 10:49 EDT [facility] URINE BACTERIA - [facility] MANY 03/23/2017 11:03 EDT [facility] URINE BILIRUBIN - DIPSTICK - [facility] Negative NEGATIVE 03/23/2017 10:49 [facility] URINE BLOOD - [facility] Trace NEG 03/23/2017 10:49 [facility] URINE COLOR - [facility] Yellow YELLOW 03/23/2017 10:49 [facility] URINE GLUCOSE - DIPSTICK - [facility] Negative NEGATIVE 03/23/2017 10:49 [facility] URINE KETONE - [facility] Negative NEGATIVE 03/23/2017 10:49 [facility] URINE LEUK ESTERASE - [facility] 1+ NEG 03/23/2017 10:49 [facility] URINE NITRITE - DIPSTICK - [facility] Positive NEG 03/23/2017 10:49 [facility] URINE PH - [facility] 5.5 4.0 - 8.0 7 10:49 [facility] URINE PROTEIN - DIPSTICK - [facility] Negative NEG 03/23/2017 10:49 [facility] URINE RBC - [facility] 1-3 rbc/hpf 03/23/20 17 11:03 [facility] URCULTIF+? - [facility] Culture Ordered 03/23/2017 11:03 [facility] URINE SPECIFIC GRAVITY - [facility] 1.010 1.001 - 1.035 03/23/2017 10:49 [facility] URINE SQUAMOUS CELLS - [facility] FEW NEG #/hpf 03/23/2017 11:03 [facility] URINE UROBILINOGEN - DIPSTICK - [facility] 0.2 0.2 - 1.0 03/23/2017 10:49 [facility] URINE WBC - [facility] 15-20 NEG wbc/hpf 017 11:03 [facility] 03/23/2017 8:32 EDT 03/23/2017 8:32 [facility] LAB - 03/23/2017 11:03 EDT Does PT Have a Latex Allergy? NO us Madhu Leon MD CHEMISTRY & BLOOD GAS ORDERABLES Final Result [facility] * ALBUMIN, URINE (03/23/2017 8:32 EDT) Pathologist [facility] [place] Albumin, Urine 1.87 0.0 - 2.0 mg/dL 03/23/2017 11:03 EDT [facility] Urine Albumin to Creatinine Ratio 19.3 ug/mg 03/23/2017 11:03 EDT [facility] Comment: Normal: <30 ug/mg Creat Microalbuminuria: 30-300 ug/mg Creat Clinical albuminuria: >300 ug/mg Creat Creatinine, Urine 96.50 mg/dL 03/23/2017 11:03 EDT [facility] 03/23/2017 8:32 EDT 03/23/2017 8:[address] [facility] - 03/23/2017 11:03 EDT Does PT Have a Latex Allergy? NO WHAT TYPE OF COLLECTION IS THIS URINE? RANDOM URINE Madhu Leon MD CHEMISTRY & BLOOD GAS ORDERABLES Final Result [facility] * URIC ACID (03/23/2017 8:31 EDT) Pathologist [facility] [place] URIC ACID - [facility] 6.2 2.6 - 7.2 mg/dl 03/23/2017 10:39 EDT [facility] 03/23/2017 8:31 EDT 03/23/2017 8:[address] [facility] - 03/23/2017 12:13 EDT Does PT Have a Latex Allergy? NO Madhu Leon MD CHEMISTRY & BLOOD GAS ORDERABLES Final Result [facility] * TSH (03/23/2017 8:31 EDT) [facility] THYROID STIM HORMONE [facility] 1.26 0.35 - 5.50 uIU/mL 03/23/2017 12:12 EDT [facility] 03/23/2017 8:31 EDT 03/23/2017 8:31 EDT Narrative [facility] - 03/23/2017 12:13 EDT Does PT Have a Latex Allergy? NO Madhu Leon MD CHEMISTRY & BLOOD GAS ORDERABLES Final Result Performing Organization Address City/[facility]/ZIP Co de Phone Number [facility] * HEPATIC FUNCTION PANEL (ALB,ALK PHOS,ALT,AST,DBIL,TOT GOPAL,TOT PROT) (03/23/2017 8:31 EDT) Pathologist [facility] [place] BILIRUBIN DIRECT - [facility] 0.1 0.0 - 0.2 mg/dL 03/23/2017 10:39 [facility] 03/23/2017 8:31 EDT 03/23/2017 8:31 EDT Narrative [facility] - 03/23/2017 12:13 EDT Does PT Have a Latex Allergy? NO Madhu Leon MD CHEMISTRY & BLOOD GAS ORDERABLES Final Result Performing Organization Address [facility]/ZIP Co de Phone Number [facility] * (ABNORMAL) LIPID PROFILE (INCLUDES CHOLESTEROL, TRIGLYCERIDES, HDL, LDL) (03/23/2017 8:31 EDT) [facility] Triglyceride 225(H) 35 - 150 mg/dL 03/23/2017 10:39 [facility] Cholesterol 129 120 - 200 mg/dL 03/23/2017 10:39 [facility] Chol/HDL Ratio 3.5 0 - 4.5 03/23/2017 10:39 [facility] Comment: DESIRABLE RATIO IS LESS THAN 4.1 PATIENTS ARE CONSIDERED AT RISK: WOMEN RATIO >5 MEN RATIO >6 FASTING? - [facility] Yes 8:32 [facility] HDL 36(L) 40 - 60 mg/dL 03/23/2017 10:39 [facility] LDL CHOLESTEROL - [facility] 48(L) 60 - 100 mg/dL 03/23/2017 10:39 [facility] Non HDL Cholesterol 93 mg/dl 03/23/2017 10:39 EDT [facility] Comment: Desirable: ?Less than 130 Borderline High: ??130-159 High: ? 160-189 Very High: ?Greater than or equal to 190 03/23/2017 8:31 EDT 03/23/2017 8:31 EDT Narrative [facility] - 03/23/2017 12:13 EDT Does PT Have a Latex Allergy? NO us Madhu Leon MD CHEMISTRY & BLOOD GAS ORDERABLES Final Result Performing Organization Address City/[facility]/ZIP Co de Phone Number [facility] * (ABNORMAL) T4 FREE (03/23/2017 8:31 EDT) FREE T4 - [facility] 0.87(L) 0.89 - 1.76 ng/dL 03/23/2017 12:13 EDT [facility] 03/23/2017 8:31 EDT 03/23/2017 8:31 EDT Narrative [facility] - 03/23/2017 12:13 EDT Does PT Have a Latex Allergy? NO us Madhu Leon MD CHEMISTRY & BLOOD GAS ORDERABLES Final Result [facility] * (ABNORMAL) COMPREHENSIVE METABOLIC PANEL (CMP) (03/23/2017 8:31 EDT) Albumin % 3.5 3.4 - 5.0 g/dL 03/23/2017 10:39 EDT [facility] ALKALINE PHOSPHATASE - [facility] 51 41 - 126 U/L 03/23/2017 10:39 EDT [facility] BILIRUBIN TOTAL 0.5 0.0 - 1.0 mg/dL 03/23/2017 10:39 EDT [facility] BUN - [facility] 17 7 - 18 mg/dL 03/23/2017 10:39 EDT [facility] CALCIUM - [facility] 8.2(L) 8.5 - 10.1 mg/dL 03/23/2017 10:39 [facility] Chloride 104 98 - 107 mEq/L 03/23/2017 10:39 [facility] CO2 Total 28 21 - 32 mEq/L 03/23/2017 10:39 [facility] CREATININE 0.89 0.5 - 1.3 mg/dL 03/23/2017 10:39 [facility] eGFR >60 03/23/2017 10:39 [facility] Comment: Chronic renal impairment is defined as GFR <60 Multiply result by 1.210 for patients. eGFR calculated using the IDNJ-traceable MDRD Study Equation. ??(effective 06/26/2014) Anion Gap 8 5 - 15 03/23/2017 10:39 [facility] GLUCOSE - [facility] 114(H) 70 - 100 mg/dL 03/23/2017 10:39 [facility] Potassium 3.7 3.5 - 5.0 mEq/L 03/23/2017 10:39 [facility] Sodium 140 135 - 145 mEq/L 03/23/2017 10:39 [facility] TOTAL PROTEIN - [facility] 6.8 6.4 - 8.2 gm/dl 03/23/2017 10:39 [facility] SGOT/AST - [facility] 34 10 - 37 U/L 03/23/2017 10:39 [facility] SGPT/ALT - [facility] 44 12 - 78 U/L 03/23/2017 10:39 [facility] 03/23/2017 8:31 EDT 03/23/2017 8:31 [facility] Narrative [facility] - 03/23/2017 12:13 EDT Does PT Have a Latex Allergy? NO us Madhu Leon MD CHEMISTRY & BLOOD GAS ORDERABLES Final Result [facility] documented in this encounter Visit Diagnoses Not on filedocumented in this encounter Care Teams Vp Corporate Development Relationship Specialty Start Date End Date Unknown, Provider, PCP - General 09/05/13 09/23/19 documented as of this encounter
--- OUTSIDE RECORDS SUMMARY | 2024-08-31 11:01 | XMS_ITS | Clinical Summary ---
Author Organization [facility] Address [address] [place] [address] Care Team Providers Care Licensing Analyst Name Role Phone Madhu Leon MD Primary [...] mg tablet 4 mg daily. 03/23/2020 Active Encounters Date Type Department Care Team Description 08/10/2024 Lab Requisition [facility] Pathology & Laboratory Medicine - [facility] [address] [place] [address] Outr Resulting Lab, Provider from Last 3 Months Social History Tobacco Use Types Packs/Day Years [...] 0945 EDT Temperature 36.4 ??C (97.5 ??F) 06/11/2020 0945 EDT Respiratory Rate - - Oxygen Saturation 98% 06/11/202045 EDT Inhaled Oxygen Concentration - - Weight 54.4 kg (120 lb) 06/11/2020 0945 EDT Height 147.3 cm (4' 10) 06/11/2020 0945 EDT Body Mass Index 25.08 06/11/2020 0945 EDT Plan of Treatment Health Maintenance Due Date Last Done Comments Fall Risk Screening 01/18/2009 RSV Immunization ( o r 60+ Years) (1 - 1-dose 75+ series) 01/18/2019 COVID-19 Vaccine ( season) 2024 Procedures Procedure Name Priority Date/Time Associated Diagnosis Comments FECAL BACTERIAL PATHOGENS BY PCR Routine 08/09/2024 16:28 EST from Last 3 Months Results * FECAL BACTERIAL PATHOGENS BY PCR (08/09/2024 16:28 EST) Salmonella PCR Negative Negative 08/10/2024 22:52 EST [facility] Shigella/Enteroin vasive E. coli Negative Negative 08/10/2024 22:52 EST [facility] HN LAB CAMPYLOBACTER PCR Negative Negative 08/10/2024 22:52 EST [facility] Shiga Toxin PCR Negative Negative 22:52 EST [facility] Feces SPECIMEN FROM RECTUM / Unknown 08/09/2024 16:28 EST 08/10/2024 18:31 EST us Provider Outr Resulting Lab MICROBIOLOGY - GENER AL ORDERABLES Final Result [facility] [address] [place] [address] from Last 3 Months Insurance MEDICARE MEDICARE Care Teams Licensing Analyst Relationship Specialty Start Date End Date Madhu Leon MD [address] [place] [address] [address] [place] [phone] PCP - General Internal Medicine - Primary Care 09/24/19
--- OUTSIDE RECORDS SUMMARY | 2024-08-31 11:01 | XMS_ITS | Encounter Summary ---
Author Organization [facility] Address [address] [place] [address] Care Team Providers Care Lawyer Real Estate Name Role Phone Unknown, Provider Primary Care Provider Unava ilable Encounter Details Date Type Department Care Team (Late st Contact Info) Description 09/18/2017 Historical Results Only [facility] Radiology Results [address] [place], [place] [id number] Madhu Leon MD [address] [place] [address] Social History Tobacco Use Types [...] CC: ? Transcribed Date/Time: 09/18/2017 (1157) ? Oliving Machine Operator: ? Printed Date/Time: 02/09/2019 (1639) ? PAGE [...] Mark Wolf MD CC: Transcribed Date/Time: 09/18/2017 (4955) Oliving Machine Operator: Printed Date/Time: 02/09/2019 (1633) PAGE 1 Signed Report us Madhu Leon MD IMG MAMMOGRAPHY ORDERA BLES Final Result documented in this encounter Visit Diagnoses Not on filedocumented in this encounter Care Teams Lawyer Real Estate Relationship Specialty Start Date End Date Unknown, Provider, PCP - General 09/05/13 09/23/19 documented as of this encounter
--- OUTSIDE RECORDS SUMMARY | 2024-08-31 11:01 | XMS_ITS | Encounter Summary ---
Author Organization [facility] Address [address] [place] [address] Care Team Providers Care Tricot Knitting Machine Operator Name Role Phone Unknown, Provider Primary Care Provider Unava ilable Encounter Details Date Type Department Care Team (Late st Contact Info) Description 09/21/2018 Historical Results Only [facility] Radiology Results [address] [place], [place] [address] Madhu Leon MD [facility] [address] [place] [address] Social History Tobacco Use Types [...] CC: ? Transcribed Date/Time: 09/21/2018 (1026) ? Hand Mounter: ? Printed Date/Time: 02/13/2019 (1741) ? PAGE [...] Phelps MD CC: Transcribed Date/Time: 09/21/2018 (1026) Hand Mounter: Printed Date/Time: 02/13/2019 (6656) PAGE 1 Signed Report Madhu Leon MD IMG MAMMOGRAPHY ORDERA BLES Final Result documented in this encounter Visit Diagnoses Not on filedocumented in this encounter Care Teams Tricot Knitting Machine Operator Relationship Specialty Start Date End Date Unknown, Provider, PCP - General 09/05/13 09/23/19 documented as of this encounter
--- OUTSIDE RECORDS SUMMARY | 2024-08-31 11:01 | XMS_ITS | Encounter Summary ---
Author Organization [facility] Address [address] [place] [address] Care Team Providers Care Meat Apprentice Name Role Phone Unknown, Provider Primary Care Provider Genevieve mars Encounter Details Date Type Department Care Team (Late st Contact Info) Description 06/07/2019 Results Only [facility] Lab - Main [place] [address] [place] [address] Madhu Leon MD [facility] [address] [place] [address] Social History Tobacco Use Types [...] 3.4 - 4.9 g/dL 06/07/2019 13:17 EDT [facility] ALKALINE PHOSPHATASE - [facility] 53 38 - 126 U/L 06/07/2019 13:17 EDT [facility] BILIRUBIN TOTAL 0.6 0.2 - 1.3 mg/dL 06/07/2019 13:17 EDT [facility] BUN - [facility] 17 10 - 26 mg/dL 06/07/2019 13:17 [facility] CALCIUM - [facility] 8.4(L) 8.5 - 10.5 mg/dL 06/07/2019 13:17 [facility] Chloride 102 96 - 110 mmol/L 06/07/2019 13:17 [facility] CO2 Total 26 22 - 32 mEq/L 06/07/2019 13:17 [facility] CREATININE 0.80 0.52 - 1.04 mg/dL 06/07/2019 13:17 [facility] eGFR >60 06/07/2019 13:17 [facility] Comment: Chronic renal impairment is defined as GFR <60 Multiply result by 1.210 for patients. eGFR calculated using the IDMS-traceable MDRD Study Equation. ??(effective 06/26/2014) Anion Gap 12 0 - 18 06/07/2019 13:17 [facility] GLUCOSE - [facility] 91 70 - 100 mg/dL 06/07/2019 13:17 [facility] Potassium 3.8 3.5 - 5.0 mEq/L 06/07/2019 13:17 [facility] Sodium 140 136 - 145 mEq/L 06/07/2019 13:17 [facility] TOTAL PROTEIN - [facility] 6.7 6.2 - 8.2 gm/dL 06/07/2019 13:17 [facility] SGOT/AST - [facility] 22 14 - 36 U/L 06/07/2019 13:17 [facility] SGPT/ALT - [facility] 21 9 - 52 U/L 9 13:17 [facility] 06/07/2019 11:4 2 EDT 06/07/2019 11:42 [facility] - 06/07/2019 13:17 EDT Does PT Have a Latex Allergy? NO us Madhu Leon MD CHEMISTRY & BLOOD GAS ORDERABLES Final Result [facility] documented in this encounter Visit Diagnoses Not on filedocumented in this encounter Care Teams Meat Apprentice Relationship Specialty Start Date End Date Unknown, Provider, PCP - General 09/05/13 09/23/19 documented as of this encounter
--- OUTSIDE RECORDS SUMMARY | 2024-08-31 11:01 | XMS_ITS | Referral Summary ---
Author Organization [facility] Address [address] [place] [address] Care Team Providers Care Supervisor Joiners Name Role Phone Madhu Leon MD Primary Care Provider Encounters Date Type Department Care Team Description 08/10/2024 Lab Requisition [facility] Pathology & Laboratory Medicine - [facility] [address] [place] [address] Outr Resulting Lab, Provider from Last 3 Months Allergies Active Allergy Reactions Criticality Noted Date [...] EDT Plan of Treatment Not on file Procedures Procedure Name Priority Date/Time Associated Diagnosis Comments FECAL BACTERIAL PATHOGENS BY PCR Routine 08/09/2024 16:28 EST from Last 3 Months Results * FECAL BACTERIAL PATHOGENS BY PCR (08/09/2024 16:28 EST) Salmonella PCR Negative Negative 08/10/2024 22:52 EST [facility] Shigella/Enteroin vasive E. coli Negative Negative 08/10/2024 22:52 EST [facility] HN LAB CAMPYLOBACTER PCR Negative Negative 08/10/2024 22:52 EST [facility] Shiga Toxin PCR Negative Negative 22:52 EST [facility] Feces SPECIMEN FROM RECTUM / Unknown 08/09/2024 16:28 EST 08/10/2024 18:31 EST us Provider Outr Resulting Lab MICROBIOLOGY - GENER AL ORDERABLES Final Result [facility] [address] [place] [address] from Last 3 Months Insurance [place] [address] [place] [address] MEDICARE Member Subscriber Plan / Payer ( fective 2008-Present) Name:Telma Chinchilla Member ID:[id number] Relation to Subscriber:Self Name:Telma Chinchilla Subscriber ID:[id number] Payer ID:[id number] Group ID:Not on file Type:Medicare GL Address: [address] [place] [address] [place] [address] Care Teams Supervisor Joiners Relationship Specialty Start Date End Date Madhu Leon MD [address] [place] [address] [address] [place] [phone] PCP - General Internal Medicine - Primary Care 09/24/19
--- OUTSIDE RECORDS SUMMARY | 2024-08-31 11:01 | XMS_ITS | Encounter Summary ---
Author Organization [facility] Address [address] [place] [address] Care Team Providers Care Marbleizing Machine Tender Name Role Phone Unknown, Provider Primary Care Provider Unava ilable Encounter Details Date Type Department Care Team (Late st Contact Info) Description 09/20/2018 Historical Results Only [facility] Radiology Results [address] [place] [address] Madhu Leon MD [address] [place] [address] Social History Tobacco Use Types [...] on filedocumented in this encounter Care Teams Marbleizing Machine Tender Relationship Specialty Start Date End Date Unknown, ProviderMD PCP - General 09/05/13 09/23/19 documented as of this encounter
--- OUTSIDE RECORDS SUMMARY | 2024-08-31 11:01 | XMS_ITS | Encounter Summary ---
Author Organization [facility] Address [address] [place] [address] Care Team Providers Care Side Laster Name Role Phone Unknown, Provider Primary Care Provider Unava ilable Encounter Details Date Type Department Care Team (Late st Contact Info) Description 09/17/[address] [facility] Radiology Results [address] [place] [address] Madhu Leon MD [address] [place] [address] Social [...] on filedocumented in this encounter Care Teams Side Laster Relationship Specialty Start Date End Date Unknown, ProviderMD PCP - General 09/05/13 09/23/19 documented as of this encounter
--- OUTSIDE RECORDS SUMMARY | 2024-08-31 11:01 | XMS_ITS | Encounter Summary ---
Author Organization [facility] Address [address] [place] [address] Care Team Providers Care Synthetic Filament Spinner Name Role Phone Unknown, Provider Primary Care Provider Genevieve mars Encounter Details Date Type Department Care Team (Late st Contact Info) Description 06/07/2019 Results Only [facility] - Main [place] [address] [place], [place] [id number] Madhu Leon MD [address] [place] [address] [address] [place] [address] Social History Tobacco Use Types [...] GOPAL,TOT PROT) (06/07/2019 11:42 EDT) BILIRUBIN DIRECT [facility] 0.2 0.0 - 0.4 mg/dL 06/07/2019 13:17 EDT [facility] Unconjugated Bilirubin 0.4 0.0 - 1.1 mg/dL 06/07/2019 13:17 EDT [facility] 06/07/2019 11:4 2 EDT 06/07/2019 11:42 EDT Narrative [facility] - 06/07/2019 13:17 EDT Does PT Have a Latex Allergy? NO us Madhu Leon MD CHEMISTRY & BLOOD GAS ORDERABLES Final Result [facility] documented in this encounter Visit Diagnoses Not on filedocumented in this encounter Care Teams Synthetic Filament Spinner Relationship Specialty Start Date End Date Unknown, Provider, PCP - General 09/05/13 09/23/19 documented as of this encounter
--- OUTSIDE RECORDS SUMMARY | 2024-08-31 11:01 | XMS_ITS | Encounter Summary ---
Author Organization [facility] Address [address] [place] [address] Care Team Providers Care Medical Device Sales Consultant Name Role Phone Madhu Leon MD Primary Care Provider Encounter Details Date Type Department Care Team (Late st Contact Info) Description 05/07/2020 Results Only [facility] - Main [place] [address] [place], [place] [id number] Madhu Leon MD [facility] [address] [place] [address] Social History Tobacco Use Types [...] Routine 05/07/2020 6 :56 EDT URINALYSIS/COMPLETE - [facility] Routine 05/07/2020 6:56 EDT COMPLETE BLOOD COUNT [...] - [facility] ESCHERICHIA COLI 05/09/2020 7:44 EDT [facility] COLONY COUNT >100,000 CFU/ML 05/09/2020 7:44 EDT [facility] Urine specimen (specimen) 05/07/2020 6:56 EDT 05/07/2020 6:56 EDT Comment:VOID Narrative [facility] - 05/09/2020 7:44 EDT Does [...] Edited Result - Final Performing Organization Address City/[facility] Co de Phone Number [facility] [address] [place] [address] * HEMOGLOBIN A1C (05/07/2020 6:56 EDT) Hemoglobin A1c 5.6 4.0 - 6.0 % 05/07/2020 12:57 EDT [facility] Comment: > [...] Avg Glucose 114 mg/dL 0 12:57 EDT [facility] 05/07/2020 6:56 EDT 05/07/2020 6:56 EDT Narrative [facility] - 05/07/2020 12:57 EDT Does PT Have a Latex Allergy? NO Madhu Leon MD CHEMISTRY & BLOOD GAS ORDERABLES Final Result Performing Organization Address [facility] Co de Phone Number [facility] [address] [place] [address] * TSH (05/07/2020 6:56 EDT) THYROID STIM HORMONE - CV 1.83 0.46 - 4.68 uIU/ml 05/07/2020 8:38 EDT [facility] Comment: The results of this assay can be falsely lowered due to the consumption of Biotin. 05/07/2020 6:56 EDT 05/07/2020 6:56 EDT [facility] - 05/07/2020 8:38 EDT Does PT Have a Latex Allergy? NO Madhu Leon MD CHEMISTRY & BLOOD GAS ORDERABLES Final Result Performing Organization Address City/[facility] Co de Phone Number [facility] [address] [place] [address] * T4 FREE (05/07/2020 6:56 EDT) FREE [address] 1.00 0.78 - 2.19 ng/dl 05/07/2020 8:38 EDT [facility] 05/07/2020 6:56 EDT 05/07/2020 6:56 EDT [facility] - 05/07/2020 8:38 EDT Does PT Have a Latex Allergy? NO Madhu Leon MD CHEMISTRY & BLOOD GAS ORDERABLES Final Result Performing Organization Address [facility] de Phone Number [facility] [address] [place] [address] * MICROALBUMIN, URINE (05/07/2020 6:56 EDT) [facility] Albumin, Urine 1.00 <1.7 mg/dL 05/07/2020 8:25 EDT [facility] Lab Urine Albumin to Creatinine Ratio 12.8 ug/mg 05/07/2020 8:25 EDT [facility] Comment: Normal: <30 ug/mg Creat Microalbuminuria: 30-300 ug/mg Creat Clinical albuminuria: >300 ug/mg Creat Creatinine, Urine 77.60 mg/dL 05/07/2020 8:25 EDT [facility] 05/07/2020 6:56 EDT 05/07/2020 6:56 EDT [facility] - 05/07/2020 8:25 EDT Does PT Have a Latex Allergy? NO WHAT TYPE OF COLLECTION IS THIS URINE? RANDOM URINE us Madhu Leon MD HEMATOLOGY & PF4 ORDER CLAUDIA Final Result [facility] [address] [place] [address] * COMPLETE BLOOD COUNT WITH DIFFERENTIAL (AUTO) (05/07/2020 6:56 EDT) Gran # 4.4 2.2 - 8.85 10e3/uL [facility]2020 [facility] # [facility] 0.04 0.01 - 0.11 10e/uL 05/07/2020 8:09 [facility] BASO % - [facility] 1 0 - 2 % 05/07/2020 8:09 [facility] EOS # - [facility] 0.30 0.03 - 0.61 10e3/ul 05/07/2020 8:09 [facility] EOS % - [facility] 4 0 - 5 % 05/07/2020 8:09 [facility] GRAN % - [facility] 56.4 40 - 80 % 05/07/2020 8:09 [facility] HEMATOCRIT - [facility] 41.2 34.9 - 44.4 % 05/07/2020 8:09 [facility] HEMOGLOBIN - [facility] 13.5 11.6 - 15.2 g/dl 05/07/2020 8:09 [facility] IG# - [facility] 0.02 0 - 0.7 10e3/uL 05/07/2020 8:09 [facility] IG% - [facility] 0.3 0 - 0.9 % 05/07/2020 8:09 [facility] LYMPH # - [facility] 2.6 1.09 - 3.3 10e3/ul 05/07/2020 8:09 [facility] LYMPH% - [facility] 32.7 20 - 40 % 05/07/2020 8:09 [facility] MEAN CORPUSCULAR HGB - [facility] 30.8 26.7 - 33.3 pg 05/07/2020 8:09 EDT [facility] MEAN CORPUSCULAR HGB CONC - [facility] 32.8 32.1 - 35.9 g/dL 05/07/2020 8:09 EDT [facility] MEAN CELL VOLUME - [facility] 93.8 81 - 98 fl 05/07/2020 8:09 EDT [facility] MONO # - [facility] 0.5 0.1 - 0.8 10e3/uL 05/07/2020 8:09 EDT [facility] MONO% - [facility] 6.3 0 - 12 % 05/07/2020 8[facility] PLATELET COUNT 182 141 - 377 10e3/ul 05/07/2020 8[facility] RED BLOOD COUNT - [facility] 4.39 3.86 - 5.04 10e3/ul 05/07/2020 8:09 [facility] RED CELL DISTRI WIDTH - [facility] 12.8 <14.7 % 05/07/2020 8[facility] WHITE BLOOD COUNT - [facility] 7.8 4.0 - 12.4 10e3/ul 05/07/2020 8:09 EDT [facility] 05/07/2020 6:56 EDT 05/07/2020 6:56 EDT [facility] - 05/07/2020 8:09 EDT Does PT Have a Latex Allergy? NO us Madhu Leon MD HEMATOLOGY & PF4 ORDER CLAUDIA Final Result [facility] [address] [place] [address] * URIC ACID (05/07/2020 6:56 EDT) URIC ACID - [facility] 4.7 2.2 - 7.7 mg/dL 05/07/2020 8[facility] 05/07/2020 6:56 EDT 05/07/2020 6:56 EDT [facility] - 05/07/2020 8:08 EDT Does PT Have a Latex Allergy? NO Madhu Leon MD CHEMISTRY & BLOOD GAS ORDERABLES Final Result Performing Organization Address [facility] Number [facility] [address] [place] [address] * HEPATIC FUNCTION PANEL (ALB,ALK PHOS,ALT,AST,DBIL,TOT GOPAL,TOT PROT) (05/07/2020 6:56 EDT) Pathologist [facility] BILIRUBIN DIRECT [facility] - [facility] 0.2 0.0 - 0.4 mg/dL 05/07/2020 8:08 EDT [facility] Unconjugated Bilirubin 0.5 0.0 - 1.1 mg/dL 05/07/2020 8:08 [facility] 05/07/2020 6:56 EDT 05/07/2020 6:56 EDT [facility] - 05/07/2020 8:08 EDT Does PT Have a Latex Allergy? NO Madhu Leon MD CHEMISTRY & BLOOD GAS ORDERABLES Final Result Performing Organization Address [facility] [address] [place] [address] * (ABNORMAL) LIPID PROFILE (INCLUDES CHOLESTEROL, TRIGLYCERIDES, HDL, LDL) (05/07/2020 6:56 EDT) Triglyceride 152 <150 mg/dL 05/07/2020 8:08 EDT [facility] Comment: Adult: Normal: ?<150 mg/dl ? Borderline High: 150-199 mg/dl ? High: ?200-499 mg/dl ? Very High: >ck=390 Cholesterol 127 <200 mg/dL 05/07/2020 8:08 EDT [facility] Comment: Acceptable: ??<200 Borderline: ??200-239 High: ?> or = 240 Chol/HDL Ratio 3.8 0 - 4.5 05/07/2020 8:08 [facility] Comment: DESIRABLE RATIO IS LESS THAN 4.1 PATIENTS ARE CONSIDERED AT RISK: WOMEN RATIO >5 MEN RATIO >6 FASTING? - [facility] Yes 0 6:57 [facility] HDL 33(L) 40 - 60 mg/dL 05/07/2020 8:08 [facility] Comment: ?? Reference Range Low: ? < 40 ??mg/dL Normal: ??40-60 mg/dL High: ?>= 60 mg/dL LDL CHOLESTEROL - [facility] 64 60 - 100 mg/dL 05/07/2020 8:08 [facility] Non HDL Cholesterol 94 mg/dl 05/07/2020 8:08 [facility] Comment: Desirable: ?Less than 130 Borderline High: ??130-159 High: ? 160-189 Very High: ?Greater than or equal to 190 05/07/2020 6:56 EDT 05/07/2020 6:56 EDT Narrative [facility] - 05/07/2020 8:08 EDT Does PT Have a Latex Allergy? NO us Madhu Leon MD CHEMISTRY & BLOOD GAS ORDERABLES Final Result Performing Organization Address City/State/[facility] Co de Phone Number [facility] [address] [place] [address] * COMPREHENSIVE METABOLIC PANEL (CMP) (05/07/2020 6:56 EDT) Albumin % 3.7 3.4 - 4.9 g/dL 05/07/2020 8:08 [facility] ALKALINE PHOSPHATASE - [facility] 55 38 - 126 U/L 05/07/2020 8:08 [facility] BILIRUBIN TOTAL 0.7 0.2 - 1.3 mg/dL 05/07/2020 8:08 [facility] BUN - [facility] 17 10 - 26 mg/dL 05/07/2020 8:08 [facility] CALCIUM - [facility] 8.9 8.5 - 10.5 mg/dL 05/07/2020 8:08 [facility] Chloride 103 96 - 110 mmol/L 05/07/2020 8:08 [facility] CO2 Total 30 22 - 32 mEq/L 05/07/2020 8:08 [facility] CREATININE 0.77 0.52 - 1.04 mg/dL 05/07/2020 8:08 [facility] eGFR >60 05/07/2020 8:08 [facility] Comment: Chronic renal impairment is defined as GFR <60 Multiply result by 1.210 for patients. eGFR calculated using the IDMS-traceable MDRD Study Equation. ??(effective 06/26/2014) Anion Gap 6 0 - 18 05/07/2020 8:08 [facility] GLUCOSE - [facility] 93 70 - 100 mg/dL 05/07/2020 8:08 [facility] Potassium 3.7 3.5 - 5.0 mEq/L 05/07/2020 8:08 [facility] Sodium 139 136 - 145 mEq/L 05/07/2020 8:08 [facility] TOTAL PROTEIN - [facility] 6.7 6.2 - 8.2 gm/dL 05/07/2020 8:08 [facility] SGOT/AST - [facility] 22 14 - 36 U/L 05/07/2020 8:08 [facility] SGPT/ALT - [facility] 12 0 - 35 U/L 0 8:08 [facility] 05/07/2020 6:56 EDT 05/07/2020 6:56 EDT Narrative [facility] - 05/07/2020 8:08 EDT Does PT Have a Latex Allergy? NO us Madhu Leon MD CHEMISTRY & BLOOD GAS ORDERABLES Final Result [facility] [address] [place] [address] * URINALYSIS/COMPLETE - [facility] (05/07/2020 6:56 EDT) URINE APPEARANCE - [facility] Clear CLEAR 05/07/2020 7:43 [facility] URINE BACTERIA - [facility] MOD 05/07/2020 8:03 [facility] URINE BILIRUBIN - DIPSTICK - [facility] Negative NEGATIVE 05/07/2020 7:43 [facility] URINE BLOOD - [facility] 1+ NEG 05/07/2020 7:43 [facility] URINE COLOR - [facility] Yellow YELLOW 05/07/2020 7:43 [facility] URINE GLUCOSE - [facility] - [facility] Negative NEGATIVE 05/07/2020 7:43 [facility] URINE KETONE - [facility] Negative NEGATIVE 05/07/2020 7:43 [facility] URINE LEUK ESTERASE - [facility] Negative NEG 05/07/2020 7:43 [facility] URINE NITRITE - [facility] - [facility] Negative NEG 05/07/2020 7:43 [facility] URINE PH - [facility] 5.5 4.0 - 8.0 0 7:43 [facility] URINE PROTEIN - [facility] - [facility] Negative NEG 05/07/2020 7:43 [facility] URINE RBC - [facility] 6-10 rbc/hpf 05/07/20 20 8:03 [facility] URCULTIF+? - [facility] Culture Ordered 05/07/2020 8:03 [facility] URINE SPECIFIC GRAVITY - [facility] 1.020 1.001 - 1.035 05/07/2020 7:43 [facility] URINE SQUAMOUS CELLS - [facility] FEW NEG #/hpf 05/07/2020 8:03 [facility] URINE UROBILINOGEN - [facility] - [facility] 0.2 0.2 - 1.0 05/07/2020 7:43 [facility] URINE WBC - [facility] 5-10 NEG wbc/hpf 020 8:03 [facility] 05/07/2020 6:56 EDT 05/07/2020 6:56 EDT Narrative [facility] - 05/07/2020 8:03 EDT Does PT Have a Latex Allergy? NO us Madhu Leon MD CHEMISTRY & BLOOD GAS ORDERABLES Final Result [facility] [address] [place] [address] documented in this encounter Visit Diagnoses Not on filedocumented in this encounter Care Teams Medical Device Sales Consultant Relationship Specialty Start Date End Date Madhu Leon MD [facility] [address] [place] [address] PCP - General Internal Medicine - Primary Care 09/24/19 documented as of this encounter
--- OUTSIDE RECORDS SUMMARY | 2024-08-31 11:01 | XMS_ITS | Encounter Summary ---
Author Organization [facility] Address [address] [place] [address] Care Team Providers Care Ice Guard Inspector Name Role Phone Unknown, Provider Primary Care Provider Unava ilable Encounter Details Date Type Department Care Team (Late st Contact Info) Description 06/07/2019 Results Only [facility] - Main [place] [address] [place], [place] [id number] Madhu Leon MD [facility] [address] [place] [address] Social History Tobacco Use Types [...] Triglyceride 99 <150 mg/dL 06/07/2019 13:17 EDT [facility] Comment: Adult: Normal: ?<150 mg/dl ? Borderline High: 150-199 mg/dl ? High: ?200-499 mg/dl ? Very High: >do=614 Cholesterol 117 <200 mg/dL 06/07/2019 13:17 EDT [facility] Comment: Acceptable: ??<200 Borderline: ??200-239 High: ?> or = 240 Chol/HDL Ratio 3.6 0 - 4.5 06/07/2019 13:17 [facility] Comment: DESIRABLE RATIO IS LESS THAN 4.1 PATIENTS ARE CONSIDERED AT RISK: WOMEN RATIO >5 MEN RATIO >6 FASTING? - [facility] HDL 32(L) 40 - 60 mg/dL 06/07/2019 13:17 [facility] Comment: ?? Reference Range Low: ? < 40 ??mg/dL Normal: ??40-60 mg/dL High: ?>= 60 mg/dL LDL CHOLESTEROL - [facility] 65 60 - 100 mg/dL 06/07/2019 13:17 [facility] Non HDL Cholesterol 85 mg/dl 06/07/2019 13:17 [facility] Comment: Desirable: ?Less than 130 Borderline High: ??130-159 High: ? 160-189 Very High: ?Greater than or equal to 190 06/07/2019 11:4 2 EDT 06/07/2019 11:42 EDT Narrative [facility] - 06/07/2019 13:17 EDT Does PT Have a Latex Allergy? NO us Madhu Leon MD CHEMISTRY & BLOOD GAS ORDERABLES Final Result [facility] documented in this encounter Visit Diagnoses Not on filedocumented in this encounter Care Teams Ice Guard Inspector Relationship Specialty Start Date End Date Unknown, Provider, PCP - General 09/05/13 09/23/19 documented as of this encounter
--- OUTSIDE RECORDS SUMMARY | 2024-08-31 11:01 | XMS_ITS | Encounter Summary ---
Author Organization [facility] Address [address] [place] [address] Care Team Providers Care Facility Security Officer Name Role Phone Unknown, Provider Primary Care Provider Madhu Crandall MD Primary Care Provider Encounter Details Date Type Department Care Team (Late st Contact Info) Description 06/07/2019 Historical Results Only [facility] - Main [place] [address] [place] [address] Madhu Leon MD [address] [place] [address] [address] [place] [address] Social History Tobacco Use Types [...] Urine 1.60 <1.7 mg/dL 06/07/2019 13:28 EDT [facility] Lab Urine Albumin to Creatinine Ratio 24.7 ug/mg 06/07/2019 13:28 EDT [facility] Comment: Normal: <30 ug/mg Creat Microalbuminuria: 30-300 ug/mg Creat Clinical albuminuria: >300 ug/mg Creat Creatinine, Urine 64.70 mg/dL 06/07/2019 13:28 EDT [facility] 06/07/2019 11:4 3 EDT 06/07/2019 11:43 EDT Narrative [facility] - 06/07/2019 13:28 EDT Does PT Have a Latex Allergy? NO WHAT TYPE OF COLLECTION IS THIS URINE? RANDOM URINE us Madhu Leon MD HEMATOLOGY & PF4 ORDER CLAUDIA Final Result [facility] * URINE CULTURE IF POSITIVE (06/07/2019 11:43 EDT) ESCHERIACHIA COLI - [facility] ESCHERICHIA COLI 06/09/2019 7:31 EDT [facility] CitrateConcentration >100,000 CFU/ML 05/24 7:31 EDT [facility] USUAL UROGENITAL LUIS CARLOS - [facility] UUV 06/09/2019 7:31 EDT [facility] CitrateConcentration <10,000 CFU/ML 05/24 7:31 EDT [facility] 06/07/2019 11:4 3 EDT 06/07/2019 11:43 EDT Comment:VOID Narrative [facility] - 06/09/2019 7:31 EDT [...] - GENERAL ORDERABLES Edited Result - Final [facility] documented in this encounter Visit Diagnoses Not on filedocumented in this encounter Care Teams Facility Security Officer Relationship Specialty Start Date End Date Unknown, Provider, PCP - General 09/05/13 09/23/19 Madhu Leon MD [address] [place] [address] [address] [place] [id number] PCP - General Internal Medicine - Primary Care 09/24/19 documented as of this encounter
--- OUTSIDE RECORDS SUMMARY | 2024-08-31 11:01 | XMS_ITS | Encounter Summary ---
Author Organization [facility] Address [address] [place] [address] Care Team Providers Care Spray Drier Operator Name Role Phone Mdahu Leon MD Primary Care Provider Encounter Details Date Type Department Care Team (Late st Contact Info) Description 06/24/[address] [facility] - Main [place] [address], [place] [id number] Madhu Leon MD [facility] [address] [place] [address] Social History Tobacco Use Types [...] Routine 06/24/2021 9 :34 EDT URINALYSIS/COMPLETE [place] [facility] Routine 06/24/2021 9:33 EDT COMPLETE BLOOD COUNT [...] Urine <0.06 <1.7 mg/dL 06/24/2021 11:23 EDT [facility] Comment: Lab Urine Albumin to Creatinine Ratio TNP ug/mg 06/24/2021 11:13 EDT [facility] Creatinine, Urine 87.20 mg/dL 06/24/2021 11:22 EDT [facility] 06/24/2021 9:34 EDT 06/24/2021 9:34 EDT Narrative [facility] - 06/24/2021 11:23 EDT Does PT Have a Latex Allergy? NO WHAT TYPE OF COLLECTION IS THIS URINE? RANDOM URINE us Madhu Leon MD HEMATOLOGY & PF4 ORDER CLAUDIA Final Result [facility] [address] [place] [address] * HEMOGLOBIN A1C (06/24/2021 9:33 EDT) Hemoglobin A1c 5.9 4.0 - 6.0 % 06/24/2021 13:32 EDT [facility] Comment: > [...] Est Avg Glucose 123 mg/dL 13:32 EDT [facility] 06/24/2021 9:33 EDT 06/24/2021 9:33 EDT [facility] - 06/24/2021 13:32 EDT Does PT Have a Latex Allergy? NO Madhu Leon MD CHEMISTRY & BLOOD GAS ORDERABLES Final Result Performing Organization Address [facility] [place]/[facility] Co de Phone Number [facility] [address] [place] [address] * TSH (06/24/2021 9:33 EDT) [facility] THYROID STIM HORMONE - [facility] 1.32 0.46 - 4.68 uIU/ml 06/24/2021 11:33 EDT [facility] Comment: The results of this assay can be falsely lowered due to the consumption of Biotin. 06/24/2021 9:33 EDT 06/24/2021 9:33 EDT [facility] - 06/24/2021 11:33 EDT Does PT Have a Latex Allergy? NO Madhu Leon MD CHEMISTRY & BLOOD GAS ORDERABLES Final Result Performing Organization Address City/[facility]/ZIP Co de Phone Number [facility] [address] [place] [address] * T4 FREE (06/24/2021 9:33 EDT) [facility] FREE T4 - [facility] 0.96 0.78 - 2.19 ng/dl 06/24/2021 11:33 EDT [facility] 06/24/2021 9:33 EDT 06/24/2021 9:33 EDT [facility] - 06/24/2021 11:33 EDT Does PT Have a Latex Allergy? NO us Madhu Leon MD CHEMISTRY & BLOOD GAS ORDERABLES Final Result Performing Organization Address [facility] [place]/[facility] Co de Phone Number [facility] [address] [place] [address] * URIC ACID (06/24/2021 9:33 EDT) URIC ACID - [facility] 4.8 2.2 - 7.7 mg/dL 06/24/2021 11:04 EDT [facility] 06/24/2021 9:33 EDT 06/24/2021 9:33 EDT [facility] - 06/24/2021 11:04 EDT Does PT Have a Latex Allergy? NO us Madhu Leon MD CHEMISTRY & BLOOD GAS ORDERABLES Final Result Performing Organization Address [facility] [place]/[facility] Co de Phone Number [facility] [address] [place] [address] * HEPATIC FUNCTION PANEL (ALB,ALK PHOS,ALT,AST,DBIL,TOT GOPAL,TOT PROT) (06/24/2021 9:33 EDT) BILIRUBIN DIRECT CALC - [facility] 0.1 0.0 - 0.4 mg/dL 06/24/2021 11:04 EDT [facility] Unconjugated Bilirubin 0.3 0.0 - 1.1 mg/dL 06/24/2021 11:04 EDT [facility] 06/24/2021 9:33 EDT 06/24/2021 9:33 EDT [facility] - 06/24/2021 11:04 EDT Does PT Have a Latex Allergy? NO us Madhu Leon MD CHEMISTRY & BLOOD GAS ORDERABLES Final Result [facility] [address] [place] [address] * (ABNORMAL) LIPID PROFILE (INCLUDES CHOLESTEROL, TRIGLYCERIDES, HDL, LDL) (06/24/2021 9:33 EDT) Triglyceride 190 <150 mg/dL 06/24/2021 11:04 EDT [facility] Comment: Adult: Normal: ?<150 mg/dl ? Borderline High: 150-199 mg/dl ? High: ?200-499 mg/dl ? Very High: >ce=455 Cholesterol 122 <200 mg/dL 06/24/2021 11:04 [facility] Comment: Acceptable: ??<200 Borderline: ??200-239 High: ?> or = 240 Chol/HDL Ratio 3.4 0 - 4.5 06/24/2021 11:04 [facility] Comment: DESIRABLE RATIO IS LESS THAN 4.1 PATIENTS ARE CONSIDERED AT RISK: WOMEN RATIO >5 MEN RATIO >6 FASTING? - [facility] Yes 9:34 [facility] HDL 35(L) 40 - 60 mg/dL 06/24/2021 11:04 [facility] Comment: ?? Reference Range Low: ? < 40 ??mg/dL Normal: ??40-60 mg/dL High: ?>= 60 mg/dL LDL CHOLESTEROL - [facility] 49(L) 60 - 100 mg/dL 06/24/2021 11:04 [facility] Non HDL Cholesterol 87 mg/dl 06/24/2021 11:04 [facility] Comment: Desirable: ?Less than 130 Borderline High: ??130-159 High: ? 160-189 Very High: ?Greater than or equal to 190 06/24/2021 9:33 EDT 06/24/2021 9:33 EDT Narrative [facility] - 06/24/2021 11:04 EDT Does PT Have a Latex Allergy? NO us Madhu Leon MD CHEMISTRY & BLOOD GAS ORDERABLES Final Result [facility] [address] [place] [address] * (ABNORMAL) COMPREHENSIVE METABOLIC PANEL (CMP) (06/24/2021 9:33 EDT) Pathologist [facility] Albumin % 3.8 3.4 - 4.9 g/dL 06/24/2021 11:04 [facility] ALKALINE PHOSPHATASE - [facility] 49 38 - 126 U/L 06/24/2021 11:04 [facility] BILIRUBIN TOTAL 0.4 0.2 - 1.3 mg/dL 06/24/2021 11:04 [facility] BUN - [facility] 20 10 - 26 mg/dL 06/24/2021 11:04 [facility] CALCIUM - [facility] 8.9 8.5 - 10.5 mg/dL 06/24/2021 11:04 [facility] Chloride 104 96 - 110 mmol/L 06/24/2021 11:04 [facility] CO2 Total 29 22 - 32 mEq/L 06/24/2021 11:04 [facility] CREATININE 0.87 0.52 - 1.04 mg/dL 06/24/2021 11:04 [facility] eGFR >60 06/24/2021 11:04 [facility] Comment: Chronic renal impairment is defined as GFR <60 Multiply result by 1.210 for patients. eGFR calculated using the IDMS-traceable MDRD Study Equation. ??(effective 06/26/2014) Anion Gap 10 0 - 18 06/24/2021 11:04 [facility] GLUCOSE - [facility] 92 70 - 100 mg/dL 06/24/2021 11:04 [facility] Potassium 3.4(L) 3.5 - 5.0 mEq/L 06/24/2021 11:04 EDT [facility] Sodium 143 136 - 145 mEq/L 06/24/2021 11:04 EDT [facility] TOTAL PROTEIN - [facility] 6.6 6.2 - 8.2 gm/dL 06/24/2021 11:04 [facility] SGOT/AST - [facility] 21 14 - 36 U/L 06/24/2021 11:04 EDT [facility] SGPT/ALT - [facility] 11 0 - 35 U/L 11:04 EDT [facility] 06/24/2021 9:33 EDT 06/24/2021 9:33 EDT [facility] - 06/24/2021 11:04 EDT Does PT Have a Latex Allergy? NO us Madhu Leon MD CHEMISTRY & BLOOD GAS ORDERABLES Final Result [facility] [address] [place] [address] * URINALYSIS/COMPLETE - [facility] (06/24/2021 9:33 EDT) URINE APPEARANCE - [facility] Clear CLEAR 06/24/2021 10:53 EDT [facility] URINE BACTERIA - [facility] MOD 06/24/2021 11:00 [facility] URINE BILIRUBIN - DIPSTICK - [facility] 1+ NEGATIVE 06/24/2021 10:53 [facility] Comment: Unable to confirm positive urine bilirubin. If clinical correlation is inconsistent, consider serum bilirubin. URINE BLOOD - [facility] 1+ NEG 06/24/2021 10:53 [facility] URINE COLOR - [facility] Yellow YELLOW 06/24/2021 10:53 [facility] URINE GLUCOSE - [place] - [facility] Negative NEGATIVE 06/24/2021 10:53 [facility] URINE KETONE - [facility] Negative NEGATIVE 06/24/2021 10:53 EDT [facility] URINE LEUK ESTERASE - [facility] Negative NEG 06/24/2021 10:53 EDT [facility] URINE NITRITE - [place] - [facility] Negative NEG 06/24/2021 10:53 [facility] URINE PH - [facility] 5.0 4.0 - 8.0 10:53 [facility] URINE PROTEIN - [place] - [facility] Negative NEG 06/24/2021 10:53 [facility] URINE RBC - [facility] 3-6 rbc/hpf 06/24/2021 11:00 [facility] URCULTIF+? - [facility] Contaminated 06/24/2021 11:00 [facility] Comment: Specimen contaminated. Please recollect a clean catch sample if a culture is indicated. URINE SPECIFIC GRAVITY - [facility] 1.025 1.001 - 1.035 06/24/2021 10:53 [facility] URINE SQUAMOUS CELLS - [facility] MANY NEG #/hpf 06/24/2021 11:00 [facility] Comment: Specimen contaminated. Please recollect a clean catch sample if a culture is indicated. URINE UROBILINOGEN - [place] - [facility] 0.2 0.2 - 1.0 06/24/2021 10:53 [facility] URINE WBC - [facility] 1-4 NEG wbc/hpf 06/24/2021 11:00 [facility] 06/24/2021 9:33 EDT 06/24/2021 9:34 EDT Narrative [facility] - 06/24/2021 11:00 EDT Does PT Have a Latex Allergy? NO us Madhu Leon MD CHEMISTRY & BLOOD GAS ORDERABLES Final Result [facility] [address] [place] [address] * (ABNORMAL) COMPLETE BLOOD COUNT WITH DIFFERENTIAL (AUTO) (06/24/2021 9:33 EDT) ABSOLUTE NEUTROPHIL COUN - [facility] 3.6 2.2 - 8.85 10e3/uL 06/24/2021 10:35 [facility] BASO # - [facility] 0.04 0.01 - 0.11 10e/uL 06/24/2021 10:35 [facility] BASO % - [facility] 1 0 - 2 % 06/24/2021 10:35 [facility] EOS # - [facility] 0.63(H) 0.03 - 0.61 10e3/ul 06/24/2021 10:35 [facility] EOS % - [facility] 9(H) 0 - 5 % 06/24/2021 10:35 [facility] GRAN % - [facility] 48.3 40 - 80 % 06/24/2021 10:35 [facility] HEMATOCRIT - [facility] 40.0 34.9 - 44.4 % 06/24/2021 10:35 [facility] HEMOGLOBIN - [facility] 12.9 11.6 - 15.2 g/dl 06/24/2021 10:35 [facility] IG# - [facility] 0.02 0 - 0.7 10e3/uL 06/24/2021 10:35 [facility] IG% - [facility] 0.3 0 - 0.9 % 06/24/2021 10:35 [facility] LYMPH # - [facility] 2.6 1.09 - 3.3 10e3/ul 06/24/2021 10:35 [facility] LYMPH% - [facility] 35.6 20 - 40 % 06/24/2021 10:35 [facility] MEAN CORPUSCULAR HGB - [facility] 29.9 26.7 - 33.3 pg 06/24/2021 10:35 [facility] MEAN CORPUSCULAR HGB CONC - [facility] 32.3 32.1 - 35.9 g/dL 06/24/2021 10:35 [facility] MEAN CELL VOLUME - [facility] 92.8 81 - 98 fl 06/24/2021 10:35 [facility] MONO # - [facility] 0.5 0.1 - 0.8 10e3/uL 06/24/2021 10:35 EDT [facility] MONO% - [facility] 6.8 0 - 12 % 06/24/2021 10:35 [facility] PLATELET COUNT 190 141 - 377 10e3/ul 06/24/2021 10:35 [facility] RED BLOOD COUNT - [facility] 4.31 3.86 - 5.04 10e6/ul 06/24/2021 10:35 [facility] RED CELL DISTRI WIDTH - [facility] 13.2 <14.7 % 06/24/2021 10:35 [facility] WHITE BLOOD COUNT - [facility] 7.4 4.0 - 12.4 10e3/ul 06/24/2021 10:35 [facility] 06/24/2021 9:33 EDT 06/24/2021 9:33 EDT Narrative [facility] - 06/24/2021 10:35 EDT Does PT Have a Latex Allergy? 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
--- OUTSIDE RECORDS SUMMARY | 2024-08-31 11:01 | XMS_ITS | Encounter Summary ---
Author Organization [facility] Address [address] [place] [address] Care Team Providers Care It Applications Analyst Name Role Phone Unknown, Provider Primary Care Provider Unava ilable Encounter Details Date Type Department Care Team (Latest Contact Info) Description 09/17/2017 12:29 EST - 09/17/2017 23:59 EST Hospital Encounter [facility] [address] [place] [address] Unknown, ProviderMD Discharge Disposition: Home or Self [...] on filedocumented in this encounter Care Teams It Applications Analyst Relationship Specialty Start Date End Date Unknown, Provider, PCP - General 09/05/13 09/23/19 documented as of this encounter
--- OUTSIDE RECORDS SUMMARY | 2024-08-31 11:01 | XMS_ITS | Encounter Summary ---
Author Organization [facility] Address [address] [place] [address] Care Team Providers Care Shade Cutter Name Role Phone Madhu Leon MD Primary Care Provider Encounter Details Date Type Department Care Team (Latest Contact Info) Description 07/25/2022 Transcribe Orders [facility] Lab - Main [place] [address] [place], [place] [id number] Madhu Leon MD [address] [place] [address] [address] [place] [address] Type II diabetes mellitus with [...] (HCC-CMS) Essential hypertension, malignant Pure hypercholesterolemia URINE [id number] NE RATIO (ACR) Routine 07/26/2022 9:00 EST [...] / Unknown 07/26/2022 9:00 EST 07/26/2022 10:25 [facility] - 07/26/2022 11:28 [facility] Urine Sediment Analysis results are unreliable on urines that are unrefrigerated for >2 hrs or refrigerated >8 hrs. Specimen contaminated. Please recollect a clean catch sample if a culture is indicated. us Madhu Leon MD URINALYSIS ORDERABLES Final Result Performing Organization Address City/State/[facility] Co de Phone Number [facility] [address] [place] [address] * (ABNORMAL) LIPID PROFILE (INCLUDES CHOLESTEROL, TRIGLYCERIDES, HDL, LDL) (07/26/2022 9:00 EST) [facility] Cholesterol 114 <200 mg/dL 07/26/2022 9:39 [...] ORDERABLES Final Result Performing Organization Address City/State/[facility] Co de Phone Number [facility] [address] [place] [address] * COMPREHENSIVE METABOLIC PANEL (CMP) (07/26/2022 9:00 [...] GAS ORDERABLES Final Result Performing Organization Address [facility] Phone Number [facility] [address] [place] [id number] * BILIRUBIN DIRECT/INDIRECT (07/26/2022 9:00 EST) Conjugated Bilirubin 0.0 <=0.3 mg/dL 07/26/2022 9:39 [facility] Unconjugated Bilirubin 0.3 <=1.1 mg/dL 07/26/2022 9:39 [facility] Blood VENOUS BLOOD / Unknown Venipuncture / Unknown 07/26/2022 9:00 EST 07/26/2022 9:10 EST us Madhu Leon MD CHEMISTRY & BLOOD GAS ORDERABLES Final Result Performing Organization Address City/[facility]/ZIP Co de Phone Number [facility] [address] [place] [address] * TSH (07/26/2022 9:00 EST) Pathologist [facility] TSH 1.64 0.47 - 4.68 mIU/L 07/26/2022 10:11 EST [facility] Blood VENOUS BLOOD / Unknown Venipuncture / Unknown 07/26/2022 9:00 EST 07/26/2022 9:10 EST Narrative [facility] - 07/26/2022 10:11 EST The results of this assay can be falsely lowered due to the consumption of Biotin. us Madhu Leon MD CHEMISTRY & BLOOD GAS ORDERABLES Final Result Performing Organization Address [facility] Co de Phone Number [facility] [address] [place] [address] * T4 FREE (07/26/2022 9:00 EST) Pathologist [facility] T4, Free 1.0 0.8 - 2.2 ng/dL 07/26/2022 10:11 [facility] Blood VENOUS BLOOD / Unknown Venipuncture / Unknown 07/26/2022 9:00 EST 07/26/2022 9:10 EST us Madhu Leon MD CHEMISTRY & BLOOD GAS ORDERABLES Final Result Performing Organization Address [facility] Co de Phone Number [facility] [address] [place] [address] * (ABNORMAL) HEMOGLOBIN A1C (07/26/2022 9:00 EST) Pathologist [facility] Hemoglobin A1c 5.9(H) <5.7 % [...] GAS ORDERABLES Final Result Performing Organization Address [facility]/ZIP Co de Phone Number [facility] [address] [place] [address] * URIC ACID (07/26/2022 9:00 EST) Uric Acid 4.5 2.2 - 7.7 mg/dL 07/26/2022 9:39 EST [facility] Blood VENOUS BLOOD / Unknown Venipuncture / Unknown 07/26/2022 9:00 EST 07/26/2022 9:10 EST us Madhu Leon MD CHEMISTRY & BLOOD GAS ORDERABLES Final Result Performing Organization Address [facility] Phone Number [facility] [address] [place] [address] * URINE [id number] RATIO (ACR) (07/26/2022 9:00 EST) Albumin, Urine [...] GAS ORDERABLES Final Result Performing Organization Address City/[facility]/ZIP Co de Phone Number [facility] [address] [place] [address] * (ABNORMAL) UA WITH REFLEX SEDIMENT (CULTURE [...] 07/26/2022 11:25 [facility] Specific [place], Urine 1.015 1.001 - 1.035 07/26/2022 11:25 [...] URINALYSIS ORDERABLES Final Result Performing Organization Address City/[facility]/ZIP Co de Phone Number [facility] [address] [place] [address] * COMPLETE BLOOD COUNT AND DIFFERENTIAL (07/26/2022 [...] & DNA PROBE O RDERABLES Final Result [facility] [address] [place] [address] documented in this encounter Visit Diagnoses Diagnosis Type II diabetes mellitus with hyperosmolarity, uncontrolled ([facility])- Primary Type II or unspecified type diabetes mellitus with hyperosmolarity, uncontrolled Essential hypertension, malignant Pure hypercholesterolemia documented in this encounter Care Teams Shade Cutter Relationship Specialty Start Date End Date Madhu Leon MD [address] [place] [address] [address] [place] [phone] PCP - General Internal Medicine - Primary Care 09/24/19 documented as of this encounter
--- OUTSIDE RECORDS SUMMARY | 2024-08-31 11:01 | XMS_ITS | Encounter Summary ---
Author Organization [facility] Address [address] [place] [address] Care Team Providers Care Firer Bisque Kiln Name Role Phone Madhu Leon MD Primary Care Provider Encounter Details Date Type Department Care Team (Late st Contact Info) Description 05/11/2020 Results Only Imaging [facility] Radiology Results [address] [place], [place] [id number] Madhu Leon MD [facility] [address] [place] [address] Social History Tobacco Use Types [...] CC: ? Transcribed Date/Time: 05/11/2020 (1323) ? Service Sprinkler Helper: ? Printed Date/Time: 05/11/2020 (1323) ? PAGE [...] Art Phelps MD CC: Transcribed Date/Time: 05/11/2020 (4862) Service Sprinkler Helper: Printed Date/Time: 05/11/2020 (7564) PAGE 1 Signed Report Madhu Leon MD IMG DIAGNOSTIC IMAGING ORDERABLES Final Result documented in this encounter Visit Diagnoses Not on filedocumented in this encounter Care Teams Firer Bisque Kiln Relationship Specialty Start Date End Date Madhu Leon MD [address] [place] [address] [address] [place] [phone] PCP - General Internal Medicine - Primary Care 09/24/19 documented as of this encounter
--- OUTSIDE RECORDS SUMMARY | 2024-08-31 11:01 | XMS_ITS | Encounter Summary ---
Author Organization [facility] Address [address] [place] [address] Care Team Providers Care Tour Operator Name Role Phone Madhu Leon MD Primary Care Provider Encounter Details Date Type Department Care Team (Late st Contact Info) Description 08/10/2024 Lab Requisition [facility] Pathology & Laboratory Medicine - [facility] [address], [place] [address] Outr Resulting Lab, Provider Social History Tobacco Use Types Packs/Day Years [...] PATHOGENS BY PCR Routine 08/09/2024 16:28 EST documented in this encounter Results * FECAL BACTERIAL PATHOGENS BY PCR (08/09/2024 16:28 EST) Salmonella PCR Negative Negative 08/10/2024 22:52 EST [facility] Shigella/Enteroin vasive E. coli Negative Negative 08/10/2024 22:52 EST [facility] HN LAB CAMPYLOBACTER PCR Negative Negative 08/10/2024 22:52 EST [facility] Shiga Toxin PCR Negative Negative 22:52 EST [facility] Feces SPECIMEN FROM RECTUM / Unknown 08/09/2024 16:28 EST 08/10/2024 18:31 EST us Provider Outr Resulting Lab MICROBIOLOGY - GENER AL ORDERABLES Final Result Performing Organization Address City/State/[facility] Co de Phone Number [facility] [address] [place], [place] [phone] documented in this encounter Visit Diagnoses Not on filedocumented in this encounter Care Teams Tour Operator Relationship Specialty Start Date End Date Madhu Leon MD [facility] [address] [place] [phone] PCP - General Internal Medicine - Primary Care 09/24/19 documented as of this encounter
--- OUTSIDE RECORDS SUMMARY | 2024-08-31 11:01 | XMS_ITS | Encounter Summary ---
Author Organization [facility] Address [address] [place] [address] Care Team Providers Care Revenue Integrity Analyst Name Role Phone Unknown, Provider Primary Care Provider Unava ilable Encounter Details Date Type Department Care Team (Latest Contact Info) Description 09/20/2018 9:10 EST - 09/20/2018 23:59 EST Hospital Encounter [facility] [address] [place] [address] Unknown, ProviderMD Discharge Disposition: Home or Self [...] on filedocumented in this encounter Care Teams Revenue Integrity Analyst Relationship Specialty Start Date End Date Unknown, Provider, PCP - General 09/05/13 09/23/19 documented as of this encounter
--- OUTSIDE RECORDS SUMMARY | 2024-08-31 11:01 | XMS_ITS | Encounter Summary ---
Author Organization [facility] Address [address] [place] [address] Care Team Providers Care Wet Washer Machine Name Role Phone Madhu Leon MD Primary Care Provider Reason for Visit * Reason Comments Pain * Referral (Routine) - Closed Specialty Diagnoses / Procedures Referred By Contbernardo chase Referred To Contact Orthopedic Surgery Diagnoses Mass of toe Madhu Leon MD Phone: tel: fax: [facility] [address], [address] [place] [address] Phone: tel: fax: Referral ID Status Reason Start Date Expiration Date Visits Re quested Visits Authorized [id number] Closed 1 1 Encounter Details Date Type Department Care Team (Late st Contact Info) Description 06/11/2020 9:45 EDT Office Visit [facility] [address], [address] [place], [place] [id number] Kang Prado, DP [address] [place], [place] [id number] Toe pain, left (Primary Dx); Onychomadesis of [...] patient was screened using current CDC and [facility] guidelines and algorithm for COVID-19 risk, and was considered low risk based on the best information available today. RODOLFO Hollis is a new 75 year old female patient who was referred for a mass to her toe. In January, she went for a walk with her family around [place]. Her toe started to hurt that day, [...] cm (58) Wt 54.4 kg (120 lb) VbS205% BMI 25.08 kg/m?? Body mass index is [...] or swelling or drainage. Kang Prado DPM [facility] [place], [place] documented in this encounter Plan of [...] 03/23/2020 added in this encounter Care Teams Wet Washer Machine Relationship Specialty Start Date End Date Madhu Leon MD [address] [place] [address] [address] [place] [address] PCP - General Internal Medicine - Primary Care 09/24/19 documented as of this encounter
--- OUTSIDE RECORDS SUMMARY | 2024-08-31 11:01 | XMS_ITS | Encounter Summary ---
Author Organization [facility] Address [address] [place] [address] Care Team Providers Care Endoscopy Specialty Technician Name Role Phone Unknown, Provider Primary Care Provider Unava ilable Encounter Details Date Type Department Care Team (Late st Contact Info) Description 03/29/2018 Historical Results Only [facility] - Main [place] [address] [place] [address] Madhu Leon MD [facility] [address] [place] [address] Social History Tobacco Use Types [...] IF POSITIVE Routine 03/29/2018 9:02 EDT URINE [id number] RATIO (ACR) Routine 03/29/2018 9:02 EDT URINALYSIS/COMPLETE - [facility] Routine 03/29/2018 9:01 EDT COMPLETE BLOOD COUNT [...] (ABNORMAL) MICROALBUMIN, URINE (03/29/2018 9:02 EDT) Pathologist [facility] Albumin, Urine 3.10(H) <1.7 mg/dL 03/29/2018 11:48 EDT [facility] Lab Urine Albumin to Creatinine Ratio 25.6 ug/mg 03/29/2018 11:48 EDT [facility] Comment: Normal: <30 ug/mg Creat Microalbuminuria: 30-300 ug/mg Creat Clinical albuminuria: >300 ug/mg Creat Creatinine, Urine 120.70 mg/dL 03/29/2018 11:48 EDT [facility] 03/29/2018 9:02 EDT 03/29/2018 9:02 EDT Narrative [facility] - 03/29/2018 11:48 EDT Does PT Have a Latex Allergy? NO WHAT TYPE OF COLLECTION IS THIS URINE? RANDOM URINE us Madhu Leon MD HEMATOLOGY & PF4 ORDER CLAUDIA Final Result [facility] * URINE CULTURE IF POSITIVE (03/29/2018 9:02 EDT) ESCHERIACHIA COLI - [facility] ESCHERICHIA COLI 03/31/2018 7:27 EDT [facility] CitrateConcentration >100,000 CFU/ML 03/2018 7:27 EDT [facility] USUAL UROGENITAL LUIS CARLOS - [facility] UUV 03/31/2018 7:27 EDT [facility] CitrateConcentration <10,000 CFU/ML 03/2018 7:27 EDT [facility] 03/29/2018 9:02 EDT 03/29/2018 9:02 EDT Comment:VOID Narrative [facility] - 03/31/2018 7:27 EDT Does [...] - GENERAL ORDERABLES Edited Result - Final [facility] * (ABNORMAL) ALBUMIN, URINE (03/29/2018 9:02 EDT) Albumin, Urine 3.10(H) <1.7 mg/dL 03/29/2018 11:48 EDT [facility] Lab Urine Albumin to Creatinine Ratio 25.6 ug/mg 03/29/2018 11:48 [facility] Comment: Normal: <30 ug/mg Creat Microalbuminuria: 30-300 ug/mg Creat Clinical albuminuria: >300 ug/mg Creat Creatinine, Urine 120.70 mg/dL 03/29/2018 11:48 EDT [facility] 03/29/2018 9:02 EDT 03/29/2018 9:02 EDT [facility] - 03/29/2018 11:48 EDT Does PT Have a Latex Allergy? NO WHAT TYPE OF COLLECTION IS THIS URINE? RANDOM URINE Madhu Leon MD CHEMISTRY & BLOOD GAS ORDERABLES Final Result Performing Organization Address City/[facility]/ZIP Co de Phone Number [facility] * URIC ACID (03/29/2018 9:01 EDT) [facility] URIC ACID [facility] 6.1 2.2 - 7.7 mg/dL [facility]2018 [facility] 9:01 EDT 03/29/2018 9:01 EDT Narrative [facility] - 03/29/2018 11:48 EDT Does PT Have a Latex Allergy? NO Madhu Leon MD CHEMISTRY & BLOOD GAS ORDERABLES Final Result [facility] * HEPATIC FUNCTION PANEL (ALB,ALK PHOS,ALT,AST,DBIL,TOT GOPAL,TOT PROT) (03/29/2018 9:01 EDT) [facility] BILIRUBIN DIRECT CALC - [facility] 0.2 0.0 - 0.4 mg/dL 03/29/2018 11:35 EDT [facility] Unconjugated Bilirubin 0.5 0.0 - 1.1 mg/dL 03/29/2018 11:35 [facility] 03/29/2018 9:01 EDT 03/29/2018 9:01 EDT Narrative [facility] - 03/29/2018 11:48 EDT Does PT Have a Latex Allergy? NO us Madhu Leon MD CHEMISTRY & BLOOD GAS ORDERABLES Final Result [facility] * (ABNORMAL) LIPID PROFILE (INCLUDES CHOLESTEROL, TRIGLYCERIDES, HDL, LDL) (03/29/2018 9:01 EDT) Triglyceride 242 <150 mg/dL 03/29/2018 11:35 [facility] Comment: Adult: Normal: ?<150 mg/dl ? Borderline High: 150-199 mg/dl ? High: ?200-499 mg/dl ? Very High: >[id number] Cholesterol 140 <200 mg/dL 03/29/2018 11:35 [facility] Comment: Acceptable: ??<200 Borderline: ??200-239 High: ?> or = 240 Chol/HDL Ratio 4.5 0 - 4.5 03/29/2018 11:35 [facility] Comment: DESIRABLE RATIO IS LESS THAN 4.1 PATIENTS ARE CONSIDERED AT RISK: WOMEN RATIO >5 MEN RATIO >6 FASTING? - [facility] Yes 8 9:02 [facility] HDL 31(L) 40 - 60 mg/dL 03/29/2018 11:35 [facility] Comment: ?? Reference Range Low: ? < 40 ??mg/dL Normal: ??40-60 mg/dL High: ?>= 60 mg/dL LDL CHOLESTEROL - [facility] 61 60 - 100 mg/dL 03/29/2018 11:35 [facility] Non HDL Cholesterol 109 mg/dl 03/29/2018 11:35 [facility] Comment: Desirable: ?Less than 130 Borderline High: ??130-159 High: ? 160-189 Very High: ?Greater than or equal to 190 03/29/2018 9:01 EDT 03/29/2018 9:01 EDT Narrative [facility] - 03/29/2018 11:48 EDT Does PT Have a Latex Allergy? NO us Madhu Leon MD CHEMISTRY & BLOOD GAS ORDERABLES Final Result [facility] * (ABNORMAL) COMPREHENSIVE METABOLIC PANEL (CMP) (03/29/2018 9:01 EDT) Albumin % 4.0 3.4 - 4.9 g/dL 03/29/2018 11:48 [facility] Comment: Slight Hemolysis, Interpret results with caution. Verified Hemolysis Visually ALKALINE PHOSPHATASE - [facility] 48 38 - 126 U/L 03/29/2018 11:48 [facility] Comment: Slight Hemolysis, Interpret results with caution. Verified Hemolysis Visually BILIRUBIN TOTAL 0.7 0.2 - 1.3 mg/dL 03/29/2018 11:35 [facility] BUN - [facility] 19 10 - 26 mg/dL 03/29/2018 11:48 [facility] Comment: Slight Hemolysis, Interpret results with caution. Verified Hemolysis Visually CALCIUM - [facility] 8.7 8.5 - 10.5 mg/dL 03/29/2018 11:35 [facility] Chloride 104 96 - 110 mmol/L 03/29/2018 11:35 [facility] CO2 Total 26 22 - 32 mEq/L 03/29/2018 11:35 [facility] CREATININE 0.76 0.52 - 1.04 mg/dL 03/29/2018 11:35 [facility] eGFR >60 03/29/2018 11:35 [facility] Comment: Chronic renal impairment is defined as GFR <60 Multiply result by 1.210 for patients. eGFR calculated using the IDMS-traceable MDRD Study Equation. ??(effective 06/26/2014) Anion Gap 13 0 - 18 03/29/2018 11:35 EDT [facility] GLUCOSE - [facility] 114(H) 70 - 100 mg/dL 03/29/2018 11:35 [facility] Potassium 4.2 3.5 - 5.0 mEq/L 03/29/2018 [facility] Comment: Slight Hemolysis, Interpret results with caution. Verified Hemolysis Visually Sodium 143 136 - 145 mEq/L 03/29/2018 11:35 [facility] TOTAL PROTEIN - [facility] 7.5 6.2 - 8.2 gm/dL 03/29/2018 11:35 [facility] SGOT/AST - [facility] 42(H) 14 - 36 U/L 03/29/2018 11:48 [facility] Comment: Slight Hemolysis, Interpret results with caution. Verified Hemolysis Visually SGPT/ALT - [facility] 39 9 - 52 U/L 8 11:48 [facility] Comment: Slight Hemolysis, Interpret results with caution. Verified Hemolysis Visually 03/29/2018 9:01 EDT 03/29/2018 9:01 EDT [facility] - 03/29/2018 11:48 EDT Does PT Have a Latex Allergy? NO Madhu Leon MD CHEMISTRY & BLOOD GAS ORDERABLES Final Result [facility] * (ABNORMAL) HEMOGLOBIN A1C (03/29/2018 9:01 EDT) Hemoglobin A1c 6.8(H) 4.0 - 6.0 % 03/29/2018 13:24 EDT [facility] Est Avg Glucose 148 mg/dL 8 13:24 EDT [facility] 03/29/2018 9:01 EDT 03/29/2018 9:01 EDT [facility] - 03/29/2018 13:24 EDT Does PT Have a Latex Allergy? NO us Madhu Leon MD CHEMISTRY & BLOOD GAS ORDERABLES Final Result Performing Organization Address [facility]/ZIP Co de Phone Number [facility] * TSH (03/29/2018 9:01 EDT) [facility] THYROID STIM HORMONE - [facility] 1.37 0.46 - 4.68 uIU/ml 03/29/2018 11:41 EDT [facility] Comment: The results of this assay can be falsely lowered due to the consumption of Biotin. 03/29/2018 9:01 EDT 03/29/2018 9:01 EDT Narrative [facility] - 03/29/2018 11:41 EDT Does PT Have a Latex Allergy? NO Mdahu Leon MD CHEMISTRY & BLOOD GAS ORDERABLES Final Result Performing Organization Address [facility]/[place] Co de Phone Number [facility] * T4 FREE (03/29/2018 9:01 EDT) [facility] FREE T4 [facility] 0.87 0.78 - 2.19 ng/dl 03/29/2018 11:41 EDT [facility] 03/29/2018 9:01 EDT 03/29/2018 9:01 EDT [facility] - 03/29/2018 11:41 EDT Does PT Have a Latex Allergy? NO Madhu Leon MD CHEMISTRY & BLOOD GAS ORDERABLES Final Result Performing Organization Address City/[facility]/ZIP Co de Phone Number [facility] * (ABNORMAL) COMPLETE BLOOD COUNT WITH DIFFERENTIAL (AUTO) (03/29/2018 9:01 EDT) [facility] ABSOLUTE NEUTROPHIL COUN - [facility] 2.69 1.7 - 7.0 10e3/ul 03/29/2018 10:35 EDT [facility] BASO # - [facility] 0.02 0.0 - 0.3 10e3/uL 03/29/2018 10:35 EDT [facility] BASO % - [facility] 0 0 - 2 % 03/29/2018 10:35 [facility] EOS # - [facility] 0.26 0.05 - 0.5 10e3/uL 03/29/2018 10:35 [facility] EOS % - [facility] 5 0 - 5 % 03/29/2018 10:35 [facility] GRAN % - [facility] 47 40 - 80 % 03/29/2018 10:35 [facility] HEMATOCRIT - [facility] 40.4 34.0 - 47.0 % 03/29/2018 10:35 [facility] HEMOGLOBIN - [facility] 13.3 11.2 - 15.7 g/dl 03/29/2018 10:35 [facility] IG# - [facility] 0.02 0 - 0.07 10e3/uL 03/29/2018 10:35 [facility] IG% - [facility] 0.3 0 - 0.9 % 03/29/2018 10:35 [facility] LYMPH # - [facility] 2.39 0.9 - 2.9 10e3/uL 03/29/2018 10:35 [facility] LYMPH% - [facility] 42(H) 20 - 40 % 03/29/2018 10:35 [facility] MEAN CORPUSCULAR HGB - [facility] 30.0 26 - 34 pg 03/29/2018 10:35 [facility] MEAN CORPUSCULAR HGB CONC - [facility] 32.9 31 - 36 g/dL 03/29/2018 10:35 [facility] MEAN CELL VOLUME - [facility] 91.2 77 - 100 fl 03/29/2018 10:35 [facility] MONO # - [facility] 0.37 0.3 - 0.9 10e3/uL 03/29/2018 10:35 [facility] MONO% - [facility] 6 0 - 12 % 03/29/2018 10:35 [facility] PLATELET COUNT 165 150 - 400 10e3/ul 03/29/2018 10:35 [facility] RED BLOOD COUNT - [facility] 4.43 3.8 - 5.2 10e6/ul 03/29/2018 10:35 [facility] RED CELL DISTRI WIDTH - [facility] 13.8 11.8 - 15.6 % 03/29/2018 10:35 [facility] WHITE BLOOD COUNT - [facility] 5.8 3.5 - 10.5 10e3/ul 03/29/2018 10:35 [facility] 03/29/2018 9:01 EDT 03/29/2018 9:01 EDT [facility] - 03/29/2018 10:35 EDT Does PT Have a Latex Allergy? NO us Madhu Leon MD HEMATOLOGY & PF4 ORDER CLAUDIA Final Result [facility] * URINALYSIS/COMPLETE - [facility] (03/29/2018 9:01 EDT) URINE APPEARANCE - [facility] Cloudy CLEAR 03/29/2018 10:46 [facility] URINE BACTERIA - [facility] TNTC 03/29/2018 11:25 [facility] URINE BILIRUBIN - DIPSTICK - [facility] Negative NEGATIVE 03/29/2018 10:46 [facility] URINE BLOOD - [facility] Negative NEG 03/29/2018 10:46 [facility] URINE COLOR - [facility] Yellow YELLOW 03/29/2018 10:46 [facility] URINE GLUCOSE - DIPSTICK - [facility] Negative NEGATIVE 03/29/2018 10:46 [facility] URINE KETONE - [facility] Negative NEGATIVE 03/29/2018 10:46 [facility] URINE LEUK ESTERASE - [facility] 1+ NEG 03/29/2018 10:46 [facility] URINE NITRITE - DIPSTICK - [facility] Positive NEG 03/29/2018 10:46 [facility] URINE PH - [facility] 7.0 4.0 - 8.0 8 10:46 [facility] URINE PROTEIN - DIPSTICK - [facility] Negative NEG 03/29/2018 10:46 EDT [facility] URINE RBC - [facility] 1-3 rbc/hpf 03/29/20 18 11:25 [facility] URCULTIF+? - [facility] Culture Ordered 03/29/2018 11:25 [facility] URINE SPECIFIC GRAVITY - [facility] 1.010 1.001 - 1.035 03/29/2018 10:46 EDT [facility] URINE SQUAMOUS CELLS - [facility] FEW NEG #/hpf 03/29/2018 11:25 [facility] URINE UROBILINOGEN - DIPSTICK - [facility] 1.0 0.2 - 1.0 03/29/2018 10:46 [facility] URINE WBC - [facility] 15-20 NEG wbc/hpf 018 11:25 [facility] 03/29/2018 9:01 EDT 03/29/2018 9:02 EDT Narrative [facility] - 03/29/2018 11:25 EDT Does PT Have a Latex Allergy? NO us Madhu Leon MD CHEMISTRY & BLOOD GAS ORDERABLES Final Result [facility] documented in this encounter Visit Diagnoses Not on filedocumented in this encounter Care Teams Endoscopy Specialty Technician Relationship Specialty Start Date End Date Unknown, Provider, PCP - General 09/05/13 09/23/19 documented as of this encounter
--- OUTSIDE RECORDS SUMMARY | 2024-08-31 11:01 | XMS_ITS | Encounter Summary ---
Author Organization [facility] Address [address] [place] [address] Care Team Providers Care Button Maker And Installer Name Role Phone Unknown, Provider Primary Care Provider Unava ilable Encounter Details Date Type Department Care Team (Late st Contact Info) Description 06/07/[address] [facility] - Main [place] [address] [place], [place] [id number] Madhu Leon MD [facility] [address] [place] [address] Social History Tobacco Use Types [...] Priority Date/Time Associated Diagnosis Comments URINALYSIS/COMPLETE - [facility] Routine 06/07/2019 11:43 EDT COMPLETE BLOOD COUNT WITH DIFFERENTIAL (AUTO) Routine 06/07/2019 11:43 EDT URINE [id number] RATIO (ACR) Routine 06/07/2019 11:43 EDT URINE CHEMICAL (DIP) & SEDIMENT (MICRO) WITHOUT REFLEX TO CULTURE Routine 06/07/2019 11:43 EDT TSH Routine 06/07/2019 11:43 EDT T4 FREE Routine 06/07/2019 11:43 EDT URIC ACID Routine 06/07/2019 11:42 EDT HEMOGLOBIN A1C Routine 06/07/2019 11:42 EDT documented in this encounter Results * TSH (06/07/2019 11:43 EDT) [facility] THYROID STIM HORMONE [facility] 1.07 0.46 - 4.68 uIU/ml 06/07/2019 13:46 EDT [facility] Comment: The results of this assay can be falsely lowered due to the consumption of Biotin. 06/07/2019 11:4 3 EDT 06/07/2019 11:43 EDT [facility] - 06/07/2019 13:46 EDT Does PT Have a Latex Allergy? NO Madhu Leon MD CHEMISTRY & BLOOD GAS ORDERABLES Final Result [facility] * T4 FREE (06/07/2019 11:43 EDT) [facility] T4 [facility] 1.15 0.78 - 2.19 ng/dl 06/07/2019 13:46 EDT [facility] 06/07/2019 11:4 3 EDT 06/07/2019 11:43 EDT [facility] - 06/07/2019 13:46 EDT Does PT Have a Latex Allergy? NO Madhu Leon MD CHEMISTRY & BLOOD GAS ORDERABLES Final Result [facility] * ALBUMIN, URINE (06/07/2019 11:43 EDT) [facility] Albumin, Urine 1.60 <1.7 mg/dL 06/07/2019 13:28 EDT [facility] Lab Urine Albumin to Creatinine Ratio 24.7 ug/mg 06/07/2019 13:28 EDT [facility] Comment: Normal: <30 ug/mg Creat Microalbuminuria: 30-300 ug/mg Creat Clinical albuminuria: >300 ug/mg Creat Creatinine, Urine 64.70 mg/dL 06/07/2019 13:28 EDT [facility] 06/07/2019 11:4 3 EDT 06/07/2019 11:43 EDT Narrative [facility] - 06/07/2019 13:28 EDT Does PT Have a Latex Allergy? NO WHAT TYPE OF COLLECTION IS THIS URINE? RANDOM URINE us Madhu Leon MD CHEMISTRY & BLOOD GAS ORDERABLES Final Result [facility] * URINALYSIS/COMPLETE - [facility] (06/07/2019 11:43 EDT) URINE APPEARANCE - [facility] Clear CLEAR 06/07/2019 13:01 [facility] URINE BACTERIA - [facility] MOD 06/07/2019 13:01 [facility] URINE BILIRUBIN - DIPSTICK - [facility] Negative NEGATIVE 06/07/2019 13:01 [facility] URINE BLOOD - [facility] 1+ NEG 06/07/2019 13:01 [facility] URINE COLOR - [facility] Yellow YELLOW 06/07/2019 13:01 [facility] URINE GLUCOSE - DIPSTICK - [facility] Negative NEGATIVE 06/07/2019 13:01 [facility] URINE KETONE - [facility] Negative NEGATIVE 06/07/2019 13:01 [facility] URINE LEUK ESTERASE - [facility] Negative NEG 06/07/2019 13:01 [facility] URINE NITRITE - DIPSTICK - [facility] Negative NEG 06/07/2019 13:01 [facility] URINE PH - [facility] 6.0 4.0 - 8.0 9 13:01 [facility] URINE PROTEIN - DIP[facility] - [facility] Negative NEG 06/07/2019 13:[facility] - [facility] 3-6 rbc/hpf 06/07/20 19 13:01 [facility] URCULTIF+? - [facility] Culture Ordered 06/07/2019 13:01 [facility] URINE SPECIFIC GRAVITY - [facility] 1.010 1.001 - 1.035 06/07/2019 13:01 [facility] URINE SQUAMOUS CELLS - [facility] MOD NEG #/hpf 06/07/2019 13:01 [facility] URINE UROBILINOGEN - DIPSTICK - [facility] 0.2 0.2 - 1.0 06/07/2019 13:01 [facility] URINE WBC - [facility] 1-4 NEG wbc/hpf 019 13:01 [facility] 06/07/2019 11:4 3 EDT 06/07/2019 11:43 EDT Narrative [facility] - 06/07/2019 13:01 EDT Does PT Have a Latex Allergy? NO us Madhu Leon MD CHEMISTRY & BLOOD GAS ORDERABLES Final Result [facility] * (ABNORMAL) COMPLETE BLOOD COUNT WITH DIFFERENTIAL (AUTO) (06/07/2019 11:43 EDT) ABSOLUTE NEUTROPHIL COUN - [facility] 3.4 2.2 - 8.85 10e3/uL 06/07/2019 12:37 T [facility] BASO # - [facility] 0.05 0.01 - 0.11 10e/uL 06/07/2019 12:37 [facility] BASO % - [facility] 1 0 - 2 % 06/07/2019 12:37 [facility] EOS # - [facility] 0.32 0.03 - 0.61 10e3/ul 06/07/2019 12:37 [facility] EOS % - [facility] 4 0 - 5 % 06/07/2019 12:37 [facility] GRAN % - [facility] 46.6 40 - 80 % 06/07/2019 12:37 [facility] HEMATOCRIT - [facility] 40.9 34.9 - 44.4 % 06/07/2019 12:37 [facility] HEMOGLOBIN - [facility] 13.3 11.6 - 15.2 g/dl 06/07/2019 12:37 [facility] IG# - [facility] 0.02 0 - 0.7 10e3/uL 06/07/2019 12:37 [facility] IG% - [facility] 0.3 0 - 0.9 % 06/07/2019 12:37 [facility] LYMPH # - [facility] 3.0 1.09 - 3.3 10e3/ul 06/07/2019 12:37 [facility] LYMPH% - [facility] 41.9(H) 20 - 40 % 06/07/2019 12:37 [facility] MEAN CORPUSCULAR HGB - CV 30.3 26.7 - 33.3 pg 06/07/2019 12:37 [facility] MEAN CORPUSCULAR HGB CONC - [facility] 32.5 32.1 - 35.9 g/dL 06/07/2019 12:37 [facility] MEAN CELL VOLUME - [facility] 93.2 81 - 98 fl 06/07/2019 12:37 [facility] MONO # - [facility] 0.4 0.1 - 0.8 10e3/uL 06/07/2019 12:37 [facility] MONO% - [facility] 6.1 0 - 12 % 06/07/2019 12:37 [facility] PLATELET COUNT 190 141 - 377 10e3/ul 06/07/2019 12:37 [facility] RED BLOOD COUNT - [facility] 4.39 3.86 - 5.04 10e3/ul 06/07/2019 12:37 [facility] RED CELL DISTRI WIDTH - [facility] 13.2 <14.7 % 06/07/2019 12:37 [facility] WHITE BLOOD COUNT - [facility] 7.2 4.0 - 12.4 10e3/ul 06/07/2019 12:37 EDT [facility] 06/07/2019 11:4 3 EDT 06/07/2019 11:43 EDT [facility] - 06/07/2019 12:37 EDT Does PT Have a Latex Allergy? NO Madhu Leon MD HEMATOLOGY & PF4 ORDER CLAUDIA Final Result [facility] * HEMOGLOBIN A1C (06/07/2019 11:42 EDT) Hemoglobin A1c 6.0 4.0 - 6.0 % 06/07/2019 21:16 EDT [facility] Comment: [...] Avg Glucose 126 mg/dL 9 21:16 EDT [facility] 06/07/2019 11:4 2 EDT 06/07/2019 11:43 EDT [facility] - 06/07/2019 21:16 EDT Does PT Have a Latex Allergy? NO Madhu Leon MD CHEMISTRY & BLOOD GAS ORDERABLES Final Result [facility] * URIC ACID (06/07/2019 11:42 EDT) URIC ACID - [facility] 5.0 2.2 - 7.7 mg/dL 06/07/2019 13:17 EDT [facility] 06/07/2019 11:4 2 EDT 06/07/2019 11:42 EDT Narrative [facility] - 06/07/2019 13:17 EDT Does PT Have a Latex Allergy? NO us Madhu Leon MD CHEMISTRY & BLOOD GAS ORDERABLES Final Result [facility] documented in this encounter Visit Diagnoses Not on filedocumented in this encounter Care Teams Button Maker And Installer Relationship Specialty Start Date End Date Unknown, Provider, PCP - General 09/05/13 09/23/19 documented as of this encounter
--- OUTSIDE RECORDS SUMMARY | 2024-08-31 11:02 | XMS_ITS | Encounter Summary ---
Author Organization [facility] Address [address] [place] [address] Care Team Providers Care Maintenance Shop Manager Name Role Phone Unavailable Primary Care Provider Unavailabl e Encounter Details Date Type Department Care Team (Latest Contact Info) Description 08/10/2013 6:48 EST - 08/10/2013 23:59 EST Hospital Encounter [facility] [address] [place] [address] Unknown, Provider, MD Discharge Disposition: Home or [...] Code Departure Means Destination Home or Self [facility] documented in this encounter Plan of Treatment Not on file documented as of this encounter Visit Diagnoses Not on filedocumented in this encounter
--- OUTSIDE RECORDS SUMMARY | 2024-08-31 11:02 | XMS_ITS | Encounter Summary ---
Author Organization [facility] Address [address] [place] [address] Care Team Providers Care Hair Salon Manager Name Role Phone Unknown, Provider Primary Care Provider Unava ilable Encounter Details Date Type Department Care Team (Late st Contact Info) Description 09/15/[address] [facility] Radiology Results [address] [place], [place] [id number] Madhu Leon MD [facility] [address] [place] [address] Social History Tobacco Use Types [...] will contact ? your patient directly. ? CENTRAL STERILE TECHNICIAN:kad ?Reported By: Art Phelps MD ? CC: ? Transcribed Date/Time: 09/17/2016 (1046) ? Human Resources Hr Generalist: JOSE ? Printed Date/Time: 02/05/2019 (0418) ? [...] is needed we willcontact your patient directly. CENTRAL STERILE TECHNICIAN:alma Reported By: Art Phelps MD CC: Transcribed Date/Time: 09/17/2016 (1046) Human Resources Hr Generalist: JOSE Printed Date/Time: 02/05/2019 (041) PAGE 1 Signed Report us Madhu Leon MD IMG MAMMOGRAPHY ORDERA BLES Final Result documented in this encounter Visit Diagnoses Not on filedocumented in this encounter Care Teams Hair Salon Manager Relationship Specialty Start Date End Date Unknown, Provider, PCP - General 09/05/13 09/23/19 documented as of this encounter
--- OUTSIDE RECORDS SUMMARY | 2024-08-31 11:02 | XMS_ITS | Encounter Summary ---
Author Organization [facility] Address [address] [place] [address] Care Team Providers Care Painting Trades Worker Name Role Phone Unknown, Provider Primary Care Provider Unava ilable Encounter Details Date Type Department Care Team (Latest Contact Info) Description 09/11/2015 8:26 EST - 09/11/2015 23:59 EST Hospital Encounter [facility] [address] [place] [address] Unknown, ProviderMD Discharge Disposition: Home or Self [...] Code Departure Means Destination Home or Self Alf documented in this encounter Plan of Treatment Not on file documented as of this encounter Visit Diagnoses Not on filedocumented in this encounter Care Teams Painting Trades Worker Relationship Specialty Start Date End Date Unknown, Provider, PCP - General 09/05/13 09/23/19 documented as of this encounter
--- OUTSIDE RECORDS SUMMARY | 2024-08-31 11:02 | XMS_ITS | Encounter Summary ---
Author Organization [facility] Address [address] [place] [address] Care Team Providers Care Psychiatry Resident Name Role Phone Unknown, Provider Primary Care Provider Unava ilable Encounter Details Date Type Department Care Team (Late st Contact Info) Description 09/01/2014 Historical Results Only [facility] Radiology Results [address] [place], [place] [address] Madhu Leon MD [facility] [address] [place] [address] Social History Tobacco Use Types [...] Negative. Routine ?mammographic follow-up is recommended. ? INSTRUCTOR WATCH ASSEMBLY:kad ?Reported By: Art Phelps MD ? CC: ? Transcribed Date/Time: 09/05/2014 (1148) ? Sewer Connector: JOSE ? Printed Date/Time: 01/24/2019 (6408) ? PAGE 1 ? Signed Report ? [...] 1 - Negative.Routine mammographic follow-up is recommended. INSTRUCTOR WATCH ASSEMBLY:alma Reported By: Art Phelps MD CC: Transcribed Date/Time: 09/05/2014 (1148) Sewer Connector: JOSE Printed Date/Time: 01/24/2019 (6642) PAGE 1 Signed Report us Madhu Leon MD IMG MAMMOGRAPHY ORDERA BLES Final Result documented in this encounter Visit Diagnoses Not on filedocumented in this encounter Care Teams Psychiatry Resident Relationship Specialty Start Date End Date Unknown, Provider, PCP - General 09/05/13 09/23/19 documented as of this encounter
--- OUTSIDE RECORDS SUMMARY | 2024-08-31 11:02 | XMS_ITS | Encounter Summary ---
Author Organization [facility] Address [address] [place] [address] Care Team Providers Care Bankruptcy Processor Name Role Phone Unknown, Provider Primary Care Provider Unava ilable Encounter Details Date Type Department Care Team (Latest Contact Info) Description 04/21/2014 20:11 EDT - 04/21/2014 23:59 EDT Hospital Encounter [facility] [address] [place] [address] Unknown, Provider, Discharge Disposition: Home or Self [...] on filedocumented in this encounter Care Teams Bankruptcy Processor Relationship Specialty Start Date End Date Unknown, Provider, PCP - General 09/05/13 09/23/19 documented as of this encounter
--- OUTSIDE RECORDS SUMMARY | 2024-08-31 11:02 | XMS_ITS | Encounter Summary ---
Author Organization [facility] Address [address] [place] [address] Care Team Providers Care Bench Assembler Battery Name Role Phone Unknown, Provider Primary Care Provider Unava ilable Encounter Details Date Type Department Care Team (Latest Contact Info) Description 09/01/2014 11:50 EST - 09/01/2014 23:59 EST Hospital Encounter [facility] [address] [place] [address] Unknown, ProviderMD Discharge Disposition: Home or Self [...] Code Departure Means Destination Home or Self Shelter documented in this encounter Plan of Treatment Not on file documented as of this encounter Visit Diagnoses Not on filedocumented in this encounter Care Teams Bench Assembler Battery Relationship Specialty Start Date End Date Unknown, Provider, PCP - General 09/05/13 09/23/19 documented as of this encounter
--- OUTSIDE RECORDS SUMMARY | 2024-08-31 11:02 | XMS_ITS | Encounter Summary ---
Author Organization [facility] Address [address] [place] [address] Care Team Providers Care Brush Filler Hand Name Role Phone Unknown, Provider Primary Care Provider Unava ilable Encounter Details Date Type Department Care Team (Late st Contact Info) Description 09/11/2015 Historical Results Only [facility] Radiology Results [address] [place], [place] [address] Madhu Leon MD [facility] [address] [place] [address] Social History Tobacco Use Types [...] CC: ? Transcribed Date/Time: 09/13/2015 (1252) ? Chauffeur: JOSE ? Printed Date/Time: 02/02/2019 (6684) ? PAGE 1 ? Signed Report ? [...] Art Phelps MD CC: Transcribed Date/Time: 09/13/2015 (7079) Chauffeur: JOSE Printed Date/Time: 02/02/2019 (2290) PAGE 1 Signed Report us Madhu Leno MD IMG MAMMOGRAPHY ORDERA BLES Final Result documented in this encounter Visit Diagnoses Not on filedocumented in this encounter Care Teams Brush Filler Hand Relationship Specialty Start Date End Date Unknown, Provider, PCP - General 09/05/13 09/23/19 documented as of this encounter
--- OUTSIDE RECORDS SUMMARY | 2024-08-31 11:02 | XMS_ITS | Encounter Summary ---
Author Organization [facility] Address [address] [place] [address] Care Team Providers Care Career And Transition Teacher Name Role Phone Unavailable Primary Care Provider Unavailabl e Encounter Details Date Type Department Care Team (Late st Contact Info) Description 04/20/2000 10:59 EDT Hospital Encounter [facility] - Other [address] [place] [address] Mercy Alaniz MD [address] [id number] Unknown, Provider, Social History Tobacco Use Types [...] ? TELMA CHINCHILLA ? Accession #: ? [id number] : ? 1945 (Age: 55) ??F ?Collect [...] Final R esult [facility] [address] [place] [address] documented in this encounter Visit Diagnoses Not on filedocumented in this encounter
--- OUTSIDE RECORDS SUMMARY | 2024-08-31 11:02 | XMS_ITS | Encounter Summary ---
Author Organization [facility] Address [address] [place] [address] Care Team Providers Care Kier Tender Name Role Phone Unavailable Primary Care Provider Unavailabl e Encounter Details Date Type Department Care Team (Late st Contact Info) Description 06/28/2001 11:38 EST Hospital Encounter [facility] - Other [address] [place] [address] Mercy Alaniz MD [address] [id number] Unknown, Provider, Social History Tobacco Use Types [...] ? TELMA CHINCHILLA ? Accession #: ? [id number] : ? 1945 (Age: 56) ??F ?Collect [...] and electronically signed by: ? Romana Harley [facility](ASCP) ? Report Date: ??07/05/2001 14:02 End of Report [facility] 06/28/2001 06/30/2001 us Mercy Alaniz MD PATHOLOGY ORDERABLES Final R esult [facility] [address] [place] [address] documented in this encounter Visit Diagnoses Not on filedocumented in this encounter
--- OUTSIDE RECORDS SUMMARY | 2024-08-31 11:02 | XMS_ITS | Encounter Summary ---
Author Organization [facility] Address [address] [place] [address] Care Team Providers Care Brewing Technician Name Role Phone Unknown, Provider Primary Care Provider Unava ilable Encounter Details Date Type Department Care Team (Latest Contact Info) Description 09/15/2016 13:19 EST - 09/15/2016 23:59 EST Hospital Encounter [facility] [address] [place] [address] Unknown, ProviderMD Discharge Disposition: Home or Self [...] Code Departure Means Destination Home or Self Skilled Nursing documented in this encounter Plan of Treatment Not on file documented as of this encounter Visit Diagnoses Not on filedocumented in this encounter Care Teams Brewing Technician Relationship Specialty Start Date End Date Unknown, Provider, PCP - General 09/05/13 09/23/19 documented as of this encounter
[2024-08-31 15:30] LABS: Vitamin B12 416 pg/mL (193-986)
== END 2024-08-31 10:57 | disposition home or self-care (01) ==
LOC: NCHCN 10:56
PROVIDERS: Visit Provider Internal Medicine
DX: F03.90 Unspecified dementia, unspecified severity, without behavioral disturbance, psychotic disturbance, mood disturbance, and anxiety (principal)
CPT/HCPCS: 82607

== ENCOUNTER 2024-09-17 19:40 | Inpatient (IN) | payer MEDICARE, OTHER, SELFPAY ==
[2024-09-17] VITALS (32 sets, daily range): BP systolic 55–169; BP diastolic 28–142; PULSE 53–161; RESP 9–35; O2SAT 94–100
--- NOTE | 2024-09-17 19:30 | RT.EKG_ITS ---
APPROVED REPORT Exam: Resting ECG Reason for Exam: abd pain Patient Location: E HR:63 bpm ECG Measurements Heart Rate 63 AXIS NE 156 P 50 QRSd 96 QRS 72 QT 440 T 49 QTc 450 Conclusion Sinus rhythm 63 normal axis no stemi
--- NOTE | 2024-09-17 19:45 | DI.CT_ITS ---
Exam(s) CT THORAX ABD/PEL CTA EXAM: CT THORAX ABD/PEL CTA CLINICAL HISTORY: severe abd pain. TECHNIQUE: Imaging Protocol: Axial computed tomography images with coronal and sagittal reformatted images were created and reviewed CONTRAST MATERIAL: Intravenous: Omnipaque 350 Contrast volume:75 mL. Oral: None COMPARISON: CT CT ABDOMEN PELVIS CTA from 05/25/[address] ABDOMEN PELVIS W from 08/09/2024 FINDINGS: CHEST: AORTA: Diameter of the ascending thoracic aorta is not enlarged. There is no evidence of aortic diss ection. Diameter of the descending thoracic aorta is upper normal. LUNGS: There are few small bilateral lung nodules measuring up to 4 mm. No confluent infiltrates nor pleural effusions.. MEDIASTINUM: There is no hilar nor mediastinal adenopathy. Visualized thyroid unremarkable. CARDIAC: Heart size is normal. There is no pericardial effusion. ABDOMEN: The abdominal aorta is atherosclerotic and calcified. There is a fusiform infrarenal abdominal aortic aneurysm just above the aortic bifurcation starting j ust below the inferior mesenteric artery takeoff point. Maximum diameter is 2.5 cm and the aneurysma l dilatation does not extend into the iliac arteries. The superior mesenteric artery origin and more distally appear unremarkable without significant steno sis. The celiac artery is a thin vessel throughout its length. The inferior mesenteric artery is pa tent. There is no ascites. LIVER: There is a subcapsular cyst in the right hepatic lobe unchanged from CT scan of July 2024 and May 2021. No other cyst or hemangioma measuring 1 cm is noted more centrally in the liver, al so unchanged. GALLBLADDER/BILIARY: There are to gallstones in the gallbladder lumen again noted, both measuring treasure roximately 1.2 cm. The gallbladder is not distended nor edematous and there is no pericholecystic fl uid. CBD is not dilated. PANCREAS: No evidence of pancreatic mass nor dilatation of the pancreatic duct. SPLEEN: Spleen is not enlarged. There are no intrasplenic lesions. ADRENALS: Small nodule in the left adrenal gland is unchanged from 2020 and most probably an adenoma. This measures approximately 1 cm. Opposite-right adrenal gland remains unremarkable. KIDNEYS: There is a benign cyst in the inferior pole of the right kidney which measures 1.3 x 1.1 cm. Larger than previous but benign appearance and does not require workup. There are no solid renal m asses. No calculi. No hydronephrosis. ABDOMINAL AORTA: See above LYMPH NODES: There is no retroperitoneal nor para-aortic adenopathy. No obvious mesenteric masses. ABDOMINAL WALL: No evidence of significant anterior abdominal wall hernia. GI: There is abundant fecal material throughout the colon an colon is distended to approximately 4.7 cm. This is most evident in the transverse colon. [place] cecum and ileocecal valve are not identifi ed nor is the appendix and there has possibly been prior partial right hemicolectomy. Small-bowel di ameters are upper normal. Also fluid-filled. No obvious transition point in the small bowel. PELVIS: LYMPH NODES: There is no intrapelvic nor inguinal adenopathy. GI: No evidence of appendicitis.Abundant fecal material in the colon. Diverticula but no acute diver ticulitis. URINARY BLADDER: Collapsed. REPRODUCTIVE: Uterus and adnexal regions unremarkable. No free fluid. OSSEOUS: No significant osseous lesions. No fractures. There is degenerative anterolisthesis of L4 upon L5 related to facet arthropathy at this level. IMPRESSION: 1. There is abundant fecal material throughout the colon. Small bowel loop diameters are upper radha l. Possible prior partial right hemicolectomy. There does not appear to be a high-grade bowel obstr uction. 2. Ectatic mildly dilated and atherosclerotic infrarenal abdominal aorta, particularly below the take off point of the inferior mesenteric artery, with measurements as above. 3. Cholelithiasis again noted. No evidence of acute cholecystitis. CBD is not dilated. 4. Stable small left adrenal nodule unchanged from 202 and most probably an adenoma. 5. Small bilateral lung nodules maximum size 4 mm. Recommend repeat chest CT scan in 1 year. There are no pleural effusions. RADIATION DOSE DELIVERED: 798.07mGy.cm Total DLP DATA REPOSITORY: All CT scans at this facility are submitted to the National Radiology Data Registry (NRDR) Dose Index Registry (DIR) with the [employer] (ACR). RADIATION OPTIMIZATION: All CT scans at this facility use at least one of these dose optimization te chniques: automated exposure control; mA and/or kV adjustment per patient size (includes targeted exa ms where dose is matched to clinical indication); or iterative reconstruction.
--- NOTE | 2024-09-17 19:57 | W.ED.GENAD ---
Discharge Plan Disposition Patient Disposition: Admit to [facility] Condition: Serious Discharge Details Clinical Impression: Abdominal pain, Constipation, Acute hypotension Primary Care Provider: Gini Todd ED Provider: Christian Manriquez Home Meds and New Rx's Prescriptions: No Action metoprolol tartrate 25 mg Tablet 12.5 mg PO BID Qty: 90 0RF trandolapril 4 mg Tablet 4 mg PO DAILY atorvastatin 10 mg Tablet 10 mg PO DAILY isosorbide mononitrate 30 mg Tablet Extended Release 24 Hr 30 mg PO DAILY hydrochlorothiazide 12.5 mg Tablet 12.5 mg PO DAILY HPI General Date/Time Provider Initiated Documentation: 09/17/24 19:42. Limitations to Documentation: physical limitation. Information obtained by: patient and family (Daughter). HPI Narrative: 79-year-old female with past medical history of CAD, hypertension, vascular disease, colitis with recent hospitalization for C. difficile presents for evaluation of severe abdominal pain and vomiting. Daughter reports that she was admitted to the hospital and treated for C. difficile. At the time of discharge, her C. difficile testing was negative. She reports that she has been doing well she is not currently on antibiotics. She has been doing probiotics Juan Carlos and other bowel regimen, she has been eating and drinking normally. No fever, vomiting abdominal pain. She has been having normal bowel movements. Daughter reports that acutely after eating dinner of chicken Tre, the patient began complaining of severe abdominal pain. She has had nausea and several episodes of vomiting. She states that she feels like she needs to go poop, but no poop will come out Related Data Home Medications ?Medication ?Instructions ?Recorded ?Confirmed atorvastatin 10 mg tablet 10 mg PO DAILY 05/25/21 08/09/24 hydrochlorothiazide 12.5 mg tablet 12.5 mg PO DAILY 05/25/21 08/09/24 isosorbide mononitrate 30 mg 30 mg PO DAILY 05/25/21 08/09/24 tablet,extended release 24 hr trandolapril 4 mg tablet 4 mg PO DAILY 05/25/21 08/09/24 metoprolol tartrate 25 mg tablet 12.5 mg (1/2 x 25 mg) PO BID #90 08/13/24 tabs Previous Rx's ?Medication ?Instructions ?Recorded metoprolol tartrate 25 mg tablet 12.5 mg (1/2 x 25 mg) PO BID #90 08/13/24 tabs Allergies Allergy/AdvReac Type Severity Reaction Status Date / Time tramadol Allergy Mild Unknown Unverified 08/09/24 18:10 bupropion (From Zyban) Allergy Unknown Unverified 08/09/24 18:10 clindamycin Allergy Unknown Unverified 08/09/24 18:10 gemfibrozil Allergy Unknown Unverified 08/09/24 18:10 niacin (From Niaspan Allergy Unknown Unverified 08/09/24 18:10 Extended-Release) Penicillins Allergy Unknown Unverified 08/09/24 18:10 General JESSI: 3 Exam Narrative Exam Narrative: Review of Systems: All systems reviewed & are unremarkable except as noted in HPI and below Well-developed, appears uncomfortable Hypotensive NCAT RRR, no murmur clear bilaterally Unlabored respiratory effort Nondistended abdomen soft, generalized tenderness with guarding Medical Decision Making Emergent evaluation of severe abdominal pain and vomiting. Symptoms started after eating dinner but no one else got sick and patient has had this meal before. Unlikely allergic reaction or foodborne illness. Other differential includes toxic megacolon, bowel obstruction, acute cholecystitis, aortic pathology. Patient is noted to be hypotensive and actively vomiting. Will begin resuscitation with IV fluids, give pain control and antiemetics and send for emergent abdominal imaging. EKG reviewed and independently interpreted: Sinus 63 normal axis no acute ischemic changes. patient noted to be very hypotensive. Fluid resuscitation initiated. Taken emergently to CT imaging. I've reviewd the CT scans and not noted an aortic rupture. Have contacted vrad for an urgent read. Lactic acid elevated, as well as WBC. cultures added and broad spectrum abx initiated. patient still complaining of severe abdominal pain despite morphine. Will order fentanyl. 2049 Vrad report does not indicated acute aortic pathology but doesn't comment on bowel. have reached out to gen surg for consult Discussed with general surgery who reviewed the CT images. No signs of bowel obstruction but does have significant and extreme constipation. Given her age and comorbidities, not a candidate for diverting ileostomy or other surgical intervention. She is recommending NG tube placement and Gastrografin cleanout. The patient's vital signs have stabilized after IV fluids. I discussed with the hospitalist who will admit the patient. The patient has started having some bowel movements. Nurses updated on plan for NG decompression and Gastrografin administration. Family updated on plan and need for admission. Quality:SDOH Health Related Social Needs: No Data to Display Critical Care Time Critical Care Time Critical Care Time: Yes Total Critical Care Time: 38 Attestation: CRITICAL CARE Upon my evaluation, this patient had a high probability of imminent or life-threatening deterioration due to hypotension, abdominal pain which required my direct attention, intervention, and personal management. I have personally provided 38 minutes of critical care time exclusive of time spent on separately billable procedures. Time includes review of laboratory data, radiology results, discussion with consultants, and monitoring for potential decompensation. Interventions were performed as documented above [facility] All Active Problems (Updated 09/17/24 @ 21:58 by Alicia Thakkar DO) Atherosclerosis of aorta (Acute) Atherosclerosis (Acute) Gallstones (Acute) Fecal obstruction (Acute) Acute hypotension (Acute) Constipation (Acute) Abdominal pain (Acute) Septic shock (Acute) C. difficile colitis (Acute) Dementia (Chronic) ASVD (arteriosclerotic vascular disease) (Acute) CAD (coronary artery disease), [place] coronary artery (Chronic) HTN (hypertension) (Chronic) Pyelonephritis (Acute) Medical History Abdominal pain GIB (gastrointestinal bleeding) Sepsis Social History Smoking/Tobacco Use Status: Current every day Tobacco Type: cigarettes Smoking risk assessment performed?: Yes Alcohol Intake: never Drug use: Never Substance use type: does not use Housing: house Do you feel safe at home: Yes Do you feel safe in your relationship?: Yes
[2024-09-17] MEDS: MORPHine 10 MG/ML VIAL 4 MG IVP (20:04)
[2024-09-17] MEDS: Ondansetron 4 MG/2 ML VIAL IVP (20:07)
[2024-09-17] MEDS: Lactated Ringers 1,000 ML 1000 ML IV (20:09)
[2024-09-17 20:15] LABS: MCH 30.7 pg (27.0-33.0); MCHC 32.6 % (32.0-36.0); MCV 94 fL (80-95); MPV 10.5 fL (8.0-11.0); RBC 4.88 10^6/uL (3.93-5.22); RDW 12.9 % (11.7-14.6); RDW-SD 45.1 fL; WBC 15.46 10^3/uL (4.4-10.8)
[2024-09-17 20:18] LABS: Lactate 5.8 mmol/L (<or=2.0)
[2024-09-17] MEDS: Omnipaque 350 MG/ML 100 ML BTL IJ (20:18)
[2024-09-17] MEDS: Normal Saline - Diluent 50 ML VIAL IJ (20:19)
[2024-09-17 20:31] LABS: Absolute Basophil Count 0.15 10^3/uL (0.0-0.2); Absolute Lymphocyte Count 6.49 10^3/uL (1.2-3.4); Absolute Monocyte Count 0.31 10^3/uL (0.1-0.8); Atypical Lymphocytes % 2 %; Bands % 5 %
[2024-09-17 20:32] LABS: Diff Comment Manual Differential; Platelet Count 216 10^3/uL (130-400); RBC Morphology Normal
[2024-09-17 20:47] LABS: ALT 22 U/L (14-59); AST 29 U/L (15-37); Albumin 3.9 g/dL (3.4-5.0); Alkaline Phosphatase 218 U/L (46-116); BUN 28 mg/dL (7-18); Bilirubin, Total 0.74 mg/dL (0.2-1.0); CREATININE 1.6 mg/dL (0.55-1.02); Calcium 9.7 mg/dL (8.5-10.1); Chloride 103 mmol/L (98-107); Glucose 154 mg/dL (74-106); Lipase 82 U/L (<78); Magnesium 2.5 mg/dL (1.8-2.4); Sodium 142 mmol/L (136-145); Total Protein 7.9 g/dL (6.4-8.2); Troponin I 10 ng/L (<or=51)
[2024-09-17 20:48] LABS: Potassium 2.9 mmol/L (3.5-5.1)
--- NOTE | 2024-09-17 20:48 | DI.VRAD_ITS ---
PROCEDURE INFORMATION: Exam: CTA Abdomen and Pelvis With Contrast Exam date and time: 09/17/2024 8:17 PM Age: 79 years old Clinical indication: Other: Severe abd pain TECHNIQUE: Imaging protocol: Computed tomographic angiography of the abdomen and pelvis with contrast. Exam focused on the arteries. 3D rendering (Not supervised by radiologist): MIP and/or 3D reconstructed images were created by the technologist. COMPARISON: CT ABDOMEN PELVIS CTA 05/25/2021 12:04 PM FINDINGS: Lungs: Linear bibasilar opacities most consistent with subsegmental atelectasis. Aorta: Ectatic infrarenal abdominal aorta. There is moderate diffuse atherosclerotic disease of the abdominal aorta. Celiac trunk and mesenteric arteries: No occlusion or significant stenosis. Renal arteries: No occlusion or significant stenosis. Right iliac arteries: No occlusion or significant stenosis. Left iliac arteries: No occlusion or significant stenosis. Liver: Scattered hepatic cysts are seen and other subcentimeter hypodensities which are too small to characterize. Gallbladder and biliary ducts: Multiple gallstones are present. No pericholecystic inflammatory changes to suggest cholecystitis. Pancreas: The pancreas is unremarkable. Spleen: No splenomegaly. No lesions. Adrenal glands: Stable left adrenal gland nodule, likely adenoma. Kidneys and ureters: Bilateral renal cysts are present, as well as other subcentimeter hypodensities which are too small to characterize. Stomach and bowel: Large amount of stool throughout the colon and rectum. Appendix: Normal appendix. Intraperitoneal space: Unremarkable. No free air. No significant fluid collection. Lymph nodes: No mesentery adenopathy. No edema. Urinary bladder: No focal wall thickening of the urinary bladder. Reproductive: Unremarkable as visualized. Bones/joints: No acute osseous abnormality. Soft tissues: Small fat containing umbilical hernia. Soft tissues are unremarkable as visualized. IMPRESSION: No acute findings. Chronic noncritical findings as described above Dictated and Authenticated by: Mariely Del Rosario MD. Ordering:[facility] Mitra Lucero MD
[2024-09-17] MEDS: CEFEPIME 2 GM in Normal Saline 100 ML IVPB (20:53)
[2024-09-17] MEDS: fentaNYL 100 MCG/2 ML VIAL IVP (20:56)
[2024-09-17] MEDS: VANCOMYCIN 1,000 MG in Normal Saline 250 ML 166.6666 MG IVPB (20:57)
--- NOTE | 2024-09-17 21:55 | SCONE_ITS ---
Date of service: 09/17/24 Time of Service: 21:56 Assessment and Plan Assessment and plan (1) Fecal obstruction: Status: Acute Assessment and plan: Patient has a high risk of mortality. She is currently quite unstable. -Patient is a poor surgical candidate. With her advanced dementia I do not think doing a colostomy would give her any increase in quality of life. -We will continue with conservative medical management and try to address the problem from above and below Again prognosis is poor (2) HTN (hypertension): Status: Chronic (3) Acute hypotension: Status: Acute (4) CAD (coronary artery disease), [place] coronary artery: Status: Chronic (5) ASVD (arteriosclerotic vascular disease): Status: Acute (6) Dementia: Status: Chronic (7) Gallstones: Status: Acute (8) Atherosclerosis: Status: Acute (9) Atherosclerosis of aorta: Status: Acute (10) C. difficile colitis: Status: Acute Assessment and plan: -repeat test for confirmation -started on Dificid. -recommend palliative consult History of Present Illness Narrative: Patient presents tonight to the ER complaining of nausea vomiting and abdominal pain. She was in the hospital in July and treated for C. difficile. The patient has advanced dementia and is ANO x 1 and not able to really give any history. Family states she has been having normal bowel movements. Although from reviewing her CT I do not see how this is possible. She has not had a colonoscopy pt had a large amount of stool in the ED that was c diff postitive pt c/o RLQ pain- repeat xray shows lg R [place]e stool burden still. Review of Systems Unobtainable due to mental condition PFSH All Active Problems (Updated 09/17/24 @ 23:05 by JON MARQUEZ) Elevated alkaline phosphatase level (Acute) RENITA (acute kidney injury) (Acute) Hypokalemia (Acute) Atherosclerosis of aorta (Acute) Atherosclerosis (Acute) Gallstones (Acute) Fecal obstruction (Acute) Acute hypotension (Acute) Constipation (Acute) Abdominal pain (Acute) Septic shock (Acute) C. difficile colitis (Acute) Dementia (Chronic) ASVD (arteriosclerotic vascular disease) (Acute) CAD (coronary artery disease), [place] coronary artery (Chronic) HTN (hypertension) (Chronic) Pyelonephritis (Acute) Medical History Abdominal pain GIB (gastrointestinal bleeding) Sepsis Social History Smoking/Tobacco Use Status: Current every day Tobacco Type: cigarettes Smoking risk assessment performed?: Yes Alcohol Intake: never Drug use: Never Substance use type: does not use Housing: house Do you feel safe at home: Yes Do you feel safe in your relationship?: Yes Exam Narrative Exam Narrative: pt c/o RLQ pain pt is non-cooperative w/ exam and cannot answer questions. Results Last Vital Signs Pulse 53 L 09/17/24 20:12 Resp 20 09/17/24 20:12 BP 128/82 09/17/24 20:58 Pulse Ox 96 09/17/24 20:12 Labs 09/18/24 06:10 09/18/24 06:10 Labs: Laboratory Results - last 24 hr 09/17/24 09/17/24 09/17/24 20:05 20:42 22:42 WBC 15.46 H RBC 4.88 Hgb 15.0 Hct 46.0 MCV 94 MCH 30.7 MCHC 32.6 RDW 12.9 Plt Count 216 MPV 10.5 Immature Gran % See Differential Neutrophils % 50.0 Band Neutrophils % 5 Lymphocytes % 40.0 Atypical Lymphs % 2 Monocytes % 2.0 Eosinophils % 0.0 Basophils % 1.0 Nucleated RBC % 0.0 Absolute Neutrophils 8.50 H Absolute Lymphocytes 6.49 H Absolute Monocytes 0.31 Absolute Eosinophils 0.00 Absolute Basophils 0.15 RBC Morphology Normal VBG Lactate 5.8 H* Sodium 142 Potassium 2.9 L* Chloride 103 Carbon Dioxide 27.0 Anion Gap 12.0 H BUN 28 H Creatinine 1.6 H Est GFR (CKD-EPI 2020) 32.40 Glucose 154 H Calcium 9.7 Magnesium 2.5 H Total Bilirubin 0.74 AST 29 ALT 22 Alkaline Phosphatase 218 H Troponin I 10 Cancelled Cancelled Total Protein 7.9 Albumin 3.9 Lipase 82 H
--- NOTE | 2024-09-17 22:17 | W.PM.HP.N ---
Date of service: 09/17/24 Time of Service: 22:17 Assessment and Plan Assessment and plan (1) Fecal obstruction: Status: Acute Assessment and plan: The patient was in her usual state of health when this evening after eating homemade chicken [place] she began to have severe abdominal pain w/ multiple bouts of bilious vomiting. She did have a recent history of C. Diff but has been having normal BM since then and is taking pro-biotics as well as supplementing her diet with yogurt and kefir. Her CT shows significant constipation and obstruction. Her lab does show significant leukocytosis of 15.46 but I suspect this is reactive to her constipation. She did have one documented low BP 85/53 in the ER which resolved w/ IVF. -Gen Surgery has been consulted and recommend NG tube placement w/ gastrograffin -Cont w/ ABX and re-evaluate if this needs to be continued in AM -Blood CX x2 pending (2) Atherosclerosis: Status: Acute Assessment and plan: -Hold Metoprolol 12.5mg bid and Atorvastatin 10mg daily for now (3) HTN (hypertension): Status: Chronic Assessment and plan: -Hold HCTZ 12.5mg daily for now (4) Hypokalemia: Status: Acute Assessment and plan: Secondary to vomiting -Replete w/ IV K (5) RENITA (acute kidney injury): Status: Acute Assessment and plan: Cr 1.6. Prior baseline 0.9 -Hold HCTZ -Start IVF and repeat BMP in AM (6) Elevated alkaline phosphatase level: Status: Acute Assessment and plan: AlkP 218 -Repeat s/p IVF in AM History of Present Illness History of Present Illness Chief Complaint: Unable to obtain from patient Narrative: The patient is a 79 y/o C F w/ PMH severe dementia and cardiovascular disease who was recently hospitalized discharged on 08/13/24 due to C. Diff Colitis s/p PO Vancomycin who is brought into the ED tonight by her family. She has severe dementia and is unable to provide any history. Her daughter notes that she was doing well earlier in the day w/o any issues. For dinner she ate chicken [place] and soon after that began to have severe excruciating abdominal pain to the point that she was in the position on the floor. She had numerous episodes of bilious vomiting w/ 6 episodes. There was no coffee ground emesis of fresh red blood per the family. Prior to the she has been having regular bowel movements. There has been no recent fever, chills or night sweats. She has no chest pain, palpitations, coughing, wheezing or dyspnea. Review of Systems Narrative: Unable to obtain a full ROS from the patient as she has severe dementia and is unable to give a history. A brief ROS is in the note above which was obtained from the family. PFSH All Active Problems (Updated 09/17/24 @ 22:30 by Mookie Gregg MD) Elevated alkaline phosphatase level (Acute) RENITA (acute kidney injury) (Acute) Hypokalemia (Acute) Atherosclerosis of aorta (Acute) Atherosclerosis (Acute) Gallstones (Acute) Fecal obstruction (Acute) Acute hypotension (Acute) Constipation (Acute) Abdominal pain (Acute) Septic shock (Acute) C. difficile colitis (Acute) Dementia (Chronic) ASVD (arteriosclerotic vascular disease) (Acute) CAD (coronary artery disease), [place] coronary artery (Chronic) HTN (hypertension) (Chronic) Pyelonephritis (Acute) Medical History Abdominal pain GIB (gastrointestinal bleeding) Sepsis Social History Smoking/Tobacco Use Status: Current every day Tobacco Type: cigarettes Smoking risk assessment performed?: Yes Alcohol Intake: never Drug use: Never Substance use type: does not use Housing: house Do you feel safe at home: Yes Do you feel safe in your relationship?: Yes Meds Allergies and Home Medications Allergies Allergy/AdvReac Type Severity Reaction Status Date / Time tramadol Allergy Mild Unknown Unverified 08/09/24 18:10 bupropion (From Zyban) Allergy Unknown Unverified 08/09/24 18:10 clindamycin Allergy Unknown Unverified 08/09/24 18:10 gemfibrozil Allergy Unknown Unverified 08/09/24 18:10 niacin (From Niaspan Allergy Unknown Unverified 08/09/24 18:10 Extended-Release) Penicillins Allergy Unknown Unverified 08/09/24 18:10 Home Medications ?Medication ?Instructions ?Recorded ?Confirmed ?Type atorvastatin 10 mg tablet 10 mg PO DAILY 05/25/21 08/09/24 History hydrochlorothiazide 12.5 mg tablet 12.5 mg PO DAILY 05/25/21 08/09/24 History isosorbide mononitrate 30 mg 30 mg PO DAILY 05/25/21 08/09/24 History tablet,extended release 24 hr trandolapril 4 mg tablet 4 mg PO DAILY 05/25/21 08/09/24 History metoprolol tartrate 25 mg tablet 12.5 mg (1/2 x 25 mg) PO BID #90 08/13/24 Rx tabs Exam Const General: cooperative, healthy appearing and comfortable [facility] Head: normal to inspection Ears: hearing grossly normal bilaterally and external ears normal General nose exam: external nose normal and nares normal Face and sinus: normal facial exam Eyes General: appearance normal, both eyes and all related structures Eyelids: eyelids normal Neck Neck: normal visual inspection and full ROM Chest Chest: normal inspection of the chest Resp Effort & Inspection: normal respiratory effort and able to speak in complete sentences Auscultation: clear to auscultation bilaterally Cardio Rate: regular rate Rhythm: regular rhythm Heart Sounds: S1 normal and S2 normal GI Inspection: normal to inspection Palpation: soft Auscultation: other (decreased BS) Skin General skin exam: no rashes or lesions noted Neuro General: patient awake Speech: speech normal Extrem General: normal to inspection and full ROM Results Labs 09/17/24 20:05 09/17/24 20:05 Labs: Laboratory Results - last 24 hr 09/17/24 09/17/24 09/17/24 20:05 20:42 22:42 WBC 15.46 H RBC 4.88 Hgb 15.0 Hct 46.0 MCV 94 MCH 30.7 MCHC 32.6 RDW 12.9 Plt Count 216 MPV 10.5 Immature Gran % See Differential Neutrophils % 50.0 Band Neutrophils % 5 Lymphocytes % 40.0 Atypical Lymphs % 2 Monocytes % 2.0 Eosinophils % 0.0 Basophils % 1.0 Nucleated RBC % 0.0 Absolute Neutrophils 8.50 H Absolute Lymphocytes 6.49 H Absolute Monocytes 0.31 Absolute Eosinophils 0.00 Absolute Basophils 0.15 RBC Morphology Normal VBG Lactate 5.8 H* Sodium 142 Potassium 2.9 L* Chloride 103 Carbon Dioxide 27.0 Anion Gap 12.0 H BUN 28 H Creatinine 1.6 H Est GFR (CKD-EPI 2020) 32.40 Glucose 154 H Calcium 9.7 Magnesium 2.5 H Total Bilirubin 0.74 AST 29 ALT 22 Alkaline Phosphatase 218 H Troponin I 10 Cancelled Cancelled Total Protein 7.9 Albumin 3.9 Lipase 82 H Last Vital Signs Pulse 53 L 09/17/24 20:12 Resp 20 09/17/24 20:12 BP 128/82 09/17/24 20:58 Pulse Ox 96 09/17/24 20:12 Time Spent Time spent with Patient: 55-74 minutes Time was spent: preparing to see the patient(eg.review tests), obtaining and/or reviewing separately otained hiistory, ordering medications,tests, procedures, referring, communicating with other health reproductive healthcare assistant, indepentently interpreting results, counseling the patient and care coordination
--- NOTE | 2024-09-17 22:30 | DI.RAD_ITS ---
Exam(s) XR ABDOMEN FLAT PLATE EXAM: XR ABDOMEN FLAT PLATE CLINICAL HISTORY: ng tub placement. TECHNIQUE: 2D digital imaging was performed. COMPARISON: CT scan reviewed FINDINGS: AP supine view the abdomen-pelvis There is an NG tube in the stomach with distal tip along the greater curvature. The stomach contains air but is not grossly distended. There are 2 adjacent gallstones in the right upper quadrant. There is moderate amount of fecal mater ial in the colon. Contrast noted in the urinary bladder from proceeding CT scan. IMPRESSION: Cholelithiasis. Nonspecific bowel gas pattern. DATA REPOSITORY: RADIATION DOSE DELIVERED:
--- NOTE | 2024-09-17 22:39 | NUR.NOTE ---
Nursing Note: report and transfer of care given to Toya Farmer RN at this time.
[2024-09-17 23:05] LABS: Lactate 2.9 mmol/L (<or=2.0)
--- NOTE | 2024-09-17 23:18 | DI.VRAD_ITS ---
PROCEDURE INFORMATION: Exam: XR Abdomen Exam date and time: 09/17/2024 11:07 PM Age: 79 years old Clinical indication: Other: Ng tube placement. TECHNIQUE: Imaging protocol: Radiologic exam of the abdomen. Views: Frontal supine view of the abdomen. 1 View. COMPARISON: CT ABDOMEN PELVIS W 09/17/2024 8:17 PM FINDINGS: Tubes, catheters and devices: A gastric feeding tube is present within the stomach. Gastrointestinal tract: Moderate stool throughout the colon and rectum. Organs: Multiple gallstones are present. No pericholecystic inflammatory changes to suggest cholecystitis. Bones/joints: The lumbar spine demonstrates moderate degenerative changes at multiple levels. IMPRESSION: No acute findings. Dictated and Authenticated by: Mariely Del Rosario MD. Ordering:DAKOTA Lucero MD
[2024-09-17] MEDS: levoFLOXacin 750 MG/150 ML BAG 100 MG IVPB (23:19)
--- NOTE | 2024-09-17 23:22 | W.PC.ACHO1 ---
Registration Status: Primary Language: Preferred Language: ED Information & Data Chief Complaint Nausea/Vomit/Diar 09/17/24 20:12 Chief Complaint Nausea/Vomit/Diar 09/17/24 19:50 Triage Note pt dx with CDIFF 2 weeks ago 09/17/24 19:50 , daughter found her in her room tonight with sudden onset of vomiting. RLQ pain Medical / Surgical History (Last Reviewed 09/17/24 @ 20:01 by Christian Manriquez MD) Abdominal pain GIB (gastrointestinal bleeding) Sepsis Most Recent Vital Signs Pulse 83 09/17/24 23:16 Pulse 82 09/17/24 23:16 Respiratory Rate 31 H 09/17/24 23:16 Blood Pressure 121/52 L 09/17/24 23:16 Blood Pressure Mean 71 09/17/24 23:16 Blood Pressure Position Supine 09/17/24 20:12 Pulse Oximetry 95 09/17/24 23:10 Oxygen Delivery Method Room Air 09/17/24 20:12 Oxygen Flow Rate 0 09/17/24 19:50 Allergies tramadol Allergy (Mild, Unverified 08/09/24 18:10) Unknown bupropion (From Zyban) Allergy (Unverified 08/09/24 18:10) Unknown clindamycin Allergy (Unverified 08/09/24 18:10) Unknown gemfibrozil Allergy (Unverified 08/09/24 18:10) Unknown niacin (From Niaspan Extended-Release) Allergy (Unverified 08/09/24 18:10) Unknown Penicillins Allergy (Unverified 08/09/24 18:10) Unknown Precautions Isolation Contact precaution 09/17/24 20:12 Active Medications Generic Name Dose Route Start Last Admin Trade Name Freq PRN Reason Stop Dose Admin Levofloxacin 750 mg in 150 mls @ 100 mls/hr 09/17/24 22:45 09/17/24 23:19 Levaquin Premixed Bag IVPB 100 mls/hr Q24H NICOLE Administration Iohexol 100 ml 09/17/24 20:30 09/17/24 20:18 Omnipaque 350 Mg/Ml 100 Ml Btl IJ 10/17/24 23:59 75 ml DIRECTED NICOLE Administration Sodium Chloride 50 ml 09/17/24 20:30 09/17/24 20:19 Normal Saline - Diluent 50 Ml Vial IJ 50 ml .FOR DI USE NICOLE Administration IV IV Catheter Type [Left Saline Lock Antecubital] IV Catheter Type [Right Saline Lock Antecubital] IV Catheter Gauge [Left 18 Antecubital] IV Catheter Gauge [Right 18 Antecubital] Diet Orders Category Date Time Status Regular/Normal [DIET] Nutrition 09/18/24 Breakfast Ordered Diagnostics 09/17/24 09/17/24 09/17/24 Range/Units 23:01 22:42 21:00 WBC (4.4-10.8) 10^3/uL RBC (3.93-5.22) 10^6/uL Hgb (11.2-15.7) g/dL Hct (36.0-46.0) % MCV (80-95) fL MCH (27.0-33.0) pg MCHC (32.0-36.0) % RDW (11.7-14.6) % Plt Count (130-400) 10^3/uL MPV (8.0-11.0) fL Immature Gran % Neutrophils % % Band Neutrophils % % Lymphocytes % % Atypical Lymphs % % Monocytes % % Eosinophils % % Basophils % % Nucleated RBC % (0.0-0.3) % Absolute Neutrophils (1.2-6.7) 10^3/uL Absolute Lymphocytes (1.2-3.4) 10^3/uL Absolute Monocytes (0.1-0.8) 10^3/uL Absolute Eosinophils (0.0-0.7) 10^3/uL Absolute Basophils (0.0-0.2) 10^3/uL RBC Morphology VBG Lactate 2.9 H* (<or=2.0) mmol/L Sodium (136-145) mmol/L Potassium (3.5-5.1) mmol/L Chloride (98-107) mmol/L Carbon Dioxide (21.0-32.0) mmol/L Anion Gap (3-11) mmol/L BUN (7-18) mg/dL Creatinine (0.55-1.02) mg/dL Est GFR (CKD-EPI 2020) (mL/min/1.73m2) Glucose (74-106) mg/dL Calcium (8.5-10.1) mg/dL Magnesium (1.8-2.4) mg/dL Total Bilirubin (0.2-1.0) mg/dL AST (15-37) U/L ALT (14-59) U/L Alkaline Phosphatase (46-116) U/L Troponin I Cancelled (<or=51) ng/L Total Protein (6.4-8.2) g/dL Albumin (3.4-5.0) g/dL Lipase (<78) U/L Stl C.difficile Tox PCR Pending 09/17/24 09/17/24 Range/Units 20:42 20:05 WBC 15.46 H (4.4-10.8) 10^3/uL RBC 4.88 (3.93-5.22) 10^6/uL Hgb 15.0 (11.2-15.7) g/dL Hct 46.0 (36.0-46.0) % MCV 94 (80-95) fL MCH 30.7 (27.0-33.0) pg MCHC 32.6 (32.0-36.0) % RDW 12.9 (11.7-14.6) % Plt Count 216 (130-400) 10^3/uL MPV 10.5 (8.0-11.0) fL Immature Gran % See Differential Neutrophils % 50.0 % Band Neutrophils % 5 % Lymphocytes % 40.0 % Atypical Lymphs % 2 % Monocytes % 2.0 % Eosinophils % 0.0 % Basophils % 1.0 % Nucleated RBC % 0.0 (0.0-0.3) % Absolute Neutrophils 8.50 H (1.2-6.7) 10^3/uL Absolute Lymphocytes 6.49 H (1.2-3.4) 10^3/uL Absolute Monocytes 0.31 (0.1-0.8) 10^3/uL Absolute Eosinophils 0.00 (0.0-0.7) 10^3/uL Absolute Basophils 0.15 (0.0-0.2) 10^3/uL RBC Morphology Normal VBG Lactate 5.8 H* (<or=2.0) mmol/L Sodium 142 (136-145) mmol/L Potassium 2.9 L* (3.5-5.1) mmol/L Chloride 103 (98-107) mmol/L Carbon Dioxide 27.0 (21.0-32.0) mmol/L Anion Gap 12.0 H (3-11) mmol/L BUN 28 H (7-18) mg/dL Creatinine 1.6 H (0.55-1.02) mg/dL Est GFR (CKD-EPI 2020) 32.40 (mL/min/1.73m2) Glucose 154 H (74-106) mg/dL Calcium 9.7 (8.5-10.1) mg/dL Magnesium 2.5 H (1.8-2.4) mg/dL Total Bilirubin 0.74 (0.2-1.0) mg/dL AST 29 (15-37) U/L ALT 22 (14-59) U/L Alkaline Phosphatase 218 H (46-116) U/L Troponin I Cancelled 10 (<or=51) ng/L Total Protein 7.9 (6.4-8.2) g/dL Albumin 3.9 (3.4-5.0) g/dL Lipase 82 H (<78) U/L Stl C.difficile Tox PCR 09/17/24 20:50 Blood Culture - Pending Blood 09/17/24 20:47 Blood Culture - Pending Blood Intake and Output - 24 Hour Total 09/17/24 19:40 thru 09/17/24 23:21 Intake Total 1100 Output Total 0 Balance 1100 Weight 55.338 kg Intake: IV 1100 Output: Gastric Drainage 0 Left Nare 0 Other: Stool Occult Blood Positive Stool Size Copious Stool Characteristics Liquid Emesis Description Undigested Food Falls Risk Assessment History of Falls Previous History 09/17/24 20:12 Contributing Factors Confusion 09/17/24 20:12 Ambulatory Aids Independent 09/17/24 20:12 Tubes/Lines None 09/17/24 20:12 Gait Evaluation No gait disturbance 09/17/24 20:12 Fall Total Score 18 09/17/24 20:12 Level of Risk Standard/Low Risk 09/17/24 20:12 Problems (Last Reviewed 09/17/24 @ 20:01 by Christian Manriquez MD) Elevated alkaline phosphatase level (Acute) RENITA (acute kidney injury) (Acute) Hypokalemia (Acute) Atherosclerosis of aorta (Acute) Atherosclerosis (Acute) Gallstones (Acute) Fecal obstruction (Acute) Acute hypotension (Acute) Dementia (Chronic) ASVD (arteriosclerotic vascular disease) (Acute) CAD (coronary artery disease), [place] coronary artery (Chronic) HTN (hypertension) (Chronic) Notes 09/17/24 22:39 Nursing Notes by Mireya Stevenson Nursing Note: report and transfer of care given to Toya Farmer RN at this time. Initialized on 09/17/24 22:39 - END OF NOTE v v v v v v v v v Sending and/or Receiving Nurses: Please use comment section below to note any information pertinent to the patient hand-off not included above. Information / Comments: Report received from: Nano DAVIDSON at 0218
[2024-09-17 23:55] LABS: C Diff PCR Positive (Negative)
[2024-09-17 23:58] LABS: Bilirubin Small (Negative); Blood Negative (Negative); Clarity Clear (Clear); Glucose Negative (Negative); Ketones Negative (Negative); Leukocyte Esterase Negative (Negative); Nitrite Negative (Negative); Urobilinogen 0.2 mg/dL (Up to 0.2); pH 5.5 (5-8)
[2024-09-18] VITALS (107 sets, daily range): BP systolic 101–150; BP diastolic 24–128; PULSE 61–103; RESP 10–39; TEMP 37.4–38.2; O2SAT 82–100
--- NOTE | 2024-09-18 | DI.RAD_ITS ---
Exam(s) XR ABDOMEN FLAT PLATE EXAM: XR ABDOMEN FLAT PLATE CLINICAL HISTORY: fecalBO. TECHNIQUE: 2D digital imaging was performed. COMPARISON: CR,XR XR ABDOMEN FLAT PLATE from 09/17/[address] THORAX ABD/PEL CTA from 09/17/2024 FINDINGS: Single AP supine view the abdomen-pelvis. There is an NG tube in place along the greater curvature of the stomach. The stomach is not distende d. There has been introduction of Gastrografin and majority of this Gastrografin is within the large bowel-colon and the colon does not appear distended on these images. There is no obvious extralumin al oral contrast evident Also noted are 2 adjacent gallstones in the right upper quadrant. IMPRESSION: No bowel obstruction evident Cholelithiasis. DATA REPOSITORY: RADIATION DOSE DELIVERED:
[2024-09-18 00:31] LABS: HCT 40.3 % (36.0-46.0); HGB 13.1 g/dL (11.2-15.7)
[2024-09-18] MEDS: POTASSIUM CHLORIDE 20 MEQ/100 ML BAG 50 MEQ IV_INF ×2 (00:58→03:47)
[2024-09-18] MEDS: Gastrografin 120 ML BTL PO ×2 (01:03→13:46)
[2024-09-18 06:18] LABS: HCT 39.1 % (36.0-46.0); HGB 13.3 g/dL (11.2-15.7); MCH 31.2 pg (27.0-33.0); MCV 92 fL (80-95); MPV 10.9 fL (8.0-11.0); Platelet Count 138 10^3/uL (130-400); RBC 4.26 10^6/uL (3.93-5.22); RDW 13.2 % (11.7-14.6); RDW-SD 43.7 fL; WBC 15.33 10^3/uL (4.4-10.8)
[2024-09-18 06:38] LABS: ALT 18 U/L (14-59); AST 23 U/L (15-37); Albumin 2.9 g/dL (3.4-5.0); Alkaline Phosphatase 194 U/L (46-116); Anion Gap 7.7 mmol/L (3-11); BUN 32 mg/dL (7-18); Bilirubin, Total 0.53 mg/dL (0.2-1.0); CO2 26.3 mmol/L (21.0-32.0); CREATININE 1.3 mg/dL (0.55-1.02); Calcium 8.5 mg/dL (8.5-10.1); Chloride 111 mmol/L (98-107); Estimated GFR 41.57 (mL/min/1.73m2); Glucose 158 mg/dL (74-106); Sodium 145 mmol/L (136-145); Total Protein 6.1 g/dL (6.4-8.2)
[2024-09-18 06:43] LABS: Potassium 4.8 mmol/L (3.5-5.1)
--- NOTE | 2024-09-18 10:00 | INITIAL_ITS ---
Date of service: 09/18/24 Time of Service: 10:00 Care Management Initial Assmt Initial Assessment Reason for Hospitalization: vomiting Functional Status/Living Situation Patient Presentation: Telma was sitting up in bed when CM met with her. She was holding her abdomen, commenting that it hurt. Telma is NPO and has a nasogastric tube. She was admitted with abdominal pain and vomiting and tested positive for C. difficle. Her Ct scan showed significant constipation and obstruction. She is receiving gastrografin through the NG tube. Telma has advanced dementia but was willing to engage in conversation and at times seemed to answer appropriately. She stated that she lives in a single family home in [place] with her daughter Jeri, who she refers to as Kimberlyn. When asked if Kimberlyn works outside thew home, Telma said that she does but that there is someone with her and she is not left alone. It was not clear who was at home with her but she referred to someone named Guido. Telma stated that she is independent with bathing and dressing but that her family does the meal preparation. Telma uses a cane for ambulation and does not drive. Town of Residence: [place] Resides with: Child (states she lives with her daughter) Significant Other/Family: Local Employment Status: Retired Instrumental Activities of Daily Living (ADLs): Independent Medications Medication Management: No Issues/Barriers identified Physical Functioning/Mobility Assistive Device: uses a cane occasionally Advance Directives Advance Directives: Do you have an Advance Directive: Y 05/25/21 10:[address] [facility]: N 05/25/21 10:11 Date Asked 09/17/24 09/17/24 21:16 AD Date Reviewed COLST On File at [facility] No 09/17/24 19:44 COLST Date Scanned Code Status Resuscitation Status DNR/DNI Portal Pt does not currently have a portal and education provided: Yes Insurance Coverage/Financial Issues Insurance: Medicare [facility] Care Team Visit Care Team Role Provider Type Gini Todd Primary Care Provider NON-[facility] STAFF PHYSICIAN Christian Manriquez MD Emergency Provider [facility] STAFF PHYSICIAN Mookie Gregg MD Admit Provider [facility] STAFF PHYSICIAN Attending Provider Discharge Potential Discharge Needs: PCP F/U Appt Anticipated Barriers to Discharge: None Identified Patient/Family Education Needs: Review discharge instructions, discuss Ask Me Three Transportation: Private vehicle Plan: Anticipate Telma will be discharged home when medically stable. She will follow up with her PCP and plan of care and transport with family. CM will follow and continue to assess for discharge planning concerns. Social Determinants of Health Screening Will the Patient Participate in the Screening?: Unable to obtain PFS All Active Problems (Updated 09/17/24 @ 23:05 by JON MARQUEZ) Elevated alkaline phosphatase level (Acute) RENITA (acute kidney injury) (Acute) Hypokalemia (Acute) Atherosclerosis of aorta (Acute) Atherosclerosis (Acute) Gallstones (Acute) Fecal obstruction (Acute) Acute hypotension (Acute) Constipation (Acute) Abdominal pain (Acute) Septic shock (Acute) C. difficile colitis (Acute) Dementia (Chronic) ASVD (arteriosclerotic vascular disease) (Acute) CAD (coronary artery disease), [place] coronary artery (Chronic) HTN (hypertension) (Chronic) Pyelonephritis (Acute) Medical History Abdominal pain GIB (gastrointestinal bleeding) Sepsis Social History Smoking/Tobacco Use Status: Current every day Tobacco Type: cigarettes Smoking risk assessment performed?: Yes Alcohol Intake: never Drug use: Never Substance use type: does not use Housing: house Do you feel safe at home: Yes Do you feel safe in your relationship?: Yes
--- NOTE | 2024-09-18 11:11 | W.PC.ACHO ---
Registration Status: Primary Language: Preferred Language: ED Information & Data Chief Complaint Nausea/Vomit/Diar 09/17/24 20:12 Chief Complaint Nausea/Vomit/Diar 09/17/24 19:50 Triage Note pt dx with CDIFF 2 weeks ago 09/17/24 19:50 , daughter found her in her room tonight with sudden onset of vomiting. RLQ pain Medical / Surgical History (Last Reviewed 09/17/24 @ 20:01 by Christian Manriquez MD) Abdominal pain GIB (gastrointestinal bleeding) Sepsis Most Recent Vital Signs Pulse 79 09/18/24 09:35 Pulse 79 09/18/24 09:35 Respiratory Rate 17 09/18/24 09:35 Blood Pressure 140/77 09/18/24 09:35 Blood Pressure Mean 97 09/18/24 09:35 Blood Pressure Position Supine 09/17/24 20:12 Pulse Oximetry 100 09/18/24 09:35 Oxygen Delivery Method Room Air 09/17/24 20:12 Oxygen Flow Rate 0 09/17/24 19:50 Allergies tramadol Allergy (Mild, Unverified 08/09/24 18:10) Unknown bupropion (From Zyban) Allergy (Unverified 08/09/24 18:10) Unknown clindamycin Allergy (Unverified 08/09/24 18:10) Unknown gemfibrozil Allergy (Unverified 08/09/24 18:10) Unknown niacin (From Niaspan Extended-Release) Allergy (Unverified 08/09/24 18:10) Unknown Penicillins Allergy (Unverified 08/09/24 18:10) Unknown Precautions Isolation Contact precaution 09/17/24 20:12 Active Medications Generic Name Dose Route Start Last Admin Trade Name Freq PRN Reason Stop Dose Admin Diatrizoate Meglum/Diatrizoate Sod 120 ml 09/17/24 22:15 09/18/24 01:03 Gastrografin 120 Ml Btl PO 120 ml DIRECTED NICOLE Administration Sodium Chloride 0 ml 09/17/24 20:00 09/18/24 01:26 Normal Saline Flush 10 Ml Syr IVP Not Given BID NICOLE IV IV Catheter Type [Left Peripheral IV Antecubital] IV Catheter Type [Right Peripheral IV Antecubital] IV Catheter Gauge [Left 18 Antecubital] IV Catheter Gauge [Right 18 Antecubital] Diet Orders Category Date Time Status Regular/Normal [DIET] Nutrition 09/18/24 Breakfast Active Diagnostics 09/18/24 09/18/24 09/18/24 Range/Units 06:10 00:21 00:02 WBC 15.33 H (4.4-10.8) 10^3/uL RBC 4.26 (3.93-5.22) 10^6/uL Hgb 13.3 13.1 (11.2-15.7) g/dL Hct 39.1 40.3 (36.0-46.0) % MCV 92 (80-95) fL MCH 31.2 (27.0-33.0) pg MCHC 34.0 (32.0-36.0) % RDW 13.2 (11.7-14.6) % Plt Count 138 (130-400) 10^3/uL MPV 10.9 (8.0-11.0) fL Immature Gran % Neutrophils % % Band Neutrophils % % Lymphocytes % % Atypical Lymphs % % Monocytes % % Eosinophils % % Basophils % % Nucleated RBC % (0.0-0.3) % Absolute Neutrophils (1.2-6.7) 10^3/uL Absolute Lymphocytes (1.2-3.4) 10^3/uL Absolute Monocytes (0.1-0.8) 10^3/uL Absolute Eosinophils (0.0-0.7) 10^3/uL Absolute Basophils (0.0-0.2) 10^3/uL RBC Morphology VBG Lactate (<or=2.0) mmol/L Sodium 145 (136-145) mmol/L Potassium 4.8 D (3.5-5.1) mmol/L Chloride 111 H (98-107) mmol/L Carbon Dioxide 26.3 (21.0-32.0) mmol/L Anion Gap 7.7 (3-11) mmol/L BUN 32 H (7-18) mg/dL Creatinine 1.3 H (0.55-1.02) mg/dL Est GFR (CKD-EPI 2020) 41.57 (mL/min/1.73m2) Glucose 158 H (74-106) mg/dL Calcium 8.5 (8.5-10.1) mg/dL Magnesium (1.8-2.4) mg/dL Total Bilirubin 0.53 (0.2-1.0) mg/dL AST 23 (15-37) U/L ALT 18 (14-59) U/L Alkaline Phosphatase 194 H (46-116) U/L Troponin I (<or=51) ng/L Total Protein 6.1 L (6.4-8.2) g/dL Albumin 2.9 L (3.4-5.0) g/dL Lipase (<78) U/L Urine Color (Yellow) Urine Clarity (Clear) Urine pH (5-8) Ur Specific [place] (1.005-1.025) Urine Protein (Neg-Trace) mg/dL Urine Ketones (Negative) mg/dL Urine Blood (Negative) Urine Nitrite (Negative) Urine Bilirubin (Negative) Urine Urobilinogen (Up to 0.2) mg/dL Ur Leukocyte Esterase (Negative) Urine Glucose (Negative) mg/dL Stl C.difficile Tox PCR (Negative) ABO/Rh A Positive Antibody Screen NEGATIVE 09/17/24 09/17/24 09/17/24 Range/Units 23:45 23:01 22:42 WBC (4.4-10.8) 10^3/uL RBC (3.93-5.22) 10^6/uL Hgb (11.2-15.7) g/dL Hct (36.0-46.0) % MCV (80-95) fL MCH (27.0-33.0) pg MCHC (32.0-36.0) % RDW (11.7-14.6) % Plt Count (130-400) 10^3/uL MPV (8.0-11.0) fL Immature Gran % Neutrophils % % Band Neutrophils % % Lymphocytes % % Atypical Lymphs % % Monocytes % % Eosinophils % % Basophils % % Nucleated RBC % (0.0-0.3) % Absolute Neutrophils (1.2-6.7) 10^3/uL Absolute Lymphocytes (1.2-3.4) 10^3/uL Absolute Monocytes (0.1-0.8) 10^3/uL Absolute Eosinophils (0.0-0.7) 10^3/uL Absolute Basophils (0.0-0.2) 10^3/uL RBC Morphology VBG Lactate 2.9 H* (<or=2.0) mmol/L Sodium (136-145) mmol/L Potassium (3.5-5.1) mmol/L Chloride (98-107) mmol/L Carbon Dioxide (21.0-32.0) mmol/L Anion Gap (3-11) mmol/L BUN (7-18) mg/dL Creatinine (0.55-1.02) mg/dL Est GFR (CKD-EPI 2020) (mL/min/1.73m2) Glucose (74-106) mg/dL Calcium (8.5-10.1) mg/dL Magnesium (1.8-2.4) mg/dL Total Bilirubin (0.2-1.0) mg/dL AST (15-37) U/L ALT (14-59) U/L Alkaline Phosphatase (46-116) U/L Troponin I Cancelled (<or=51) ng/L Total Protein (6.4-8.2) g/dL Albumin (3.4-5.0) g/dL Lipase (<78) U/L Urine Color Yellow (Yellow) Urine Clarity Clear (Clear) Urine pH 5.5 (5-8) Ur Specific [place] 1.010 (1.005-1.025) Urine Protein Trace (Neg-Trace) mg/dL Urine Ketones Negative (Negative) mg/dL Urine Blood Negative (Negative) Urine Nitrite Negative (Negative) Urine Bilirubin Small H (Negative) Urine Urobilinogen 0.2 (Up to 0.2) mg/dL Ur Leukocyte Esterase Negative (Negative) Urine Glucose Negative (Negative) mg/dL Stl C.difficile Tox PCR (Negative) ABO/Rh Antibody Screen 09/17/24 09/17/24 09/17/24 Range/Units 21:00 20:42 20:05 WBC 15.46 H (4.4-10.8) 10^3/uL RBC 4.88 (3.93-5.22) 10^6/uL Hgb 15.0 (11.2-15.7) g/dL Hct 46.0 (36.0-46.0) % MCV 94 (80-95) fL MCH 30.7 (27.0-33.0) pg MCHC 32.6 (32.0-36.0) % RDW 12.9 (11.7-14.6) % Plt Count 216 (130-400) 10^3/uL MPV 10.5 (8.0-11.0) fL Immature Gran % See Differential Neutrophils % 50.0 % Band Neutrophils % 5 % Lymphocytes % 40.0 % Atypical Lymphs % 2 % Monocytes % 2.0 % Eosinophils % 0.0 % Basophils % 1.0 % Nucleated RBC % 0.0 (0.0-0.3) % Absolute Neutrophils 8.50 H (1.2-6.7) 10^3/uL Absolute Lymphocytes 6.49 H (1.2-3.4) 10^3/uL Absolute Monocytes 0.31 (0.1-0.8) 10^3/uL Absolute Eosinophils 0.00 (0.0-0.7) 10^3/uL Absolute Basophils 0.15 (0.0-0.2) 10^3/uL RBC Morphology Normal VBG Lactate 5.8 H* (<or=2.0) mmol/L Sodium 142 (136-145) mmol/L Potassium 2.9 L* (3.5-5.1) mmol/L Chloride 103 (98-107) mmol/L Carbon Dioxide 27.0 (21.0-32.0) mmol/L Anion Gap 12.0 H (3-11) mmol/L BUN 28 H (7-18) mg/dL Creatinine 1.6 H (0.55-1.02) mg/dL Est GFR (CKD-EPI 2020) 32.40 (mL/min/1.73m2) Glucose 154 H (74-106) mg/dL Calcium 9.7 (8.5-10.1) mg/dL Magnesium 2.5 H (1.8-2.4) mg/dL Total Bilirubin 0.74 (0.2-1.0) mg/dL AST 29 (15-37) U/L ALT 22 (14-59) U/L Alkaline Phosphatase 218 H (46-116) U/L Troponin I Cancelled 10 (<or=51) ng/L Total Protein 7.9 (6.4-8.2) g/dL Albumin 3.9 (3.4-5.0) g/dL Lipase 82 H (<78) U/L Urine Color (Yellow) Urine Clarity (Clear) Urine pH (5-8) Ur Specific [place] (1.005-1.025) Urine Protein (Neg-Trace) mg/dL Urine Ketones (Negative) mg/dL Urine Blood (Negative) Urine Nitrite (Negative) Urine Bilirubin (Negative) Urine Urobilinogen (Up to 0.2) mg/dL Ur Leukocyte Esterase (Negative) Urine Glucose (Negative) mg/dL Stl C.difficile Tox PCR Positive A (Negative) ABO/Rh Antibody Screen 09/17/24 20:50 Blood Culture - Pending Blood 09/17/24 20:47 Blood Culture - Pending Blood Intake and Output - 24 Hour Total 09/17/24 19:40 thru 09/18/24 09:37 Intake Total 1600 Output Total 1160 Balance 440 Weight 55.338 kg Intake: IV 1600 Output: Gastric Drainage 60 Left Nare 50 Urine 500 Stool 600 Other: Urine Color Light [place] Urine Appearance Clear Stool Occult Blood Positive Stool Size Large Stool Characteristics Liquid Emesis Description Undigested Food Gastric Occult Blood Left Nare Positive Urinary Catheter Urinary Catheter Date of 09/18/24 Insertion [Urethral ([place])] Time of insertion [Urethral ( 00:00 [place])] Falls Risk Assessment History of Falls Previous History 09/17/24 20:12 Contributing Factors Confusion 09/17/24 20:12 Ambulatory Aids Independent 09/17/24 20:12 Tubes/Lines None 09/17/24 20:12 Gait Evaluation No gait disturbance 09/17/24 20:12 Fall Total Score 18 09/17/24 20:12 Level of Risk Standard/Low Risk 09/17/24 20:12 Problems (Last Reviewed 09/17/24 @ 20:01 by Christian Manriquez MD) Elevated alkaline phosphatase level (Acute) RENITA (acute kidney injury) (Acute) Hypokalemia (Acute) Atherosclerosis of aorta (Acute) Atherosclerosis (Acute) Gallstones (Acute) Fecal obstruction (Acute) Acute hypotension (Acute) Dementia (Chronic) ASVD (arteriosclerotic vascular disease) (Acute) CAD (coronary artery disease), [place] coronary artery (Chronic) HTN (hypertension) (Chronic) Notes 09/17/24 22:39 Nursing Notes by Mireya Stevenson Nursing Note: report and transfer of care given to Toya Farmer RN at this time. Initialized on 09/17/24 22:39 - END OF NOTE v v v v v v v v v Sending and/or Receiving Nurses: Please use comment section below to note any information pertinent to the patient hand-off not included above. Information / Comments: Report received from: Shilpa Rubio RN in ED at 11:10am
[2024-09-18] MEDS: MORPHine 4 MG/ML SYR IVP ×3 (12:23→19:53)
[2024-09-18] MEDS: Normal Saline Flush 10 ML SYR IVP ×3 (12:25→19:55)
--- NOTE | 2024-09-18 13:17 | DI.VRAD_ITS ---
PROCEDURE INFORMATION: Exam: XR Abdomen Exam date and time: 09/18/2024 12:39 PM Age: 79 years old Clinical indication: Other: Fecalbo TECHNIQUE: Imaging protocol: Radiologic exam of the abdomen. Views: Frontal supine view of the abdomen. 1 View. COMPARISON: CR XR ABDOMEN FLAT PLATE 09/17/2024 11:07 PM FINDINGS: Gastrointestinal tract: There is oral contrast in the distal small bowel, the right colon and transverse colon. The caliber of the colon is unremarkable. There is no extravasated oral contrast. Compared to the abdominal series of 09/17/2024 there has been interval evacuation of the IV contrast within the urinary bladder. The patient's nasogastric tube remains in place. There are several calcified gallstones in the right upper quadrant. Bones/joints: No acute bony changes of the lumbar spine. There are moderate degenerative changes of the lower lumbar spine. IMPRESSION: 1. Oral contrast within the colon without abnormal dilatation or extravasation. 2. The nasogastric tube remains in place. 3. Cholelithiasis Dictated and Authenticated by: Michael Rodriguez MD. Ordering:CHAUNCEY Vargas MD
--- NOTE | 2024-09-18 14:18 | W.PM.PROGNOT ---
Date of Service Date of service: 09/18/24 Time of Service: 14:18 Assessment and Plan Assessment and plan (1) Fecal obstruction: Status: Acute Assessment and plan: -Gen Surgery has been consulted and recommend NG tube placement w/ gastrograffin -Blood CX x2 pending (2) Atherosclerosis: Status: Acute Assessment and plan: -continue to Hold Metoprolol 12.5mg bid and Atorvastatin 10mg daily for now (3) HTN (hypertension): Status: Chronic Assessment and plan: -Hold HCTZ 12.5mg daily for now (4) Hypokalemia: Status: Acute Assessment and plan: Secondary to vomiting -Replete w/ IV K (5) RENITA (acute kidney injury): Status: Acute Assessment and plan: Cr 1.6. Prior baseline 0.9 -Hold HCTZ -Start IVF and repeat BMP in AM (6) Elevated alkaline phosphatase level: Status: Acute Assessment and plan: AlkP 218 -Repeat s/p IVF in AM Subjective Subjective Patient reports: still having pain and afebrile; denies shortness of breath Exam Const General: frail appearing and ill appearing acutely Nutritional Appearance: thin Orientation: alert, awake and confused (baseline dementia) HENMT Head: normal to inspection and normocephalic Mouth: oral mucosa abnormal (slightly dry) Resp Effort & Inspection: normal respiratory effort Auscultation: diminished lung sounds Cardio Rate: regular rate Rhythm: regular rhythm GI Inspection: distended Palpation: tender in the LLQ, in the RLQ and in the RUQ Other: rectal tube intact, draining liquid brown stool Other: rose to gravity draining yellow urine Skin Rashes: no rashes Neuro General: patient alert, patient awake and other (at baseline, with dementia) Extrem General: normal to inspection, full ROM and no pedal edema Psych Other: no behavioral disturbance Objective Last Vital Signs Temp 38.1 C H 09/18/24 13:49 Pulse 95 H 09/18/24 13:49 Resp 18 09/18/24 13:49 BP 135/67 09/18/24 13:49 Pulse Ox 96 09/18/24 13:49 Laboratory Results - last 24 hr 09/17/24 09/17/24 09/17/24 20:05 20:42 21:00 WBC 15.46 H RBC 4.88 Hgb 15.0 Hct 46.0 MCV 94 MCH 30.7 MCHC 32.6 RDW 12.9 Plt Count 216 MPV 10.5 Immature Gran % See Differential Neutrophils % 50.0 Band Neutrophils % 5 Lymphocytes % 40.0 Atypical Lymphs % 2 Monocytes % 2.0 Eosinophils % 0.0 Basophils % 1.0 Nucleated RBC % 0.0 Absolute Neutrophils 8.50 H Absolute Lymphocytes 6.49 H Absolute Monocytes 0.31 Absolute Eosinophils 0.00 Absolute Basophils 0.15 RBC Morphology Normal VBG Lactate 5.8 H* Sodium 142 Potassium 2.9 L* Chloride 103 Carbon Dioxide 27.0 Anion Gap 12.0 H BUN 28 H Creatinine 1.6 H Est GFR (CKD-EPI 2020) 32.40 Glucose 154 H Calcium 9.7 Magnesium 2.5 H Total Bilirubin 0.74 AST 29 ALT 22 Alkaline Phosphatase 218 H Troponin I 10 Cancelled Total Protein 7.9 Albumin 3.9 Lipase 82 H Urine Color Urine Clarity Urine pH Ur Specific [place] Urine Protein Urine Ketones Urine Blood Urine Nitrite Urine Bilirubin Urine Urobilinogen Ur Leukocyte Esterase Urine Glucose Stl C.difficile Tox PCR Positive A ABO/Rh Antibody Screen 09/17/24 09/17/24 09/17/24 22:42 23:01 23:45 WBC RBC Hgb Hct MCV MCH MCHC RDW Plt Count MPV Immature Gran % Neutrophils % Band Neutrophils % Lymphocytes % Atypical Lymphs % Monocytes % Eosinophils % Basophils % Nucleated RBC % Absolute Neutrophils Absolute Lymphocytes Absolute Monocytes Absolute Eosinophils Absolute Basophils RBC Morphology VBG Lactate 2.9 H* Sodium Potassium Chloride Carbon Dioxide Anion Gap BUN Creatinine Est GFR (CKD-EPI 2020) Glucose Calcium Magnesium Total Bilirubin AST ALT Alkaline Phosphatase Troponin I Cancelled Total Protein Albumin Lipase Urine Color Yellow Urine Clarity Clear Urine pH 5.5 Ur Specific [place] 1.010 Urine Protein Trace Urine Ketones Negative Urine Blood Negative Urine Nitrite Negative Urine Bilirubin Small H Urine Urobilinogen 0.2 Ur Leukocyte Esterase Negative Urine Glucose Negative Stl C.difficile Tox PCR ABO/Rh Antibody Screen 09/18/24 09/18/24 09/18/24 00:02 00:21 06:10 WBC 15.33 H RBC 4.26 Hgb 13.1 13.3 Hct 40.3 39.1 MCV 92 MCH 31.2 MCHC 34.0 RDW 13.2 Plt Count 138 MPV 10.9 Immature Gran % Neutrophils % Band Neutrophils % Lymphocytes % Atypical Lymphs % Monocytes % Eosinophils % Basophils % Nucleated RBC % Absolute Neutrophils Absolute Lymphocytes Absolute Monocytes Absolute Eosinophils Absolute Basophils RBC Morphology VBG Lactate Sodium 145 Potassium 4.8 D Chloride 111 H Carbon Dioxide 26.3 Anion Gap 7.7 BUN 32 H Creatinine 1.3 H Est GFR (CKD-EPI 2020) 41.57 Glucose 158 H Calcium 8.5 Magnesium Total Bilirubin 0.53 AST 23 ALT 18 Alkaline Phosphatase 194 H Troponin I Total Protein 6.1 L Albumin 2.9 L Lipase Urine Color Urine Clarity Urine pH Ur Specific [place] Urine Protein Urine Ketones Urine Blood Urine Nitrite Urine Bilirubin Urine Urobilinogen Ur Leukocyte Esterase Urine Glucose Stl C.difficile Tox PCR ABO/Rh A Positive Antibody Screen NEGATIVE Time Spent with Patient Time Spent with Patient: 25-34 minutes Time was spent: preparing to see the patient(eg.review tests), obtaining and/or reviewing separately otained hiistory, ordering medications,tests, procedures, referring, communicating with other health rn transitional care and indepentently interpreting results
[2024-09-18] MEDS: Fidaxomicin 200 MG TAB PO ×2 (14:42→19:53)
[2024-09-18] MEDS: Lactated Ringers 1,000 ML 125 ML IV ×2 (15:21→23:37)
[2024-09-18] MEDS: Polyethylene Glycol 3350 17 GM PACKET PO (19:55)
--- NOTE | 2024-09-19 | DI.RAD_ITS ---
Exam(s) XR ABDOMEN FLAT PLATE EXAM: 2D digital imaging was performed. CLINICAL HISTORY: fecal bowel obstruction. COMPARISON: CR,XR XR ABDOMEN FLAT PLATE from 09/18/2024 TECHNIQUE: Supine views of the abdomen was performed. Two images were obtained. FINDINGS: LUNG BASES: Clear. BOWEL GAS PATTERN: Nondistended. There is some residual oral contrast seen in bowel in the right abdo men. FREE AIR: None. CALCIFICATIONS: There again seen 2 calcifications in the right upper quadrant consistent with the pat ient's no cholelithiasis. Vascular calcifications are seen of the abdominal aorta. OSSEOUS STRUCTURES: Normal for age. OTHER FINDINGS: The enteric tube is no longer visualized. IMPRESSION: No evidence of bowel obstruction. DATA REPOSITORY: RADIATION DOSE DELIVERED:
[2024-09-19 07:44] VITALS: BP 112/52; PULSE 94; RESP 20; TEMP 37.2; O2SAT 89
[2024-09-19] MEDS: Polyethylene Glycol 3350 17 GM PACKET PO ×2 (10:41→20:54)
[2024-09-19] MEDS: Fidaxomicin 200 MG TAB PO ×2 (10:41→20:54)
[2024-09-19] MEDS: Normal Saline Flush 10 ML SYR IVP ×2 (10:42→20:54)
[2024-09-19] MEDS: Lactated Ringers 1,000 ML 125 ML IV (10:42)
--- NOTE | 2024-09-19 14:03 | PDOC.CMPRO ---
Date of service: 09/19/24 Time of Service: 14:03 Care Management Progress Note Progress Note Text Progress Note Text: CM spoke to Telma's daughter, Lisa, who was here visiting her mother, who was sitting up in her chair. Lisa asked that CM speak with Silvia, who she lives with currently. CM reached out to Silvia and left a voicemail. Per report, Telma continues to have abdominal discomfort. Her diet was advanced today, and per RN, she had some mashed potatoes for lunch. Palliative care was consulted; her daughters are aware of the consult, per RN. CM will continue to follow. Discharge Potential Discharge Needs: PCP F/U Appt Anticipated Barriers to Discharge: None Identified Patient/Family Education Needs: Review discharge instructions, discuss Ask Me Three Transportation: Private vehicle Plan: Anticipate Telma will be discharged home when medically stable. She will follow up with her PCP and plan of care and transport with family. CM will follow and continue to assess for discharge planning concerns. Social Determinants of Health Screening Social Determinants of Health last assessed: 09/19/24 Will the Patient Participate in the Screening?: Yes Do you worry about having a steady place to live?: yes What is your living situation today?: I have housing today, but am worried about losing it (Keshawn lives with her daughter, and is well supported. ) Problems where you live: no known problems In the past 12 months, have you had to go without electric, gas, oil or water in your home?: no Have you or anyone in your house had to go without enough food to eat?: no Has lack of transportation kept you from medical appointments or from doing things needed for daily living?: choose not to answer Has anyone in your life made you feel unsafe or unsupported?: no How hard is it for you to pay for the very basics like food, housing, medical care, and heating? Would you say it is:: Not hard at all Do you want help finding or keeping work or a job?: I do not need or want help If for any reason you need help with day-to-day activities such as bathing, preparing meals, shopping, managing finances, etc., do you get the help you need?: I get all the help I need How often do you feel lonely or isolated from those around you?: Never Do you speak a language other than [place] at home?: No Does the patient want assistance with any of the above?: Yes Social Determinants of Health Comments(SDOH Details): will need Health Related Social Needs Health related social needs: housing instability, housed, with risk of homelessness (Z59.811)
--- NOTE | 2024-09-19 14:25 | W.PM.PROGNOT ---
Date of Service Date of service: 09/19/24 Time of Service: 14:26 Assessment and Plan Assessment and plan (1) Fecal obstruction: Status: Acute Assessment and plan: -Gen Surgery has been consulted -Blood CX x2 negative at 24h; check again @ 48h Abdominal films - no obstruction - adv diet to solid food. (2) Atherosclerosis: Status: Acute Assessment and plan: -continue to Hold Metoprolol 12.5mg bid and Atorvastatin 10mg daily for now (3) HTN (hypertension): Status: Chronic Assessment and plan: -Hold HCTZ 12.5mg daily for now (4) Hypokalemia: Status: Ruled-out Assessment and plan: Resolved - potassium today is 4.8 (5) RENITA (acute kidney injury): Status: Acute Assessment and plan: Cr 1.3. Prior baseline 0.9 -Hold HCTZ IV dc'd overnight (6) Elevated alkaline phosphatase level: Status: Acute Assessment and plan: AlkP 194, improved from prior Subjective Subjective Patient reports: no new complaints, pain is less, tolerating a regular diet and afebrile; denies still having pain, flatus, diarrhea, nausea, vomiting or shortness of breath Interval history since last seen: Patient is having some urinary retention, she has no urology compaints Exam Const General: frail appearing and ill appearing acutely Nutritional Appearance: thin Orientation: alert, awake and confused (baseline dementia) HENMT Head: normal to inspection and normocephalic Mouth: oral mucosa abnormal (slightly dry) Resp Effort & Inspection: normal respiratory effort Auscultation: diminished lung sounds Cardio Rate: regular rate Rhythm: regular rhythm GI Inspection: normal to inspection Palpation: soft and no guarding Auscultation: normal bowel sounds Other: Semi solid stools. Fecal containment system dc'd overnight Other: rose to gravity draining yellow urine Skin Rashes: no rashes Neuro General: patient alert, patient awake and other (at baseline, with dementia) Extrem General: normal to inspection, full ROM and no pedal edema Psych Other: no behavioral disturbance Objective Last Vital Signs Temp 37.2 C 09/19/24 07:44 Pulse 94 H 09/19/24 07:44 Resp 20 09/19/24 07:44 BP 112/52 L 09/19/24 07:44 Pulse Ox 89 L 09/19/24 07:44 Time Spent with Patient Time Spent with Patient: 25-34 minutes Time was spent: preparing to see the patient(eg.review tests), ordering medications,tests, procedures, referring, communicating with other health vehicle care specialist, indepentently interpreting results, counseling the patient and care coordination
--- NOTE | 2024-09-19 14:34 | PCNE_ITS ---
Date of service: 09/19/24 Time of Service: 14:35 History of Present Illness History of Present Illness Chief Complaint: vomiting and abd pain Narrative: From H and P Assessment and plan: The patient was in her usual state of health when this evening after eating homemade chicken [place] she began to have severe abdominal pain w/ multiple bouts of bilious vomiting. She did have a recent history of C. Diff but has been having normal BM since then and is taking pro-biotics as well as supplementing her diet with yogurt and kefir. Her CT shows significant constipation and obstruction. Her lab does show significant leukocytosis of 15.46 but I suspect this is reactive to her constipation. She did have one documented low BP 85/53 in the ER which resolved w/ IVF. -Gen Surgery has been consulted and recommend NG tube placement w/ gastrograffin -Cont w/ ABX and re-evaluate if this needs to be continued in AM -Blood CX x2 pending Interim Hx: PFSH All Active Problems (Updated 09/19/24 @ 14:34 by Karlene Breaux NP) Elevated alkaline phosphatase level (Acute) RENITA (acute kidney injury) (Acute) Atherosclerosis of aorta (Acute) Atherosclerosis (Acute) Gallstones (Acute) Fecal obstruction (Acute) Acute hypotension (Acute) Constipation (Acute) Abdominal pain (Acute) Septic shock (Acute) C. difficile colitis (Acute) Dementia (Chronic) ASVD (arteriosclerotic vascular disease) (Acute) CAD (coronary artery disease), [place] coronary artery (Chronic) HTN (hypertension) (Chronic) Pyelonephritis (Acute) Medical History Abdominal pain GIB (gastrointestinal bleeding) Sepsis Social History Smoking/Tobacco Use Status: Current every day Tobacco Type: cigarettes Smoking risk assessment performed?: Yes Alcohol Intake: never Drug use: Never Substance use type: does not use Housing: house Do you feel safe at home: Yes Do you feel safe in your relationship?: Yes Results Last Vital Signs Temp 99.0 F 09/19/24 07:44 Pulse 94 H 09/19/24 07:44 Resp 20 09/19/24 07:44 BP 112/52 L 09/19/24 07:44 Pulse Ox 89 L 09/19/24 07:44 Labs 09/18/24 06:10 09/18/24 06:10 Labs: Laboratory Tests 08/31/24 09/17/24 09/17/24 10:25 20:05 23:01 VBG Lactate 5.8 H* 2.9 H* Potassium 2.9 L* Creatinine 1.6 H Alkaline Phosphatase 218 H Albumin 3.9 Lipase 82 H Vitamin B12 416 09/18/24 06:10 VBG Lactate Potassium 4.8 D Creatinine 1.3 H Alkaline Phosphatase 194 H Albumin 2.9 L Lipase Vitamin B12 Imaging Imaging Studies: C/A/P MPRESSION: 1. There is abundant fecal material throughout the colon. Small bowel loop diameters are upper normal. Possible prior partial right hemicolectomy. There does not appear to be a high-grade bowel obstruction. 2. Ectatic mildly dilated and atherosclerotic infrarenal abdominal aorta, particularly below the takeoff point of the inferior mesenteric artery, with measurements as above. 3. Cholelithiasis again noted. No evidence of acute cholecystitis. CBD is not dilated. 4. Stable small left adrenal nodule unchanged from 2020 and most probably an adenoma. 5. Small bilateral lung nodules maximum size 4 mm. Recommend repeat chest CT scan in 1 year. There are no pleural effusions.
--- NOTE | 2024-09-19 14:41 | PCNE_ITS ---
Date of service: 09/19/24 Time of Service: 14:42 [facility] All Active Problems (Updated 09/19/24 @ 14:34 by Karlene Breaux NP) Elevated alkaline phosphatase level (Acute) RENITA (acute kidney injury) (Acute) Atherosclerosis of aorta (Acute) Atherosclerosis (Acute) Gallstones (Acute) Fecal obstruction (Acute) Acute hypotension (Acute) Constipation (Acute) Abdominal pain (Acute) Septic shock (Acute) C. difficile colitis (Acute) Dementia (Chronic) ASVD (arteriosclerotic vascular disease) (Acute) CAD (coronary artery disease), [place] coronary artery (Chronic) HTN (hypertension) (Chronic) Pyelonephritis (Acute) Medical History Abdominal pain GIB (gastrointestinal bleeding) Sepsis Social History Smoking/Tobacco Use Status: Current every day Tobacco Type: cigarettes Smoking risk assessment performed?: Yes Alcohol Intake: never Drug use: Never Substance use type: does not use Housing: house Do you feel safe at home: Yes Do you feel safe in your relationship?: Yes Results Last Vital Signs Temp 99.0 F 09/19/24 07:44 Pulse 94 H 09/19/24 07:44 Resp 20 09/19/24 07:44 BP 112/52 L 09/19/24 07:44 Pulse Ox 89 L 09/19/24 07:44 Labs 09/18/24 06:10 09/18/24 06:10
[2024-09-19 15:51] VITALS: BP 126/60; PULSE 100; RESP 18; TEMP 38; O2SAT 93
[2024-09-19 20:27] VITALS: BP 123/53; PULSE 94; RESP 15; TEMP 37.2; O2SAT 94
[2024-09-19 20:59] VITALS: TEMP 37.8
[2024-09-20 07:23] LABS: Abs Immature Grans 0.03 10^3/uL (0.0-0.06); Absolute Basophil Count 0.04 10^3/uL (0.0-0.2); Absolute Eosinophil Count 0.23 10^3/uL (0.0-0.7); Absolute Lymphocyte Count 1.36 10^3/uL (1.2-3.4); Absolute Monocyte Count 0.28 10^3/uL (0.1-0.8); Absolute Neutrophil Count 4.79 10^3/uL (1.2-6.7); Basophils % 0.6 %; Eosinophils % 3.4 %; HCT 32.1 % (36.0-46.0); Immature Grans % 0.4 %; Lymphocytes % 20.2 %; MCH 30.6 pg (27.0-33.0); MCV 93 fL (80-95); MPV 10.3 fL (8.0-11.0); Monocytes % 4.2 %; Neutrophils % 71.2 %; Platelet Count 117 10^3/uL (130-400); RBC 3.46 10^6/uL (3.93-5.22); RDW 13.3 % (11.7-14.6); RDW-SD 45.4 fL; WBC 6.73 10^3/uL (4.4-10.8)
[2024-09-20 07:31] LABS: HGB 10.6 g/dL (11.2-15.7)
[2024-09-20 07:40] LABS: BUN 15 mg/dL (7-18); CREATININE 0.8 mg/dL (0.55-1.02); Calcium 7.9 mg/dL (8.5-10.1); Chloride 108 mmol/L (98-107); Estimated GFR 74.44 (mL/min/1.73m2); Glucose 95 mg/dL (74-106); Magnesium 1.7 mg/dL (1.8-2.4); Sodium 143 mmol/L (136-145)
[2024-09-20 07:47] VITALS: BP 112/59; PULSE 78; RESP 20; TEMP 36.9; O2SAT 90
[2024-09-20] MEDS: Normal Saline Flush 10 ML SYR IVP (08:18)
[2024-09-20] MEDS: Polyethylene Glycol 3350 17 GM PACKET PO (08:54)
[2024-09-20] MEDS: Fidaxomicin 200 MG TAB PO ×2 (08:54→20:47)
--- NOTE | 2024-09-20 11:45 | PCNE_ITS ---
Date of service: 09/20/24 Time of Service: 15:00 History of Present Illness History of Present Illness Chief Complaint: C. difficile Narrative: From H and P: Assessment and plan: The patient was in her usual state of health when this evening after eating homemade chicken [place] she began to have severe abdominal pain w/ multiple bouts of bilious vomiting. She did have a recent history of C. Diff but has been having normal BM since then and is taking pro-biotics as well as supplementing her diet with yogurt and kefir. Her CT shows significant constipation and obstruction. Her lab does show significant leukocytosis of 15.46 but I suspect this is reactive to her constipation. She did have one documented low BP 85/53 in the ER which resolved w/ IVF. -Gen Surgery has been consulted and recommend NG tube placement w/ gastrograffin -Cont w/ ABX and re-evaluate if this needs to be continued in AM -Blood CX x2 pending Interim Hx: Telma is lying in bed. She has a smile on her face. She states that she is doing very well. They have advanced her diet. She is on antibiotics for her C. difficile. I was asked to see Telma to help her with advanced care planning. She is a DNR DNI. She has her daughter Seth who is her DPOA. Seth is not in the room. She had recently been in the hospital and Seth wanted her to be 48 hours without loose stools. Before taking her home. She still has loose stools. The picture is also complicated because she has positive blood cultures. Again Telma states that she is doing very well. I asked Telma about her life and she could not tell me where she worked for many many years. Finally I asked her if it was the [employer] as she has worked for the [employer]. She agreed that that is where she worked. She was able to tell me that she was in the hospital in [place]. Assessment and Plan Assessment and plan (1) C. difficile colitis: Status: Acute (2) Dementia: Status: Chronic (3) Advance care planning: Status: Acute Assessment and plan: Telma is an 79-year-old woman with baseline dementia and now C. difficile and positive blood cultures. They will need to figure out about the blood cultures and what needs to be done about that. She is on antibiotics for her C. difficile. She has advanced her diet and is doing well. She is extremely pleasant smiles often and does not have concerns. Unfortunately I was not able to contact Seth today. Will continue to try. I do not see that Telma has a COLST form done. I realize that she is DNR DNI but it would be good to complete this form. Will touch base with Seth. I will do an addendum once I have touched base with Seth Telma has very good support at home. She is well cared for by her daughter. She enjoys herself very much, but does say that sometimes the young kids get a little rambunctious. She understands how dyan she is that she has a daughter caring for her. Review of Systems Narrative: Stated to me and also the nurse that came in the room that she was doing fine and had no concerns PFSH All Active Problems (Updated 09/21/24 @ 06:58 by Kelley Bullard MD, [place]) Advance care planning (Acute) Elevated alkaline phosphatase level (Acute) RENITA (acute kidney injury) (Acute) Hypokalemia (Acute) Atherosclerosis of aorta (Acute) Atherosclerosis (Acute) Gallstones (Acute) Fecal obstruction (Acute) Acute hypotension (Acute) Constipation (Acute) Abdominal pain (Acute) Septic shock (Acute) C. difficile colitis (Acute) Dementia (Chronic) ASVD (arteriosclerotic vascular disease) (Acute) CAD (coronary artery disease), [place] coronary artery (Chronic) HTN (hypertension) (Chronic) Pyelonephritis (Acute) Medical History Abdominal pain GIB (gastrointestinal bleeding) Sepsis Social History Smoking/Tobacco Use Status: Current every day Tobacco Type: cigarettes Smoking risk assessment performed?: Yes Alcohol Intake: never Drug use: Never Substance use type: does not use Housing: house Do you feel safe at home: Yes Do you feel safe in your relationship?: Yes Exam Narrative Exam Narrative: Telma is a yoselin lady who smiles often. Her heart was regular. Lungs good aeration. Abdomen mildly tender with good bowel sounds. Results Last Vital Signs Temp 98.4 F 09/20/24 07:47 Pulse 78 09/20/24 07:47 Resp 20 09/20/24 07:47 BP 112/59 L 09/20/24 07:47 Pulse Ox 90 L 09/20/24 07:47 Labs 09/20/24 06:45 09/20/24 06:45 Labs: Laboratory Results - last 24 hr 09/20/24 06:45 WBC 6.73 RBC 3.46 L Hgb 10.6 L D Hct 32.1 L MCV 93 MCH 30.6 MCHC 33.0 RDW 13.3 Plt Count 117 L MPV 10.3 Immature Gran % 0.4 Neutrophils % 71.2 Lymphocytes % 20.2 Monocytes % 4.2 Eosinophils % 3.4 Basophils % 0.6 Nucleated RBC % 0.0 Absolute Neutrophils 4.79 Absolute Lymphocytes 1.36 Absolute Monocytes 0.28 Absolute Eosinophils 0.23 Absolute Basophils 0.04 Sodium 143 Potassium 3.0 L D Chloride 108 H Carbon Dioxide 29.0 Anion Gap 6.0 BUN 15 Creatinine 0.8 Est GFR (CKD-EPI 2020) 74.44 Glucose 95 Calcium 7.9 L Magnesium 1.7 L Imaging Additional studies: ECHNIQUE: Supine views of the abdomen was performed. Two images were obtained. FINDINGS: LUNG BASES: Clear. BOWEL GAS PATTERN: Nondistended. There is some residual oral contrast seen in bowel in the right abdomen. FREE AIR: None. CALCIFICATIONS: There again seen 2 calcifications in the right upper quadrant consistent with the patient's no cholelithiasis. Vascular calcifications are seen of the abdominal aorta. OSSEOUS STRUCTURES: Normal for age. OTHER FINDINGS: The enteric tube is no longer visualized. IMPRESSION: No evidence of bowel obstruction. Time Spent Time Spent with Patient Time Spent(min): 47
[2024-09-20] MEDS: Potassium Chloride 20 MEQ TABCR 40 MEQ PO (13:29)
[2024-09-20 13:34] LABS: C Diff PCR Positive (Negative)
--- NOTE | 2024-09-20 14:41 | CMPROGNOTE_ITS ---
Date of service: 09/20/24 Time of Service: 14:41 Care Management Progress Note Progress Note Text Progress Note Text: CM spoke with Silvia over the phone to discuss her mother's plan of care. Per report, Telma had positive blood cultures today, which were repeated; she will continue to be monitored as she is not yet medically cleared for discharge. Silvia stated that she provides care to her mother, including meals, laundry, housework, and personal care. Telma doesn't have HH services currently, but Silvia asked if she would qualify for more support, such as PT for a home safety evaluation and/or a PSYCH SPECIALIST to help with personal care. CM will discuss this with the provider. Silvia also asked about group home [facility], as she feels that she will be eligible; Silvia would like to continue providing care for her mother, but may need to be out of work in order to support her. CM will provide a group home [facility] application, and will send a referral to [facility] for options counseling/case management to continue to support Telma and her family in the community. CM will continue to follow. Discharge Potential Discharge Needs: PCP F/U Appt Anticipated Barriers to Discharge: None Identified Patient/Family Education Needs: Review discharge instructions, discuss Ask Me Three Transportation: Private vehicle Plan: Anticipate Telma will be discharged home when medically stable. She will follow up with her PCP and plan of care and transport with family. CM will follow and continue to assess for discharge planning concerns. Social Determinants of Health Screening Social Determinants of Health last assessed: 09/20/24 Will the Patient Participate in the Screening?: Yes Do you worry about having a steady place to live?: yes What is your living situation today?: I have housing today, but am worried about losing it (Keshawn lives with her daughter, and is well supported. ) Problems where you live: no known problems In the past 12 months, have you had to go without electric, gas, oil or water in your home?: no Have you or anyone in your house had to go without enough food to eat?: no Has lack of transportation kept you from medical appointments or from doing things needed for daily living?: choose not to answer Has anyone in your life made you feel unsafe or unsupported?: no How hard is it for you to pay for the very basics like food, housing, medical care, and heating? Would you say it is:: Not hard at all Do you want help finding or keeping work or a job?: I do not need or want help If for any reason you need help with day-to-day activities such as bathing, preparing meals, shopping, managing finances, etc., do you get the help you need?: I get all the help I need How often do you feel lonely or isolated from those around you?: Never Do you speak a language other than [place] at home?: No Does the patient want assistance with any of the above?: Yes Social Determinants of Health Comments(SDMD Details): will need Health Related Social Needs Health related social needs: housing instability, housed, with risk of homelessness (Z59.811)
[2024-09-20 15:33] VITALS: BP 110/48; PULSE 88; RESP 18; TEMP 37.8; O2SAT 94
--- NOTE | 2024-09-20 16:47 | PGE_ITS ---
Date of Service Date of service: 09/20/24 Time of Service: 16:47 Assessment and Plan Assessment and plan (1) Fecal obstruction: Status: Acute Assessment and plan: -Gen Surgery has been consulted -Blood CX x2 gram neg rods - redrawn, lab unsure if contaminant Patient is able to eat solid food. (2) Atherosclerosis: Status: Acute Assessment and plan: -continue to Hold Metoprolol 12.5mg bid BP 110/48 HR 80s (3) HTN (hypertension): Status: Chronic Assessment and plan: -Hold HCTZ 12.5mg daily for now BP 110/48; no edema, lungs are clear (4) Hypokalemia: Status: Acute Assessment and plan: potassium 3.0, repleted Trend (5) RENITA (acute kidney injury): Status: Acute Assessment and plan: Cr 0.8 -Hold HCTZ (6) Elevated alkaline phosphatase level: Status: Acute Assessment and plan: AlkP 194, improved from prior recheck 09/21 Subjective Subjective Patient reports: no new complaints, feels better, tolerating a regular diet, voiding w/o difficulty, bowel movement, diarrhea and afebrile; denies nausea, vomiting or shortness of breath Interval history since last seen: The patient's daughter, who is the POA, reports that the patient underwent a dental procedure in April or May at the [facility]. During this procedure, all of the patient?s teeth were extracted instead of just a few as originally planned. The patient was prescribed amoxicillin and azithromycin following the procedure. The daughter also states that the patient had an upper denture with a cushion on the palate, which turned black after being in place for two months. She removed the cushion and notified the dentist's office about the issue. The daughter is concerned that the current hospitalization may be related to complications arising from the dental procedure Objective Last Vital Signs Temp 37.8 C H 09/20/24 15:33 Pulse 88 09/20/24 15:33 Resp 18 09/20/24 15:33 BP 110/48 L 09/20/24 15:33 Pulse Ox 94 09/20/24 15:33 Laboratory Results - last 24 hr 09/20/24 09/20/24 06:45 12:25 WBC 6.73 RBC 3.46 L Hgb 10.6 L D Hct 32.1 L MCV 93 MCH 30.6 MCHC 33.0 RDW 13.3 Plt Count 117 L MPV 10.3 Immature Gran % 0.4 Neutrophils % 71.2 Lymphocytes % 20.2 Monocytes % 4.2 Eosinophils % 3.4 Basophils % 0.6 Nucleated RBC % 0.0 Absolute Neutrophils 4.79 Absolute Lymphocytes 1.36 Absolute Monocytes 0.28 Absolute Eosinophils 0.23 Absolute Basophils 0.04 Sodium 143 Potassium 3.0 L D Chloride 108 H Carbon Dioxide 29.0 Anion Gap 6.0 BUN 15 Creatinine 0.8 Est GFR (CKD-EPI 2020) 74.44 Glucose 95 Calcium 7.9 L Magnesium 1.7 L Stl C.difficile Tox PCR Positive A Time Spent with Patient Time Spent with Patient: 25-34 minutes Time was spent: preparing to see the patient(eg.review tests), obtaining and/or reviewing separately otained hiistory, ordering medications,tests, procedures, referring, communicating with other health urgent care nurse practitioner, indepentently interpreting results, counseling the patient and care coordination
[2024-09-20 20:39] VITALS: BP 111/55; PULSE 85; RESP 17; TEMP 37.4; O2SAT 91
[2024-09-20] MEDS: Acetaminophen 325 MG TAB 650 MG PO (20:47)
[2024-09-20] MEDS: Magnesium Chloride 64 MG TABCR PO (20:47)
[2024-09-21 00:47] VITALS: BP 104/52; PULSE 75; RESP 18; TEMP 36.8; O2SAT 95
[2024-09-21 07:30] LABS: Abs Immature Grans 0.02 10^3/uL (0.0-0.06); Absolute Basophil Count 0.04 10^3/uL (0.0-0.2); Absolute Eosinophil Count 0.41 10^3/uL (0.0-0.7); Absolute Lymphocyte Count 1.16 10^3/uL (1.2-3.4); Absolute Monocyte Count 0.35 10^3/uL (0.1-0.8); Absolute Neutrophil Count 3.54 10^3/uL (1.2-6.7); Basophils % 0.7 %; Eosinophils % 7.4 %; HCT 31.8 % (36.0-46.0); HGB 10.8 g/dL (11.2-15.7); Immature Grans % 0.4 %; MCH 31.1 pg (27.0-33.0); MCV 92 fL (80-95); MPV 10.7 fL (8.0-11.0); Monocytes % 6.3 %; Neutrophils % 64.2 %; Platelet Count 127 10^3/uL (130-400); RBC 3.47 10^6/uL (3.93-5.22); RDW 13.2 % (11.7-14.6); RDW-SD 43.8 fL; WBC 5.52 10^3/uL (4.4-10.8)
[2024-09-21 08:03] LABS: Anion Gap 3.1 mmol/L (3-11); BUN 10 mg/dL (7-18); CO2 30.9 mmol/L (21.0-32.0); CREATININE 0.7 mg/dL (0.55-1.02); Calcium 7.6 mg/dL (8.5-10.1); Chloride 113 mmol/L (98-107); Estimated GFR 87.37 (mL/min/1.73m2); Glucose 93 mg/dL (74-106); Magnesium 1.6 mg/dL (1.8-2.4); Potassium 3.5 mmol/L (3.5-5.1); Sodium 147 mmol/L (136-145)
[2024-09-21 08:36] VITALS: BP 113/63; PULSE 80; RESP 18; TEMP 36.4; O2SAT 94
[2024-09-21] MEDS: Fidaxomicin 200 MG TAB PO ×2 (09:13→21:38)
[2024-09-21] MEDS: Magnesium Chloride 64 MG TABCR PO ×2 (09:13→21:38)
[2024-09-21] MEDS: Lactobacillus Acidophilus CAP 1 CAP PO ×2 (15:04→21:38)
[2024-09-21 15:07] VITALS: BP 105/49; PULSE 75; RESP 17; TEMP 37; O2SAT 97
--- NOTE | 2024-09-21 17:04 | CHAPLAIN ---
Telma was resting in bed when I visited. She was pleasant and engaged in conversation. She was talking about her daughter and then changed to her son, telling me he's an machine tool electrician. I introduced myself and offered support. Telma seems to be comfortable being here.
--- NOTE | 2024-09-21 18:52 | PGE_ITS ---
Date of Service Date of service: 09/21/24 Time of Service: 10:00 Assessment and Plan Assessment and plan (1) Atherosclerosis: Status: Acute Assessment and plan: -continue to Hold Metoprolol 12.5mg bid BP 105S HR 74 (2) HTN (hypertension): Status: Chronic Assessment and plan: -Hold HCTZ 12.5mg daily for now BP 105S; no edema, lungs are clear (3) Hypokalemia: Status: Acute Assessment and plan: potassium 3.5 Trend (4) RENITA (acute kidney injury): Status: Resolved Assessment and plan: Cr 0.7 (5) Elevated alkaline phosphatase level: Status: Acute Assessment and plan: AlkP 194, improved from prior - recheck 09/22 Subjective Subjective Patient reports: no new complaints, feels better, tolerating liquids well, tolerating a regular diet, voiding w/o difficulty, no flatus, bowel movement, shortness of breath and afebrile; denies blood in stool, nausea or vomiting Interval history since last seen: Telma is doing a crossword puzzle, she is sitting up in bed states she is feeling much better today. Exam Const General: frail appearing Nutritional Appearance: thin Orientation: alert, awake and confused (baseline dementia) HENMT Head: normal to inspection and normocephalic Mouth: oral mucosa abnormal (slightly dry) Resp Effort & Inspection: normal respiratory effort Auscultation: diminished lung sounds Cardio Rate: regular rate Rhythm: regular rhythm GI Inspection: normal to inspection Palpation: soft and no guarding Auscultation: normal bowel sounds Other: Semi solid stools. Fecal containment system dc'd overnight Skin Rashes: no rashes Neuro General: patient alert, patient awake and other (at baseline, with dementia) Extrem General: normal to inspection, full ROM and no pedal edema Psych Other: no behavioral disturbance Objective Last Vital Signs Temp 37.0 C 09/21/24 15:07 Pulse 75 09/21/24 15:07 Resp 17 09/21/24 15:07 BP 105/49 L 09/21/24 15:07 Pulse Ox 97 09/21/24 15:07 Laboratory Results - last 24 hr 09/21/24 06:53 WBC 5.52 RBC 3.47 L Hgb 10.8 L Hct 31.8 L MCV 92 MCH 31.1 MCHC 34.0 RDW 13.2 Plt Count 127 L MPV 10.7 Immature Gran % 0.4 Neutrophils % 64.2 Lymphocytes % 21.0 Monocytes % 6.3 Eosinophils % 7.4 Basophils % 0.7 Nucleated RBC % 0.0 Absolute Neutrophils 3.54 Absolute Lymphocytes 1.16 L Absolute Monocytes 0.35 Absolute Eosinophils 0.41 Absolute Basophils 0.04 Sodium 147 H Potassium 3.5 Chloride 113 H Carbon Dioxide 30.9 Anion Gap 3.1 BUN 10 Creatinine 0.7 Est GFR (CKD-EPI 2020) 87.37 Glucose 93 Calcium 7.6 L Magnesium 1.6 L Time Spent with Patient Time Spent with Patient: 35-49 minutes Time was spent: preparing to see the patient(eg.review tests), ordering medications,tests, procedures, referring, communicating with other health child care center administrator, indepentently interpreting results, counseling the patient and care coordination
[2024-09-21 19:14] VITALS: BP 98/39; PULSE 82; RESP 18; TEMP 36.5; O2SAT 94
--- NOTE | 2024-09-21 19:16 | CMPROGNOTE_ITS ---
Date of service: 09/21/24 Time of Service: 19:17 Care Management Progress Note Progress Note Text Progress Note Text: Telma was sitting up in her chair when CM met with her. She stated that her daughter was visiting earlier, but she left, and she doesn't expect that she will be back this evening, due to the roads. CM attempted to call her from the room, but she did not answer. CM brought a terminal operations supervisor [facility] application and a [place] health care agent form into the room, at her daughter's request. Telma stated that she didn't feel comfortable filling out the [facility] form without her daughter present, although she did identify that Cori is her primary support, and she is already her decision maker. CM sent a referral to [facility] to continue to work with Telma and her daughter on penitentiary planning considerations. CM will continue to follow. Discharge Potential Discharge Needs: PCP F/U Appt Anticipated Barriers to Discharge: None Identified Patient/Family Education Needs: Review discharge instructions, discuss Ask Me Three Transportation: Private vehicle Plan: Anticipate Telma will be discharged home when medically stable. She may benefit from HH RN, OT, for med management and support with ADLs/personal care/showering. She will follow up with her PCP and plan of care and transport with family. CM will follow and continue to assess for discharge planning concerns. Social Determinants of Health Screening Social Determinants of Health last assessed: 09/21/24 Will the Patient Participate in the Screening?: Yes Do you worry about having a steady place to live?: yes What is your living situation today?: I have housing today, but am worried about losing it (Keshawn lives with her daughter, and is well supported. ) Problems where you live: no known problems In the past 12 months, have you had to go without electric, gas, oil or water in your home?: no Have you or anyone in your house had to go without enough food to eat?: no Has lack of transportation kept you from medical appointments or from doing things needed for daily living?: choose not to answer Has anyone in your life made you feel unsafe or unsupported?: no How hard is it for you to pay for the very basics like food, housing, medical care, and heating? Would you say it is:: Not hard at all Do you want help finding or keeping work or a job?: I do not need or want help If for any reason you need help with day-to-day activities such as bathing, preparing meals, shopping, managing finances, etc., do you get the help you need?: I get all the help I need How often do you feel lonely or isolated from those around you?: Never Do you speak a language other than [place] at home?: No Does the patient want assistance with any of the above?: Yes Social Determinants of Health Comments(SDOH Details): will need Health Related Social Needs Health related social needs: housing instability, housed, with risk of homelessness (Z59.811)
[2024-09-21 22:24] LABS: ALT 43 U/L (14-59); AST 54 U/L (15-37); Alkaline Phosphatase 75 U/L (46-116); Anion Gap 6.6 mmol/L (3-11); BUN 17 mg/dL (7-18); Bilirubin, Total 0.29 mg/dL (0.2-1.0); CO2 29.4 mmol/L (21.0-32.0); CREATININE 0.9 mg/dL (0.55-1.02); Calcium 7.7 mg/dL (8.5-10.1); Chloride 107 mmol/L (98-107); Estimated GFR 64.63 (mL/min/1.73m2); Glucose 124 mg/dL (74-106); Potassium 3.6 mmol/L (3.5-5.1); Sodium 143 mmol/L (136-145); Total Protein 5.4 g/dL (6.4-8.2)
[2024-09-22 06:59] LABS: Abs Immature Grans 0.05 10^3/uL (0.0-0.06); Absolute Basophil Count 0.03 10^3/uL (0.0-0.2); Absolute Eosinophil Count 0.38 10^3/uL (0.0-0.7); Absolute Lymphocyte Count 1.54 10^3/uL (1.2-3.4); Absolute Monocyte Count 0.51 10^3/uL (0.1-0.8); Absolute Neutrophil Count 3.08 10^3/uL (1.2-6.7); Basophils % 0.5 %; Eosinophils % 6.8 %; HCT 30.4 % (36.0-46.0); HGB 9.9 g/dL (11.2-15.7); Immature Grans % 0.9 %; Lymphocytes % 27.5 %; MCHC 32.6 % (32.0-36.0); MCV 92 fL (80-95); MPV 10.3 fL (8.0-11.0); Monocytes % 9.1 %; Neutrophils % 55.2 %; Platelet Count 145 10^3/uL (130-400); RDW 13.2 % (11.7-14.6); RDW-SD 44.7 fL; WBC 5.59 10^3/uL (4.4-10.8)
[2024-09-22 07:15] LABS: Magnesium 1.7 mg/dL (1.8-2.4)
[2024-09-22 08:00] VITALS: BP 112/53; PULSE 74; RESP 18; TEMP 37; O2SAT 93
--- NOTE | 2024-09-22 08:45 | CMPROGNOTE_ITS ---
Date of service: 09/22/24 Time of Service: 08:45 Care Management Progress Note Progress Note Text Progress Note Text: Telma was sitting in a recliner when CM met with her. She is pleasant and easily engages in conversation and is accompanied by her daughter and Granddaughter. [facility] agent form was completed and info to set up her patient portal was provided. [facility] form to support care home supports at home needed to be deferred to her PCP Gini. A referral was sent to [facility] to continue to work with Telma and her daughter on care home planning considerations. CM will continue to follow. Discharge Potential Discharge Needs: PCP F/U Appt Anticipated Barriers to Discharge: None Identified Patient/Family Education Needs: Review discharge instructions, discuss Ask Me Three Transportation: Private vehicle Plan: Anticipate Telma will be discharged home when medically stable. She may benefit from HH RN, OT, for med management and support with ADLs/personal care/showering. She will follow up with her PCP and plan of care and transport with family. CM will follow and continue to assess for discharge planning concerns. Social Determinants of Health Screening Social Determinants of Health last assessed: 09/22/24 Will the Patient Participate in the Screening?: Yes Do you worry about having a steady place to live?: yes What is your living situation today?: I have housing today, but am worried about losing it (Pt lives with her daughter, and is well supported. ) Problems where you live: no known problems In the past 12 months, have you had to go without electric, gas, oil or water in your home?: no Have you or anyone in your house had to go without enough food to eat?: no Has lack of transportation kept you from medical appointments or from doing things needed for daily living?: choose not to answer Has anyone in your life made you feel unsafe or unsupported?: no How hard is it for you to pay for the very basics like food, housing, medical care, and heating? Would you say it is:: Not hard at all Do you want help finding or keeping work or a job?: I do not need or want help If for any reason you need help with day-to-day activities such as bathing, preparing meals, shopping, managing finances, etc., do you get the help you need?: I get all the help I need How often do you feel lonely or isolated from those around you?: Never Do you speak a language other than [place] at home?: No Does the patient want assistance with any of the above?: Yes Social Determinants of Health Comments(SDOH Details): will need Health Related Social Needs Health related social needs: housing instability, housed, with risk of homelessness (Z59.811)
[2024-09-22] MEDS: Fidaxomicin 200 MG TAB PO (09:49)
[2024-09-22] MEDS: Magnesium Chloride 64 MG TABCR PO (09:49)
[2024-09-22] MEDS: Lactobacillus Acidophilus CAP 1 CAP PO ×2 (09:49→15:05)
--- NOTE | 2024-09-22 11:09 | PDOC.CMDIS ---
Date of service: 09/22/24 Time of Service: 11:09 LACE Index Scoring Tool Questions: Length of Stay (in days): 4 - 6 Was the patient admitted via the E.D.?: Yes Comorbidities: Dementia E.D. Visits: 2 Answers: Total Score: 12 Risk of Readmission: High Risk Care Management Discharge Plan Discharge Plan: Telma was discharged home with [facility] RN/PT/OT/NURSING CARE ATTENDANT. She was driven home by her daughter, with whom she lives. Telma will f/u with her community providers and continue per her plan of care. [facility] referral was placed to support intermediate planning needs. Patient/Family Education Needs: Review of discharge instructions, activity, limitations, f/u plan and discuss Ask me 3. Services Needed at Discharge: Home Health Care Services (New [facility] RN/PT/OT/NURSING CARE ATTENDANT.) SDOH Health Related Social Needs: Health related social needs housing instability, housed, with risk of homelessness (Z59.811)
--- NOTE | 2024-09-22 14:53 | W.PM.DS.N ---
Date of service: 09/22/24 Time of Service: 14:54 DS: Diagnosis Discharge Diagnosis (1) Atherosclerosis: Status: Acute (2) HTN (hypertension): Status: Chronic (3) Hypokalemia: Status: Acute (4) RENITA (acute kidney injury): Status: Resolved (5) Elevated alkaline phosphatase level: Status: Acute Discharge Plan Disposition Patient Disposition: Home W/Home Health Services Condition: Improving Discharge Details Reason For Visit: Constipation Admit Date/Time: 09/17/24 22:33 Admit Provider: Mookie Gregg Attending Provider: Mookie Gregg [facility] Hospital Course: This 79 years old female patient with past medical history of severe dementia, cardiovascular disease recently hospitalized and discharged on 08/13/2024 due to C. difficile colitis status post oral vancomycin was brought back to the emergency room on 09/17/2024 by her family for complaints of severe abdominal pain status post dinner with chicken Tre, bilious vomiting without coffee ground emesis or hematochezia. At the time there was no report of constipation, recent fevers, chills, or night sweats.In the ED the patient was hypotensive at 85/83 which resolved with administration of IV fluids. Workup in the ED was significant for an abdominal CT showing significant constipation and obstruction. WBC was at 15.46 and this was suspected to be due to reactive leukocytosis. Chemistry showed an elevated creatinine, a potassium at 2.9 and supplementation given, initial lactate was 5.8 and repeat lactate 2.9. Stool for C. difficile was positive. Hospitalist was consulted and patient admitted to the medical surgical floor for severe sepsis, C. difficile colitis infection, constipation. Treatment was initiated with Dificid. Blood cultures were pending. During the stay, blood culture grew 1 bottle of Gram positive rods. Due to suspicion of contaminant, repeat blood cultures were ordered with no growth at 24 hours. Creatinine and electrolytes are within normal limits except for magnesium that has improved from 1.6-1.7. The patient will be discharged with oral magnesium supplementation. The patient continued received MiraLAX due to CT imaging results. Today there was no report of diarrhea. The patient will be discharged home to complete the 10-day course of Dificid 200 mg orally twice a day, with the last dose on 09/27/2024 2025 at bedtime . The patient will continue MiraLAX to maintain regularity of bowel movements. A short course of Bio-K Plus was ordered; the probiotics should not be taken within 3 hours of taking the antibiotics. The patient will need to follow-up with her primary care practitioner within 7 days of discharge; follow-up on electrolytes will be needed. Recommendation for the family to follow-up with primary care practitioner regarding finding of a gallstones in the gallbladder without CBD dilation. The patient will be discharged home with home health physical therapy, Occupational Therapy, nursing, and medical library assistant. Discussed with Dr. Navarro [place] Meds and New Rx's Prescriptions: New Bio-K plus 50 billion cell capsule,delayed release(DR/EC) 1 cap PO DAILY Qty: 10 0RF magnesium chloride [Mag 64] 64 mg Tablet,Delayed Release (Dr/Ec) 64 mg PO TID Qty: 90 0RF Dificid 200 mg tablet 200 mg PO Q12H 10 Days Qty: 20 0RF Rx Instructions: Stop on 09/27/2024 after HS dose Continued metoprolol tartrate 25 mg Tablet 12.5 mg PO BID Qty: 90 0RF trandolapril 4 mg Tablet 4 mg PO DAILY atorvastatin 10 mg Tablet 10 mg PO DAILY isosorbide mononitrate 30 mg Tablet Extended Release 24 Hr 30 mg PO DAILY hydrochlorothiazide 12.5 mg Tablet 12.5 mg PO DAILY Discharge Instructions Stand Alone Forms: Nursing Discharge Form Referrals: Gini Todd [Primary Care Provider] - 09/26/24 2:00 pm (Follow-up within 7 days of discharge please) Activity:: Activity as Tolerated Equipment/Supplies:: Walker Diet:: Heart healthy Discharge Orders Discharge Orders: Discharge Order (Routine); Ordered 09/22/24 Ordered By: Rachel Clark DS: Summary Time Spent with Patient providing and/or coordinating discharge services: Greater than 30 minutes Status at Discharge Functional status at discharge: uses cane/walker Overall status at discharge: patient is progressing back to baseline Mental Status: mental status grossly normal Speech and Movement: speech and movement normal Mood: congruent mood Affect: normal affect Quality:SDOH Health Related Social Needs: Health related social needs housing instability, housed, with risk of homelessness (Z59.811) Exam Narrative Exam Narrative: Constitutional The patient is sitting in chair without acute distress Neuro:alert and oriented to self, person, place Chest:Chest is symmetrical and normal appearance Resp: clear lung bilaterally Cardio: regular rhythm, S1, S2, no murmur, bilateral radial and dorsalis pedis pulses are positive, no edema GI: Abdomen is not distended, soft and non tender, bowel sounds are present : Negative Costovertebral angle tenderness Back/spine/Pelvis: No back tenderness Integumentary: No skin lesions or rash Extremities: strength 5/5 to bilateral lower and upper extremities Psych: RASS 0, congruent mood and normal affect. Psych Mental Status: mental status grossly normal Speech and Movement: speech and movement normal Mood: congruent mood Affect: normal affect DS: Data Vitals/I&O Vitals and I&O: Vital Signs Temperature 37.0 C 09/22/24 08:00 Temperature Source Temporal Artery Scan 09/22/24 08:00 Pulse 74 09/22/24 08:00 Pulse Rhythm Regular 09/18/24 11:40 Pulse 77 09/18/24 11:10 Respiratory Rate 18 09/22/24 08:00 Respiratory Effort Non-Labored 09/18/24 11:40 Respiratory Depth Shallow 09/18/24 11:40 Respiratory Pattern Normal 09/18/24 11:40 Blood Pressure 112/53 L 09/22/24 08:00 Blood Pressure Mean 25 09/18/24 11:02 Blood Pressure Position Supine 09/17/24 20:12 Pulse Oximetry 93 09/22/24 08:00 Oxygen Delivery Method Room Air 09/22/24 08:00 Oxygen Flow Rate 0 09/22/24 08:00 Pain Level 0 09/22/24 08:00 Comment Notifying RN 09/21/24 19:14 Intake & Output 09/21/24 09/22/24 09/22/24 23:59 11:59 23:59 Intake Total 240 / 240 Output Total 250 / 1250 Balance -10 / -1010 Intake: Oral 240 / 240 Output: Urine 250 / 1250 Other: Urine Color Yellow Urine Appearance Clear Comment void x 1, unmeasured in toilet. Stool Size Small Small Stool Characteristics Soft Liquid Data Completed and Pending Labs on day of discharge: Labs from last 24 hours 09/22/24 09/21/24 06:35 22:00 WBC 5.59 RBC 3.30 L Hgb 9.9 L Hct 30.4 L MCV 92 MCH 30.0 MCHC 32.6 RDW 13.2 Plt Count 145 MPV 10.3 Immature Gran % 0.9 Neutrophils % 55.2 Lymphocytes % 27.5 Monocytes % 9.1 Eosinophils % 6.8 Basophils % 0.5 Nucleated RBC % 0.0 Absolute Neutrophils 3.08 Absolute Lymphocytes 1.54 Absolute Monocytes 0.51 Absolute Eosinophils 0.38 Absolute Basophils 0.03 Sodium 143 Potassium 3.6 Chloride 107 Carbon Dioxide 29.4 Anion Gap 6.6 BUN 17 Creatinine 0.9 Est GFR (CKD-EPI 2020) 64.63 Glucose 124 H Calcium 7.7 L Magnesium 1.7 L Total Bilirubin 0.29 AST 54 H ALT 43 Alkaline Phosphatase 75 Total Protein 5.4 L Albumin 2.0 L Preliminary micro results at discharge 09/17/24 20:47 Blood Culture - Preliminary Blood Gram positive patricia 09/17/24 20:50 Blood Culture - Preliminary Blood Gram positive patricia 09/20/24 15:49 Blood Culture - Preliminary Blood NO GROWTH 24 HOURS 09/20/24 15:35 Blood Culture - Preliminary Blood NO GROWTH 24 HOURS PFSH All Active Problems (Updated 09/22/24 @ 15:21 by Rachel Clark APRN) Advance care planning (Acute) Elevated alkaline phosphatase level (Acute) Hypokalemia (Acute) Atherosclerosis of aorta (Acute) Atherosclerosis (Acute) Gallstones (Acute) Acute hypotension (Acute) Constipation (Acute) Abdominal pain (Acute) Septic shock (Acute) C. difficile colitis (Acute) Dementia (Chronic) ASVD (arteriosclerotic vascular disease) (Acute) CAD (coronary artery disease), [place] coronary artery (Chronic) HTN (hypertension) (Chronic) Pyelonephritis (Acute) Medical History Abdominal pain GIB (gastrointestinal bleeding) Sepsis Social History Smoking/Tobacco Use Status: Current every day Tobacco Type: cigarettes Smoking risk assessment performed?: Yes Alcohol Intake: never Drug use: Never Substance use type: does not use Housing: house Do you feel safe at home: Yes Do you feel safe in your relationship?: Yes Time Spent with Patient Time Spent with Patient: 70-84 minutes4 Time was spent: preparing to see the patient(eg.review tests), obtaining and/or reviewing [facility], ordering medications,tests, procedures, referring, communicating with other health child care supervisor, indepentently interpreting results, counseling the patient and care coordination
--- NOTE | 2024-09-22 15:27 | PDOC.HHF2F_ITS ---
Home Health Referral Home Health Orders Clinical synopsis of why skilled professionals are needed: This 79 years old female patient with past medical history of severe dementia, cardiovascular disease recently hospitalized and discharged on 08/13/2024 due to C. difficile colitis status post oral vancomycin was brought back to the emergency room on 09/17/2024 by her family for complaints of severe abdominal pain status post dinner with chicken Tre, bilious vomiting without coffee ground emesis or hematochezia. At the time there was no report of constipation, recent fevers, chills, or night sweats.In the ED the patient was hypotensive at 85/83 which resolved with administration of IV fluids. Workup in the ED was significant for an abdominal CT showing significant constipation and obstruction. WBC was at 15.46 and this was suspected to be due to reactive leukocytosis. Chemistry showed an elevated creatinine, a potassium at 2.9 and supplementation given, initial lactate was 5.8 and repeat lactate 2.9. Stool for C. difficile was positive. Hospitalist was consulted and patient admitted to the medical surgical floor for severe sepsis, C. difficile colitis infection, constipation. Treatment was initiated with Dificid. Blood cultures were pending. During the stay, blood culture grew 1 bottle of Gram positive rods. Due to suspicion of contaminant, repeat blood cultures were ordered with no growth at 24 hours. Creatinine and electrolytes are within normal limits except for ma gnesium that has improved from 1.6-1.7. The patient will be discharged with oral magnesium supplementation. The patient continued received MiraLAX due to CT imaging results. Today there was no report of diarrhea. The patient will be discharged home to complete the 10-day course of Dificid. The patient will continue MiraLAX to maintain regularity of bowel movements. A short course of Bio-K Plus was ordered; the probiotics should not be taken within 3 hours of taking the antibiotics. The patient will need to follow-up with her primary care practitioner within 7 days of discharge; follow-up on electrolytes will be needed. Recommendation for the family to follow-up with primary care practitioner regarding finding of a gallstones in the gallbladder without CBD dilation. The patient will be discharged home with home health physical therapy, Occupational Therapy, nursing, and medical artist. Discussed with Dr. Navarro Registered Nurse: Check all that apply Instruct on new or changed medication(s)/assess compliance: Ordered Assess for exacerbation of medical condition, instruct patient/caregivers on sig ns and symptoms to report for early detection: Ordered Physical Therapist: Check all that apply Increase strength & endurance for safe mobility at home: Ordered To design/establish home maintenance program: Ordered Fall reduction therapy program for patient with history of frequent falls: O rdered Home safety evaluation and teaching/gait training including stair management (if applicable): Ordered Occupational Therapist: Evaluate and treat for patient unable to perform ADL/IADL/self-care: Ordered Upper extremity strengthening, range and motion: Ordered Communications Equipment Supervisor: Assist with community resources: Ordered Assist with adjunct faculty for medical terminology care planning: Ordered Home Bound Status Requires the aid of supportive device (check all that apply): Walker Describe why leaving home would require a considerable and taxing effort: Requires frequent rest periods Encounter Date and Reason: I certify that a FTF encounter for this patient was performed on September 22, 2024 and that such encounter was related to the primary reason the patient requires home health services. The encounter was conducted in the following manner: * By me as the certifying physician, TRAIL CONSTRUCTION WORKER, PA or * By an inpatient physician, TRAIL CONSTRUCTION WORKER or PA during an inpatient stay who communicated findings to me, Certification And Authentication I certify that I composed the above information based on my clinical judgment relating to this patient's medical condition and, if applicable, clinical findings communicated to me by the NPP or inpatient physician who performed the FTF encounter. Name of Provider that will be monitoring home health services: Gini Todd
== END 2024-09-22 15:49 | disposition home health service (06) | DRG 872 ==
LOC: ER 22:38 → EDHOLD 23:05 → MS 09-18 11:31
PROVIDERS: Nurse Practitioner Family; Surgery; Admitting Provider Student in an Organized Health Care Education/Training Program; Emergency Provider Emergency Medicine; PCP Internal Medicine; Visit Provider Student in an Organized Health Care Education/Training Program
DX: A41.9 Sepsis, unspecified organism (principal); A04.72 Enterocolitis due to Clostridium difficile, not specified as recurrent; N17.9 Acute kidney failure, unspecified; K92.1 Melena; R65.20 Severe sepsis without septic shock; K56.41 Fecal impaction; I70.0 Atherosclerosis of aorta; I10 Essential (primary) hypertension; E87.6 Hypokalemia; R74.8 Abnormal levels of other serum enzymes; I25.10 Atherosclerotic heart disease of native coronary artery without angina pectoris; K80.20 Calculus of gallbladder without cholecystitis without obstruction; F17.210 Nicotine dependence, cigarettes, uncomplicated; F03.C0 Unspecified dementia, severe, without behavioral disturbance, psychotic disturbance, mood disturbance, and anxiety; Z66 Do not resuscitate
CPT/HCPCS: 00123; 36415; 51702; 71275; 80048; 80053; 83690; 85027; 86850; 86900; 86901; 87040; 87077; 87493; 93005; 96361; 96365; 96366; 96367; 96375; 99223; 99291; 74018; 74174; 81003; 83605; 83735; 84484; 85014; 85018; 85025; 93010; 99232; 99233; 99239; J0692; J1956; J2270; J2405; J3010; J3370; J3480; J3490

== ENCOUNTER 2024-09-28 22:02 | Outpatient (REF) | payer MEDICARE, OTHER, SELFPAY ==
[2024-09-28 21:38] LABS: HCT 34.3 % (36.0-46.0); HGB 10.8 g/dL (11.2-15.7); MCH 30.1 pg (27.0-33.0); MCHC 31.5 % (32.0-36.0); MCV 96 fL (80-95); Platelet Count 317 10^3/uL (130-400); RBC 3.59 10^6/uL (3.93-5.22); RDW 13.2 % (11.7-14.6); RDW-SD 46.7 fL; WBC 10.09 10^3/uL (4.4-10.8)
[2024-09-28 21:45] LABS: Anion Gap 5.3 mmol/L (3-11); BUN 18 mg/dL (7-18); CO2 31.7 mmol/L (21.0-32.0); CREATININE 0.9 mg/dL (0.55-1.02); Calcium 8.6 mg/dL (8.5-10.1); Chloride 106 mmol/L (98-107); Estimated GFR 64.63 (mL/min/1.73m2); Glucose 100 mg/dL (74-106); Magnesium 2.1 mg/dL (1.8-2.4); Potassium 4.4 mmol/L (3.5-5.1); Sodium 143 mmol/L (136-145)
== END 2024-09-28 22:03 | disposition home or self-care (01) ==
LOC: NCHCN 22:02
PROVIDERS: PCP Internal Medicine; Visit Provider Internal Medicine
DX: A04.72 Enterocolitis due to Clostridium difficile, not specified as recurrent (principal)
CPT/HCPCS: 80048; 85027; 83735

== ENCOUNTER 2025-07-31 15:59 | Inpatient (IN) | payer MEDICARE, OTHER, SELFPAY ==
[2025-07-31] VITALS (26 sets, daily range): BP systolic 88–146; BP diastolic 50–93; PULSE 64–82; RESP 16–18; TEMP 35.7–38; O2SAT 83–99
--- NOTE | 2025-07-31 17:15 | DI.CT_ITS ---
Exam(s) CT ABDOMEN PELVIS W EXAM: CT ABDOMEN PELVIS W CLINICAL HISTORY: R sided ABD tenderness. TECHNIQUE: Imaging Protocol: Axial computed tomography images with coronal and sagittal reformatted images were created and reviewed CONTRAST MATERIAL: Intravenous: Omnipaque 350 Contrast volume:65 ml Oral: no COMPARISON: CT CT THORAX ABD/PEL CTA from 09/17/2024 FINDINGS: ABDOMEN and PELVIS: Lung Bases: No acute findings. Liver: Normal density. Cysts no suspicious mass. Gallbladder and biliary tract: Multiple calculi. No wall thickening or pericholecystic fluid. No biliary dilation. Pancreas: Normal density. No abnormal calcifications or inflammatory process. No evidence of mass. Spleen: Normal. Kidneys: Normal size, contour and axis. No radiodense stones. No obstructive uropathy. Cysts no suspicious masses seen. Adrenal glands: No masses seen. Vasculature: Abdominal aorta measures 2.7 cm and shows atherosclerotic changes. Focal area of narrowing distally. Soft tissues: Unremarkable. Bladder: No gross wall thickening. No calculi.No focal mass. Bowel: No obstruction. The ascending colon is fluid filled but not abnormally distended. Transverse colon are on is collapsed. In there is abnormal wall thickening of the descending colon with stranding in the surrounding fat, consistent with colitis. There are few diverticula of the sigmoid region.. Appendix normal. Peritoneal cavity: No ascites. No focal collection. No mesenteric inflammatory response. No free air. Bones: Unremarkable for age. Reproductive organs: Unremarkable. Lymph nodes: No pathologically enlarged lymph nodes. IMPRESSION:: Colitis of the descending colon. The preliminary [facility] report was reviewed. RADIATION DOSE DELIVERED: 389.12mGy.cm Total DLP DATA REPOSITORY: All CT scans at this facility are submitted to the National Radiology Data Registry (NRDR) Dose Index Registry (DIR) with the [employer] (A[employer]). RADIATION OPTIMIZATION: All CT scans at this facility use at least one of these dose optimization techniques: automated exposure control; mA and/or kV adjustment per patient size (includes targeted exams where dose is matched to clinical indication); or iterative reconstruction.
[2025-07-31 18:22] LABS: Abs Immature Grans 0.06 10^3/uL (0.0-0.06); HCT 46.8 % (36.0-46.0); HGB 15.3 g/dL (11.2-15.7); Immature Grans % 0.4 %; MCH 28.9 pg (27.0-33.0); MCHC 32.7 % (32.0-36.0); MCV 88 fL (80-95); MPV 9.9 fL (8.0-11.0); Platelet Count 180 10^3/uL (130-400); RBC 5.30 10^6/uL (3.93-5.22); RDW 13.6 % (11.7-14.6); RDW-SD 44.4 fL; WBC 13.57 10^3/uL (4.4-10.8)
[2025-07-31] MEDS: Acetaminophen 325 MG TAB 650 MG PO (18:23)
[2025-07-31 18:25] LABS: ESR 4 mm/hr (0-30)
[2025-07-31 18:47] LABS: C-Reactive Protein < 0.50 mg/dL (<=0.50); Lipase 43 U/L (<53); Magnesium 2.0 mg/dL (1.6-2.6)
[2025-07-31 18:49] LABS: ALT 17 U/L (10-49); AST 36 U/L (<34); Albumin 4.3 g/dL (3.2-5.0); Alkaline Phosphatase 64 U/L (46-116); Anion Gap 14.2 mmol/L (3-11); BUN 22 mg/dL (9-23); Bilirubin, Total 0.50 mg/dL (0.2-1.2); CO2 25.8 mmol/L (20.0-31.0); Calcium 8.9 mg/dL (8.3-10.6); Chloride 105 mmol/L (98-107); Glucose 172 mg/dL (74-106); Potassium 3.8 mmol/L (3.5-5.1); Sodium 145 mmol/L (136-145); Total Protein 7.3 g/dL (5.7-8.2)
--- NOTE | 2025-07-31 19:12 | W.ED.GENAD ---
Discharge Plan Discharge Details Chief Complaint: GI Bleed Primary Care Provider: Gini Todd ED Provider: Filiberto Pittman Home Meds and New Rx's Prescriptions: No Action metoprolol tartrate 25 mg Tablet 12.5 mg PO BID Qty: 90 0RF Bio-K plus 50 billion cell capsule,delayed release(DR/EC) 1 cap PO DAILY Qty: 10 0RF magnesium chloride [Mag 64] 64 mg Tablet,Delayed Release (Dr/Ec) 64 mg PO TID Qty: 90 0RF memantine 5 mg tablet 5 mg PO QPM Patient Comments: TAKE 1 TABLET BY MOUTH EVERY DAY trandolapril 4 mg Tablet 4 mg PO DAILY atorvastatin 10 mg Tablet 10 mg PO DAILY isosorbide mononitrate 30 mg Tablet Extended Release 24 Hr 30 mg PO DAILY hydrochlorothiazide 12.5 mg Tablet 12.5 mg PO DAILY HPI General Date/Time Provider Initiated Documentation: 07/31/25 16:30. HPI Narrative: 80 year-old female presents to ED today by POV/ambulating with a chief complaint of chills, abdominal pain, diarrhea, and rectal bleeding today with onset today, had some bright red blood with one stool. Quality described as generalized abdominal pain- patient has dementia and is a poor historian, no radiation to fever, but endorses chills, denies chest pain, denies cough, denies dysuria, denies flank pain, endorses poor appetite and hydration. Patient has had two bouts of C. diff this year and daughter states her stool smelled similar to prior episodes. Severity is described as mild to moderate for abdominal pain. Palliating factors include nothing specific attempted. Provoking factors include nothing specific. Patient not anticoagulated. Related Data Home Medications ?Medication ?Instructions ?Recorded ?Confirmed atorvastatin 10 mg tablet 10 mg PO DAILY 05/25/21 07/31/25 hydrochlorothiazide 12.5 mg tablet 12.5 mg PO DAILY 05/25/21 07/31/25 isosorbide mononitrate 30 mg 30 mg PO DAILY 05/25/21 07/31/25 tablet,extended release 24 hr trandolapril 4 mg tablet 4 mg PO DAILY 05/25/21 07/31/25 metoprolol tartrate 25 mg tablet 12.5 mg (1/2 x 25 mg) PO BID #90 08/13/24 07/31/25 tabs L. acidophilus,casei,rhamnosus 50 1 cap PO DAILY #10 caps 09/22/24 07/31/25 billion cell capsule,delayed release (Bio-K plus) magnesium chloride 64 mg 64 mg PO TID #90 tabs 09/22/24 07/31/25 (magnesium chloride) tablet,delayed release (Mag 64) memantine 5 mg tablet 5 mg PO QPM 07/31/25 07/31/25 Previous Rx's ?Medication ?Instructions ?Recorded metoprolol tartrate 25 mg tablet 12.5 mg (1/2 x 25 mg) PO BID #90 08/13/24 tabs L. acidophilus,casei,rhamnosus 50 1 cap PO DAILY #10 caps 09/22/24 billion cell capsule,delayed release (Bio-K plus) magnesium chloride 64 mg 64 mg PO TID #90 tabs 09/22/24 (magnesium chloride) tablet,delayed release (Mag 64) Allergies Allergy/AdvReac Type Severity Reaction Status Date / Time tramadol Allergy Mild Unknown Unverified 07/31/25 16:27 bupropion (From Zyban) Allergy Unknown Unverified 07/31/25 16:27 clindamycin Allergy Unknown Unverified 07/31/25 16:27 gemfibrozil Allergy Unknown Unverified 07/31/25 16:27 niacin (From Niaspan Allergy Unknown Unverified 07/31/25 16:27 Extended-Release) Penicillins Allergy Unknown Unverified 07/31/25 16:27 General Stated Complaint: GI Bleed JESSI: 3 Review of Systems All systems reviewed & are unremarkable except as noted in HPI and below Exam Narrative Exam Narrative: GENERAL APPEARANCE: Frail, toxic, awake and alert, atraumatic, mild acute distress, shivering SKIN: Warm, pale, dry, intact, without rashes/lesions/ulcerations. HEAD: Normocephalic, atraumatic, normal hair distribution for gender/age. EYES: Normal conjunctiva, no exudates on lids/lashes. ENT: Nares patent, no circumoral cyanosis, no facial swelling NECK: Supple, trachea midline, painless cervical ROM. LUNGS/CHEST: Lungs CTA bilaterally- no rhonchi/rales/wheezes diffusely, non-labored respirations, normal A/P diameter, symmetrical expansion, no chest wall deformity HEART (CV/PV): Regular rate and rhythm without murmur, no peripheral edema, no JVD. ABDOMEN: Soft, non-distended, no guarding, R sided diffuse tenderness superior to McBurney's point. JESSICA deferred, stool collected no rita blood MSK: Normal ROM, no swelling/deformity to bilateral UEs or LEs, moving all extremities without weakness, no cyanosis, spine midline without tenderness, normal curvature. NEURO: Mental Status AAOx4 - alert to person, place, time, events No facial droop, no forehead involvement. Motor: No focal weakness Sensory: sensation intact to light touch globally. Gait NT. PSYCH: euthymic, cooperative, pleasant, appropriate speech Course Vital Signs Vital signs: Vital Signs Temperature 35.7 C L 07/31/25 16:19 Pulse 64 07/31/25 16:19 Respiratory Rate 18 07/31/25 16:19 Blood Pressure 118/80 07/31/25 16:19 Pulse Oximetry 94 07/31/25 16:19 Temperature 35.7 C L 07/31/25 16:19 Temperature Source Temporal Artery Scan 07/31/25 16:19 Pulse 64 07/31/25 16:19 Respiratory Rate 18 07/31/25 16:19 Blood Pressure 118/80 07/31/25 16:19 Pulse Oximetry 94 07/31/25 16:19 Oxygen Delivery Method Room Air 07/31/25 16:19 Oxygen Flow Rate 0 07/31/25 16:19 Lab/Test Results Lab/Test Results: 07/31/25 19:00 Blood Blood Culture - Pending 07/31/25 18:26 Blood Blood Culture - Pending Laboratory Tests Range/Units 07/31/25 18:15 WBC (4.4-10.8) 10^3/uL 13.57 H RBC (3.93-5.22) 10^6/uL 5.30 H Hgb (11.2-15.7) g/dL 15.3 Hct (36.0-46.0) % 46.8 H MCV (80-95) fL 88 MCH (27.0-33.0) pg 28.9 MCHC (32.0-36.0) % 32.7 RDW (11.7-14.6) % 13.6 Plt Count (130-400) 10^3/uL 180 MPV (8.0-11.0) fL 9.9 Immature Gran % % 0.4 Neutrophils % % 84.5 Lymphocytes % % 8.8 Monocytes % % 6.0 Eosinophils % % 0.1 Basophils % % 0.2 Nucleated RBC % (0.0-0.3) % 0.0 Absolute Neutrophils (1.2-6.7) 10^3/uL 11.47 H Absolute Lymphocytes (1.2-3.4) 10^3/uL 1.19 L Absolute Monocytes (0.1-0.8) 10^3/uL 0.81 H Absolute Eosinophils (0.0-0.7) 10^3/uL 0.01 Absolute Basophils (0.0-0.2) 10^3/uL 0.03 ESR (0-30) mm/hr 4 VBG Lactate (<or=2.0) mmol/L 4.3 H* Sodium (136-145) mmol/L 145 Potassium (3.5-5.1) mmol/L 3.8 Chloride (98-107) mmol/L 105 Carbon Dioxide (20.0-31.0) mmol/L 25.8 Anion Gap (3-11) mmol/L 14.2 H BUN (9-23) mg/dL 22 Creatinine (0.55-1.02) mg/dL 1.33 H Est GFR (CKD-EPI 2020) (mL/min/1.73m2) 38.24 Glucose (74-106) mg/dL 172 H Calcium (8.3-10.6) mg/dL 8.9 Magnesium (1.6-2.6) mg/dL 2.0 Total Bilirubin (0.2-1.2) mg/dL 0.50 AST (<34) U/L 36 H ALT (10-49) U/L 17 Alkaline Phosphatase (46-116) U/L 64 C-Reactive Protein (<=0.50) mg/dL < 0.50 Total Protein (5.7-8.2) g/dL 7.3 Albumin (3.2-5.0) g/dL 4.3 Lipase (<53) U/L 43 Medical Decision Making This dictation utilizes [id number] dictation software and may contain unedited grammatical errors. 80 year-old female presents to ED today by POV/ambulating with a chief complaint of chills, abdominal pain, diarrhea, and rectal bleeding today with onset today, had some bright red blood with one stool. Quality described as generalized abdominal pain- patient has dementia and is a poor historian, no radiation to fever, but endorses chills, denies chest pain, denies cough, denies dysuria, denies flank pain, endorses poor appetite and hydration, patient had 1 episode of vomiting today. Patient has had two bouts of C. diff this year and daughter states her stool smelled similar to prior episodes. Severity is described as mild to moderate for abdominal pain. Palliating factors include nothing specific attempted. Provoking factors include nothing specific. Patients' medical history: History of RENITA, constipation, CAD, history of GI bleeding, C. difficile, hypertension, dementia. Family and social history: Noncontributory. Pertinent exam findings / vital signs include right-sided abdominal tenderness without rebound tenderness, higher than McBurney's point, benign cardiopulmonary exam, patient is actively shivering on arrival with chills but afebrile. Differential / pathologies of concern include biliary colic, renal colic, appendicitis, small bowel obstruction, colitis, enteritis, diverticulitis, sepsis. Diagnostic studies of: - CBC, CMP, CRP/ESR, lactate, magnesium, lipase, C. difficile, stool culture, blood cultures, CT ABD/pelvis with contrast. - CBC shows elevated white blood cells at 13.5 with elevated absolute neutrophil count - Lactate 4.3 - CRP and ESR negative - Magnesium within normal limits - Lipase negative - C. difficile negative - CMP shows a baseline creatinine of 1.3 but no other major electrolyte derangements - CT shows acute colitis of descending colon which does not correlate with her tenderness though the patient does have dementia Interventions of: - IV fluids, IV cefepime, vancomycin, metronidazole, consulted with hospitalist Dr. Navarro, accepted for admission at 2100 hrs. ED Course/Assessment/Plan: 80-year-old female with abdominal pain and diarrhea with 1 episode of bright red blood in toilet bowl today presents for evaluation, her CT shows acute colitis, her lactate is elevated with elevated leukocytes indicating likely sepsis, CT shows non-perforated colitis. Reasonable to admit for sepsis and colitis, patient had a normal hemoglobin, would recheck this in the morning and consult with surgery as needed. Patient did not have bright red stool with samples collected in ED. Disposition of Sepsis, Colitis. Patient verbalized understanding of the plan and return to ED criteria and engaged in shared decision making. Medical Records Medical records reviewed: Yes I reviewed the patient's medical records. Imaging Data Radiologic Study: Attestation: I personally reviewed and interpreted this imaging study as follows: Imaging: CT Scan Radiologist's impression: Exam: CT Abdomen And Pelvis With Contrast Exam date and time: 07/31/2025 7:37 PM Age: 80 years old Clinical indication: Abdominal pain; Tenderness; Right; Additional info: R sided abd tenderness, rectal bleeding TECHNIQUE: Imaging protocol: Computed tomography of the abdomen and pelvis with contrast. Contrast material: OMNIPAQUE 350; Contrast volume: 65 ml; Contrast route: INTRAVENOUS (IV); COMPARISON: CT THORAX ABD/PEL CTA 09/17/2024 8:17 PM FINDINGS: Lungs: Lung bases are clear. Liver: The liver has a normal appearance. Multiple circumscribed hypodense foci are present within the liver suggesting the presence of hepatic cysts which are incompletely characterized. Gallbladder and biliary ducts: Multiple calcified stones are present in the gallbladder fundus. No gallbladder wall thickening or pericholecystic fluid. Pancreas: Normal. No ductal dilation. Spleen: The spleen demonstrates normal size. Adrenal glands: The adrenal glands have a normal appearance. Kidneys and ureters: The kidneys are normal in size. Low-density cortical cystic lesions are present bilaterally within the kidneys. No hydronephrosis. No hydroureter or ureterolithiasis. Stomach and bowel: The bowel demonstrates overall normal caliber and wall thickness. Circumferential wall thickening is present within the descending colon. There is moderate pericolonic fat stranding present. Appendix: The appendix is thin walled. Intraperitoneal space: Unremarkable. No free air. No significant fluid collection. Vasculature: There are scattered atheromatous calcifications throughout the aorta and iliac arteries. Lymph nodes: No enlarged lymph nodes. Urinary bladder: The bladder is thin walled and fluid filled. Reproductive: The uterus has a normal appearance. Bones/joints: Bones have a normal appearance. No acute fracture or suspicious bone lesion. Soft tissues: Unremarkable. IMPRESSION: 1. Acute non perforated colitis of the descending colon. 2. No other acute intra-abdominal findings. 3. Normal appendix. 4. Cholelithiasis. No findings to suggest choledocholithiasis or acute cholecystitis. Dictated and Authenticated by: Magy Maza MD. Lab Data Lab results reviewed: Yes I reviewed the patient's lab results. Labs: 07/31/25 20:00 Blood Blood Culture - Pending 07/31/25 19:00 Blood Blood Culture - Pending Laboratory Tests Range/Units 07/31/25 07/31/25 16:45 18:15 WBC (4.4-10.8) 10^3/uL 13.57 H RBC (3.93-5.22) 10^6/uL 5.30 H Hgb (11.2-15.7) g/dL 15.3 Hct (36.0-46.0) % 46.8 H MCV (80-95) fL 88 MCH (27.0-33.0) pg 28.9 MCHC (32.0-36.0) % 32.7 RDW (11.7-14.6) % 13.6 Plt Count (130-400) 10^3/uL 180 MPV (8.0-11.0) fL 9.9 Immature Gran % % 0.4 Neutrophils % % 84.5 Lymphocytes % % 8.8 Monocytes % % 6.0 Eosinophils % % 0.1 Basophils % % 0.2 Nucleated RBC % (0.0-0.3) % 0.0 Absolute Neutrophils (1.2-6.7) 10^3/uL 11.47 H Absolute Lymphocytes (1.2-3.4) 10^3/uL 1.19 L Absolute Monocytes (0.1-0.8) 10^3/uL 0.81 H Absolute Eosinophils (0.0-0.7) 10^3/uL 0.01 Absolute Basophils (0.0-0.2) 10^3/uL 0.03 ESR (0-30) mm/hr 4 VBG Lactate (<or=2.0) mmol/L 4.3 H* Sodium (136-145) mmol/L 145 Potassium (3.5-5.1) mmol/L 3.8 Chloride (98-107) mmol/L 105 Carbon Dioxide (20.0-31.0) mmol/L 25.8 Anion Gap (3-11) mmol/L 14.2 H BUN (9-23) mg/dL 22 Creatinine (0.55-1.02) mg/dL 1.33 H Est GFR (CKD-EPI 2020) (mL/min/1.73m2) 38.24 Glucose (74-106) mg/dL 172 H Calcium (8.3-10.6) mg/dL 8.9 Magnesium (1.6-2.6) mg/dL 2.0 Total Bilirubin (0.2-1.2) mg/dL 0.50 AST (<34) U/L 36 H ALT (10-49) U/L 17 Alkaline Phosphatase (46-116) U/L 64 C-Reactive Protein (<=0.50) mg/dL < 0.50 Total Protein (5.7-8.2) g/dL 7.3 Albumin (3.2-5.0) g/dL 4.3 Lipase (<53) U/L 43 Stl C.difficile Tox PCR (Negative) Negative Quality:SDOH Health Related Social Needs: Health related social needs risk of homeless PFSH All Active Problems (Updated 10/17/24 @ 00:03 by JON MARQUEZ) Gallstones (Acute) Septic shock (Acute) C. difficile colitis (Acute) Dementia (Chronic) HTN (hypertension) (Chronic) Pyelonephritis (Acute) Medical History Abdominal pain GIB (gastrointestinal bleeding) Sepsis Social History Smoking/Tobacco Use Status: Current every day Tobacco Type: cigarettes Smoking risk assessment performed?: Yes Alcohol Intake: never Drug use: Never Substance use type: does not use Housing: house Do you feel safe at home: Yes Do you feel safe in your relationship?: Yes
[2025-07-31 19:26] LABS: EPI 027-NAP1-B1 PRESUMPTIVE NEGATIVE
[2025-07-31] MEDS: Normal Saline Flush 10 ML SYR IVP (19:38)
[2025-07-31] MEDS: Omnipaque 350 MG/ML 100 ML BTL IJ (19:38)
[2025-07-31] MEDS: Normal Saline - Diluent 50 ML VIAL IJ (19:38)
--- NOTE | 2025-07-31 20:08 | DI.VRAD_ITS ---
PROCEDURE INFORMATION: Exam: CT Abdomen And Pelvis With Contrast Exam date and time: 07/31/2025 7:37 PM Age: 80 years old Clinical indication: Abdominal pain; Tenderness; Right; Additional info: R sided abd tenderness, rectal bleeding TECHNIQUE: Imaging protocol: Computed tomography of the abdomen and pelvis with contrast. Contrast material: OMNIPAQUE 350; Contrast volume: 65 ml; Contrast route: INTRAVENOUS (IV); COMPARISON: CT THORAX ABD/PEL CTA 09/17/2024 8:17 PM FINDINGS: Lungs: Lung bases are clear. Liver: The liver has a normal appearance. Multiple circumscribed hypodense foci are present within the liver suggesting the presence of hepatic cysts which are incompletely characterized. Gallbladder and biliary ducts: Multiple calcified stones are present in the gallbladder fundus. No gallbladder wall thickening or pericholecystic fluid. Pancreas: Normal. No ductal dilation. Spleen: The spleen demonstrates normal size. Adrenal glands: The adrenal glands have a normal appearance. Kidneys and ureters: The kidneys are normal in size. Low-density cortical cystic lesions are present bilaterally within the kidneys. No hydronephrosis. No hydroureter or ureterolithiasis. Stomach and bowel: The bowel demonstrates overall normal caliber and wall thickness. Circumferential wall thickening is present within the descending colon. There is moderate pericolonic fat stranding present. Appendix: The appendix is thin walled. Intraperitoneal space: Unremarkable. No free air. No significant fluid collection. Vasculature: There are scattered atheromatous calcifications throughout the aorta and iliac arteries. Lymph nodes: No enlarged lymph nodes. Urinary bladder: The bladder is thin walled and fluid filled. Reproductive: The uterus has a normal appearance. Bones/joints: Bones have a normal appearance. No acute fracture or suspicious bone lesion. Soft tissues: Unremarkable. IMPRESSION: 1. Acute non perforated colitis of the descending colon. 2. No other acute intra-abdominal findings. 3. Normal appendix. 4. Cholelithiasis. No findings to suggest choledocholithiasis or acute cholecystitis. Dictated and Authenticated by: Magy Maza MD. Orderin Toya De Los Santos MD
[2025-07-31] MEDS: CEFEPIME 2 GM in Normal Saline 100 ML IVPB (20:14)
[2025-07-31] MEDS: VANCOMYCIN IVPB (20:20)
[2025-07-31] MEDS: NORMAL SALINE IVPB (20:20)
[2025-07-31] MEDS: metroNIDAZOLE 500 MG/100 ML BAG 100 MG IVPB (20:29)
--- NOTE | 2025-07-31 21:54 | W.PM.HP.N ---
Date of service: 07/31/25 Time of Service: 21:54 Assessment and Plan Assessment and plan (1) Colitis: Status: Acute Assessment and plan: Continue with IV fluids I am starting the patient on Rocephin and Flagyl. Recheck lactic acid levels. Hopefully with antibiotics and fluid resuscitation she will respond appropriately. Consider vancomycin if she is not responding. (2) Dementia: Status: Chronic Assessment and plan: Continue with her Namenda. (3) RENITA (acute kidney injury): Assessment and plan: Continue with IV fluids. DVT prophylaxis with Lovenox. History of Present Illness History of Present Illness Chief Complaint: colitis Narrative: This is a 80-year-old female whose had multiple contacts with the healthcare system over the last year at least appears to be 2 episodes of C. difficile colitis. Patient was brought in by her daughter for worsening abdominal pain and 1 episode of melena. As mentioned before the patient was diagnosed with C. difficile in August of this year as well as July of last year. While she was in the ED a workup was initiated including lab work stool studies CT of the abdomen pelvis. Her vital signs did show a low temp 35.7 as well as a white count over 12,000. This patient met SIRS criteria and lactic acid level 4.[address] which was indicative of colitis Mr. Severe sepsis with abdominal source. In regard to stool studies her C. difficile was negative although other studies are pending. Patient did appear to be mildly dehydrated with a BUN/creatinine ratio of 22/1.3. This could also indicate GI bleed. My discussion of the patient is quite limited as she is quite demented and there is no family in the room. She is alert to person but does not know the place time or her location. Review of Systems Unobtainable due to mental condition [facility] All Active Problems (Updated 07/31/25 @ 22:01 by Oscar Navarro MD) Colitis (Acute) Gallstones (Acute) Septic shock (Acute) C. difficile colitis (Acute) Dementia (Chronic) HTN (hypertension) (Chronic) Pyelonephritis (Acute) Medical History Abdominal pain GIB (gastrointestinal bleeding) Sepsis Social History Smoking/Tobacco Use Status: Current every day Tobacco Type: cigarettes Smoking risk assessment performed?: Yes Alcohol Intake: never Drug use: Never Substance use type: does not use Housing: house Do you feel safe at home: Yes Do you feel safe in your relationship?: Yes Meds Allergies and Home Medications Allergies Allergy/AdvReac Type Severity Reaction Status Date / Time tramadol Allergy Mild Unknown Unverified 07/31/25 16:27 bupropion (From Zyban) Allergy Unknown Unverified 07/31/25 16:27 clindamycin Allergy Unknown Unverified 07/31/25 16:27 gemfibrozil Allergy Unknown Unverified 07/31/25 16:27 niacin (From Niaspan Allergy Unknown Unverified 07/31/25 16:27 Extended-Release) Penicillins Allergy Unknown Unverified 07/31/25 16:27 Home Medications ?Medication ?Instructions ?Recorded ?Confirmed ?Type atorvastatin 10 mg tablet 10 mg PO DAILY 05/25/21 07/31/25 History hydrochlorothiazide 12.5 mg tablet 12.5 mg PO DAILY 05/25/21 07/31/25 History isosorbide mononitrate 30 mg 30 mg PO DAILY 05/25/21 07/31/25 History tablet,extended release 24 hr trandolapril 4 mg tablet 4 mg PO DAILY 05/25/21 07/31/25 History metoprolol tartrate 25 mg tablet 12.5 mg (1/2 x 25 mg) PO BID #90 08/13/24 07/31/25 Rx tabs L. acidophilus,casei,rhamnosus 50 1 cap PO DAILY #10 caps 09/22/24 07/31/25 Rx billion cell capsule,delayed release (Bio-K plus) magnesium chloride 64 mg 64 mg PO TID #90 tabs 09/22/24 07/31/25 Rx (magnesium chloride) tablet,delayed release (Mag 64) memantine 5 mg tablet 5 mg PO QPM 07/31/25 07/31/25 History Exam Narrative Exam Narrative: HEENT normocephalic atraumatic mucous membranes moist Neck no lymphadenopathy no JVD no thyromegaly Cardiovascular regular rate and rhythm no murmurs gallops Lungs clear to auscultation no accessory muscle use Abdomen diffusely tender bowel sounds active Neuro nonfocal Psych responds appropriately but is quite demented Results Labs 07/31/25 18:15 07/31/25 18:15 Labs: Laboratory Results - last 24 hr 07/31/25 07/31/25 16:45 18:15 WBC 13.57 H RBC 5.30 H Hgb 15.3 Hct 46.8 H MCV 88 MCH 28.9 MCHC 32.7 RDW 13.6 Plt Count 180 MPV 9.9 Immature Gran % 0.4 Neutrophils % 84.5 Lymphocytes % 8.8 Monocytes % 6.0 Eosinophils % 0.1 Basophils % 0.2 Nucleated RBC % 0.0 Absolute Neutrophils 11.47 H Absolute Lymphocytes 1.19 L Absolute Monocytes 0.81 H Absolute Eosinophils 0.01 Absolute Basophils 0.03 ESR 4 VBG Lactate 4.3 H* Sodium 145 Potassium 3.8 Chloride 105 Carbon Dioxide 25.8 Anion Gap 14.2 H BUN 22 Creatinine 1.33 H Est GFR (CKD-EPI 2020) 38.24 Glucose 172 H Calcium 8.9 Magnesium 2.0 Total Bilirubin 0.50 AST 36 H ALT 17 Alkaline Phosphatase 64 C-Reactive Protein < 0.50 Total Protein 7.3 Albumin 4.3 Lipase 43 Stl C.difficile Tox PCR Negative Last Vital Signs Temp 35.7 C L 07/31/25 16:19 Pulse 82 07/31/25 21:30 Resp 16 07/31/25 20:50 BP 115/51 L 07/31/25 21:21 Pulse Ox 89 L 07/31/25 21:30 VTE Prohylaxis Risk Level: Moderate/High Risk Contraindications: None Prophylaxis: Pharmacologic Time Spent Time spent with Patient: 40-54 minutes Time was spent: preparing to see the patient(eg.review tests), obtaining and/or reviewing separately otained hiistory, ordering medications,tests, procedures, referring, communicating with other health daycare provider, indepentently interpreting results, counseling the patient and care coordination
[2025-07-31 22:37] LABS: COVID-19 PCR Negative (Negative)
--- NOTE | 2025-07-31 23:22 | W.PC.ACHO ---
Registration Status: REG ER Primary Language: Preferred Language: ED Information & Data Chief Complaint GI Bleed 07/31/25 20:51 Chief Complaint GI Bleed 07/31/25 19:12 Triage Note Patient is having abdominal 07/31/25 16:19 pain with rectal bleeding which started about 1 hour away. Patient daughter is present stating patient has history of CDiff and colitis . Daughter state the patient also vomited bile today, received Ibuprofen about 1 hr ago Medical / Surgical History (Last Reviewed 09/17/24 @ 20:01 by Christian Manriquez MD) Elevated alkaline phosphatase level RENITA (acute kidney injury) Atherosclerosis of aorta Atherosclerosis Constipation ASVD (arteriosclerotic vascular disease) CAD (coronary artery disease), [place] coronary artery Abdominal pain GIB (gastrointestinal bleeding) Sepsis Most Recent Vital Signs Temperature 35.7 C L 07/31/25 16:19 Temperature Source Temporal Artery Scan 07/31/25 16:19 Pulse 82 07/31/25 21:30 Respiratory Rate 16 07/31/25 20:50 Blood Pressure 115/51 L 07/31/25 21:21 Blood Pressure Mean 73 07/31/25 21:21 Pulse Oximetry 89 L 07/31/25 21:30 Oxygen Delivery Method Room Air 07/31/25 20:50 Oxygen Flow Rate 0 07/31/25 20:50 Allergies tramadol Allergy (Mild, Unverified 07/31/25 16:27) Unknown bupropion (From Zyban) Allergy (Unverified 07/31/25 16:27) Unknown clindamycin Allergy (Unverified 07/31/25 16:27) Unknown gemfibrozil Allergy (Unverified 07/31/25 16:27) Unknown niacin (From Niaspan Extended-Release) Allergy (Unverified 07/31/25 16:27) Unknown Penicillins Allergy (Unverified 07/31/25 16:27) Unknown Precautions Isolation Standard precaution 07/31/25 20:51 Active Medications Generic Name Dose Route Start Last Admin Trade Name Freq PRN Reason Stop Dose Admin Iohexol 100 ml 07/31/25 19:00 07/31/25 19:38 Omnipaque 350 Mg/Ml 100 Ml Btl IJ 08/30/25 23:59 65 ml DIRECTED NICOLE Administration Sodium Chloride 0 ml 07/31/25 18:49 07/31/25 19:38 Normal Saline Flush 10 Ml Syr IVP 10 ml PRN PRN Administration Sodium Chloride 50 ml 07/31/25 19:00 07/31/25 19:38 Normal Saline - Diluent 50 Ml Vial IJ 50 ml DIRECTED NICOLE Administration IV IV Catheter Type [Right Peripheral IV Antecubital] IV Catheter Type [Left Saline Lock Antecubital] IV Catheter Gauge [Right 18 Antecubital] IV Catheter Gauge [Left 20 Antecubital] Diet Orders Category Date Time Status Nothing Per Oral [DIET] Nutrition 07/31/25 21:52 Active Diagnostics 07/31/25 07/31/25 07/31/25 Range/Units 22:00 18:15 16:45 WBC 13.57 H (4.4-10.8) 10^3/uL RBC 5.30 H (3.93-5.22) 10^6/uL Hgb 15.3 (11.2-15.7) g/dL Hct 46.8 H (36.0-46.0) % MCV 88 (80-95) fL MCH 28.9 (27.0-33.0) pg MCHC 32.7 (32.0-36.0) % RDW 13.6 (11.7-14.6) % Plt Count 180 (130-400) 10^3/uL MPV 9.9 (8.0-11.0) fL Immature Gran % 0.4 % Neutrophils % 84.5 % Lymphocytes % 8.8 % Monocytes % 6.0 % Eosinophils % 0.1 % Basophils % 0.2 % Nucleated RBC % 0.0 (0.0-0.3) % Absolute Neutrophils 11.47 H (1.2-6.7) 10^3/uL Absolute Lymphocytes 1.19 L (1.2-3.4) 10^3/uL Absolute Monocytes 0.81 H (0.1-0.8) 10^3/uL Absolute Eosinophils 0.01 (0.0-0.7) 10^3/uL Absolute Basophils 0.03 (0.0-0.2) 10^3/uL ESR 4 (0-30) mm/hr VBG Lactate Pending 4.3 H* (<or=2.0) mmol/L Sodium 145 (136-145) mmol/L Potassium 3.8 (3.5-5.1) mmol/L Chloride 105 (98-107) mmol/L Carbon Dioxide 25.8 (20.0-31.0) mmol/L Anion Gap 14.2 H (3-11) mmol/L BUN 22 (9-23) mg/dL Creatinine 1.33 H (0.55-1.02) mg/dL Est GFR (CKD-EPI 2020) 38.24 (mL/min/1.73m2) Glucose 172 H (74-106) mg/dL Calcium 8.9 (8.3-10.6) mg/dL Magnesium 2.0 (1.6-2.6) mg/dL Total Bilirubin 0.50 (0.2-1.2) mg/dL AST 36 H (<34) U/L ALT 17 (10-49) U/L Alkaline Phosphatase 64 (46-116) U/L C-Reactive Protein < 0.50 (<=0.50) mg/dL Total Protein 7.3 (5.7-8.2) g/dL Albumin 4.3 (3.2-5.0) g/dL Lipase 43 (<53) U/L Stool Campylobacter PCR Stl C.difficile Tox PCR Negative (Negative) Stool Salmonella PCR Stool Shigella PCR COVID-19 Source Nasal/Nares SARS-CoV-2 (PCR) Negative (Negative) Shiga Toxin (PCR) 07/31/25 Range/Units 16:20 WBC (4.4-10.8) 10^3/uL RBC (3.93-5.22) 10^6/uL Hgb (11.2-15.7) g/dL Hct (36.0-46.0) % MCV (80-95) fL MCH (27.0-33.0) pg MCHC (32.0-36.0) % RDW (11.7-14.6) % Plt Count (130-400) 10^3/uL MPV (8.0-11.0) fL Immature Gran % % Neutrophils % % Lymphocytes % % Monocytes % % Eosinophils % % Basophils % % Nucleated RBC % (0.0-0.3) % Absolute Neutrophils (1.2-6.7) 10^3/uL Absolute Lymphocytes (1.2-3.4) 10^3/uL Absolute Monocytes (0.1-0.8) 10^3/uL Absolute Eosinophils (0.0-0.7) 10^3/uL Absolute Basophils (0.0-0.2) 10^3/uL ESR (0-30) mm/hr VBG Lactate (<or=2.0) mmol/L Sodium (136-145) mmol/L Potassium (3.5-5.1) mmol/L Chloride (98-107) mmol/L Carbon Dioxide (20.0-31.0) mmol/L Anion Gap (3-11) mmol/L BUN (9-23) mg/dL Creatinine (0.55-1.02) mg/dL Est GFR (CKD-EPI 2020) (mL/min/1.73m2) Glucose (74-106) mg/dL Calcium (8.3-10.6) mg/dL Magnesium (1.6-2.6) mg/dL Total Bilirubin (0.2-1.2) mg/dL AST (<34) U/L ALT (10-49) U/L Alkaline Phosphatase (46-116) U/L C-Reactive Protein (<=0.50) mg/dL Total Protein (5.7-8.2) g/dL Albumin (3.2-5.0) g/dL Lipase (<53) U/L Stool Campylobacter PCR Pending Stl C.difficile Tox PCR (Negative) Stool Salmonella PCR Pending Stool Shigella PCR Pending COVID-19 Source SARS-CoV-2 (PCR) (Negative) Shiga Toxin (PCR) Pending 07/31/25 20:00 Blood Culture - Pending Blood 07/31/25 19:00 Blood Culture - Pending Blood Intake and Output - 24 Hour Total 07/31/25 15:59 thru 07/31/25 22:59 Intake Total 700 Balance 700 Weight 44.452 kg Intake: IV 700 Problems (Last Reviewed 09/17/24 @ 20:01 by Christina Manriquez MD) Colitis (Acute) Dementia (Chronic) Attestation Statement: By documenting the first initial, last name, and credentials of the reporting nurse below, both parties acknowledge that all relevant information regarding the patient handoff has been communicated, and that all questions have been addressed to ensure continuity and safety of care. Additional Patient Information/Comments: Came in with c/o bloody stool, dx colitis, #20 LAC, #18 RAC, po tylenol, cefepime 2 gram, 500mg flagyl, 900mg Vancomycin. A+O mostly, daughter had been present and answered most questions, need a urine sample, does not want a straight cath, needs more stool for additional test. bloody mucuosy stool in brief, up with a one assist Report Received From: leticia Paz @ [id number] 07/31/25
[2025-08-01] VITALS (8 sets, daily range): BP systolic 109–147; BP diastolic 49–74; PULSE 68–78; RESP 16–20; TEMP 35.8–37.6; O2SAT 90–97
[2025-08-01] MEDS: cefTRIAXone 2 GM/50 ML BAG IVPB ×2 (00:28→23:57)
[2025-08-01] MEDS: Lactated Ringers 1,000 ML 150 ML IV ×4 (00:28→23:56)
[2025-08-01] MEDS: Acetaminophen 325 MG TAB PO (00:29)
[2025-08-01] MEDS: Normal Saline Flush 10 ML SYR IVP ×4 (00:29→19:58)
[2025-08-01 02:10] LABS: COVID-19 PCR Negative (Negative); RSV PCR Negative (Negative)
[2025-08-01] MEDS: metroNIDAZOLE 500 MG/100 ML BAG 100 MG IVPB ×3 (04:29→19:59)
[2025-08-01 05:55] LABS: Glucose Negative (Negative)
[2025-08-01 06:03] LABS: C & S Indicated? No; RBC 0-2 HPF (0-2)
[2025-08-01 06:22] LABS: Abs Immature Grans 0.03 10^3/uL (0.0-0.06); HCT 38.0 % (36.0-46.0); HGB 12.9 g/dL (11.2-15.7); Immature Grans % 0.3 %; MCH 29.9 pg (27.0-33.0); MCHC 33.9 % (32.0-36.0); MCV 88 fL (80-95); MPV 10.2 fL (8.0-11.0); Platelet Count 162 10^3/uL (130-400); RBC 4.31 10^6/uL (3.93-5.22); RDW 13.8 % (11.7-14.6); RDW-SD 44.2 fL; WBC 8.91 10^3/uL (4.4-10.8)
[2025-08-01 06:48] LABS: ALT 14 U/L (10-49); AST 25 U/L (<34); Albumin 3.6 g/dL (3.2-5.0); Alkaline Phosphatase 46 U/L (46-116); Anion Gap 11.8 mmol/L (3-11); BUN 27 mg/dL (9-23); Bilirubin, Total 0.50 mg/dL (0.2-1.2); CO2 24.2 mmol/L (20.0-31.0); Calcium 8.1 mg/dL (8.3-10.6); Chloride 107 mmol/L (98-107); Glucose 103 mg/dL (74-106); Potassium 3.8 mmol/L (3.5-5.1); Sodium 143 mmol/L (136-145); Total Protein 6.3 g/dL (5.7-8.2)
[2025-08-01 07:14] LABS: Procalcitonin 7.16 ng/mL
[2025-08-01] MEDS: Metoprolol 12.5 MG TAB PO ×2 (08:40→19:59)
[2025-08-01] MEDS: Atorvastatin 10 MG TAB PO (08:40)
[2025-08-01] MEDS: Magnesium Chloride 64 MG TABCR PO ×3 (08:40→19:59)
[2025-08-01] MEDS: Isosorbide Mononitrate 30 MG TABCR PO (08:40)
[2025-08-01] MEDS: Lactobacillus Acidophilus CAP 1 CAP PO (08:40)
--- NOTE | 2025-08-01 08:45 | RT.EKG_ITS ---
APPROVED REPORT Exam: Resting ECG Reason for Exam: Chest paibn Patient Location: I HR:73 bpm ECG Measurements Heart Rate [address] 164 P 51 QRSd 89 QRS 7 QT 404 T 20 QTc 446 Conclusion Sinus rhythm...normal P axis, V-rate 50- 99 Low voltage, precordial leads...precordial leads <1.0mV Poor R wave progression
--- NOTE | 2025-08-01 08:52 | INITIAL_ITS ---
Date of service: 08/01/25 Time of Service: 08:52 Care Management Initial Assmt Initial Assessment Reason for Hospitalization: colitis Functional Status/Living Situation Patient Presentation: Telma was sitting up in a chair when CM met with her. She was smiling and was very pleasant, however she informed CM that her memory is very poor. She was unable to identify which town she lives in and the name if her granddaughter. Fortunately her daughter Jeri was visiting at the time and was able to provide information. Telma has been living with Jeri in [facility] for over a decade. She has dementia and has become more dependent on others for her care. Telma can bathe and dress herself, however she needs reminders and a lot of prompting to follow through. She does not have a very good appetite and will forget to eat or drink unless someone hands it to her and encourages her. Telma does not require the use of a cane or walker nor does she receive any community services. Telma has 6 children who help as they can. Jeri has DPOA and is her primary caregiver. She has a LTM application and is planning to complete it soon. She is also working with [facility] (Telma has [employer]) to pursue help through the Aids and Attendants program. CM sent a referral to [facility] for community case managemnet, [facility], and volunteer services. Town of Residence: [place] Resides with: Child (with daughter Jeri) Significant Other/Family: [facility] Employment Status: Retired Instrumental Activities of Daily Living (ADLs): Requires support with Dishes/food prep, Home Care Attendant, Groceries, Heat/Utilities, Laundry, Transportation and Other (some help with bathing and dressing as well) Medications Medication Management: No Issues/Barriers identified Physical Functioning/Mobility Assistive Device: none Advance Directives Advance Directives: Do you have an Advance Directive: Y , 10:11 AD On File at [facility]: N 05/25/21, 10:11 Date Asked 07/31/25 Today, 08:30 AD Date Reviewed COLST On File at [facility] No 09/17/24, 19:44 COLST Date Scanned Code Status Resuscitation Status DNR/DNI Insurance Coverage/Financial Issues Insurance: Medicare [employer] Care Team Visit Care Team Role Provider Type Jose Neil MD MD [facility] STAFF PHYSICIAN Gini Todd Primary Care Provider NON-[facility] STAFF PHYSICIAN ALEXEI Valentine Emergency Provider [employer]OVERY ASSISTANT Oscar Navarro MD Admit Provider [facility] STAFF PHYSICIAN Attending Provider Discharge Potential Discharge Needs: PCP F/U Appt Anticipated Barriers to Discharge: None Identified Patient/Family Education Needs: Review discharge instructions, discuss Ask Me Three Transportation: Private vehicle Plan: Anticipate Telma will be discharged home, possibly with new home health services, when medically cleared. She will follow up with her PCP and plan of care and transport with family. CM will follow and continue to support discharge planning. Social Determinants of Health Screening Social Determinants of health last assessed in clinic: 08/01/25 Will the Patient Participate in the Screening?: Yes Do you worry about having a steady place to live?: no Problems where you live: no known problems In the past 12 months, have you had to go without electric, gas, oil or water in your home?: no 1. Within the past 12 months, we worried whether our food would run out before we got money to buy more.: Never true 2. Within the past 12 months, the food we bought just didn't last and we didn't have money to get more.: Never true Has lack of transportation kept you from medical appointments or from doing things needed for daily living?: no Has anyone in your life made you feel unsafe or unsupported?: no How hard is it for you to pay for the very basics like food, housing, medical care, and heating? Would you say it is:: Somewhat hard Do you want help finding or keeping work or a job?: I do not need or want help If for any reason you need help with day-to-day activities such as bathing, preparing meals, shopping, managing finances, etc., do you get the help you need?: I get all the help I need How often do you feel lonely or isolated from those around you?: Never Do you speak a language other than Sinhala at home?: No Does the patient want assistance with any of the above?: No Health Related Social Needs Health related social needs: problems related to housing/economic circumstances (Z59.89) Health related social needs details: patient states money doesn't go far with food PFSH All Active Problems (Updated 07/31/25 @ 22:01 by Oscar Navarro MD) Colitis (Acute) Gallstones (Acute) Septic shock (Acute) C. difficile colitis (Acute) Dementia (Chronic) HTN (hypertension) (Chronic) Pyelonephritis (Acute) Medical History Abdominal pain GIB (gastrointestinal bleeding) Sepsis Social History Smoking/Tobacco Use Status: Current every day Tobacco Type: cigarettes Smoking risk assessment performed?: Yes Alcohol Intake: never Drug use: Never Substance use type: does not use Housing: house Do you feel safe at home: Yes Do you feel safe in your relationship?: Yes
[2025-08-01] MEDS: Mylanta Suspension 30 ML CUP PO (09:03)
[2025-08-01 09:44] LABS: Troponin I 19 ng/L (<35)
--- NOTE | 2025-08-01 11:57 | CHAPLAIN ---
Telma was up in the chair visiting with two family members/friends. I introduced myself and Telma was pleasant in responding. One of her visitors asked if Telma could have something for her lips as she's not allowed anything to eat or drink currently. I checked with the nurse who asked the DRESSMAKING TEACHER to bring in some lemon swabs for Telma.
--- NOTE | 2025-08-01 12:13 | W.PM.PROGNOT ---
Date of Service Date of service: 08/01/25 Time of Service: 12:13 Assessment and Plan Assessment and plan (1) Colitis: Status: Acute Assessment and plan: -as seen on CT abdo/pelvis -started on CTX and flagyl, will continue with plans to transition to PO cefpodoxime and azithro tomorrow 08/02 -f/u stool studies (2) Dementia: Status: Chronic Assessment and plan: -Continue with home Nam[place]. (3) RENITA (acute kidney injury): Assessment and plan: -slight increased in Cr from admission 1.3 -> 1.46 -continue with IV fluids -f/u AM BMP Discharge Planning Discharge Planning: once abdominal pain and Cr improve and patient is back to or closer to mental status baseline, hopefully by 08/02 Subjective Subjective Interval history since last seen: Patient appears confused but is able to report she has no complaints or concerns at this time. Exam Narrative Exam Narrative: elderly female laying in bed in no acute distress, awake, alert, oriented to person only, heart RRR, lungs CTAB, abdomen soft, non-tender, non-distended Objective Last Vital Signs Temp 98.2 F 08/01/25 08:49 Pulse 70 08/01/25 08:49 Resp 20 08/01/25 08:49 BP 147/74 H 08/01/25 08:49 Pulse Ox 97 08/01/25 08:49 Laboratory Results - last 24 hr 07/31/25 07/31/25 07/31/25 16:45 18:15 22:00 WBC 13.57 H RBC 5.30 H Hgb 15.3 Hct 46.8 H MCV 88 MCH 28.9 MCHC 32.7 RDW 13.6 Plt Count 180 MPV 9.9 Immature Gran % 0.4 Neutrophils % 84.5 Lymphocytes % 8.8 Monocytes % 6.0 Eosinophils % 0.1 Basophils % 0.2 Nucleated RBC % 0.0 Absolute Neutrophils 11.47 H Absolute Lymphocytes 1.19 L Absolute Monocytes 0.81 H Absolute Eosinophils 0.01 Absolute Basophils 0.03 ESR 4 VBG Lactate 4.3 H* Sodium 145 Potassium 3.8 Chloride 105 Carbon Dioxide 25.8 Anion Gap 14.2 H BUN 22 Creatinine 1.33 H Est GFR (CKD-EPI 2020) 38.24 Glucose 172 H Calcium 8.9 Magnesium 2.0 Total Bilirubin 0.50 AST 36 H ALT 17 Alkaline Phosphatase 64 Troponin I C-Reactive Protein < 0.50 Total Protein 7.3 Albumin 4.3 Lipase 43 Procalcitonin Urine Color Urine Clarity Urine pH Ur Specific [place] Urine Protein Urine Ketones Urine Blood Urine Nitrite Urine Bilirubin Urine Urobilinogen Ur Leukocyte Esterase Urine RBC Urine WBC Ur Epithelial Cells Urine Crystals Urine Bacteria Urine Casts Urine Mucus Ur Culture Indicated? Urine Glucose Stl C.difficile Tox PCR Negative COVID-19 Source Nasal/Nares SARS-CoV-2 (PCR) Negative Influenza Type A (PCR) Influenza Type B (PCR) RSV (PCR) 08/01/25 08/01/25 08/01/25 00:25 00:26 05:35 WBC RBC Hgb Hct MCV MCH MCHC RDW Plt Count MPV Immature Gran % Neutrophils % Lymphocytes % Monocytes % Eosinophils % Basophils % Nucleated RBC % Absolute Neutrophils Absolute Lymphocytes Absolute Monocytes Absolute Eosinophils Absolute Basophils ESR VBG Lactate 3.2 H* Sodium Potassium Chloride Carbon Dioxide Anion Gap BUN Creatinine Est GFR (CKD-EPI 2020) Glucose Calcium Magnesium Total Bilirubin AST ALT Alkaline Phosphatase Troponin I C-Reactive Protein Total Protein Albumin Lipase Procalcitonin Urine Color Dark Yellow Urine Clarity Sl Cloudy Urine pH 5.0 Ur Specific [place] 1.010 Urine Protein 30 H Urine Ketones Trace H Urine Blood Negative Urine Nitrite Negative Urine Bilirubin Small H Urine Urobilinogen 0.2 Ur Leukocyte Esterase Negative Urine RBC 0-2 Urine WBC 3-5 Ur Epithelial Cells Few Urine Crystals Negative Urine Bacteria Few Urine Casts Negative Urine Mucus Trace Ur Culture Indicated? No Urine Glucose Negative Stl C.difficile Tox PCR COVID-19 Source Nasopharynx SARS-CoV-2 (PCR) Negative Influenza Type A (PCR) Negative Influenza Type B (PCR) Negative RSV (PCR) Negative 08/01/25 08/01/25 06:00 09:15 WBC 8.91 RBC 4.31 Hgb 12.9 D Hct 38.0 MCV 88 MCH 29.9 MCHC 33.9 RDW 13.8 Plt Count 162 MPV 10.2 Immature Gran % 0.3 Neutrophils % 69.9 Lymphocytes % 21.9 Monocytes % 7.4 Eosinophils % 0.1 Basophils % 0.4 Nucleated RBC % 0.0 Absolute Neutrophils 6.22 Absolute Lymphocytes 1.95 Absolute Monocytes 0.66 Absolute Eosinophils 0.01 Absolute Basophils 0.04 ESR VBG Lactate Sodium 143 Potassium 3.8 Chloride 107 Carbon Dioxide 24.2 Anion Gap 11.8 H BUN 27 H Creatinine 1.46 H Est GFR (CKD-EPI 2020) 34.34 Glucose 103 Calcium 8.1 L Magnesium Total Bilirubin 0.50 AST 25 ALT 14 Alkaline Phosphatase 46 Troponin I 19 C-Reactive Protein Total Protein 6.3 Albumin 3.6 Lipase Procalcitonin 7.16 Urine Color Urine Clarity Urine pH Ur Specific [place] Urine Protein Urine Ketones Urine Blood Urine Nitrite Urine Bilirubin Urine Urobilinogen Ur Leukocyte Esterase Urine RBC Urine WBC Ur Epithelial Cells Urine Crystals Urine Bacteria Urine Casts Urine Mucus Ur Culture Indicated? Urine Glucose Stl C.difficile Tox PCR COVID-19 Source SARS-CoV-2 (PCR) Influenza Type A (PCR) Influenza Type B (PCR) RSV (PCR) VTE Prohylaxis Risk Level: Moderate/High Risk Contraindications: None Prophylaxis: Pharmacologic Time Spent with Patient Time Spent with Patient: >50 minutes Time was spent: preparing to see the patient(eg.review tests), obtaining and/or reviewing separately otained hiistory, ordering medications,tests, procedures, referring, communicating with other health continuum of care manager, indepentently interpreting results, counseling the patient and care coordination
--- NOTE | 2025-08-01 12:45 | PHA.REVIEW2 ---
Pharmacy Admission Review Admission Clinical Review Admission Pharmacy Review: Colitis (Acute) tramadol Allergy (Mild, Unverified 07/31/25 16:27) Unknown bupropion (From Zyban) Allergy (Unverified 07/31/25 16:27) Unknown clindamycin Allergy (Unverified 07/31/25 16:27) Unknown gemfibrozil Allergy (Unverified 07/31/25 16:27) Unknown niacin (From Niaspan Extended-Release) Allergy (Unverified 07/31/25 16:27) Unknown Penicillins Allergy (Unverified 07/31/25 16:27) Unknown Resuscitation Status DNR/DNI Height 4 ft 10 in Weight 61.4 kg Comments Comments/Follow Ups: monitor SCr and CrCl with RENITA. Pharmacy Admission Review Renal Dosing Renal Dosing: BUN 27 mg/dL (9-23) H 08/01/25 06:00 Creatinine 1.46 mg/dL (0.55-1.02) H 08/01/25 06:00 Medications needing adjustments: Reviewed (scr=1.46 crcl=28 ml/min; reviewed meds-no adjustments needed at this time. ) Anticoagulation Anticoagulation: Hgb 12.9 g/dL (11.2-15.7) D 08/01/25 06:00 Hct 38.0 % (36.0-46.0) 08/01/25 06:00 Plt Count 162 10^3/uL (130-400) 08/01/25 06:00 Creatinine 1.46 mg/dL (0.55-1.02) H 08/01/25 06:00 DVT Prophylaxis: N/A (no chemical dvt prophylaxis ordered; pt is not high risk and getting out of bed (most likely will discharged tomorrow)) Opiate Usage Evaluate Pain Scale/Pains Meds: N/A (no opioids ordered) Relevant Labs Relevant Labs: ESR 4 mm/hr (0-30) 07/31/25 18:15 Sodium 143 mmol/L (136-145) 08/01/25 06:00 Potassium 3.8 mmol/L (3.5-5.1) 08/01/25 06:00 Chloride 107 mmol/L (98-107) 08/01/25 06:00 Magnesium 2.0 mg/dL (1.6-2.6) 07/31/25 18:15 C-Reactive Protein < 0.50 mg/dL (<=0.50) 07/31/25 18:15 Electrolytes, C-Reactive P, ESR: Reviewed (reviewed labs; slight trend up in Scr-continue to monitor. ) DM Control Insulin Dosing, Diabetic Medication: am [id number]; no history of DM Cardiac Review Cardiac Review: Troponin I 19 ng/L (<35) 08/01/25 09:15 BP, HR, EF%: Reviewed (bp and hr within normal limits. On home metoprolol, imdur) QTc Review QTc: Reviewed List meds needing interventions: [id number] on 08/01. no intervention needed at this time. IV to PO Switch IV Medications: Reviewed (taking po meds) Home Meds Home Med List reviewed: Reviewed Relevent Home Meds Not ordered & why?: home meds ordered; trandolapril non formulary-requested for someone to bring in for pt. Hydrochlorothiazide held while giving pt IV fluids in light of RENITA. Current Meds Current Medication Order Review: Reviewed (reviewed current meds; no changes at this time. ) Pharmacy Antibiotic Review Relevant Labs: Relevant Labs 08/01/25 07/31/25 06:00 18:15 C-Reactive Protein < 0.50 Procalcitonin 7.16 Pharmacy Antibiotic Activity: Reviewed, no change (on ceftriaxone and metronidazole for possible colitis-will change to PO tomorrow. ) Comments Comments/Follow Ups: monitor SCr and CrCl with RENITA.
--- NOTE | 2025-08-01 15:28 | IN_ITS ---
PT Notes Visit Reasons: Colitis Physical Therapy Inpatient Initial Evaluation Date: 08/01/2025 Referring Doctor: Jose Neil MD PT Orders: PT CONSULT: Eval for D/C safety Precautions: Fall. Standard. Activity as tolerated. Dementia, IV access BUE anterior cubital. Patient Profile/Admitting Diagnosis: 80-year-old female presented to the ED for colitis. CT of the abdomen and pelvis confirmed colitis of the descending colon and multiple calculi of the gallbladder PMHX: Colitis (Acute) Gallstones (Acute) Septic shock (Acute) C. difficile colitis (Acute) Dementia (Chronic) HTN (hypertension) (Chronic) Pyelonephritis (Acute) Medical History Abdominal pain GIB (gastrointestinal bleeding) Sepsis Social History/Home Situation: Pt lives in single family home with daughter. Pt has 3 steps to enter with railing on both sides. Pt wasn?t using any AD at home Equipment Owned/DME: no AD Subjective: Pt reported feeling well, and wanting to go home. Objective: General Observation: Pt laying in recliner accompanied by daughter (not the one she lives with). Pt had no pants, and was covered with a blanket, PT provided pt with some pants before attempting ambulation. Mental Status: Alert and oriented as to person, place, time, and purpose. Able to pay attention, focus, and respond appropriately. Pt sometimes need extra time to respond, and can have difficulty finding words. Coordination: pt was able to follow along with toe tapping pattern, but once the pace picked up, she was unable to maintain this pattern and turning into a reciprocal toe tap pattern. Pt was able to clap her hands together and slap her thighs. She was able to maintain this pattern, but as the speed increased pt coordination decreased and pt struggled to clap her hands together. Pain: No pain ?because of the IV I have in? Vital Signs: monitored by nursing ROM: Right Upper Extremity: Grossly WFL Left Upper Extremity:? Grossly WFL Right Lower Extremity: Grossly WFL. Left Lower Extremity: Grossly WFL Strength: Right Upper Extremity: Grossly 4/5 Left Upper Extremity: Grossly 4/5 Right Lower Extremity: Grossly 4/5 Left Lower Extremity: Grossly 4/5 Bed Mobility/Transfers: Rolling Independent Supine to sit Independent Sit to supine Independent Sit to stand Supervision Stand to sit Supervision with and without FWW Gait: Instructed patient with level surface ambulation of 55 feet requiring FWW and CGA. Chantale normal. Step height normal. Step length normal. Stairs: pt ambulated 2 6inch steps and 3 4-inch steps. With rails on both sides CGA. Pt had a reciprocal walking pattern. And had difficulty maintaining balance during descending portion of stairs. Balance: Static Sitting: normal Dynamic Sitting: normal Static Standing: good Dynamic Standing: good Special Tests: Mobility Limitations Standardized Measure [facility] 6 clicks Basic Mobility Inpatient Short Form: Raw Score:??? 23? CMS Score: 11.2% deficit? Informed Consent/Education:? Patient was instructed in purpose of PT consult and plan of care. Agreeable to proceed with established PT POC to achieve personal goals. Therapeutic Activity: Ambulation: Pt ambulated on level surface of 245 feet requiring supervision and no AD. Chantale normal. Step height normal. Step length normal. Stairs: pt ambulated 2 6inch steps and 3 4 inch steps. With rails on both sides supervision. Pt had a reciprocal walking pattern ascending the stairs and a step to pattern descending. Assessment: ? Pt felt well today. Pt was able perform all bed mobility independently. Pt was able to sit to stand with a FWW. Then patient was able to ambulate well with a FWW and showed no signs of loss of balance or lightheadedness. From that point PT removed the FWW while still providing supervision. Pt continued to need verbal directions, and to slow down as pt had an IV line and PT didn?t want the patient pulling it out. Pt was able to complete the stairs with a reciprocal pattern while holding on to both rails CGA. With the reciprocal pattern, the patient showed signs of unsteadiness and buckled a little. DPTS had the patient perform the stairs again, but this time perform a step to pattern while descending. Pt was able to complete the task, and looked steadier and didn?t buckle at all. Next session PT will have the patient perform the stairs again, this time hoping to advance the patient to independent, to supervise home living. PT will also have the patient ambulate 600feet to simulate walking in the community. Patient presents with clinical signs and symptoms consistent with current/admitting diagnoses that have resulted to mobility limitations, gait instability, generalized weakness, and overall, ADL decline as demonstrated by the following impairment level findings: 1.? Decreased strength to B UE/LE major muscle groups 2.? Impaired standing balance 3.? Impaired activity tolerance Impairments are contributing to the following functional limitations: 1.? Increased risk for falls 2.? Difficulty with managing steps alone safely Patient is assessed as a Low complexity based on the following: History: 80-year-old female with past medical history as indicated above Examination: Demonstrable impairment in strength, balance, and mobility level with underlying impairments and functional limitations as exhibited above as well as deficit score of 11.2% utilizing the [facility] Mobility Inpatient Short Form Presentation: stable but evolving Decision Making: Low complexity Goals: Goals X1 week 1. Independent gait on level surface with use of no AD for at least 600 feet without report of pain nor dyspnea 2. Independent stair negotiation while holding onto 2 rails for at least 6 steps without report of pain nor dyspnea 3. Good static and dynamic standing balance/tolerance Plan of Care/Treatment Plan: 1-2x/day, 7 days/week x 1 week. Plan of care has been reviewed with the GASTROENTEROLOGY PROFESSOR providing the service under Physical Therapy direction. Initiate Physical Therapy intervention for pain management as needed, strengthening, bed mobility, transfers, gait, stairs, balance training, and use of assistive device. DISCHARGE RECOMMENDATIONS: Home with no services TREATMENT CODE/TIME: 82531,72701/2:50pm-3:20pm Thank you for the opportunity to participate in the care of this patient. Written by Gilberto Lockhart DPTS Supervised by: [facility] [place], [place]
[2025-08-01] MEDS: Memantine 5 MG TAB PO (19:59)
[2025-08-02 03:50] VITALS: BP 128/57; PULSE 67; RESP 16; TEMP 36.4; O2SAT 90
[2025-08-02] MEDS: metroNIDAZOLE 500 MG/100 ML BAG 100 MG IVPB (04:07)
[2025-08-02 07:41] LABS: Anion Gap 9.1 mmol/L (3-11); BUN 14 mg/dL (9-23); CO2 25.9 mmol/L (20.0-31.0); Calcium 7.6 mg/dL (8.3-10.6); Chloride 111 mmol/L (98-107); Glucose 85 mg/dL (74-106); Potassium 3.5 mmol/L (3.5-5.1); Sodium 146 mmol/L (136-145)
[2025-08-02 07:45] VITALS: BP 147/63; PULSE 68; RESP 16; TEMP 36.1; O2SAT 96
[2025-08-02] MEDS: Magnesium Chloride 64 MG TABCR PO (08:20)
[2025-08-02] MEDS: Isosorbide Mononitrate 30 MG TABCR PO (08:21)
[2025-08-02] MEDS: Lactobacillus Acidophilus CAP 1 CAP PO (08:21)
[2025-08-02] MEDS: Atorvastatin 10 MG TAB PO (08:21)
[2025-08-02] MEDS: Normal Saline Flush 10 ML SYR IVP (08:22)
[2025-08-02] MEDS: Metoprolol 12.5 MG TAB PO (08:38)
--- NOTE | 2025-08-02 09:38 | CMDISCH_ITS ---
Date of service: 08/02/25 Time of Service: 09:38 LACE Index Scoring Tool Questions: Length of Stay (in days): 2 Was the patient admitted via the E.D.?: Yes Comorbidities: Dementia E.D. Visits: 1 Answers: Total Score: 9 Risk of Readmission: Low Risk Care Management Discharge Plan Reason for Hospitalization: Colitis Discharge Plan: Telma will be discharged home with no new services indicated. She will follow up with her community providers and discharge plan of care. Telma will be transported by her daughter. Patient/Family Education Needs: review of discharge instruction, activity, limitations, and plan of care. Discuss ask me three. SDOH Health Related Social Needs: Health related social needs house/econ circumstance Health related social needs details patient states mon ey doesn't go far with food Health related social needs details: patient states money doesn't go far with food
--- NOTE | 2025-08-02 09:53 | W.PM.DS.N ---
Date of service: 08/02/25 Time of Service: 09:53 DS: Diagnosis Discharge Diagnosis (1) Colitis: Status: Acute (2) Dementia: Status: Chronic (3) RENITA (acute kidney injury): Discharge Plan Disposition Patient Disposition: Home Condition: Good Discharge Details Reason For Visit: Colitis Admit Date/Time: 07/31/25 21:51 Admit Provider: Oscar Navarro Attending Provider: Oscar Navarro Primary Care Provider: Gini Todd [facility] Course Hospital Course: Patient initially presented to the hospital with worsening abdominal pain and episode of melena that was found to be secondary to colitis. During hospitalization patient did not have any additional episodes of melena and had significant improvement of her abdominal pain while being treated with ceftriaxone and Flagyl. Patient was able to tolerate regular diet and again had bowel movement without melena. Given that she has improved and is back to her baseline it was determined that she was stable for discharge home and will have an additional 5 days of p.o. cefpodoxime and Flagyl. Home Meds and New Rx's Prescriptions: New metronidazole 500 mg tablet 500 mg PO BID 5 Days Qty: 10 0RF cefpodoxime 200 mg tablet 200 mg PO BID Qty: 10 0RF Rx Instructions: must administer with a meal/food Continued metoprolol tartrate 25 mg Tablet 12.5 mg PO BID Qty: 90 0RF Bio-K plus 50 billion cell capsule,delayed release(DR/EC) 1 cap PO DAILY Qty: 10 0RF magnesium chloride [Mag 64] 64 mg Tablet,Delayed Release (Dr/Ec) 64 mg PO TID Qty: 90 0RF memantine 5 mg tablet 5 mg PO QPM Patient Comments: TAKE 1 TABLET BY MOUTH EVERY DAY trandolapril 4 mg Tablet 4 mg PO DAILY atorvastatin 10 mg Tablet 10 mg PO DAILY isosorbide mononitrate 30 mg Tablet Extended Release 24 Hr 30 mg PO DAILY hydrochlorothiazide 12.5 mg Tablet 12.5 mg PO DAILY Discharge Instructions Stand Alone Forms: Portal Information Activity:: Activity as Tolerated Equipment/Supplies:: No Equipment Needed Diet:: As Tolerated Discharge Orders Discharge Orders: Discharge Order (Routine); Ordered 08/02/25 Ordered By: Jose Neil DS: Summary Time Spent with Patient providing and/or coordinating discharge services: Greater than 30 minutes Status at Discharge Functional status at discharge: independent ambulation Overall status at discharge: patient is back to baseline Mental Status: mental status grossly normal Speech and Movement: speech and movement normal Mood: congruent mood Affect: normal affect Quality:SDOH Health Related Social Needs: Health related social needs house/econ circumstance Health related social needs details patient states money doesn't go far with food Health related social needs details: patient states money doesn't go far with food Exam Narrative Exam Narrative: elderly female laying in bed in no acute distress, awake, alert, oriented to person only, heart RRR, lungs CTAB, abdomen soft, non-tender, non-distended Psych Mental Status: mental status grossly normal Speech and Movement: speech and movement normal Mood: congruent mood Affect: normal affect DS: Data Vitals/I&O Vitals and I&O: Vital Signs Temperature 97.0 F L 08/02/25 07:45 Temperature Source Temporal Artery Scan 08/02/25 07:45 Pulse 68 08/02/25 07:45 Pulse Rhythm Regular 07/31/25 23:37 Respiratory Rate 16 08/02/25 07:45 Respiratory Effort Normal, Non-Labored 07/31/25 23:37 Respiratory Depth Normal 07/31/25 23:37 Respiratory Pattern Normal 07/31/25 23:37 Blood Pressure 147/63 H 08/02/25 07:45 Blood Pressure Mean 91 08/02/25 07:45 Pulse Oximetry 96 08/02/25 07:45 Oxygen Delivery Method Room Air 08/02/25 07:45 Oxygen Flow Rate 0 08/02/25 07:45 Pain Level 0 08/02/25 07:45 Comment RN notified 08/01/25 15:43 Intake & Output 08/01/25 08/02/25 08/02/25 17:59 05:59 17:59 Intake Total 2039 1610 / 3650 640 / 640 Output Total 700 / 700 300 / 300 Balance 2039 910 / 2950 340 / 340 Weight 138 lb 0.15 oz Intake: IV 2039 1610 / 3650 640 / 640 Output: Urine 700 / 700 300 / 300 Other: Urine Color Yellow Pale Urine Appearance Clear Clear Urine Odor Normal Normal Comment pt voids to toilet. Stool Size Small Small Stool Characteristics Liquid Liquid Brown Data Completed and Pending Pending Labs at Discharge: 07/31/25 07/31/25 07/31/25 16:45 18:15 22:00 WBC 13.57 H RBC 5.30 H Hgb 15.3 Hct 46.8 H MCV 88 MCH 28.9 MCHC 32.7 RDW 13.6 Plt Count 180 MPV 9.9 Immature Gran % 0.4 Neutrophils % 84.5 Lymphocytes % 8.8 Monocytes % 6.0 Eosinophils % 0.1 Basophils % 0.2 Nucleated RBC % 0.0 Absolute Neutrophils 11.47 H Absolute Lymphocytes 1.19 L Absolute Monocytes 0.81 H Absolute Eosinophils 0.01 Absolute Basophils 0.03 ESR 4 VBG Lactate 4.3 H* Sodium 145 Potassium 3.8 Chloride 105 Carbon Dioxide 25.8 Anion Gap 14.2 H BUN 22 Creatinine 1.33 H Est GFR (CKD-EPI 2020) 38.24 Glucose 172 H Calcium 8.9 Magnesium 2.0 Total Bilirubin 0.50 AST 36 H ALT 17 Alkaline Phosphatase 64 Troponin I C-Reactive Protein < 0.50 Total Protein 7.3 Albumin 4.3 Lipase 43 Procalcitonin Urine Color Urine Clarity Urine pH Ur Specific [place] Urine Protein Urine Ketones Urine Blood Urine Nitrite Urine Bilirubin Urine Urobilinogen Ur Leukocyte Esterase Urine RBC Urine WBC Ur Epithelial Cells Urine Crystals Urine Bacteria Urine Casts Urine Mucus Ur Culture Indicated? Urine Glucose Stool Campylobacter PCR Stl C.difficile Tox PCR Negative Stool Salmonella PCR Stool Shigella PCR COVID-19 Source Nasal/Nares SARS-CoV-2 (PCR) Negative Influenza Type A (PCR) Influenza Type B (PCR) RSV (PCR) Shiga Toxin (PCR) 08/01/25 08/01/25 08/01/25 00:25 00:26 05:35 WBC RBC Hgb Hct MCV MCH MCHC RDW Plt Count MPV Immature Gran % Neutrophils % Lymphocytes % Monocytes % Eosinophils % Basophils % Nucleated RBC % Absolute Neutrophils Absolute Lymphocytes Absolute Monocytes Absolute Eosinophils Absolute Basophils ESR VBG Lactate 3.2 H* Sodium Potassium Chloride Carbon Dioxide Anion Gap BUN Creatinine Est GFR (CKD-EPI 2020) Glucose Calcium Magnesium Total Bilirubin AST ALT Alkaline Phosphatase Troponin I C-Reactive Protein Total Protein Albumin Lipase Procalcitonin Urine Color Dark Yellow Urine Clarity Sl Cloudy Urine pH 5.0 Ur Specific [place] 1.010 Urine Protein 30 H Urine Ketones Trace H Urine Blood Negative Urine Nitrite Negative Urine Bilirubin Small H Urine Urobilinogen 0.2 Ur Leukocyte Esterase Negative Urine RBC 0-2 Urine WBC 3-5 Ur Epithelial Cells Few Urine Crystals Negative Urine Bacteria Few Urine Casts Negative Urine Mucus Trace Ur Culture Indicated? No Urine Glucose Negative Stool Campylobacter PCR Stl C.difficile Tox PCR Stool Salmonella PCR Stool Shigella PCR COVID-19 Source Nasopharynx SARS-CoV-2 (PCR) Negative Influenza Type A (PCR) Negative Influenza Type B (PCR) Negative RSV (PCR) Negative Shiga Toxin (PCR) 08/01/25 08/01/25 08/01/25 06:00 09:15 11:24 WBC 8.91 RBC 4.31 Hgb 12.9 D Hct 38.0 MCV 88 MCH 29.9 MCHC 33.9 RDW 13.8 Plt Count 162 MPV 10.2 Immature Gran % 0.3 Neutrophils % 69.9 Lymphocytes % 21.9 Monocytes % 7.4 Eosinophils % 0.1 Basophils % 0.4 Nucleated RBC % 0.0 Absolute Neutrophils 6.22 Absolute Lymphocytes 1.95 Absolute Monocytes 0.66 Absolute Eosinophils 0.01 Absolute Basophils 0.04 ESR VBG Lactate Sodium 143 Potassium 3.8 Chloride 107 Carbon Dioxide 24.2 Anion Gap 11.8 H BUN 27 H Creatinine 1.46 H Est GFR (CKD-EPI 2020) 34.34 Glucose 103 Calcium 8.1 L Magnesium Total Bilirubin 0.50 AST 25 ALT 14 Alkaline Phosphatase 46 Troponin I 19 C-Reactive Protein Total Protein 6.3 Albumin 3.6 Lipase Procalcitonin 7.16 Urine Color Urine Clarity Urine pH Ur Specific [place] Urine Protein Urine Ketones Urine Blood Urine Nitrite Urine Bilirubin Urine Urobilinogen Ur Leukocyte Esterase Urine RBC Urine WBC Ur Epithelial Cells Urine Crystals Urine Bacteria Urine Casts Urine Mucus Ur Culture Indicated? Urine Glucose Stool Campylobacter PCR Pending Stl C.difficile Tox PCR Stool Salmonella PCR Pending Stool Shigella PCR Pending COVID-19 Source SARS-CoV-2 (PCR) Influenza Type A (PCR) Influenza Type B (PCR) RSV (PCR) Shiga Toxin (PCR) Pending 08/02/25 07:10 WBC RBC Hgb Hct MCV MCH MCHC RDW Plt Count MPV Immature Gran % Neutrophils % Lymphocytes % Monocytes % Eosinophils % Basophils % Nucleated RBC % Absolute Neutrophils Absolute Lymphocytes Absolute Monocytes Absolute Eosinophils Absolute Basophils ESR VBG Lactate Sodium 146 H Potassium 3.5 Chloride 111 H Carbon Dioxide 25.9 Anion Gap 9.1 BUN 14 Creatinine 0.95 Est GFR (CKD-EPI 2020) 56.38 Glucose 85 Calcium 7.6 L Magnesium Total Bilirubin AST ALT Alkaline Phosphatase Troponin I C-Reactive Protein Total Protein Albumin Lipase Procalcitonin Urine Color Urine Clarity Urine pH Ur Specific [place] Urine Protein Urine Ketones Urine Blood Urine Nitrite Urine Bilirubin Urine Urobilinogen Ur Leukocyte Esterase Urine RBC Urine WBC Ur Epithelial Cells Urine Crystals Urine Bacteria Urine Casts Urine Mucus Ur Culture Indicated? Urine Glucose Stool Campylobacter PCR Stl C.difficile Tox PCR Stool Salmonella PCR Stool Shigella PCR COVID-19 Source SARS-CoV-2 (PCR) Influenza Type A (PCR) Influenza Type B (PCR) RSV (PCR) Shiga Toxin (PCR) Preliminary micro results at discharge 07/31/25 20:00 Blood Blood Culture - Preliminary NO GROWTH 24 HOURS 07/31/25 19:00 Blood Blood Culture - Preliminary NO GROWTH 24 HOURS PFSH All Active Problems (Updated 07/31/25 @ 22:01 by Oscar Navarro MD) Colitis (Acute) Gallstones (Acute) Septic shock (Acute) C. difficile colitis (Acute) Dementia (Chronic) HTN (hypertension) (Chronic) Pyelonephritis (Acute) Medical History Abdominal pain GIB (gastrointestinal bleeding) Sepsis Social History Smoking/Tobacco Use Status: Current every day Tobacco Type: cigarettes Smoking risk assessment performed?: Yes Alcohol Intake: never Drug use: Never Substance use type: does not use Housing: house Do you feel safe at home: Yes Do you feel safe in your relationship?: Yes Time Spent with Patient Time Spent with Patient: <45 minutes Time was spent: preparing to see the patient(eg.review tests), obtaining and/or reviewing separately otained hiistory, ordering medications,tests, procedures, referring, communicating with other health interior plant caretaker, indepentently interpreting results, counseling the patient and care coordination
--- NOTE | 2025-08-02 11:18 | PT.INTREAT ---
PT Notes Visit Reasons: Colitis Inpatient Physical Therapy Treatment Note [facility] Date: 08/02/2025 PRECAUTIONS: Standard, Fall, Dementia SUBJECTIVE: Pt reported feeling well, and wanted to go home today. OBJECTIVE:? PAIN: no pain reported VITALS: ? Monitored by Nursing Therapeutic Activities ([id number][]): Direct one-on-one instruction in dynamic activities to improve functional performance. ? BED MOBILITY/TRANSFERS? Sit-stand: Independent? Stand-sit: independent? PT Provided skilled cues and instruction on performance and technique throughout. Ambulation: Pt ambulated on level surface of 694 feet requiring supervision and no AD. Chantale normal. Step height normal. Step length normal. PT provided verbal cueing for directions, and monitored pt level of fatigue Stairs: pt ambulated 2 6inch steps and 3 4-inch steps 3 times. With rails on both sides? independently. Pt had a reciprocal walking pattern ascending the stairs descending the 4inch steps and a step to pattern descending the 6inch steps. Scavenger davey: PT put multiple cones of different colors around the room in places high and low. Then PT asked the pt to find specific-colored cones and bring them to the PT. ASSESSMENT:?Pt performed well today. She was able to ambulate 694 total feet no AD supervision. Pt showed no signs of LOB or fatigue. DPTS proved directions and monitored pt level of fatigue. DPTS asked around the 200 feet, 350 feet, 500, and 650 feet. Pt declined feeling fatigued at every point. Pt was also able to navigate her way through tight corners are around objects with minimal directions. Pt was able to complete the stairs multiple times. She continues to have difficulty with descending the 6inch steps. However, unlike yesterday where she buckled a little bit, today she was able to control her descent more effectively. PT informed the pt the difficulty may be d/u her height and pt may have to perform a step to pattern while descending taller steps. Pt recognized this and was able to perform this action. Once back in the room PT asked the PT to find specific-colored cones and to bring the cones to the PT. Pt was able to do so with minimal hints. Pt required 1 cue to reorient to task after stating what were we doing again? Pt was able to take her time and not erazo and took her time to insure she was safe in her surroundings. PLAN: 1-2x/day, 7 days/week x 1 week. Plan of care has been reviewed with the PRODUCTION SPECIALIST providing the service under Physical Therapy direction. Initiate Physical Therapy intervention for pain management as needed, strengthening, bed mobility, transfers, gait, stairs, balance training, and use of assistive device ?TREATMENT CODE/TIME: 16081/9:48am-10:15am DISCHARGE RECOMMENDATION: Home with no services. Written By Gilberto Lockhart DPTS Supervised BY Destiny [facility] PT
[2025-08-02 11:24] LABS: Campylobacter PCR Negative (Negative); Shiga Toxin PCR Negative (Negative); Shigella/Enteroinvasive Ecoli Negative (Negative)
== END 2025-08-02 10:35 | disposition home or self-care (01) | DRG 872 ==
LOC: ER 16:58 → MS 23:33
PROVIDERS: Admitting Provider Hospitalist; Emergency Provider Physician Assistant; PCP Internal Medicine; Responsible Provider Family Medicine; Visit Provider Hospitalist
DX: K52.9 Noninfective gastroenteritis and colitis, unspecified (principal); N17.9 Acute kidney failure, unspecified; F01.B0 Vascular dementia, moderate, without behavioral disturbance, psychotic disturbance, mood disturbance, and anxiety; E86.0 Dehydration; I10 Essential (primary) hypertension; F17.210 Nicotine dependence, cigarettes, uncomplicated; A41.9 Sepsis, unspecified organism; K92.1 Melena; R65.20 Severe sepsis without septic shock; Z79.899 Other long term (current) drug therapy; Z59.9 Problem related to housing and economic circumstances, unspecified; Z86.19 Personal history of other infectious and parasitic diseases; I25.10 Atherosclerotic heart disease of native coronary artery without angina pectoris
CPT/HCPCS: 00123; 36415; 80048; 80053; 83690; 84145; 85652; 87040; 87505; 87635; 87637; 96365; 96366; 96367; 97161; 97530; 99285; 74177; 81003; 81015; 83605; 83735; 84484; 85025; 86140; 93005; 93010; 99222; 99233; 99239; J0692; J0696; J1836; J3373; J3490